=== PATIENT | female | born 1940 | race Caucasian/White ===

== ENCOUNTER 2016-12-22 16:49 | Inpatient (IN) | payer MEDICARE ==
[~2016-12-22] VITALS: Ht 157.5 cm; Wt 77.2 kg
[~2016-12-22 16:49] MED LIST: ASPI81TA11 PO; COUM2.5T11 PO; HYDR25TAB PO; LYRI75CA PO; MELO7.5T6 PO; METF850T PO; OMEP20CA3 PO; TYLE325T5 PO; ULTR50TA PO; VENL50TA2 PO; ZEST1TAB9 PO; alphagan OU; estrace cream; lumigan OU
[2016-12-22 19:30] VITALS: BP 135/92
[2016-12-22] MEDS ORDERED: ONDANSETRON 4MG/2ML VIAL (J2405) IV PRN (19:45)
[2016-12-22] MEDS ORDERED: METOPROLOL 5 MG/5 ML VIAL IV STA ×2 (20:12→20:54)
[2016-12-22] MEDS ORDERED: DEXTROSE 50% 50 ML SYRINGE IV PRN (20:15)
[2016-12-22] MEDS ORDERED: GLUCOSE 4 GM CHEW TABLET PO PRN (20:15)
[2016-12-22] MEDS ORDERED: GLUCAGON FOR INJ 1 MG VIAL (J1610) SC PRN (20:15)
[2016-12-22] MEDS: HumaLOG INSULIN (NovoLOG) PER UNIT SC SCH (20:30)
[2016-12-22] MEDS: ENOXAPARIN 80 MG/0.8 ML SYRINGE (J1650) SC SCH (21:00)
[2016-12-22] MEDS: OMEPRAZOLE 20 MG CAP PO SCH (21:00)
[2016-12-22] MEDS: ACETAMINOPHEN TAB 650MG DOSE (2X325MG) PO PRN (21:29)
[2016-12-22] MEDS ORDERED: VANCOMYCIN HCL 1,000 MG, VIAL MATE ADAPTER 1 EACH in D5W 250 ML IV ONE (22:00)
[2016-12-22] MEDS: NORCO, ANEXSIA 5/325MG TABLET (HYDROcodone/ACETAMINOPHEN) PO PRN (22:26)
--- NOTE | 2016-12-22 22:26 | HPE ---
DATE OF ADMISSION: 12/22/2016 PRIMARY CARE PROVIDER: Dr. Bennett. SHEET TAILER: Dr. Drake. CHIEF COMPLAINT: Chest pain, nausea, fever. HISTORY OF PRESENT ILLNESS: This is a 76-year-old female patient with underlying medical history of rheumatoid arthritis, type 2 diabetes, hypertension, initially presented to [facility], initially developed an episode of chest pain on this week with one episode of nausea and vomiting. Chest pain last 1-2 hours, subsequently resolved. Baseline ambulating with a cane. The patient presented to [facility] at [facility], had three sets of cardiac enzymes which were negative. While at [facility], the patient developed episode of fever of 101, and also developed atrial fibrillation with rapid ventricular response, given beta blockers. Has not been started on anticoagulation as per [facility] attending physician. Furthermore, the patient reported three episodes of diarrhea over the last 24 hours. Denies history of atrial fibrillation. Denies any palpitations, but does report generalized weakness. Furthermore, currently the patient denies any chest pain. No further episode of chest pain since . Denies any abdominal pain. Reported coughing. No shortness of breath. The patient is on methotrexate for rheumatoid arthritis. Subsequently arrangements were made for patient to be transferred from [facility] to [facility] for further diagnosis and workup for fever of unknown origin and further management of atrial fibrillation with rapid ventricular response. The patient currently denies any nausea or vomiting, but does feel very weak. Denies any abdominal pain. Denies any vision change. Reported palpitations. Reported cough nonproductive. Denies any urinary complaints, any bruising, redness, or any other source of infection at this time. No recent surgery reported. Denies any headache or neck stiffness. ALLERGIES: No known drug allergies. PAST MEDICAL HISTORY: 1. Rheumatoid arthritis. 2. Type 2 diabetes. 3. Hypertension. PAST SURGICAL HISTORY: 1. Cholecystectomy. 2. Hysterectomy. 3. Bilateral hand surgery. 4. Bilateral foot surgery. 5. Knee replacement surgery right side. SOCIAL HISTORY: The patient is retired, lives alone at home. Denies smoking. Drinks alcohol beverages like wine once a year. FAMILY HISTORY: Denies family history of cancer or coronary arterial disease or clotting disorder. REVIEW OF SYSTEMS: The patient reported episode of chest pain on . Reported nausea and vomiting and diarrhea as mentioned in the history of present illness (HPI). Other review of systems has been negative. HOME MEDICATIONS: - acetaminophen 650 mg by mouth every four hours as needed - hydrochlorothiazide 25 mg by mouth daily - lisinopril 40 mg by mouth daily - metformin 850 mg by mouth twice a day - omeprazole 20 mg by mouth twice a day - Lyrica 75 mg by mouth twice a day - tramadol 50 mg by mouth every 12 hours as needed and 100 mg by mouth every four hours as needed - venlafaxine 150 mg by mouth daily - Coumadin that was new for the patient, just started 5 mg by mouth daily - Alphagan eye drops twice a day PHYSICAL EXAMINATION: VITAL SIGNS: Temperature 100.5, initial heart rate 150s, currently 118 after Lopressor intravenous (IV) push 5 mg twice, respirations 20, blood pressure 136/92, pulse oximetry 94% on room air. GENERAL: Patient alert and oriented times three in no acute distress. HEENT: Normocephalic, atraumatic. PULMONARY: Bilaterally clear to auscultation. CARDIAC: Irregularly irregular, tachycardia. ABDOMEN: Soft, nontender. Normal bowel sounds. EXTREMITIES: No edema bilateral lower extremities. NEUROLOGIC: Able to move all four extremities. No focal deficits. Cranial nerves II through XII grossly intact. No nuchal rigidity. LABORATORY DATA: Still pending. Laboratory tests at [facility] show WBC 12.4, hemoglobin and hematocrit 13 over 38, platelets 179. Sodium 136, potassium 3.2, chloride 99, bicarbonate 24, BUN 17, creatinine 1, glucose 247, lactic acid negative. EKG shows atrial fibrillation with rapid ventricular rate. ASSESSMENT AND PLAN: This is a 76-year-old female patient with underlying medical history of rheumatoid arthritis, diabetes, cataract, hypertension, initially admitted to [facility] under observation for chest pain, developed atrial fibrillation with rapid ventricular response and also episode of fever of unknown origin. Subsequently, the patient was transferred to [facility] for further workup given the patient is immunocompromised on methotrexate. 1. Atrial fibrillation with rapid ventricular response. Lopressor IV 5 mg push twice and Lopressor 12.5 mg by mouth every six hours. Titrate as needed based on heart rate and blood pressures. Different anticoagulation has been discussed with the patient. The patient has been deciding on which anticoagulation she will prefer. Currently the patient will be on Lovenox subcutaneous every 12 hours until patient decides. Will give CT angiogram to rule out pulmonary embolism, given patient's tachycardia with mild tachypnea, and is at the baseline inflammatory stage due to rheumatoid arthritis. Followup cardiac enzymes, thyroid stimulating hormone (TSH), echocardiogram, telemetry monitoring. 2. Fever of unknown origin. Possible etiology includes infectious versus inflammatory due to rheumatoid arthritis. Followup erythrocyte sedimentation rate (ESR), C-reactive protein (CRP), blood cultures. Urinalysis (UA) has been negative. X-ray has been negative at [place]. Will give CT angiogram and CT of the abdomen. Sputum, gastrointestinal (GI) panel, respiratory panel. Empirically started on Zosyn and vancomycin, given patient is immunocompromised due to rheumatoid arthritis. Blood culture has been obtained. IV fluids for gentle hydration. 3. Hypokalemia, hypomagnesemia. Supplement as needed. Followup potassium and magnesium. 4. Hypertension. Given patient's atrial fibrillation with rapid ventricular response, holding angiotension-converting enzyme (BLANCA) inhibitors and hydrochlorothiazide. Patient on beta zoë. Titrate as needed. Restart blood pressure medication as needed. 5. Diabetes. Hold metformin given getting CT scans. Insulin as per protocol. Followup A1c. 6. History of glaucoma. Continue medication as ordered. 7. Rheumatoid arthritis. Given patient is febrile with unknown source of infection, holding oral medication for now. Will continue to follow. Followup ESR, CRP, followup cultures. 8. Deep venous thrombosis (DVT) prophylaxis. Patient on treatment dose Lovenox, given patient's new onset atrial fibrillation. Will consider the type of anticoagulation once the patient makes up her mind. DISPOSITION: Pending further workup, physical therapy.
[2016-12-22 22:39] LABS: INR 1.29
[2016-12-22 22:40] LABS: MEAN CORPUSCULAR HGB CONC 34.4 g/dl (32.0-36.5); MEAN CORPUSCULAR VOLUME 92.8 fl (80.0-96.0); PLATELET COUNT, AUTOMATED 220 k/mm3 (150-450); RED CELL DISTRIBUTION WIDTH 15.1 % (11.5-14.5); WHITE BLOOD COUNT 14.6 K/mm3 (4.0-10.0)
[2016-12-22] MEDS ORDERED: ASPI81TAEC PO (22:40)
[2016-12-22] MEDS ORDERED: OXYB5TA PO (22:40)
[2016-12-22] MEDS ORDERED: AMLO5TAB2 PO (22:40)
[2016-12-22] MEDS ORDERED: VENL37.598 PO (22:40)
[2016-12-22] MEDS ORDERED: BIMA01SOL OU (22:40)
[2016-12-22] MEDS ORDERED: GABA-279 PO (22:40)
[2016-12-22] MEDS ORDERED: GLIP-162 PO (22:40)
[2016-12-22] MEDS ORDERED: HYDR25TAB PO (22:40)
[2016-12-22] MEDS ORDERED: ESTR1CRE PV (22:40)
[2016-12-22] MEDS ORDERED: METF850T PO (22:40)
[2016-12-22] MEDS ORDERED: BRIM1OPD OU (22:40)
[2016-12-22] MEDS ORDERED: METH2.5TA PO (22:40)
[2016-12-22 22:44] LABS: ALBUMIN 2.9 GM/DL (3.2-5.2); ALBUMIN/GLOBULIN RATIO 0.67 (1.00-1.93); ALT/SGPT 50 U/L (12-78); ANION GAP 11 MEQ/L (8-16); AST/SGOT 51 U/L (15-37); BILIRUBIN,TOTAL 1.4 MG/DL (0.2-1.0); CALCIUM LEVEL 8.2 MG/DL (8.8-10.2); CARBON DIOXIDE LEVEL 27 MEQ/L (21-32); CHLORIDE LEVEL 97 MEQ/L (98-107); CREATININE FOR GFR 0.79 MG/DL (0.55-1.02); GLOMERULAR FILTRATION RATE > 60.0 (>39); GLUCOSE, FASTING 141 MG/DL (83-110); MAGNESIUM LEVEL 1.6 MG/DL (1.8-2.4); POTASSIUM SERUM 3.5 MEQ/L (3.5-5.1); SODIUM LEVEL 135 MEQ/L (136-145); T UPTAKE 38 % (30-39); TOTAL PROTEIN 7.2 GM/DL (6.4-8.2)
[2016-12-22] MEDS ORDERED: VITMTA PO (22:46)
[2016-12-22] MEDS ORDERED: FOLI1TAB2 PO (22:46)
[2016-12-22] MEDS ORDERED: ALBU17IN INH (22:46)
[2016-12-22 22:50] LABS: ALKALINE PHOSPHATASE 71 U/L (45-117); BLOOD UREA NITROGEN 14 MG/DL (7-18)
[2016-12-22] MEDS ORDERED: HUMI40KI SC (22:59)
[2016-12-22] MEDS ORDERED: VANCOMYCIN HCL 500 MG in D5W MINI-BAG PLUS 100 ML IV ONE (23:00)
--- NOTE | 2016-12-22 23:00 | PHACANCOPD ---
PHARMACY VANCOMYCIN DOSING Pt Demographics Demographics Patient Age:76 , Weight:85.300 , Gender: female Adjusted Body Weight Date: 12/22/16, Adjusted Body Weight: [64.2] Kg Events Past 24 Hours Events Past 24 Hours: NO: Dialysis, Diuretic Therapy, Change in CrCl, Fever, Elevation in WBC, Pending Diagnostics, Pending Procedures, Other Vancomycin Vancomycin Target Ranges: 15-20 mcg/ml Vancomycin Load Y/N: Yes Load Dose Date Time Vancomycin Load Dose: 1500MG Date: 12-22 Time: 2200 Vancomycin Dose Date: 12/22/16. Current Vancomycin Dose: [1000MG Q12H] Intermittent Dosing?: No Labs Labs Item Value Date Time White Blood Count 14.6 K/mm3 H 12/22/162153 Creatinine 0.79 MG/DL 12/22/162153 Vital Signs Label Value Date Time Patient Temperature 101.0 degrees F 12/22/162128 Micro Microbiology 12/22/16 Blood Culture, Received Pending Creatinine Clearance Date:12/22/16. Creatinine Clearance: [45]. Pending Labs Trough 12-23 @2100 Assessment and Plan Maintaining Current Dose?: Yes Reason for dose change: No Dose Change Pharmacist Note Pharmacist Note Date: 12/22/16. Pharmacist note:Dosed at 1000mg q12h with a trough ordered for 05 @2100. Will continue to monitor and make adjustments as needed. [facility] December 22, 2016 23:00
[2016-12-22] MEDS ORDERED: ISOVUE-370 76% 100ML VIAL (Q9967) As Ordered ONE (23:23)
[2016-12-23] VITALS (7 sets, daily range): BP systolic 106–140; BP diastolic 59–76
--- NOTE | 2016-12-23 | REPUSA ---
CT of the abdomen and pelvis with contrast Clinical statement: nausea, vomiting, diarrhea. Technique: Multiple axial CT images were obtained from the base of the lungs through the floor of the pelvis utilizing 5 mm axial slices after administration of nonionic intravenous contrast. Coronal an d sagittal reconstructions were also obtained. Comparison: None. Findings: Chest: The visualized lung bases demonstrate bilateral pleural effusions and lower lobe atelectasis. Abdomen: The spleen, pancreas, kidneys, and adrenal glands are unremarkable. There is diffuse low att enuation of the liver. The liver is enlarged, measuring 24.1 cm in diameter. The aorta is within norm al limits. There is no evidence of abdominal lymphadenopathy. There is a trace amount of abdominal as cites in the right upper quadrant. Pelvis: The bowel is unremarkable, with no obstructive or inflammatory changes. The urinary bladder i s within normal limits. The other pelvic structures appear grossly intact. There is no evidence of pe lvic lymphadenopathy. There is a moderate amount of pelvic ascites. Bones: There are no suspicious osseous abnormalities seen. Mild spondylosis of the spine is noted. Impression: 1. No obstructive or inflammatory bowel changes. 2. Small amount of abdominal ascites, predominately the right upper quadrant. Moderate amount of pelv ic ascites. 3. Bilateral pleural effusions and lower lobe atelectasis. 4. Hepatomegaly with diffuse fatty infiltration of the liver.
--- NOTE | 2016-12-23 | REPUSA ---
CT angiogram of the chest Clinical statement: Chest pain and shortness of breath. Technique: Multiple axial CT images were obtained from the thoracic inlet through the upper abdomen a fter a bolus administration of nonionic intravenous contrast. Coronal and sagittal reconstructions we re also obtained. Comparison: None. Findings: The pulmonary arteries are well-opacified with contrast, with no intraluminal filling defec ts to suggest embolism. The thoracic aorta is unremarkable. Thyroid gland is within normal limits. Th ere is no thoracic lymphadenopathy. There are moderate sized bilateral pleural effusions or lower lob e atelectasis. Scattered infiltrates are seen throughout the right lung and within the left lower lob e as well. Limited imaging of the upper abdomen is unremarkable. There are no suspicious osseous lesi ons. Impression: 1. No evidence of pulmonary embolism. 2. Moderate sized bilateral pleural effusions and lower lobe atelectasis. Scattered infiltrates thro ughout the right lung. Patchy infiltrates in the left lower lobe as well.
[2016-12-23] MEDS: KCL 20MEQ in NS 1000ML 1,000 ML IV SCH ×2 (00:15→08:51)
[2016-12-23] MEDS: PIPERACILLIN/TAZOBACTAM SOD 3.375 GM in D5W MINI-BAG PLUS 50 ML IV SCH ×3 (00:18→15:51)
[2016-12-23] MEDS: METOPROLOL TART 12.5 MG PER 1/2 TAB PO SCH ×3 (00:18→12:16)
[2016-12-23] MEDS: traMADol 50 MG TAB PO PRN (01:42)
[2016-12-23] MEDS: ACETAMINOPHEN TAB 650MG DOSE (2X325MG) PO PRN ×2 (01:47→18:57)
[2016-12-23 04:25] LABS: MEAN CORPUSCULAR HEMOGLOBIN 32.4 pg (27.0-33.0); MEAN CORPUSCULAR VOLUME 92.4 fl (80.0-96.0); WHITE BLOOD COUNT 12.5 K/mm3 (4.0-10.0)
[2016-12-23 04:32] LABS: INR 1.37
[2016-12-23 04:42] LABS: ALBUMIN 2.5 GM/DL (3.2-5.2); ALBUMIN/GLOBULIN RATIO 0.76 (1.00-1.93); ALKALINE PHOSPHATASE 62 U/L (45-117); ALT/SGPT 43 U/L (12-78); ANION GAP 8 MEQ/L (8-16); AST/SGOT 40 U/L (15-37); BILIRUBIN,TOTAL 1.2 MG/DL (0.2-1.0); BLOOD UREA NITROGEN 13 MG/DL (7-18); CALCIUM LEVEL 7.5 MG/DL (8.8-10.2); CARBON DIOXIDE LEVEL 26 MEQ/L (21-32); CHLORIDE LEVEL 100 MEQ/L (98-107); CREATININE FOR GFR 0.63 MG/DL (0.55-1.02); GLOMERULAR FILTRATION RATE > 60.0 (>39); GLUCOSE, FASTING 168 MG/DL (83-110); MAGNESIUM LEVEL 1.7 MG/DL (1.8-2.4); POTASSIUM SERUM 3.3 MEQ/L (3.5-5.1); SODIUM LEVEL 134 MEQ/L (136-145); TOTAL PROTEIN 5.8 GM/DL (6.4-8.2)
[2016-12-23] MEDS: HumaLOG INSULIN (NovoLOG) PER UNIT SC SCH ×4 (08:52→21:00)
[2016-12-23] MEDS: PREGABALIN 75 MG CAP(LYRICA) PO SCH ×2 (08:52→21:54)
[2016-12-23] MEDS: VENLAFAXINE **XR** 75MG CAPSULE PO SCH (08:52)
[2016-12-23] MEDS: ENOXAPARIN 80 MG/0.8 ML SYRINGE (J1650) SC SCH (08:52)
[2016-12-23] MEDS: OMEPRAZOLE 20 MG CAP PO SCH ×2 (08:52→21:53)
[2016-12-23] MEDS: BRIMONIDINE 0.1% OPHTH SOLN 5 ML OU SCH ×3 (08:53→21:53)
[2016-12-23] MEDS ORDERED: VANCOMYCIN HCL 1,000 MG, VIAL MATE ADAPTER 1 EACH in D5W 250 ML IV SCH (10:00)
[2016-12-23] MEDS: NORCO, ANEXSIA 5/325MG TABLET (HYDROcodone/ACETAMINOPHEN) PO PRN (11:00)
[2016-12-23] MEDS ORDERED: POTASSIUM CHLORIDE 10 MEQ SR TABLET PO ONE (12:30)
[2016-12-23] MEDS ORDERED: MAG SULF 1GM/100ML (MAG RUN) 1 GM in APPROPRIATE DILUENT 1 EA IV ONE (12:30)
[2016-12-23] MEDS ORDERED: ATENOLOL 25 MG TAB PO ONE (15:15)
--- NOTE | 2016-12-23 16:38 | ECGEPIP ---
Stationary ECG Study [facility] Test Date: 2016-12-22 Pat Name: MAEGAN FULLER Department: PCU Room: [place] [address] Gender: F [employer]: JEREMY : 1940 Requested By: KEELY MCGEE Order Number: [id number] Reading MD: Pavan Solis Measurements Intervals [place] Rate: 139 P: CA: 0 QRS: 23 QRSD: 97 T: 9 QT: 282 QTc: 430 Interpretive Statements ATRIAL FIBRILLATION WITH RAPID VENTRICULAR RESPONSE NONSPECIFIC T-WAVE ABNORMALITY ABNORMAL RHYTHM ECG LAST TRACING ON 09/28/2014 AT 12:27:42. ATRIAL FIBRILLATION SEEMS TO BE NEW Electronically Signed On 12-23-2016 16:37:43 EDT by Pavan Solis
[2016-12-23] MEDS ORDERED: METOPROLOL 5 MG/5 ML VIAL IV ONE (17:30)
[2016-12-23] MEDS ORDERED: IBUPROFEN 600 MG TAB PO PRN (21:00)
--- NOTE | 2016-12-23 21:52 | PHACANCOPD ---
PHARMACY VANCOMYCIN DOSING Pt Demographics Demographics Patient Age:76 , Weight:85.500 , Gender: female Adjusted Body Weight Date: 12/22/16, Adjusted Body Weight: [64.2] Kg Events Past 24 Hours Events Past 24 Hours: NO: Dialysis, Diuretic Therapy, Change in CrCl, Fever, Elevation in WBC, Pending Diagnostics, Pending Procedures, Other Vancomycin Vancomycin Target Ranges: 15-20 mcg/ml Vancomycin Load Y/N: Yes Load Dose Date Time Vancomycin Load Dose: 1500MG Date: 12-22 Time: 2200 Vancomycin Dose Date: 12/23/16. Current Vancomycin Dose: [1000MG Q8H] Intermittent Dosing?: No Labs Labs Item Value Date Time White Blood Count 12.5 K/mm3 H 12/23/162 Creatinine 0.63 MG/DL 12/23/16411 Vancomycin Level Trough 10.5 UG/ML 12/23/162055 Vital Signs Label Value Date Time Patient Temperature 102.6 degrees F 12/23/161912 Temperature Source Temporal 12/23/161912 Micro Microbiology 12/23/16 Blood Culture, Received Pending 12/23/16 Blood Culture, Received Pending 12/22/16 Blood Culture, Received Pending 12/22/16 Blood Culture, Received Pending Creatinine Clearance Date:12/22/16. Creatinine Clearance: [45]. Pending Labs Trough 05- @2100 Assessment and Plan Maintaining Current Dose?: No Reason for dose change: Trough too low Pharmacist Note Pharmacist Note Date: 12/22/16. Pharmacist note:Increased dose to 1000mg q8h with a trough ordered for 05- @2100. Will continue to monitor and make adjustments as needed. [facility] December 23, 2016 21:52
[2016-12-23] MEDS: APIXABAN 5 MG TAB (ELIQUIS) PO SCH (21:54)
[2016-12-23] MEDS: VANCOMYCIN HCL 1,000 MG, VIAL MATE ADAPTER 1 EACH in D5W 250 ML IV SCH (21:55)
--- NOTE | 2016-12-23 22:08 | IPN ---
DATE: 12/23/2016 SUBJECTIVE: Ms. Lima is a 76-year-old female who was seen and examined at the bedside. The patient denies chest pain, orthopnea or paroxysmal nocturnal dyspnea (PND). The patient also denies nausea or vomiting, diarrhea or constipation, palpitations, racing or skipping heart beat. However, the patient expressed that she feels tired. OBJECTIVE: VITAL SIGNS: Temperature 97.5, pulse 62, respiratory rate 18, blood pressure 116/65, pulse oximetry 95% on room air. Total intake from yesterday zero. Total output 200. GENERAL APPEARANCE: The patient was lying in bed in no acute distress. The patient was awake, alert, and oriented to time, place, and person. HEENT: Normocephalic, atraumatic. Pupils are equal and reactive to light. Oral mucosa is moist. NECK: Soft, supple. No lymphadenopathy, no thyromegaly. HEART: Irregularly irregular. PULMONARY: Clear breath sounds bilaterally. Good air movement. ABDOMEN: Soft, no tenderness to palpation. Positive bowel sounds in all quadrants. EXTREMITIES: No lower extremity edema. Plus two pulses in both lower extremities. LABORATORY DATA: White blood cells 12.5, red blood cells 3.79, hemoglobin 12.3, hematocrit 35, MCV 92.4, MCH 32.4, MCHC 35, RDW 15, platelet count 216. Sodium 134, potassium 3.3, chloride 100, carbon dioxide 26, anion gap 8, BUN 13, creatinine 0.63, glomerular filtration rate more than 60, fasting glucose 116. Calcium 7.5, magnesium 1.7, total bilirubin 1.2, AST 40, ALT 43, alkaline phosphatase 62. C-reactive protein 10.9. Total protein 5.8, albumin 2.5. ASSESSMENT AND PLAN: 1. Atrial fibrillation with rapid ventricular response. Unfortunately, the patient's heart rate is not controlled and the highest recorded is 140. The patient received intravenous (IV) Lopressor, as well as oral Lopressor; however, the patient continued to have uncontrolled rate. At this time, I have stopped Lopressor and started the patient on atenolol 25 mg daily. Also, the patient's CHADS2-VASC score calculated to be four. I spoke with the patient regarding anticoagulation, and patient agreed. I have started the patient on Eliquis 5 mg twice a day and I stopped the Lovenox. The patient's thyroid stimulating hormone (TSH) level is normal. Echocardiogram is ordered; however, result is pending at this time. The patient continues to have atrial fibrillation on telemetry. 2. Fever of unknown origin. Blood culture is still pending. Urinalysis (UA) did not show possibility of urinary tract infection (UTI); however, urine culture is pending. At this time, the patient is on vancomycin. At this point, we will continue patient on the current dosage of vancomycin and Zosyn, given the patient is immunocompromised due to rheumatoid arthritis. The patient is also on intravenous (IV) gentle fluid. However, I have stopped IV fluid as this patient is tolerating oral well. We will continue to monitor patient for any abnormal symptoms. 3. Hypokalemia. The patient received one dose of potassium 40 mEq. We will check the potassium again tomorrow. 4. Hypomagnesemia. The patient received one dose of one mag run, and we will check the magnesium level again tomorrow. 5. Hypertension. The patient is on beta zoë. At home the patient is on Norvasc; however, we held this medication at this time. The patient's blood pressure is stable at this time. 6. Diabetes. At this time, we will continue the patient on sliding scale. At home, the patient is on metformin. We are holding this medication. Also, the patient is on consistent carbohydrate. 7. History of glaucoma. The patient is on home medication. 8. Rheumatoid arthritis. The patient is febrile of unknown source. This is possible that it is secondary to infection due to rheumatoid arthritis causing immunodeficiency. The patient has elevated C-reactive protein; however, it has decreased compared to yesterday. She also has elevated erythrocyte sedimentation rate (ESR). However, at this time the patient is on vancomycin and Zosyn. 9. Deep venous thrombosis (DVT) prophylaxis. The patient was on Lovenox; however , I have stopped this medication since I have started the patient on Eliquis. My preceptor for this patient encounter was Dr. Ganesh Sood. The preceptor was physically present in the building during the encounter and was fully available as needed. All aspects of the patient interview, examination, medical decision making process, and medical care plan development were reviewed and approved by the preceptor. The preceptor is aware and concurs with the plan as stated in the body of this note and will attest to such by his/her co-signature. Attending Note: I have independently examined this patient and all aspects of the exam and treatment decisions have been discussed with the resident. A member of the hospitalist staff will continue to follow this patient through discharge. MIQUEL
[2016-12-24] VITALS (19 sets, daily range): BP systolic 104–134; BP diastolic 65–87
[2016-12-24] MEDS: PIPERACILLIN/TAZOBACTAM SOD 3.375 GM in D5W MINI-BAG PLUS 50 ML IV SCH ×3 (01:15→16:00)
[2016-12-24] MEDS: METOPROLOL 5 MG/5 ML VIAL IV PRN ×2 (01:18→06:57)
[2016-12-24 05:49] LABS: INR 1.25
[2016-12-24 05:54] LABS: MEAN CORPUSCULAR HEMOGLOBIN 31.7 pg (27.0-33.0); MEAN CORPUSCULAR HGB CONC 33.9 g/dl (32.0-36.5); MEAN CORPUSCULAR VOLUME 93.6 fl (80.0-96.0); WHITE BLOOD COUNT 7.3 K/mm3 (4.0-10.0)
[2016-12-24] MEDS: VANCOMYCIN HCL 1,000 MG, VIAL MATE ADAPTER 1 EACH in D5W 250 ML IV SCH ×3 (06:09→22:48)
[2016-12-24 06:14] LABS: ALBUMIN 2.7 GM/DL (3.2-5.2); ALBUMIN/GLOBULIN RATIO 0.64 (1.00-1.93); ALKALINE PHOSPHATASE 67 U/L (45-117); ALT/SGPT 52 U/L (12-78); ANION GAP 11 MEQ/L (8-16); AST/SGOT 56 U/L (15-37); BILIRUBIN,TOTAL 1.2 MG/DL (0.2-1.0); BLOOD UREA NITROGEN 12 MG/DL (7-18); CALCIUM LEVEL 8.4 MG/DL (8.8-10.2); CARBON DIOXIDE LEVEL 24 MEQ/L (21-32); CHLORIDE LEVEL 101 MEQ/L (98-107); CREATININE FOR GFR 0.63 MG/DL (0.55-1.02); GLOMERULAR FILTRATION RATE > 60.0 (>39); GLUCOSE, FASTING 115 MG/DL (83-110); MAGNESIUM LEVEL 1.6 MG/DL (1.8-2.4); SODIUM LEVEL 136 MEQ/L (136-145); TOTAL PROTEIN 6.9 GM/DL (6.4-8.2)
[2016-12-24] MEDS: PREGABALIN 75 MG CAP(LYRICA) PO SCH ×2 (06:35→20:57)
[2016-12-24] MEDS: VENLAFAXINE **XR** 75MG CAPSULE PO SCH (06:35)
[2016-12-24 06:57] LABS: ABG BASE EXCESS -2.7 (-2.0-2.0); ABG HCO3 19.1 MEQ/L (22.0-26.0); ABG PARTIAL PRESSURE CO2 25.7 mmHg (35.0-45.0); ABG STANDARD HCO3 22.2 MEQ/L (22.0-26.0); ABG TOTAL CO2 19.9 MEQ/L (23.0-31.0)
[2016-12-24] MEDS: HumaLOG INSULIN (NovoLOG) PER UNIT SC SCH ×4 (07:30→21:00)
[2016-12-24] MEDS ORDERED: FUROSEMIDE 40 MG/4 ML VIAL (J1940) IV ONE (08:00)
--- NOTE | 2016-12-24 08:02 | REP ---
Clinical: Chest pain. Comparison: 08/02/2015. Findings: Perihilar and subtle lower lobe opacities (right greater than left) suggest elements of atelectasis. Small layering effusions cannot be excluded. No pneumothorax. Mediastinum and cardiac silhouette are stable. Skeletal structures are intact. Impression: Subtle perihilar and lower lobe opacities (right greater than left) suggest scattered atelectasis. Cannot exclude small layering effusion. Signed by Gianni Islas MD 12/24/2016 07:54 A
[2016-12-24] MEDS: APIXABAN 5 MG TAB (ELIQUIS) PO SCH ×2 (08:41→20:57)
[2016-12-24] MEDS: BRIMONIDINE 0.1% OPHTH SOLN 5 ML OU SCH ×2 (08:42→22:48)
[2016-12-24] MEDS: OMEPRAZOLE 20 MG CAP PO SCH ×2 (08:42→20:57)
[2016-12-24] MEDS: ATENOLOL 25 MG TAB PO SCH (08:42)
--- NOTE | 2016-12-24 10:47 | IPN ---
DATE OF SERVICE: 12/24/2016 Ms. Lima is a pleasant 76-year-old female seen at bedside. She did have some slight chest discomfort through the night last night and has continued to have atrial fibrillation. Maximum temperature (Tmax) yesterday evening, as well, was 102.6. Blood cultures were drawn, as well as repeat chest x-ray. She denies any specific complaints this morning. OBJECTIVE: Temperature is 98.9, pulse 118 and irregular, respiratory rate is 20 nonlabored, blood pressure (BP) 120/80, SpO2 is 92% on room air. General: The patient appears to be in no acute distress. Is alert, pleasant. HEENT: Unremarkable. Lungs: Clear. Heart: Irregularly irregular. Abdomen: Soft. Extremities: No edema. No calf tenderness. LABORATORY DATA: White count is 7.3, hemoglobin 12.6, platelets 270,000. Sodium 136, potassium 4.0, chloride 101, bicarbonate 24, anion gap 11, BUN is 12, creatinine 0.63, glucose 115, magnesium 1.6 which will supplement, total bilirubin 1.2, AST is 56, ALT 52, alkaline phosphatase 67, troponin less than 0.02, BNP is 603. Her chest x-ray this morning does show some perihilar and lower lobe opacities, right greater than left. Some atelectasis. She also does appear to have some small layering effusion and appears to have some cephalization of the pulmonary vasculature. ASSESSMENT AND PLAN: 1. Atrial fibrillation with rapid ventricular response (RVR), difficult to control. She was given atenolol yesterday. She did receive a few doses of intravenous (IV) Lopressor and still continues to have elevated heart rate. TSH is unremarkable. However, she does appear to be in decompensated congestive heart failure. Will give her 40 of Lasix IV. Echocardiogram is pending at this time, and I have requested Dr. Solis to see the patient on consult. Her congestive heart failure, hypertension, age, diabetes, stroke (CHADS)-vascular disease, age, sex category (VASc) score is 4, and she has been started on Eliquis at this point. 2. Congestive heart failure, unknown ejection fraction. 2D echocardiogram is pending. Appreciate Dr. Solis's further input. 3. Fever of unknown origin. Urinalysis has been unremarkable. Blood cultures are pending. IV fluids have been discontinued as of yesterday. She continues on broad-spectrum antibiotics while we are awaiting further workup and culture results. 4. Hypokalemia, repleted. 5. Hypomagnesemia. Will replete today. 6. Hypertension. Continues on beta zoë, as well as Norvasc. Appreciate Dr. Solis's further input, whether or not to increase beta zoë versus adding on digoxin. Also, she did receive a one-time dose of Lasix. 7. Diabetes. Will continue fingersticks. Metformin is on hold. Consistent-carbohydrate diet and will cover with sliding scale insulin per [facility] protocol. 8. History of glaucoma, stable. 9. Rheumatoid arthritis. Again, she may have some immunosuppression. She does have an elevated temperature. Continue with Zosyn and vancomycin for the time being and await culture results. 10. Deep venous thrombosis (DVT) prophylaxis. Is on Eliquis.
[2016-12-24] MEDS: MAG SULF 1GM/100ML (MAG RUN) 1 GM in APPROPRIATE DILUENT 1 EA IV SCH ×2 (11:11→12:24)
--- NOTE | 2016-12-24 13:00 | ECHO ---
DATE OF SERVICE: 12/23/2016 REFERRING PROVIDER: Dr. Rico PATIENT LOCATION: Room 3221 REASON FOR ECHOCARDIOGRAM: Atrial fibrillation. 2D MEASUREMENTS: IVS: 1.3 cm LV: 3.7 cm LVPW: 1.4 cm LA: 4.7 cm Aorta: 3.1 cm IVC: 2.2 cm DOPPLER MEASUREMENTS: Mitral E: 1.8 Maximum tricuspid valve velocity: 3.0 m/s 2D COMMENTS: 1. Mildly increased left ventricular wall thickness with normal left ventricular size and a normal left ventricular systolic function. The estimated global left ventricular systolic ejection fraction is 60-65%. 2. Mildly enlarged left atrium. The right atrium also appeared to be mildly enlarged. Normal right ventricle. 3. The atrial septum appeared to be normal without evidence of defect or shunt. 4. Normal aortic root. 5. Trace to small pericardial effusion noted around the heart, no evidence of cardiac tamponade. A left pleural effusion also was noted. 6. Minimal calcified aortic valve with normal leaflet excursion. Mildly calcified mitral annulus with normal anterior mitral valve leaflet motion. Normal tricuspid valve and pulmonic valve. The proximal pulmonary artery branches also appear to be normal. 7. The inferior vena cava was mildly enlarged, central venous pressure is most likely elevated. DOPPLER: It detects mild pulmonic regurgitation and moderate tricuspid regurgitation. No significant mitral regurgitation detected. The calculated pulmonary artery systolic pressure varied between 40 to 50 mmHg. Assessment of the left ventricular diastolic function was limited in view of the underlying atrial fibrillation. IMPRESSION: 1. Normal global left ventricular systolic function with mild concentric left ventricular hypertrophy. 2. Aortic valve sclerosis without stenosis or aortic regurgitation. 3. Mildly dilated left atrium, no significant mitral regurgitation. The dilated left atrium is most likely related to underlying left ventricular diastolic dysfunction and the atrial fibrillation. 4. Moderate tricuspid regurgitation with moderate pulmonary hypertension and mildly enlarged right atrium. 5. Mild pulmonic regurgitation. 6. Trace to small pericardial effusion, no evidence of cardiac tamponade. 7. A left pleural effusion was noted. MTDD
--- NOTE | 2016-12-24 19:15 | ECGEPIP ---
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
[2016-12-24] MEDS ORDERED: FUROSEMIDE 20 MG/2 ML VIAL (J1940) IV ONE (20:30)
--- NOTE | 2016-12-24 21:43 | PHACANCOPD ---
PHARMACY VANCOMYCIN DOSING Pt Demographics Demographics Patient Age:76 , Weight:86.000 , Gender: female Adjusted Body Weight Date: 12/22/16, Adjusted Body Weight: [64.2] Kg Events Past 24 Hours Events Past 24 Hours: NO: Dialysis, Diuretic Therapy, Change in CrCl, Fever, Elevation in WBC, Pending Diagnostics, Pending Procedures, Other Vancomycin Vancomycin Target Ranges: 15-20 mcg/ml Vancomycin Load Y/N: Yes Load Dose Date Time Vancomycin Load Dose: 1500MG Date: 12-22 Time: 2200 Vancomycin Dose Date: 12/24/16. Current Vancomycin Dose: [1000MG Q8H] Intermittent Dosing?: No Labs Labs Item Value Date Time White Blood Count 7.3 K/mm3 12/24/16 0500 Creatinine 0.63 MG/DL 12/24/16 0500 Vancomycin Level Trough 19.1 UG/ML 12/24/162106 Vital Signs Label Value Date Time Patient Temperature 100.5 degrees F 12/24/162015 Temperature Source Temporal 12/24/162015 Micro Microbiology 12/23/16 Blood Culture - Preliminary, Resulted No growth after 24 hours . All specim... 12/23/16 Blood Culture - Preliminary, Resulted No growth after 24 hours . All specim... 12/22/16 Blood Culture - Preliminary, Resulted No growth after 24 hours . All specim... 12/22/16 Blood Culture - Preliminary, Resulted No growth after 24 hours . All specim... Creatinine Clearance Date:12/22/16. Creatinine Clearance: [45]. Assessment and Plan Maintaining Current Dose?: Yes Reason for dose change: No Dose Change Pharmacist Note Pharmacist Note Date: 12/22/16. Pharmacist note:Trough of 19.1 is within target range. Will continue current dosing. Will continue to monitor and make adjustments as needed. [facility] December 24, 2016 21:43
--- NOTE | 2016-12-24 22:38 | CR ---
DATE OF CONSULTATION: 12/24/2016 REFERRING PROVIDER: Dr. Ganesh Sood PRIMARY PROVIDER: Dr. Bennett REASON FOR CONSULTATION: Atrial fibrillation. HISTORY OF PRESENT ILLNESS: A 76-year-old woman who has hypertension and diabetes mellitus, as well as a long history of rheumatoid arthritis, has been stable but lately, she has been having increasing shortness of breath with activities, rarely with rest. She first went to [facility] in [place] and cardiac examinations were negative and while she was there, she developed a fever and she was in atrial fibrillation with rapid ventricular rate. She was transferred for further management and monitoring. Earlier today, her heart rate was going faster and cardiology consult was called. Mrs. Helena Bobosett this morning. She was supine in bed, She stated that she feels better after receiving the Lasix. She denies any chest pain. She has a cough, but denies any hemoptysis. There is no report of bleeding. There is no nausea, vomiting, diarrhea, melena or hematemesis. She has no focal manifestation. She has no dysuria, polyuria or hematuria. PAST MEDICAL HISTORY: As mentioned above. Positive for: 1. Hypertension. 2. Diabetes mellitus. 3. Rheumatoid arthritis. She denies any hyperlipidemia, obstructive coronary artery disease, myocardial infarction, congestive heart failure, cerebrovascular accident (CVA), cardiomyopathy, sudden cardiac . She denies kidney disease, thyroid disorders. She was told in the past that she had a heart murmur. PAST SURGICAL HISTORY: Positive for: 1. Cholecystectomy. 2. Hysterectomy. 3. Hand and foot surgery done bilaterally. 4. Right knee replacement. FAMILY HISTORY: Noncontributory. SOCIAL HISTORY: Patient lives alone at home and has been without aide. She denies any smoking or EtOH abuse. ALLERGIES: She has no known drug allergies. ADVANCE/ DIRECTIVES: Patient is a FULL CODE. PHYSICAL EXAMINATION: Patient is alert and oriented, in no acute distress at rest. Her vital signs this morning when I saw her revealed a blood pressure of 120/80 with a pulse that varied between 110-130, respirations 20 and her maximum temperature was 98.9 degrees Fahrenheit with an oxygen saturation of 92% on room air. Examination of the head, ears, eyes, nose and throat: Atraumatic. Neck is supple, with ascended jugular. The lungs sounds revealed minimal crackles at the bases. No wheezing. The heart examination revealed irregularly irregular heart sounds without gallops. The point of maximum impulse (PMI) is not displaced. There is no rub. There is a systolic murmur, grade 2/6, at the lower left sternal border without radiation. Abdomen is unremarkable. Extremities reveal trace bilateral ankle edema Neurologic examination grossly was negative for focal deficit. LABORATORIES: CBC done earlier today revealed a WBC 7.3, hemoglobin 12.6, hematocrit 37.1, platelets 270,000. On admission, the CBC revealed a WBC 14.6, hemoglobin 14.3, hematocrit 41.6, and platelets 220,000. BMP done today revealed a sodium 136, potassium 4.0, chloride 101, CO2 24, BUN 12, creatinine 0.6, GFR more than 60, fasting glucose 115, calcium 8.7. Magnesium 1.6. Liver enzymes done today reveal total bilirubin 1.2, AST 56, ALT 52, alkaline phosphatase 67, total protein 6.9, albumin 2.7. Brain natriuretic peptide (BNP) is 603. Serum troponin is less than 0.02 three times. Thyroid stimulating hormone (TSH) 0.98 with a Free T4 6.5 and a T4 17.0. T3 uptake 38. Lactic acid on admission was 1.9. Serum magnesium today is 1.6 and yesterday 1.7. PT today was 15.8 with an INR of 1.25. Serum vancomycin was 10.5. Electrocardiogram on admission, 12/22/2016, revealed atrial fibrillation with rapid ventricular rate of 139 beats per minute and nonspecific ST-T abnormalities. The atrial fibrillation was considered to be new when compared with prior tracing. Electrocardiogram done today, 12/24/2016, also revealed atrial fibrillation, but with a faster ventricular rate. Nonspecific ST abnormality also present. Otherwise, no remarkable changes when compared with the last tracing. CT angiogram of the chest done on 12/22/2016 was negative for pulmonary embolism , but revealed moderate-sized bilateral pleural effusion and lower lobe atelectasis and patchy infiltrates subsequently in the left lower lobe. CT of the abdomen and pelvis with IV contrast on 12/22/2016 revealed no ulcerative inflammatory bowel changes, but a small amount of abdominal ascites, mostly in the right upper quadrant, moderate amount of pelvic ascites, bilateral pleural effusion and lower lobe atelectasis, hepatomegaly with diffuse patchy infiltration of the liver. There are on obvious suspicious or osseus abnormalities. Mild spondylosis of the spine was noted. Chest x-ray on 12/24/2016 revealed mild cardiomegaly and there is blunting of the left costophrenic angle. There is also increased vascular markings consequently noted in the right lower lobe. IMPRESSION: 1. Atrial fibrillation, newly diagnosed in this 76-year-old woman with a history of hypertension, diabetes mellitus, rheumatoid arthritis and heart murmur. Patient presented with findings that may be related to features of postobstructive pneumonia, and she was started on IV antibiotics. It seems that there is a mild congestive heart failure, probably diastolic in nature, related to the underlying atrial fibrillation. She has received IV Lasix and she is feeling better. She had an echocardiogram done and it revealed a normal global left ventricular systolic function, therefore, I have added a small dose of calcium channel zoë and she will continue the beta zoë. She is on anticoagulation therapy with apixaban at 5 mg by mouth twice a day. I will continue to monitor along with you on telemetry. Her echocardiogram only revealed moderate tricuspid regurgitation. It also showed trace to small pericardial effusion. I will continue the Lasix at a small dose and will monitor her BUN and creatinine and serum potassium. 2. Hypertension. Seems to be under control with current medications. She will continue the same. 3. History of diabetes mellitus. This is being addressed. 4. Probably pneumonia. Also being addressed, on IV antibiotics. 5. Status post electrolyte abnormalities. Being corrected. It was a pleasure to participate in the care of Mrs. Helena Lima for her underlying cardiac condition. I will continue to monitor along with you while in the hospital and upon discharge as needed. She appears to be stable. MTDD
[2016-12-25] VITALS (10 sets, daily range): BP systolic 112–155; BP diastolic 56–80
[2016-12-25] MEDS: PIPERACILLIN/TAZOBACTAM SOD 3.375 GM in D5W MINI-BAG PLUS 50 ML IV SCH ×3 (00:10→16:45)
[2016-12-25] MEDS: METOPROLOL 5 MG/5 ML VIAL IV PRN (04:39)
[2016-12-25 05:21] LABS: MEAN CORPUSCULAR HEMOGLOBIN 32.1 pg (27.0-33.0); MEAN CORPUSCULAR HGB CONC 34.8 g/dl (32.0-36.5); MEAN CORPUSCULAR VOLUME 92.3 fl (80.0-96.0); RED CELL DISTRIBUTION WIDTH 14.7 % (11.5-14.5); WHITE BLOOD COUNT 8.9 K/mm3 (4.0-10.0)
[2016-12-25 05:25] LABS: INR 1.31
[2016-12-25 05:32] LABS: ALBUMIN 2.6 GM/DL (3.2-5.2); ALKALINE PHOSPHATASE 59 U/L (45-117); ALT/SGPT 53 U/L (12-78); ANION GAP 10 MEQ/L (8-16); AST/SGOT 49 U/L (15-37); BILIRUBIN,TOTAL 1.2 MG/DL (0.2-1.0); BLOOD UREA NITROGEN 11 MG/DL (7-18); CALCIUM LEVEL 7.7 MG/DL (8.8-10.2); CARBON DIOXIDE LEVEL 27 MEQ/L (21-32); CHLORIDE LEVEL 95 MEQ/L (98-107); CREATININE FOR GFR 0.74 MG/DL (0.55-1.02); GLOMERULAR FILTRATION RATE > 60.0 (>39); GLUCOSE, FASTING 149 MG/DL (83-110); MAGNESIUM LEVEL 1.5 MG/DL (1.8-2.4); POTASSIUM SERUM 3.2 MEQ/L (3.5-5.1); SODIUM LEVEL 132 MEQ/L (136-145); TOTAL PROTEIN 6.9 GM/DL (6.4-8.2)
[2016-12-25] MEDS: VANCOMYCIN HCL 1,000 MG, VIAL MATE ADAPTER 1 EACH in D5W 250 ML IV SCH ×3 (05:51→22:12)
[2016-12-25] MEDS: APIXABAN 5 MG TAB (ELIQUIS) PO SCH ×2 (08:28→22:13)
[2016-12-25] MEDS: VENLAFAXINE **XR** 75MG CAPSULE PO SCH (08:28)
[2016-12-25] MEDS: OMEPRAZOLE 20 MG CAP PO SCH ×2 (08:28→22:13)
[2016-12-25] MEDS: PREGABALIN 75 MG CAP(LYRICA) PO SCH ×2 (08:28→22:13)
[2016-12-25] MEDS: BRIMONIDINE 0.1% OPHTH SOLN 5 ML OU SCH ×2 (08:28→22:11)
[2016-12-25] MEDS: ATENOLOL 25 MG TAB PO SCH (08:29)
[2016-12-25] MEDS: HumaLOG INSULIN (NovoLOG) PER UNIT SC SCH ×4 (08:30→21:00)
[2016-12-25] MEDS: traMADol 50 MG TAB PO PRN (08:44)
[2016-12-25] MEDS ORDERED: MAG SULF 1GM/100ML (MAG RUN) 1 GM in APPROPRIATE DILUENT 1 EA IV ONE (10:30)
[2016-12-25] MEDS ORDERED: FUROSEMIDE 20 MG/2 ML VIAL (J1940) IV ONE (10:30)
--- NOTE | 2016-12-25 10:54 | IPN ---
DATE: 12/25/2016 Helena is seen on progressive care unit (PCU) while rounding for the hospitalist. She has atrial fibrillation with rapid ventricular response. Her echocardiogram returned showing dilated left atrium 47 mm, ejection fraction of 60 to 65%, moderate pulmonary hypertension, dilated right atrium noted. Heart rate is still elevated between 100 and 120 on average, per review of telemetry strip. She also has some wheezing today. PHYSICAL EXAMINATION: 185/75, pulse of 120, 97% oxygen saturation on 2 liters. GENERAL APPEARANCE: She is comfortable at rest. No jugular venous distention (JVD). LUNGS: Decreased breath sounds. Expiratory wheezes at the bases. HEART: Regular rate and rhythm. Rate of 120. 1/6 systolic ejection murmur. ABDOMEN Soft, nontender. No masses. EXTREMITIES: Trace peripheral edema. LABORATORIES: CBC unremarkable. Sodium 132, potassium 3.2, BUN 11, creatinine 0.7, magnesium 1.5. IMPRESSION: 1. Atrial fibrillation with rapid ventricular response. She is anticoagulated with Eliquis. Her rate is not under adequate control. We will increase the diltiazem dose. Continue atenolol. Cardiology is involved. 2. Diastolic congestive heart failure (CHF) with normal ejection fraction. We are ordering a dose of Lasix. 3. Hypokalemia/hypomagnesemia. Supplemental potassium and magnesium has been ordered. 4. Fevers. She is on vancomycin and Zosyn for presumed pulmonary infection. 5. Metformin is on hold during her acute cardiac condition. Fingersticks with coverage. Blood sugars have been averaging 150 to 200, which is adequate control.
[2016-12-25] MEDS: POTASSIUM CHLORIDE 10 MEQ SR TABLET PO SCH ×2 (10:55→22:13)
--- NOTE | 2016-12-25 12:59 | IPN ---
DATE: 12/25/2016 Mrs. Helena Lima was seen earlier this morning, she was in supine bed and she continues to complain of mild shortness of breath. She denies any chest pain or palpitations. She was seen yesterday because of newly diagnosed atrial fibrillation and congestive heart failure. She had an echocardiogram and it revealed a normal global left ventricular systolic function. She was on atenolol and I have added small dose of calcium channel zoë with Cardizem. She denies any chest pain and she had no orthopnea or PND. She has no focal manifestation. There is no report of bleeding. On physical examination, patient is alert and oriented, with mild shortness of breath at rest. Her last vital signs this morning revealed a blood pressure of 115/68 with a pulse that varies between 115-130 beats per minute, respiration 20 and her maximum temperature is 98.7 degrees Fahrenheit with oxygen saturation 97 % on 2 liters nasal cannula. Examination of the head: Atraumatic. Neck is supple, no jugular venous distention. The lungs revealed minimal crackles at the bases but no wheezing. Heart examination revealed irregularly irregular heart sounds without gallops. PMI is not displaced. There is no rub. Abdomen is unremarkable. Extremities revealed trace bilateral pedal edema. Neurology examination is negative for focal deficit. LABS: CBC done today revealed WBC of 8.9, hemoglobin 12.8, hematocrit 36.9 and platelets 292,000. BNP revealed a sodium of 132, potassium 3.2, chloride 95, CO2 27, BUN 11, creatinine 0.74, glomerular filtration rate more than 60, fasting glucose 149, calcium 7.5. Magnesium is 1.5. Liver enzymes reveal total bilirubin of 1.2, AST 49, ALT 52, alkaline phosphatase 59, total protein 6.9, albumin 2.6. PT is 16.4 with an INR of 1.31. Blood culture have been negative. Urine culture was not done. IMPRESSION: 1. Atrial fibrillation, newly diagnosed and particularly still not quite under control. Her Cardizem was increased today and I agree. She is on Eliquis for prevention of thromboembolic events. No bleeding has been reported. We will continue current meds and she will be monitored. 2. Congestive heart failure, diastolic in nature and to continue with diuretics. This will improve once her ventricular heart rate/atrial fibrillation is under better control. 3. Hypertension, under control. 4. History of diabetes mellitus and this is being addressed. 5. Electrolyte abnormalities with hypokalemia and hypomagnesemia, on supplement. 6. Fevers, probably pneumonia versus urinary tract infection (UTI) on IV antibiotics. 7. History of rheumatoid arthritis. It was a pleasure to participate in the care of Mrs. Helena Lima for her underlying cardiac condition. I will continue to monitor her along with you while in the hospital. At this present time, she appears to be stable. IRISHD
[2016-12-25] MEDS: ACYCLOVIR 5% OINT 15GM TOP SCH ×2 (16:00→22:11)
[2016-12-25] MEDS: NORCO, ANEXSIA 5/325MG TABLET (HYDROcodone/ACETAMINOPHEN) PO PRN (16:00)
[2016-12-25] MEDS ORDERED: SLF 3 ML SYR IV PRN (18:45)
[2016-12-25] MEDS: SLF 3 ML SYR IV SCH (22:12)
[2016-12-26] VITALS (7 sets, daily range): BP systolic 115–146; BP diastolic 52–68
[2016-12-26] MEDS: PIPERACILLIN/TAZOBACTAM SOD 3.375 GM in D5W MINI-BAG PLUS 50 ML IV SCH ×2 (00:30→08:56)
[2016-12-26 05:33] LABS: MEAN CORPUSCULAR HEMOGLOBIN 31.9 pg (27.0-33.0); MEAN CORPUSCULAR HGB CONC 34.1 g/dl (32.0-36.5); MEAN CORPUSCULAR VOLUME 93.6 fl (80.0-96.0); WHITE BLOOD COUNT 11.8 K/mm3 (4.0-10.0)
[2016-12-26 05:37] LABS: INR 1.63
[2016-12-26 05:52] LABS: ALBUMIN 2.5 GM/DL (3.2-5.2); ALBUMIN/GLOBULIN RATIO 0.6 (1.00-1.93); CREATININE FOR GFR 2.55 MG/DL (0.55-1.02); GLOMERULAR FILTRATION RATE 19.6 (>39); MAGNESIUM LEVEL 1.9 MG/DL (1.8-2.4); POTASSIUM SERUM 3.6 MEQ/L (3.5-5.1); TOTAL PROTEIN 6.7 GM/DL (6.4-8.2)
[2016-12-26] MEDS: SLF 3 ML SYR IV SCH ×3 (06:00→20:58)
[2016-12-26] MEDS: VANCOMYCIN HCL 1,000 MG, VIAL MATE ADAPTER 1 EACH in D5W 250 ML IV SCH (06:01)
--- NOTE | 2016-12-26 07:58 | IPN ---
DATE: 12/26/2016 When I walked into Mrs. Lima's room she was extremely short of breath. She tells me it is not much different from yesterday, but she complains that she has been coughing all night. Denies any chest discomfort. Denies sensation of palpitations. Vital signs reveal a blood pressure of 130/80. Heart rate has been in the 70s and 80s. She is afebrile. Saturation is 94% on room air. Her central venous pressure is high. JVP are visible at least 5 cm above the clavicles. Lungs reveal bilateral expiratory wheezing. Heart exam reveals somewhat muffled heart sounds, but irregularly irregular rhythm. I do not appreciate any gallop or rub. Abdomen is obese but soft, I do not appreciate any shifting dullness, or other evidence for ascites. There is mild peripheral edema. No skin lesions. Neurologically she appears intact. She has typical deformities of her fingers from rheumatoid arthritis. Laboratory morejon, hemoglobin 11.9, hematocrit 34, WBC count 11.8 and platelet count 259,000. Basic metabolic panel sodium 129, potassium 3.6, BUN 27, creatinine 2.55 which calculates for a GFR of 20 and glucose 160, bilirubin 1.9, AST 47, normal ALT and alkaline phosphatase, albumin is 2.5. Vancomycin trough last night was 19. Urine was 2+ positive for glucose. There was some blood. The cultures so far have been unrevealing. There are four blood cultures that are all negative. The respiratory panel for viruses was negative as well and sputum gram stain revealed moderate WBCs and a few positive cocci and rods. ASSESSMENT/PLAN: Mrs. Lima is a 76-year-old female. I am not convinced that we understand what is going on. It appears that she was doing well until approximately 6 days ago. She then developed nausea and vomiting and following day started having chest discomfort. She had negative cardiac enzymes, but then developed atrial fibrillation with rapid ventricular response and there was evidence for bilateral pleural effusions, ascites and elevated central venous pressure. Since she came here she has been anticoagulated with apixaban and underwent modest diuresis. It does not appear that her condition is any better, but now as a new complicating event she is anuric. She tells me that she has not urinated since yesterday morning. I asked the nurse to place a Betancourt catheter and I ordered bilateral renal ultrasound to rule out obstruction. I am also going to stop the vancomycin and apixaban. I think that the dosing with acute renal failure is certainly unpredictable. As far as the atrial fibrillation is concerned, she seems to be reasonably well rate-controlled and because of prominent expiratory wheezing, I am going to discontinue atenolol at least temporarily and leave her on Cardizem only. I do suspect that most likely she has some form of viral infection. That would explain the nausea, probably vomiting, possibly small pericardial effusion, which could be a sign of pericarditis secondarily triggering atrial fibrillation. The acute renal failure, even though we need to rule out obstruction, most likely is related to toxicity of vancomycin, but I would consider delayed toxicity of contrast as an incidental player as well. INDICATION MTDD
[2016-12-26] MEDS: HumaLOG INSULIN (NovoLOG) PER UNIT SC SCH ×4 (08:55→20:55)
[2016-12-26] MEDS: VENLAFAXINE **XR** 75MG CAPSULE PO SCH (08:56)
[2016-12-26] MEDS: PREGABALIN 75 MG CAP(LYRICA) PO SCH (08:56)
[2016-12-26] MEDS: POTASSIUM CHLORIDE 10 MEQ SR TABLET PO SCH (08:56)
[2016-12-26] MEDS: OMEPRAZOLE 20 MG CAP PO SCH ×2 (08:56→20:58)
[2016-12-26] MEDS: ACYCLOVIR 5% OINT 15GM TOP SCH ×3 (08:57→20:58)
[2016-12-26] MEDS: BRIMONIDINE 0.1% OPHTH SOLN 5 ML OU SCH ×2 (08:57→20:58)
[2016-12-26] MEDS: LEVALBUTEROL 1.25 MG/0.5 ML CONCENTRATE NEB INH SCH ×4 (15:06→19:57)
[2016-12-26] MEDS: PIPERACILLIN/TAZOBACTAM SOD 2.25 GM in D5W MINI-BAG PLUS 50 ML IV SCH (15:11)
[2016-12-26] MEDS: NORCO, ANEXSIA 5/325MG TABLET (HYDROcodone/ACETAMINOPHEN) PO PRN ×2 (15:12→22:24)
[2016-12-26] MEDS ORDERED: LEVALBUTEROL 1.25 MG/0.5 ML CONCENTRATE NEB NEB PRN (16:00)
--- NOTE | 2016-12-26 16:08 | REP ---
Renal ultrasound: The kidneys are normal size. Right kidney measures 12.7 x 5.8 x 4 per 1 cm. Left kidney measures 12.3 x 5.2 x 5.3 cm. Renal cortical echogenicity is normal bilaterally. There is no hydronephrosis on the right on the left. There are no renal calculi, masses or cysts on the right on the left. A left pleural effusion is noted as an incidental finding. Bladder ultrasound: The bladder is empty and cannot be assessed by ultrasound. Impression: Negative bilateral renal ultrasound. The bladder is empty and cannot be evaluated by ultrasound at this time. A left pleural effusion is identified during the examination. Signed by Warren Keenan MD 12/26/2016 03:59 P
[2016-12-26 17:22] LABS: ALBUMIN 2.7 GM/DL (3.2-5.2); CALCIUM LEVEL 8.1 MG/DL (8.8-10.2); CREATININE FOR GFR 3.29 MG/DL (0.55-1.02); GLOMERULAR FILTRATION RATE 14.6 (>39); MAGNESIUM LEVEL 1.8 MG/DL (1.8-2.4); PHOSPHORUS LEVEL 4.6 MG/DL (2.5-4.9); POTASSIUM SERUM 4.6 MEQ/L (3.5-5.1); URIC ACID 5.3 MG/DL (2.6-6.0)
[2016-12-26 17:38] LABS: VANCOMYCIN RANDOM 47.8 UG/ML
--- NOTE | 2016-12-26 17:52 | CR ---
DATE OF CONSULTATION: 12/26/2016 REQUESTING PHYSICIAN: Dr. Sandra Lopez CONSULTING PHYSICIAN: Dr. Noonan REASON FOR CONSULTATION: Management of acute oliguric renal failure. CHIEF COMPLAINT: Patient was admitted to [facility] on 12/22/2016 with nausea, fever, and chest pains. HISTORY OF PRESENT ILLNESS: Helena Lima is a 76-year-old female with past medical history of rheumatoid arthritis, diabetes mellitus, type 2, and hypertension who was transferred to [facility] from [facility] on 12/22/2016 with chest pains and fevers along with atrial fibrillation and rapid ventricular rate. Patient came with a normal renal function. Her creatinine on admission was 0.79. Patient's initial imaging include CT angiogram of the chest and CT scan of the abdomen and pelvis with intravenous (IV) contrast on the night of 12/22/2016. She was also diagnosed with congestive heart failure (CHF) along with diastolic dysfunction, and she was receiving IV diuretics, and she was on IV Zosyn and vancomycin for fevers and presumed lung infection; however, on the morning of 12/26/2016, patient suddenly became oliguric. She has only made around 50 mL of urine so far since overnight. Her creatinine has suddenly bumped up from 0.7 yesterday to 2.5 today morning. Patient is also in mild respiratory distress at this time. She is tachypneic. Nephrology service was called for further help in the management of this patient with acute kidney injury. PAST MEDICAL HISTORY: Patient has a past medical history of: 1. Hypertension. 2. Rheumatoid arthritis. 3. Diabetes mellitus, type 2. PAST SURGICAL HISTORY: 1. Status post cholecystectomy in the past. 2. Status post hysterectomy. 3. Status post bilateral hand surgery because of deformities secondary to Rheumatoid arthritis. 4. History of bilateral foot surgery. 5. History of knee replacement on the right knee. ALLERGIES: No known drug allergies. FAMILY HISTORY: No significant family history of end-stage renal disease requiring hemodialysis. SOCIAL HISTORY: Patient lives alone at home. There is no history of smoking, drug abuse, or alcohol abuse. REVIEW OF SYSTEMS: CONSTITUTIONAL: Patient reports feeling weak and tired at this time. EYES: She denies any blurry vision or double vision. ENT: She denies any dysphagia, odynophagia, or ear discharge. CARDIOVASCULAR: Patient reports atrial fibrillation, but she denies any chest pain at this time. RESPIRATORY: Patient reports shortness of breath at rest at this time, and she is tachypneic. GASTROINTESTINAL: Patient denies any nausea, vomiting, pain in abdomen, or constipation. GENITOURINARY: Patient denies any dysuria or hematuria. Patient just got catheterized at this time, and she has made around 50 mL of urine so far. Musculoskeletal She denies any muscle aches and pain. CENTRAL NERVOUS SYSTEM: Patient denies any strokes or seizures. PSYCHIATRIC: She denies any history of psychiatric disorder, but patient was on venlafaxine when she was admitted. HEMATOLOGICAL/ONCOLOGICAL: Patient denies any history of malignancy, easy bruising, or anemia. All other review of systems is negative. PHYSICAL EXAMINATION: GENERAL: Patient is awake, alert, oriented times three, lying in the bed in moderate respiratory distress. VITAL SIGNS: Temperature is 97.5 degrees Fahrenheit, blood pressure is 146/52, pulse is 78, respiratory rate of 19, saturating 96% on room air. Intake and output: Urine output was 1.6 liters yesterday, and her urine output so far today since overnight is 50 mL only. Weight in the bed scale is 85.6 kg. HEAD AND NECK: Extraocular muscles intact. Pupils equally round and reactive to light. Mucous membranes are moist. Neck is supple. There is mild elevated jugular venous distention (JVD). CARDIOVASCULAR: S1, S2, irregularly irregular heart rate. No murmur, rub, or gallop. RESPIRATORY: Decreased breath sounds. Positive crepitations in the lungs bilaterally and mild expiratory rhonchi bilaterally in the mid lung zones as well. ABDOMEN: Abdomen is soft. Positive bowel sounds. Nontender. No ascites. No organomegaly. GENITOURINARY: Patient has an indwelling Betancourt catheter. There is pale urine in the bag at this time, around 50-60 mL. EXTREMITIES: No clubbing or cyanosis. Pulses are 2+. CENTRAL NERVOUS SYSTEM: No focal neurological deficit. Power is 5/5 in all extremities. SKIN: No rashes or ulcers. LYMPH NODE: No significant cervical, axillary, or inguinal adenopathy. LABORATORY REVIEW: CBC showed a WBC 11.8, hemoglobin 11.9, platelets are 299. INR is 1.63. There is no latest urinalysis available. BMP done today morning showed sodium 129, potassium 3.6, chloride 93, bicarbonate 26, BUN 27, creatinine is 2.5, calcium is 8, magnesium 1.9, albumin 2.5. Vancomycin level done on 12/24/2016 was 19.1. Microbiology: Gastrointestinal (GI) panel is negative. Respiratory panel was negative on admission. Blood cultures are negative so far. Sputum Gram stain is pending. IMAGING: A renal ultrasound done today morning showed right kidney was 12.7 cm, left kidney was 12.3 cm. Renal cortical echogenicity was normal. There was no acute pathology. Bladder was empty. CURRENT INPATIENT MEDICATIONS: Patient's current inpatient medications include: - Zosyn. Dose has been changed to 2.25 gram IV every 8 hours. - Vancomycin has been stopped. - Tylenol as needed - Zovirax topical - Eliquis has been stopped. - atenolol has been stopped. - diltiazem 60 mg by mouth every 6 hours - insulin sliding scale - Xopenex nebulizations, every four hours - metoprolol 5 mg IV every 6 hours as needed tachycardia - omeprazole 20 mg by mouth twice a day - Zofran as needed - potassium chloride 40 mEq by mouth twice a day, which will be stopped now - Lyrica 75 mg by mouth twice a day - tramadol 50 mg every 6 hours as needed for moderate pain - Effexor 150 mg by mouth daily ASSESSMENT: A 76-year-old female with atrial fibrillation with rapid ventricular response, diastolic congestive heart failure, recent fevers. Nephrology service following the patient for management of acute oliguric renal failure. PLAN: 1. Acute oliguric renal failure. Etiology is unknown. Patient suddenly went into oliguric renal failure. Her renal function was normal yesterday. Patient got IV contrast on admission, dated 12/22/2016. She was also on diuretics. All the nephrotoxic medications have been held. There is no significant pathology seen on the ultrasound. Continue the Betancourt catheter at this time. I am going to check the vancomycin level as well to look for vancomycin toxicity. Antibiotic dosages have been decreased. Sometimes a combination of vancomycin and Zosyn also causes renal failure. I am going to repeat the set of labs again right now, because the previous labs were done early in the morning today. 2. Diastolic congestive heart failure. Patient clinically still looks like to be in heart failure and fluid overload. She is tachypneic. I am going to do a repeat chest x-ray and a repeat BMP to rule out fluid overload. I am not going to give the patient diuretic until the congestive heart failure is confirmed. The patient likely would not respond to diuretics in oliguric renal failure. 3. Hyponatremia. Looks like it might be hypervolemic hyponatremia. Sodium is 129. I am going to check the urine sodium and urine osmolality. No diuretic at this time because of acute renal failure. 4. Atrial fibrillation with rapid ventricular rate. Patient's heart rate is controlled at this time. Anticoagulation has been stopped by cardiology because of acute renal failure. Continue Cardizem and as-needed metoprolol as recommended by cardiology. 5. Fever of unknown origin. Presumed lung infection. Patient is on vancomycin and Zosyn. She is in renal failure. Vancomycin is on hold. Zosyn dose has been decreased as well. If renal function does not improve, she might have to be switched to non-penicillin, non-cephalosporin antibiotics because of the possibility of interstitial nephritis. 6. Hypertension. Patient's blood pressure is acceptable at this time. There is no need of escalation of antihypertensive regimen. Continue the Cardizem at this time, 60 mg every 6 hours, which is helping with blood pressure and atrial fibrillation as well. Thank for involving us in the care of this patient. We shall be happy to follow the patient along with you tomorrow morning. Plan of care was discussed with the hospitalist, Dr. Sandra Lopez. MIQUEL
--- NOTE | 2016-12-26 17:54 | REP ---
PORTABLE CHEST X-RAY: REASON: Dyspnea. COMPARISON: 12/24/2016 The technique utilized in obtaining the radiograph has magnified the cardiac silhouette and accentuated the interstitial markings. Once again, there is a diffuse increase in the interstitial markings throughout the lung abad which has increased with increased bibasilar opacities and cardiomegaly. IMPRESSION: CHF which appears to have increased from the prior exam although the examinations are portable examinations. Signed by Oc Jack DO 12/26/2016 06:04 P
[2016-12-26] MEDS ORDERED: FUROSEMIDE 40 MG/4 ML VIAL (J1940) IV ONE (18:00)
[2016-12-26] MEDS ORDERED: FUROSEMIDE 100 MG/10 ML VIAL (J1940) IV ONE (20:45)
--- NOTE | 2016-12-26 21:14 | IPNPDOC ---
Subjective Date Seen The patient was seen on 12/26/16. Subjective Chief Complaint/HPI The patient is a 76-year-old female admitted with a reason for visit of Afib Rvr. Events since last encounter patient continues to be SOB and coughing as soon as she lies down , minimal urine output since this am , complains of abdominal pain which the patient attributes to severe bouts of coughing. Objective Physical Examination General Exam: Positive: Alert, Cooperative, Mild Distress Eye Exam: Positive: PERRLA, Conjunctiva & lids normal, EOMI, Negative: Sclera icteric ENT Exam: Positive: Atraumatic, Mucous membr. moist/pink, Pharynx Normal Neck Exam: Positive: JVD Chest Exam: Positive: Rales, Rhonchi, Wheezing Heart Exam: Positive: Irregular Rhythm, Normal S1, Normal S2 Telemetry: Positive: Atrial fibrillation Abdomen Exam: Positive: Normal bowel sounds, Soft Extremity Exam: Positive: Edema Skin Exam: Positive: Nl turgor and temperature, Negative: Rash, Breakdown Assessment /Plan Problems (1) Acute renal failure Status: Acute Problem Text: patient anuric at this point possibly ATN due to combination of contrast nephropathy and antibiotics. Acute interstitial nephritis is also a differential patient fluid overloaded . If does not open up soon and creatinine continues to rise there is a high possibility that may need dialysis. consulted nephrology. all nephrotoxic medications have been stopped and dosages have been adjusted. (2) Acute diastolic congestive heart failure Status: Acute Problem Text: fluid overloaded at this point with acute anuric renal failure. If kidneys does not improve fluid may need to be mobilized by hemodialysis. will give a lasix challenge with 200 mg iv dose. (3) Pneumonia Status: Acute Problem Text: on initial presentation to [facility] on 12/21 she had nausea and vomiting followed by chest pain and diarrhea then she developed fever and cough with afib with rvr. possibility of aspiration pneumonia vs community acquired pneumonia. on day 5 of zosyn and vancomycin. . Vanco stopped today for MICHELLE. zosyn dose reduced. will stop tomorrow. (4) A-fib Status: Acute Response to Treatment: Stable Problem Text: rate controlled with diltiazem eliquis stopped due to MICHELLE. (5) Hypertension Status: Chronic (6) Diabetes Status: Chronic (7) Rheumatoid arthritis Status: Chronic Problem Text: on methotrexate at home. Plan/VTE VTE Prophylaxis Ordered?: Yes Plan/Urinary Catheter Urinary Catheter: Place Betancourt Reason for insertion/continuin: Critical Pt monitoring VS, I&O, [facility]H, [facility] Vital Signs/I&O Vital Signs Date Time Temp Pulse Resp B/P (MAP) Pulse Ox O2 Delivery O2 Flow Rate FiO2 12/26/16 19:59 98.2 81 20 137/57 (83) 93 Room Air 12/25/16 20:15 2.0 I&O- Last 24 Hours up to 6 AM 12/26/16 06:00 Intake Total 1470 ml Output Total 1450 ml Balance 20 ml Laboratory Data 24H LABS Laboratory Tests 2 12/25/16 21:17: Bedside Glucose (Misc Panel) 161H 12/26/16 05:22: Prothrombin Time 19.4H, Prothromb Time International Ratio 1.63, Anion Gap 10, Glomerular Filtration Rate 19.6L, Blood Urea Nitrogen 27#H, Creatinine 2.55#H, Sodium Level 129L, Potassium Level 3.6, Chloride Level 93L, Carbon Dioxide Level 26, Calcium Level 8.0L, Aspartate Amino Transf (AST/SGOT) 47H, Alanine Aminotransferase (ALT/SGPT) 51, Alkaline Phosphatase 66, Total Bilirubin 1.0, Total Protein 6.7, Albumin 2.5L, Magnesium Level 1.9, Albumin/Globulin Ratio 0.60L 12/26/16 12:37: Bedside Glucose (Misc Panel) 230H 12/26/16 16:50: Anion Gap 12, Glomerular Filtration Rate 14.6L, Blood Urea Nitrogen 35H, Creatinine 3.29H, Sodium Level 128L, Potassium Level 4.6#, Chloride Level 94L, Carbon Dioxide Level 22, Calcium Level 8.1L, Albumin 2.7L, Magnesium Level 1.8, Uric Acid 5.3, Lactic Acid Level 2.5*H, Phosphorus Level 4.6, Total Creatine Kinase 57, B-Type Natriuretic Peptide 583H, Random Vancomycin Level 47.8*H 12/26/16 17:56: Bedside Glucose (Misc Panel) 147H 12/26/16 18:03: Urine Appearance CLOUDYH, Urine Color YELLOW, Urine pH 5.0, Urine Specific [place] 1.009, Urine Protein 2+H, Urine Glucose (UA) 1+H, Urine Ketones NEGATIVE , Urine Urobilinogen 0.2, Urine Bilirubin NEGATIVE, Urine Leukocyte Esterase TRACEH, Urine Blood 2+H, Urine Nitrite NEGATIVE, Urine WBC (Auto) 4H, Urine RBC (Auto) 17H, Urine Hyaline Casts (Auto) 0, Urine Bacteria (Auto) 1+H, Urine Squamous Epithelial Cells 2, Urine Amorphous Sediment MODERATEH, Urine Sperm ( Auto) , Urine Random Creatinine 53.8, Urine Random Sodium 16 CBC/BMP Laboratory Tests 12/26/16 05:22 Red Blood Count 3.71 L, Mean Corpuscular Volume 93.6, Mean Corpuscular Hemoglobin 31.9, Mean Corpuscular Hemoglobin Concent 34.1, Red Cell Distribution Width 15.0 H, Calcium Level 8.0 L, Aspartate Amino Transf (AST/SGOT ) 47 H, Alanine Aminotransferase (ALT/SGPT) 51, Alkaline Phosphatase 66, Total Bilirubin 1.0, Total Protein 6.7, Albumin 2.5 L 12/26/16 16:50 Anion Gap 12, Uric Acid 5.3 Microbiology Microbiology 12/23/16 Blood Culture - Preliminary, Resulted No Growth after 48 hours. All Specime... 12/23/16 Blood Culture - Preliminary, Resulted No Growth after 48 hours. All Specime... 12/22/16 Blood Culture - Preliminary, Resulted No Growth after 72 hours. All specime... 12/22/16 Blood Culture - Preliminary, Resulted No Growth after 72 hours. All specime... 12/26/16 Gastrointestinal Tract Panel (PCR) - Final, Complete 12/25/16 Gram Stain - Final, Resulted 12/25/16 Sputum Culture, Resulted Pending 12/22/16 Respiratory Virus Panel (PCR) ([facility]) - Final, Complete LIONEL KING MD December 26, 2016 21:14
[2016-12-27] MEDS: LEVALBUTEROL 1.25 MG/0.5 ML CONCENTRATE NEB INH SCH ×7 (00:09→23:54)
[2016-12-27] MEDS: PIPERACILLIN/TAZOBACTAM SOD 2.25 GM in D5W MINI-BAG PLUS 50 ML IV SCH ×4 (00:14→23:34)
[2016-12-27 04:00] VITALS: BP 107/58
[2016-12-27 05:34] LABS: MEAN CORPUSCULAR HEMOGLOBIN 31.2 pg (27.0-33.0); MEAN CORPUSCULAR HGB CONC 33.3 g/dl (32.0-36.5); MEAN CORPUSCULAR VOLUME 93.8 fl (80.0-96.0); RED CELL DISTRIBUTION WIDTH 14.9 % (11.5-14.5); WHITE BLOOD COUNT 11.2 K/mm3 (4.0-10.0)
[2016-12-27 05:43] LABS: INR 1.27
[2016-12-27] MEDS: SLF 3 ML SYR IV SCH ×3 (05:47→22:00)
[2016-12-27 06:05] LABS: ALBUMIN 2.5 GM/DL (3.2-5.2); ALBUMIN/GLOBULIN RATIO 0.54 (1.00-1.93); BILIRUBIN,TOTAL 0.9 MG/DL (0.2-1.0); CALCIUM LEVEL 8.5 MG/DL (8.8-10.2); CREATININE FOR GFR 4.14 MG/DL (0.55-1.02); GLOMERULAR FILTRATION RATE 11.2 (>39); MAGNESIUM LEVEL 1.9 MG/DL (1.8-2.4); POTASSIUM SERUM 4.6 MEQ/L (3.5-5.1); TOTAL PROTEIN 7.1 GM/DL (6.4-8.2)
[2016-12-27] MEDS: ACYCLOVIR 5% OINT 15GM TOP SCH ×3 (07:51→22:00)
[2016-12-27] MEDS: BRIMONIDINE 0.1% OPHTH SOLN 5 ML OU SCH ×2 (07:51→22:00)
[2016-12-27] MEDS: HumaLOG INSULIN (NovoLOG) PER UNIT SC SCH ×4 (07:52→21:00)
[2016-12-27] MEDS: OMEPRAZOLE 20 MG CAP PO SCH ×2 (07:52→22:01)
[2016-12-27] MEDS: VENLAFAXINE **XR** 75MG CAPSULE PO SCH (07:52)
--- NOTE | 2016-12-27 08:10 | IPN ---
DATE OF SERVICE: 12/27/2016 Mrs. Lima did not have particularly good day yesterday. She remained oliguric and had no urine in her bladder after Betancourt catheter was put in. Subsequent renal ultrasound did not show any evidence for obstruction. She remained oliguric later in the day but eventually managed to put out about 175 mL in urine for the day; and then since midnight, she put out additional about 220 mL of urine; so even though she remains in oliguric range, urine output seems to be slightly improving. This morning, she tells me that she feels less short of breath than she did yesterday. Atrial fibrillation remains mostly controlled. Vital signs: Blood pressure 121/63, heart rate from 80s to low 100s. She is afebrile. Saturation is 91% on room air. Fluid balance yesterday was about 1500 mL positive, and weight is 87 kg. She is alert and oriented and appropriate. Her jugular venous pressure (JVP) does not appear elevated. Lungs still have expiratory wheezes but only faint. Air movement seems to be much better since yesterday. Heart examination reveals irregular rhythm. No gallop or rub. Abdomen: Soft, nontender. There is 1+ edema. Neurologically, she is intact. LABORATORY-TESFAYE: CBC: hemoglobin 12.1, hematocrit 36, platelet count 243,000, and WBC count 11.2. Basic metabolic panel: sodium 128, BUN 40, creatinine 4.1, for GFR only 11, and glucose 155. BNP was 583 which, in my opinion, is not particularly high in the setting of acute renal failure. ASSESSMENT AND PLAN: Mrs. Lima is a 76-year-old female who came with diastolic congestive heart failure, atrial fibrillation with rapid ventricular response (RVR). She developed acute oliguric renal failure. It is not completely clear what is the etiology. We ruled out obstruction. I do not believe it is very likely to administration of contrast, as this usually is instantaneous reaction. I suspect that the vancomycin is a dominant role. Unfortunately, she starts to have problems with volume overload; and if she does not start urinating more, it is possible that she may need transient dialysis. In my opinion, it is not something that has to be entertained immediately, as she is in no distress; but if the urine output is not improved by tomorrow, it certainly will be become an issue. As far as the atrial fibrillation is concerned, she is reasonably well-controlled on Cardizem. I stopped the apixaban yesterday because of her acute renal failure and will give her just deep venous thrombosis (DVT) prophylactic dose of Lovenox today. Depending on the renal function, will decide about choice of anticoagulation tomorrow.
[2016-12-27] MEDS: HEPARIN SOD (PORCINE) 5000 UNITS/ML VIAL SQ SCH ×2 (09:00→22:01)
--- NOTE | 2016-12-27 10:06 | IPNPDOC ---
Subjective Date Seen The patient was seen on 12/27/16. Subjective Chief Complaint/HPI The patient is a 76-year-old female admitted with a reason for visit of Afib Rvr. Events since last encounter remains oliguric, fluid overloaded and SOB , no response to high dose lasix. no chest pain or palpitation but does say that her breathing is slightly better this am. no fever or chills. Objective Physical Examination General Exam: Positive: Alert, Cooperative, Mild Distress Eye Exam: Positive: PERRLA, Conjunctiva & lids normal, EOMI, Negative: Sclera icteric ENT Exam: Positive: Atraumatic, Mucous membr. moist/pink, Pharynx Normal Neck Exam: Positive: JVD Chest Exam: Positive: Rales, Rhonchi, Wheezing Heart Exam: Positive: Irregular Rhythm, Normal S1, Normal S2 Telemetry: Positive: Atrial fibrillation Abdomen Exam: Positive: Normal bowel sounds, Soft Extremity Exam: Positive: Edema Skin Exam: Positive: Nl turgor and temperature, Negative: Rash, Breakdown Assessment /Plan Problems (1) Acute renal failure Status: Acute Problem Text: patient anuric at this point possibly ATN due to combination of contrast nephropathy and antibiotics. Acute interstitial nephritis is also a differential patient fluid overloaded . If does not open up soon and creatinine continues to rise there is a high possibility that may need dialysis. consulted nephrology. all nephrotoxic medications have been stopped and dosages have been adjusted. (2) Acute diastolic congestive heart failure Status: Acute Problem Text: fluid overloaded at this point with acute anuric renal failure. If kidneys does not improve fluid may need to be mobilized by hemodialysis. will give a lasix challenge with 200 mg iv dose. (3) Pneumonia Status: Acute Problem Text: on initial presentation to [facility] on 12/21 she had nausea and vomiting followed by chest pain and diarrhea then she developed fever and cough with afib with rvr. possibility of aspiration pneumonia vs community acquired pneumonia. on day 7 of zosyn . received 6 days of Vanco stopped today for MICHELLE. will stop today. (4) A-fib Status: Acute Response to Treatment: Stable Problem Text: rate controlled with diltiazem eliquis stopped due to MICHELLE. (5) Hypertension Status: Chronic (6) Diabetes Status: Chronic (7) Rheumatoid arthritis Status: Chronic Problem Text: on methotrexate at home. Plan/VTE VTE Prophylaxis Ordered?: Yes Plan/Urinary Catheter Urinary Catheter: Place Betancourt Reason for insertion/continuin: Critical Pt monitoring VS, [facility] Vital Signs/I&O Vital Signs Date Time Temp Pulse Resp B/P (MAP) Pulse Ox O2 Delivery O2 Flow Rate FiO2 12/27/16 08:00 Nasal Cannula 2.0 12/27/16 07:30 99.4 88 24 91 12/27/16 05:47 121/66 I&O- Last 24 Hours up to 6 AM 12/27/16 05:59 Intake Total 1700 ml Output Total 175 ml Balance 1525 ml Laboratory Data 24H LABS Laboratory Tests 2 12/26/16 12:37: Bedside Glucose (Misc Panel) 230H 12/26/16 16:50: Blood Urea Nitrogen 35H, Creatinine 3.29H, Sodium Level 128L, Potassium Level 4.6#, Chloride Level 94L, Carbon Dioxide Level 22, Anion Gap 12, Uric Acid 5.3, Glomerular Filtration Rate 14.6L, Lactic Acid Level 2.5*H, Calcium Level 8.1L, Phosphorus Level 4.6, Magnesium Level 1.8, Total Creatine Kinase 57, B-Type Natriuretic Peptide 583H, Albumin 2.7L, Random Vancomycin Level 47.8*H 12/26/16 17:56: Bedside Glucose (Misc Panel) 147H 12/26/16 18:03: Urine Appearance CLOUDYH, Urine Color YELLOW, Urine pH 5.0, Urine Specific [place] 1.009, Urine Protein 2+H, Urine Glucose (UA) 1+H, Urine Ketones NEGATIVE , Urine Urobilinogen 0.2, Urine Bilirubin NEGATIVE, Urine Leukocyte Esterase TRACEH, Urine Blood 2+H, Urine Nitrite NEGATIVE, Urine WBC (Auto) 4H, Urine RBC (Auto) 17H, Urine Hyaline Casts (Auto) 0, Urine Bacteria (Auto) 1+H, Urine Squamous Epithelial Cells 2, Urine Amorphous Sediment MODERATEH, Urine Sperm ( Auto) , Urine Random Creatinine 53.8, Urine Random Sodium 16 12/27/16 05:19: Prothrombin Time 16.0H, Prothromb Time International Ratio 1.27 12/27/16 05:20: Anion Gap 13, Glomerular Filtration Rate 11.2L, Blood Urea Nitrogen 40H, Creatinine 4.14H, Sodium Level 128L, Potassium Level 4.6, Chloride Level 93L, Carbon Dioxide Level 22, Calcium Level 8.5L, Aspartate Amino Transf (AST/SGOT) 43H, Alanine Aminotransferase (ALT/SGPT) 47, Alkaline Phosphatase 69, Total Bilirubin 0.9, Total Protein 7.1, Albumin 2.5L, Magnesium Level 1.9, Albumin/ Globulin Ratio 0.54L CBC/BMP Laboratory Tests 12/26/16 16:50 Anion Gap 12, Uric Acid 5.3 12/27/16 05:20 Red Blood Count 3.89 L, Mean Corpuscular Volume 93.8, Mean Corpuscular Hemoglobin 31.2, Mean Corpuscular Hemoglobin Concent 33.3, Red Cell Distribution Width 14.9 H, Calcium Level 8.5 L, Aspartate Amino Transf (AST/SGOT ) 43 H, Alanine Aminotransferase (ALT/SGPT) 47, Alkaline Phosphatase 69, Total Bilirubin 0.9, Total Protein 7.1, Albumin 2.5 L Microbiology Microbiology 12/23/16 Blood Culture - Preliminary, Resulted No Growth after 72 hours. All specime... 12/23/16 Blood Culture - Preliminary, Resulted No Growth after 72 hours. All specime... 12/22/16 Blood Culture - Preliminary, Resulted No Growth after 72 hours. All specime... 12/22/16 Blood Culture - Preliminary, Resulted No Growth after 72 hours. All specime... 12/26/16 Gastrointestinal Tract Panel (PCR) - Final, Complete 12/25/16 Gram Stain - Final, Complete 12/25/16 Sputum Culture - Final, Complete 12/22/16 Respiratory Virus Panel (PCR) ([facility]) - Final, Complete LIONEL KING MD December 27, 2016 10:06
[2016-12-27 11:29] LABS: CHOLESTEROL LEVEL 106 MG/DL (<200); TRIGLYCERIDES LEVEL 180 MG/DL (<150)
[2016-12-27] MEDS ORDERED: LIDOCAINE W/EPINEPHRINE 1% 20ML VIAL As Ordered ONE (11:34)
[2016-12-27] MEDS ORDERED: SODIUM BICARBONATE 4 % INJ 2.4MEQ 5 ML VIAL (THIS HAS A PRESERVATIVE) As Ordered ONE (11:34)
[2016-12-27] MEDS ORDERED: HEPARIN 1,000 UNITS/ML 10ML VIAL (FOR RADIOLOGY& DIALYSIS ONLY) As Ordered ONE (11:34)
[2016-12-27] MEDS ORDERED: HEPARIN 1,000 UNITS/ML 10ML VIAL (FOR RADIOLOGY& DIALYSIS ONLY) IV ONE (12:00)
[2016-12-27 12:13] LABS: HEPATITIS B SURFACE ANTIBODY NEGATIVE (POSITIVE)
--- NOTE | 2016-12-27 12:40 | IPN ---
DATE: 12/27/2016 SUBJECTIVE: The patient was seen and examined at the bedside today in the morning. Last 24 hours events were noted. The patient continues to be oliguric at this time and she is also short of breath. The patient was given a dose of diuretics yesterday. She has not responded well. She continues to be in fluid overload at this time. REVIEW OF SYSTEMS: The patient denies any fever, chills, rigors, headache, nausea, or vomiting. She denies any chest pain but she does report shortness of breath. She denies any pain abdomen, constipation, or diarrhea. The rest of review of systems is negative. OBJECTIVE: VITAL SIGNS: Temperature is 99.4 degrees Fahrenheit, blood pressure is 121/66, pulse is 88, respiratory rate of 24, saturating 91% on room air. INTAKE AND OUTPUT: Urine output recorded as 175 mL yesterday, 390 mL so far today since overnight. Weight on the bed scale is 87 kg. PHYSICAL EXAMINATION: GENERAL: The patient is awake, alert and oriented times three, sitting in the bed in moderate respiratory distress. HEAD AND NECK EXAMINATION: Extraocular muscles intact. Pupils are equally round and reactive to light. Mucous membranes are moist. Neck is supple. There is mildly elevated jugular venous distention (JVD). CARDIOVASCULAR: S1, S2, regular rate. No murmur, rub, or gallop. RESPIRATORY: Decreased breath sounds at the bases. Decreased resonance bilaterally at the bases. Positive crepitations with deep inspiration. ABDOMEN: Soft. Positive bowel sounds. Nontender. No ascites. No organomegaly. EXTREMITIES: No clubbing or cyanosis. The patient has trace edema of the bilateral lower extremities. CENTRAL NERVOUS SYSTEM: No focal neurological deficit. Power is 5/5 in all extremities. LABORATORY REVIEW: CBC showed a WBC of 11.2, hemoglobin 12.1, platelets are 243. INR is 1.27. BMP showed sodium 128, potassium 4.6, chloride 93, bicarbonate 22, BUN 40, creatinine is 4.1, GFR is 11.2 but it is rising because the patient is oliguric, calcium is 8.5, albumin is 2.5. Random vancomycin level was 47.8 yesterday. IMAGING STUDIES: A chest x-ray done yesterday showed CHF which was worse from the previous examination and there was cardiomegaly. CURRENT INPATIENT MEDICATIONS: The patient's medications include: Zosyn 2.25 gram IV every eight hours. She was given a dose of Lasix 200 mcg IV one dose yesterday. There is no other change in the medications today as compared with yesterday. ASSESSMENT: A 76-year-old female with atrial fibrillation with rapid ventricular response (RVR) recently on admission, diastolic congestive heart failure, having fever of unknown origin. She was on vancomycin and Zosyn. The patient is in oliguric renal failure at this time along with fluid overload. PLAN: 1. Acute oliguric renal failure. Unknown etiology. The patient suddenly went into renal failure. However, she has vancomycin toxicity as well at this time. She is in fluid overload. She did not respond to high dose of Lasix last night. Because of acute renal failure, fluid overload and vancomycin toxicity, I have decided to dialyze this patient. I have discussed this with the patient and she agrees to get a catheter and start hemodialysis. I believe that her renal function will hopefully improve over the next few weeks. After the catheter placement, the patient will be dialyzed for two hours today and if needed she will get another hemodialysis tomorrow. 2. Acute decompensated diastolic congestive heart failure. The patient is in renal failure. She is oliguric. She is not responding to diuretics. The patient will get ultrafiltration done with hemodialysis. 3. Hyponatremia. It is hypervolemic hyponatremia and it is expected to improve with hemodialysis and ultrafiltration. 4. Fever of unknown origin. The patient's vancomycin has been stopped because of toxicity. Her Zosyn dose was adjusted by me yesterday. Cultures are negative so far. 5. Atrial fibrillation. The patient's heart rate is well controlled at this time. Continue current dose of diltiazem 60 mg by mouth every six hours. The plan of care was discussed with the patient at the bedside. Urgent hemodialysis catheter placement was arranged. The patient will be dialyzed today in the afternoon.
[2016-12-27] MEDS: METOPROLOL 5 MG/5 ML VIAL IV PRN (15:41)
[2016-12-27 15:45] VITALS: BP 120/85
--- NOTE | 2016-12-27 16:59 | REPKIM ---
CLINICAL HISTORY: Renal failure, CHF and AF. The referring service has requested a tunneled dialysis catheter placement for hemodialysis. PROCEDURE PERFORMED: Right IJ Tunneled Hemodialysis Catheter Placement INTERVENTIONALIST: Kimberley Jimenez MD CONSENT: The risks, benefits and alternatives to the procedure were explained to the patient and informed written consent was obtained. MEDICATIONS: Local Lidocaine EBL: less than 10 mL DEVICE USED: 14.5-Bangladeshi 19-cm tip to cuff EvenMore Catheter Lot#[id number] FLUORO TIME: 0.3 minutes PROCEDURE/FINDINGS: The patient was brought to the interventional radiology suite where a timeout procedure was performed. The patient was placed in the supine position with head of bed elevated. The right neck and upper chest were prepped and draped in the usual sterile fashion. Real time ultrasound was used and permanent image stored. Using ultrasound guidance the internal jugular vein was punctured with a micropunture needle, after infiltration of the skin and deep tissues with local anesthetic. A 19-cm tip to cuff length, 14.5-Bangladeshi dual lumen EvenMore hemodialysis catheter was inserted. The catheter was placed through a subcutaneous tunnel requiring a second incision. The incision at the base of the neck was closed with 4-0 Vicryl suture and covered with steristrips. The catheter was secured at the skin exit site with 2-0 Prolene suture. The ports of the catheter were locked with heparin (1000 units/mL). A sterile dressing was then applied. Post procedure chest fluoroscopy showed the tip of the catheter at the SVC. The patient tolerated the procedure well with no immediate complications. This procedure was performed using ultrasound and fluoroscopy. Dr. Jimenez was present. IMPRESSION: 1. Ultrasound of the neck demonstrates patent right IJ vein and compressible. 2. Successful right IJ tunneled hemodialysis catheter placement as discussed above. There is free aspiration of blood from all ports of the catheter. The catheter is ready for immediate use. cc: MD Bhargavi Barnhart MD MTDD
[2016-12-27 19:16] VITALS: BP 128/64
[2016-12-27 20:24] LABS: ABG BASE EXCESS -2.4 (-2.0-2.0); ABG HCO3 19.7 MEQ/L (22.0-26.0); ABG PARTIAL PRESSURE O2 60.3 mmHg (75.0-100.0); ABG STANDARD HCO3 22.3 MEQ/L (22.0-26.0); ABG TOTAL CO2 20.6 MEQ/L (23.0-31.0); ABG pH (ARTERIAL) 7.482 UNITS (7.350-7.450)
--- NOTE | 2016-12-27 21:00 | REPUSA ---
CLINICAL HISTORY: Respiratory distress COMMENTS: Central venous line is noted in the right chest wall is in the SVC. Atelectatic band is noted in right midlung The cardiac silhouette is enlarged. There is evidence for pulmonary venous congestion compatible with mild CHF. Small bilateral effusions are suggested. There is no definite radiographic evidence for a lung mass or consolidation. Bony structures appear normal. IMPRESSION: 1. Enlarged cardiac silhouette. 2. Pulmonary venous congestion compatible with mild CHF. 3. Small bilateral effusions are suggested. Thank you for your kind referral of this patient.
--- NOTE | 2016-12-27 21:30 | REPUSA ---
CLINICAL HISTORY: Follow up. COMMENTS: Central venous line is noted in the right chest wall is in the SVC. Atelectatic band is noted in right midlung The cardiac silhouette is enlarged. There is evidence for pulmonary venous congestion compatible with mild CHF. Small bilateral effusions are suggested. There is no definite radiographic evidence for a lung mass or consolidation. Bony structures appear normal. IMPRESSION: 1. Enlarged cardiac silhouette. 2. Pulmonary venous congestion compatible with mild CHF. 3. Small bilateral effusions are suggested. 4. No significant change in comparison with earlier study the same date
[2016-12-27 23:28] VITALS: BP 117/71
[2016-12-28] MEDS: LEVALBUTEROL 1.25 MG/0.5 ML CONCENTRATE NEB INH SCH ×6 (03:41→23:58)
[2016-12-28 03:49] VITALS: BP 121/65
[2016-12-28] MEDS: SLF 3 ML SYR IV SCH ×3 (05:27→22:11)
[2016-12-28 06:12] LABS: MEAN CORPUSCULAR HEMOGLOBIN 32.2 pg (27.0-33.0); MEAN CORPUSCULAR HGB CONC 34.4 g/dl (32.0-36.5); MEAN CORPUSCULAR VOLUME 93.6 fl (80.0-96.0); RED CELL DISTRIBUTION WIDTH 14.4 % (11.5-14.5); WHITE BLOOD COUNT 9.1 K/mm3 (4.0-10.0)
[2016-12-28 06:19] LABS: ALBUMIN 2.4 GM/DL (3.2-5.2); ALBUMIN/GLOBULIN RATIO 0.52 (1.00-1.93); CALCIUM LEVEL 8.1 MG/DL (8.8-10.2); CREATININE FOR GFR 4.54 MG/DL (0.55-1.02); GLOMERULAR FILTRATION RATE 10.1 (>39); INR 1.3; MAGNESIUM LEVEL 1.8 MG/DL (1.8-2.4); POTASSIUM SERUM 4.1 MEQ/L (3.5-5.1)
[2016-12-28 07:30] VITALS: BP 127/68
--- NOTE | 2016-12-28 08:47 | IPN ---
DATE OF SERVICE: 12/28/2016 Mrs. Lima remains approximately the same. Yesterday, there was a dialysis catheter placed through the right subclavian vein, and she had dialysis session when approximately 1.5 liters of fluids were removed. Did not seem to make significant change in her condition. This morning, she still is short of breath , remains in atrial fibrillation with heart rate between 90 and 120. She has been maintaining her blood pressure. She complains about feeling exhausted. She also continues to have diarrhea, and she has some wheezing but believes that her shortness of breath is not too bad. Blood pressure 121/65, heart rate as above, saturation 96% on 4 liters of oxygen by nasal cannula. Last night, temperature was 99.1. Her jugular venous pressure (JVP) does not appear elevated to me. Lungs are fairly clear to auscultation in respects of crackles, but there are expiratory wheezes bilaterally. Heart examination: Somewhat muffled heart sounds overshadowed by loud respiratory sounds. Irregularly irregular. No murmurs are noted. Abdomen is soft without tenderness. There is trace peripheral edema. She did make approximately 900 mL of urine total yesterday, and she already put out about 325 mL this morning. Fluid balance was negative 1200. LABORATORY-TESFAYE: Hemoglobin 11.5, hematocrit 33, platelet count 276,000, WBC count 9.1. Basic metabolic panel: Sodium 129, potassium 4.1, BUN 35, creatinine 4.5, and glucose 146 ASSESSMENT AND PLAN: Mrs. Lima is somewhat complicated patient, a 76-year- old lady who presented to outside hospital with abdominal pain, nausea, vomiting, diarrhea, and later chest pain. She had fever and was started on antibiotics and transferred to our facility. Here, she rapidly developed renal failure, I suspect principally due to vancomycin. Also, she developed atrial fibrillation with rapid ventricular response (RVR). Echocardiogram revealed preserved left ventricular systolic function and no significant valvular disease and trace pericardial effusion. My plan is to in regards of atrial fibrillation, continue current rate control with Cardizem. She is already wheezing; and consequently, I am reluctant to use beta blockers. The rate control is a reasonably good. If needed, we can increase the dose further. We had a discussion with Dr. Lopez regarding anticoagulation. She initially was anticoagulated, but then I stopped the apixaban because she needed line placement. She is oozing blood a little around dialysis catheter, and she will receive an additional heparin during dialysis; and consequently, I think we can leave her at least one more day on subcutaneous heparin only. But within a day or two she probably needs to be fully anticoagulated in spite of its risks. I have a difficult time finding unifying diagnosis that would tie all her problems together, considering nausea, vomiting, diarrhea, and trace pericardial effusion. I suspect that she may have had a viral illness. We will continue supportive treatment. The case was discussed with Dr. Lopez. MIQUEL
[2016-12-28] MEDS: ACETAMINOPHEN TAB 650MG DOSE (2X325MG) PO PRN (09:11)
[2016-12-28] MEDS: OMEPRAZOLE 20 MG CAP PO SCH ×2 (09:13→22:09)
[2016-12-28] MEDS: HumaLOG INSULIN (NovoLOG) PER UNIT SC SCH ×4 (09:13→21:00)
[2016-12-28] MEDS: VENLAFAXINE **XR** 75MG CAPSULE PO SCH (09:13)
[2016-12-28] MEDS: HEPARIN SOD (PORCINE) 5000 UNITS/ML VIAL SQ SCH ×2 (09:14→22:09)
[2016-12-28] MEDS: ACYCLOVIR 5% OINT 15GM TOP SCH ×3 (09:15→22:10)
[2016-12-28] MEDS: BRIMONIDINE 0.1% OPHTH SOLN 5 ML OU SCH ×2 (09:15→22:10)
[2016-12-28 10:56] LABS: VANCOMYCIN RANDOM 46.3 UG/ML
--- NOTE | 2016-12-28 11:07 | IPNPDOC ---
Subjective Date Seen The patient was seen on 12/28/16. Subjective Chief Complaint/HPI The patient is a 76-year-old female admitted with a reason for visit of Afib Rvr. Events since last encounter patient has been very short of breath overnight requiring venti mask support, down down to nasal canula , remains very tachypnic, patient very tired this am. says feels worse than yesterday , no fever or chills, planned for HD again today. Objective Physical Examination General Exam: Positive: Cooperative, Moderate Distress, Other (somnolent) Eye Exam: Positive: PERRLA, Conjunctiva & lids normal, EOMI, Negative: Sclera icteric ENT Exam: Positive: Atraumatic, Mucous membr. moist/pink, Pharynx Normal Neck Exam: Positive: JVD Chest Exam: Positive: Rales, Rhonchi, Wheezing Heart Exam: Positive: Tachycardic, Irregular Rhythm, Normal S1, Normal S2 Telemetry: Positive: Atrial fibrillation Abdomen Exam: Positive: Normal bowel sounds, Soft Extremity Exam: Positive: Edema Skin Exam: Positive: Nl turgor and temperature, Negative: Rash, Breakdown Assessment /Plan Problems (1) Acute renal failure Status: Acute Problem Text: patient anuric at this point possibly ATN due to combination of contrast nephropathy and antibiotics. Acute interstitial nephritis is also a differential patient fluid overloaded . HD started on 12/27/16 all nephrotoxic medications have been stopped and dosages have been adjusted. (2) Acute diastolic congestive heart failure Status: Acute Problem Text: fluid overloaded at this point with acute anuric renal failure. ON HD from 12/27/16 (3) Pneumonia Status: Acute Problem Text: on initial presentation to [facility] on 12/21 she had nausea and vomiting followed by chest pain and diarrhea then she developed fever and cough with afib with rvr. possibility of aspiration pneumonia vs community acquired pneumonia. finished day 7 of zosyn . received 6 days of Vanco stopped today for MICHELLE. vanco random level remains elevated. (4) A-fib Status: Acute Response to Treatment: Worse Problem Text: rate controlled with diltiazem eliquis stopped due to MICHELLE. (5) Hypertension Status: Chronic (6) Diabetes Status: Chronic (7) Rheumatoid arthritis Status: Chronic Problem Text: on methotrexate at home. Plan/VTE VTE Prophylaxis Ordered?: Yes Plan/Urinary Catheter Urinary Catheter: Place Betancourt Reason for insertion/continuin: Critical Pt monitoring VS, I&O, 24H, Fishbone Vital Signs/I&O Vital Signs Date Time Temp Pulse Resp B/P (MAP) Pulse Ox O2 Delivery O2 Flow Rate FiO2 12/28/16 08:30 Nasal Cannula 4.0 12/28/16 07:30 98.7 104 28 127/68 (87) 98 12/27/16 23:28 35 I&O- Last 24 Hours up to 6 AM 12/28/16 05:59 Intake Total 1120 ml Output Total 2395 ml Balance -1275 ml Laboratory Data 24H LABS Laboratory Tests 2 12/27/16 10:44: Triglycerides Level 180H, LDL Cholesterol 52.0, Total Cholesterol 106, Non-HDL Cholesterol (LDL + VLDL) 88, Total HDL Cholesterol 18L, Cholesterol/HDL Ratio 5.888H, Hepatitis B Surface Antigen NEGATIVE, Hepatitis B Surface Antibody NEGATIVE, Hepatitis B Core IgM Antibody NEGATIVE, Hepatitis C Antibody Index < 0.0 12/27/16 13:48: Hepatitis B Core IgG Antibody Negative 12/27/16 17:30: Bedside Glucose (Misc Panel) 209H 12/27/16 20:17: Blood Gas Bicarbonate Standard 22.3, Arterial Blood pH 7.482H, Arterial Blood Partial Pressure CO2 27.0L, Arterial Blood Partial Pressure O2 60.3L, Arterial Blood Total CO2 20.6L, Arterial Blood HCO3 19.7L, Arterial Blood Base Excess - 2.4L, Arterial Blood Oxygen Saturation 92.4L 12/27/16 20:25: Bedside Glucose (Misc Panel) 160H 12/28/16 05:54: Prothrombin Time 16.3H, Prothromb Time International Ratio 1.30, Anion Gap 12, Glomerular Filtration Rate 10.1L, Blood Urea Nitrogen 35H, Creatinine 4.54H, Sodium Level 129L, Potassium Level 4.1, Chloride Level 95L, Carbon Dioxide Level 22, Calcium Level 8.1L, Aspartate Amino Transf (AST/SGOT) 34, Alanine Aminotransferase (ALT/SGPT) 37, Alkaline Phosphatase 69, Total Bilirubin 1.0, Total Protein 7.0, Albumin 2.4L, Magnesium Level 1.8, Albumin/Globulin Ratio 0.52L CBC/BMP Laboratory Tests 12/28/16 05:54 Red Blood Count 3.56 L, Mean Corpuscular Volume 93.6, Mean Corpuscular Hemoglobin 32.2, Mean Corpuscular Hemoglobin Concent 34.4, Red Cell Distribution Width 14.4, Calcium Level 8.1 L, Aspartate Amino Transf (AST/SGOT) 34, Alanine Aminotransferase (ALT/SGPT) 37, Alkaline Phosphatase 69, Total Bilirubin 1.0, Total Protein 7.0, Albumin 2.4 L Microbiology Microbiology 12/23/16 Blood Culture - Preliminary, Resulted No Growth after 72 hours. All specime... 12/23/16 Blood Culture - Preliminary, Resulted No Growth after 72 hours. All specime... 12/22/16 Blood Culture - Final, Complete NO GROWTH AFTER 5 DAYS 12/22/16 Blood Culture - Final, Complete NO GROWTH AFTER 5 DAYS 12/26/16 Gastrointestinal Tract Panel (PCR) - Final, Complete 12/25/16 Gram Stain - Final, Complete 12/25/16 Sputum Culture - Final, Complete 12/22/16 Respiratory Virus Panel (PCR) (LANDY) - Final, Complete LIONEL KING MD Dec 28, 2016 11:07
[2016-12-28 11:45] VITALS: BP 160/60
[2016-12-28] MEDS ORDERED: HEPARIN 1,000 UNITS/ML 10ML VIAL (FOR RADIOLOGY& DIALYSIS ONLY) IV ONE (11:45)
[2016-12-28 16:30] VITALS: BP 128/65
[2016-12-28 18:17] LABS: COMPLEMENT C4 43.2 MG/DL (10-40)
[2016-12-28 19:13] VITALS: BP 141/74
[2016-12-28 20:00] VITALS: PULSE 133
--- NOTE | 2016-12-28 20:15 | IPN ---
DATE: 12/28/2016 The patient was seen and examined at the bedside today morning. She was started on hemodialysis yesterday because of oliguric renal failure, vancomycin toxicity and fluid overload. The patient tolerated the hemodialysis procedure well. However, the patient continued to be short of breath overnight as well. I am happy that the patient started making urine yesterday. She is otherwise hemodialysis stable at this time. REVIEW OF SYSTEMS: The patient denies any fever, chills, rigors, headache, nausea, vomiting, chest pain. She does report shortness of breath. She denies any pain in abdomen or constipation. The patient has an indwelling Betancourt catheter at this time. The rest of review of systems is negative. OBJECTIVE: VITAL SIGNS: Temperature is 97.2 degrees Fahrenheit. Blood pressure is 160/60, pulse is 81, respiratory rate of 20 and saturating 96% on nasal cannula at 4 liters. Intake and output: Urine output recorded as 895 mL yesterday. Ultrafiltration with hemodialysis was 1.5 liter and the patient has made 415 mL of urine so far today since overnight. PHYSICAL EXAMINATION: GENERAL: The patient is awake, alert and oriented times three. Sitting in the bed in mild respiratory distress. HEAD/NECK: Extraocular muscles intact. Pupils equally round and reactive to light. Mucous membranes are moist. Neck is supple. There is no jugular venous distention (JVD). CARDIOVASCULAR: S1, S2, regular rate. No murmur, rub or gallop. RESPIRATORY: Decreased breath sounds at the bases and crepitations at the bases on deep inspiration. ABDOMEN: Soft. Positive bowel sounds. Nontender. No ascites. No organomegaly. GENITOURINARY: The patient has an indwelling Betancourt catheter and the urine in the bag is pale yellow. CENTRAL NERVOUS SYSTEM: No focal neurological deficit. Power is 5/5 in all extremities. PSYCHIATRIC: Normal mood and affect. LAB REVIEW: CBC showed a WBC of 9.1, hemoglobin 11.5, platelets are 276. A repeat urinalysis done today showed urine protein was 1+. Blood was 3+. Leukocyte esterase 1+, too numerous to count RBC. A BMP done today showed sodium 129, potassium 4.1, chloride 95, bicarbonate 22, BUN 35, creatinine is 4.5. It was 4.1 yesterday, so she still has rising creatinine in-between hemodialysis sessions. Calcium is 8.1. Albumin is 2.4. Repeat vancomycin level was 46.3 today. CURRENT INPATIENT MEDICATIONS: The patient's medication are all reviewed by me. Her Zosyn has been stopped. She continues on Cardizem. There is no other change in the medications today as compared with yesterday. ASSESSMENT: 76-year-old female with atrial fibrillation, diastolic congestive heart failure who was being treated for fever of unknown origin who went into acute renal failure. The patient has vancomycin toxicity as well. PLAN: 1. Acute renal failure. The patient was initially oliguric, however, she started making urine yesterday. The patient is nonoliguric at this time, which is a very good sign. The patient got dialyzed for first time on December 27, 2016. She will get another session of hemodialysis to help improve her fluid status, shortness of breath and vancomycin toxicity as well. I will dialyze the patient for three hours today. If vancomycin levels remain high, the patient will get another hemodialysis session tomorrow. The patient continues to have mild proteinuria and significant hematuria. I am going to test the patient for pulmonary renal syndrome as well. 2. Acute decompensated congestive heart failure. The patient was oliguric. She was dialyzed yesterday, however, she started making urine now. I will try to do an extra ultrafiltration around 2.5 liters as tolerated by her blood pressure today again. 3. Hyponatremia. It is hypervolemic, hypernatremia. Sodium level is expected to improve with further hemodialysis and ultrafiltration. 4. Fever or unknown origin. Antibiotics have been stopped at this time. I am going to do all the autoimmune workup for acute renal failure at this time. 5. Atrial fibrillation with rapid ventricular rate. Cardiology is on board. She continues to be on diltiazem. Heart rate is controlled at this time. 6. Anemia. Hemoglobin is 11.5. Acceptable at this time. No need of blood transfusion or Aranesp at this time.
--- NOTE | 2016-12-28 20:31 | ECGEPIP ---
Stationary ECG Study [facility] Test Date: 2016-12-27 Pat Name: MAEGAN FULLER Department: Room: [place] [address] Gender: F Field Contact Person: : [id number] Requested By: Librado Correa Order Number: [id number] Reading MD: Jose Manuel Peterson Measurements Intervals Soso Rate: 82 P: NH: 0 QRS: 24 QRSD: 100 T: 41 QT: 365 QTc: 427 Interpretive Statements ATRIAL FLUTTER/TACHYCARDIA NONSPECIFIC T-WAVE ABNORMALITY ABNORMAL RHYTHM ECG Electronically Signed On 12-28-2016 20:30:38 EDT by Jose Manuel Peterson
[2016-12-28] MEDS: NORCO, ANEXSIA 5/325MG TABLET (HYDROcodone/ACETAMINOPHEN) PO PRN (22:14)
[2016-12-29] VITALS (8 sets, daily range): BP systolic 120–156; BP diastolic 66–76; PULSE 92–114
[2016-12-29] MEDS: LEVALBUTEROL 1.25 MG/0.5 ML CONCENTRATE NEB INH SCH ×5 (03:46→23:55)
[2016-12-29] MEDS: SLF 3 ML SYR IV SCH ×3 (05:46→21:19)
[2016-12-29 06:01] LABS: INR 1.26; MEAN CORPUSCULAR HEMOGLOBIN 31.7 pg (27.0-33.0); MEAN CORPUSCULAR HGB CONC 33.8 g/dl (32.0-36.5); MEAN CORPUSCULAR VOLUME 93.6 fl (80.0-96.0); RED CELL DISTRIBUTION WIDTH 14.5 % (11.5-14.5); WHITE BLOOD COUNT 9.9 K/mm3 (4.0-10.0)
[2016-12-29 07:44] LABS: ALBUMIN 2.3 GM/DL (3.2-5.2); ALBUMIN/GLOBULIN RATIO 0.58 (1.00-1.93); BILIRUBIN,TOTAL 0.8 MG/DL (0.2-1.0); CALCIUM LEVEL 8.6 MG/DL (8.8-10.2); CREATININE FOR GFR 3.78 MG/DL (0.55-1.02); GLOMERULAR FILTRATION RATE 12.4 (>39); MAGNESIUM LEVEL 2.1 MG/DL (1.8-2.4); POTASSIUM SERUM 4.7 MEQ/L (3.5-5.1); TOTAL PROTEIN 6.3 GM/DL (6.4-8.2)
[2016-12-29] MEDS: HumaLOG INSULIN (NovoLOG) PER UNIT SC SCH ×4 (08:32→21:00)
[2016-12-29] MEDS: OMEPRAZOLE 20 MG CAP PO SCH ×2 (08:34→21:18)
[2016-12-29] MEDS: HEPARIN SOD (PORCINE) 5000 UNITS/ML VIAL SQ SCH (08:34)
[2016-12-29] MEDS: VENLAFAXINE **XR** 75MG CAPSULE PO SCH (08:34)
[2016-12-29] MEDS: BRIMONIDINE 0.1% OPHTH SOLN 5 ML OU SCH ×2 (08:34→21:19)
[2016-12-29] MEDS: ACYCLOVIR 5% OINT 15GM TOP SCH ×3 (08:35→21:00)
--- NOTE | 2016-12-29 08:39 | IPN ---
DATE: 12/29/2016 Mrs. Lima is feeling much better. She yesterday had another session of dialysis and another 2-1/2 liters were removed. She feels that her breathing has improved and she feels less tired. Denies any chest pain or sensation of palpitations. Vital Signs: Blood pressure 137/67. Heart rate is in 90s. She is afebrile. Her fluid balance yesterday was about 2 liters negative. Weight is documented 83.3 kg. She made about 715 mL of urine yesterday and she already made 200 today. Her jugular venous pulse (JVP) is not high. Lungs are relatively clear to auscultation. I no longer appreciate any wheezing and there is only minimal scattered crackle. Heart exam irregularly irregular rhythm. No gallop or rub. Abdomen is soft, nontender. No significant peripheral edema. Neurologically, she is intact. Laboratory-morejon, hemoglobin 12.1, hematocrit 35.8 and platelet count 256,000. Basic metabolic panel: Sodium 131, BUN 25, creatinine 3.8 and glucose 167. Normal liver function tests. Albumin is 2.3. ASSESSMENT/PLAN: Mrs. Lima is a 76-year-old female who presented with symptoms suggestive of probably viral illness that included nausea, vomiting, diarrhea, cough and probably pleuritic chest discomfort. Subsequently got complicated with atrial fibrillation with RVR and acute renal failure. Currently the atrial fibrillation is rate controlled with Cardizem. I am somewhat concerned that we have not been giving her full anticoagulation already for two days. After discussion with Dr. Lopez, we agreed that she will start her on IV heparin. That will provide the best control for removal of the dialysis catheter which is expected within a couple of days. After that is accomplished, depending on the renal function, we will most likely start her on Eliquis. As far as the heart failure is concerned, I think it was at least in part due to fluid retention due to renal failure. She is starting to make urine and I am hoping that within a couple or three days the renal function will return hopefully all the way back to normal. I am not going to administer any diuretics at this point as she was just dialyzed. I am becoming much more optimistic about her chances of full recovery.
[2016-12-29] MEDS ORDERED: HEPARIN SOD (PORCINE) 5000 UNITS/ML VIAL IV PRN (09:00)
[2016-12-29 09:15] LABS: VANCOMYCIN RANDOM 29.8 UG/ML
--- NOTE | 2016-12-29 10:51 | IPNPDOC ---
Subjective Date Seen The patient was seen on 12/29/16. Subjective Chief Complaint/HPI The patient is a 76-year-old female admitted with a reason for visit of Afib Rvr. Events since last encounter looking and feeling better this am , not requiring as oxygen supplementation , has started making urine , no fever or chills, breathing better. Objective Physical Examination General Exam: Positive: Cooperative, Moderate Distress, Other (somnolent) Eye Exam: Positive: PERRLA, Conjunctiva & lids normal, EOMI, Negative: Sclera icteric ENT Exam: Positive: Atraumatic, Mucous membr. moist/pink, Pharynx Normal Neck Exam: Positive: JVD Chest Exam: Positive: Rales, Rhonchi, Wheezing Heart Exam: Positive: Tachycardic, Irregular Rhythm, Normal S1, Normal S2 Telemetry: Positive: Atrial fibrillation Abdomen Exam: Positive: Normal bowel sounds, Soft Extremity Exam: Positive: Edema Skin Exam: Positive: Nl turgor and temperature, Negative: Rash, Breakdown Assessment /Plan Problems (1) Acute renal failure Status: Acute Problem Text: patient anuric at this point possibly ATN due to combination of contrast nephropathy and antibiotics. Acute interstitial nephritis is also a differential patient fluid overloaded . HD started on 12/27/16 all nephrotoxic medications have been stopped and dosages have been adjusted. (2) Acute diastolic congestive heart failure Status: Acute Problem Text: fluid overloaded at this point with acute anuric renal failure. ON HD from 12/27/16 (3) Pneumonia Status: Acute Problem Text: on initial presentation to [facility] on 12/21 she had nausea and vomiting on the night of 12/20 followed by chest pain shortness of breath on morning 12/21 which made her go to the hospital . in the hospital she had diarrhea then she developed fever, cough and afib with rvr. possibility of aspiration pneumonia vs community acquired pneumonia. finished day 7 of zosyn . received 6 days of Vanco stopped today for MICHELLE. vanco random level remains elevated. (4) A-fib Status: Acute Response to Treatment: Worse Problem Text: rate controlled with diltiazem eliquis stopped due to MICHELLE. will start patient on heparin infusion and change to oral anticoagulants after renal function improves. (5) Hypertension Status: Chronic (6) Diabetes Status: Chronic (7) Rheumatoid arthritis Status: Chronic Problem Text: on methotrexate at home. Plan/VTE VTE Prophylaxis Ordered?: Yes Plan/Urinary Catheter Urinary Catheter: Place Betancourt Reason for insertion/continuin: Critical Pt monitoring VS, I&O, 24H, Fishbone Vital Signs/I&O Vital Signs Date Time Temp Pulse Resp B/P (MAP) Pulse Ox O2 Delivery O2 Flow Rate FiO2 12/29/16 07:58 97.6 93 24 137/67 (90) 93 Room Air 12/29/16 03:57 4.0 12/27/16 23:28 35 I&O- Last 24 Hours up to 6 AM 12/29/16 06:00 Intake Total 1140 ml Output Total 3215 ml Balance -2075 ml Laboratory Data 24H LABS Laboratory Tests 2 12/28/16 11:33: Urine Appearance HAZY, Urine Color YELLOW, Urine pH 6.0, Urine Specific [place] 1.006, Urine Protein 1+H, Urine Glucose (UA) NEGATIVE, Urine Ketones NEGATIVE, Urine Urobilinogen 0.2, Urine Bilirubin NEGATIVE, Urine Leukocyte Esterase 1+H, Urine Blood 3+H, Urine Nitrite NEGATIVE, Urine WBC (Auto) 47H, Urine RBC (Auto) TNTCH, Urine Hyaline Casts (Auto) 0, Urine Bacteria (Auto) 1+H, Urine Squamous Epithelial Cells 0, Urine Amorphous Sediment SMALLH, Urine Sperm (Auto) , Urine Random Creatinine 29.6, Urine Random Total Protein 62.0H 12/28/16 11:41: Bedside Glucose (Misc Panel) 215H 12/28/16 17:02: Bedside Glucose (Misc Panel) 110 12/28/16 17:45: C-Reactive Protein, Quantitative 9.22H, Complement C3 164, Complement C4 43.2H 12/28/16 21:26: Bedside Glucose (Misc Panel) 169H 12/29/16 05:21: Prothrombin Time 15.9H, Prothromb Time International Ratio 1.26 12/29/16 06:57: Anion Gap 10, Glomerular Filtration Rate 12.4L, Blood Urea Nitrogen 25H, Creatinine 3.78H, Sodium Level 131L, Potassium Level 4.7, Chloride Level 95L, Carbon Dioxide Level 26, Calcium Level 8.6L, Aspartate Amino Transf (AST/SGOT) 33, Alanine Aminotransferase (ALT/SGPT) 29, Alkaline Phosphatase 71, Total Bilirubin 0.8, Total Protein 6.3L, Albumin 2.3L, Magnesium Level 2.1, Albumin/ Globulin Ratio 0.58L, Random Vancomycin Level 29.8 CBC/BMP Laboratory Tests 12/29/16 05:21 Red Blood Count 3.83 L, Mean Corpuscular Volume 93.6, Mean Corpuscular Hemoglobin 31.7, Mean Corpuscular Hemoglobin Concent 33.8, Red Cell Distribution Width 14.5 12/29/16 06:57 Calcium Level 8.6 L, Aspartate Amino Transf (AST/SGOT) 33, Alanine Aminotransferase (ALT/SGPT) 29, Alkaline Phosphatase 71, Total Bilirubin 0.8, Total Protein 6.3 L, Albumin 2.3 L Microbiology Microbiology 12/23/16 Blood Culture - Final, Complete NO GROWTH AFTER 5 DAYS 12/23/16 Blood Culture - Final, Complete NO GROWTH AFTER 5 DAYS 12/22/16 Blood Culture - Final, Complete NO GROWTH AFTER 5 DAYS 12/22/16 Blood Culture - Final, Complete NO GROWTH AFTER 5 DAYS 12/26/16 Gastrointestinal Tract Panel (PCR) - Final, Complete 12/25/16 Gram Stain - Final, Complete 12/25/16 Sputum Culture - Final, Complete 12/22/16 Respiratory Virus Panel (PCR) ([facility]) - Final, Complete LIONEL KING MD Dec 29, 2016 10:51
[2016-12-29] MEDS ORDERED: HEPARIN 1,000 UNITS/ML 10ML VIAL (FOR RADIOLOGY& DIALYSIS ONLY) IV ONE (13:30)
[2016-12-29] MEDS ORDERED: HEPARIN 1,000 UNITS/ML 10ML VIAL (FOR RADIOLOGY& DIALYSIS ONLY) XX ONE (13:30)
[2016-12-29] MEDS: HEPARIN DRIP 25,000 UNITS in APPROPRIATE DILUENT 1 EA IV SCH (16:36)
[2016-12-29] MEDS: traMADol 50 MG TAB PO PRN (16:43)
--- NOTE | 2016-12-29 18:00 | IPN ---
DATE: 12/29/2016 SUBJECTIVE: Patient was seen and examined at the bedside today morning. She reports that her shortness of breath is significantly better. She was dialyzed for the second time yesterday. She tolerated the hemodialysis procedure well. Patient is having a good urine output now. She made around 700 mL of urine yesterday, and she has made 500 mL of urine so far today since overnight; however, she still has a very high vancomycin level of 29.8. REVIEW OF SYSTEMS: Patient denies any fevers, chills, rigors, headache, nausea, vomiting, or chest pain. She reports mild shortness of breath. She denies any pain in abdomen, constipation or diarrhea. Rest of review of systems is negative. OBJECTIVE: Vital signs: Temperature is 97.6 degrees Fahrenheit, blood pressure is 137/67, pulse is 93, respiratory rate of 24, saturating 93% on room air. Intake and output: Ultrafiltration with hemodialysis was 2.5 liters yesterday, and her urine output was 715 mL yesterday. Patient has made 500 mL of urine so far today since overnight. Weight in the bed scale is 83.3 kg. PHYSICAL EXAMINATION: GENERAL: Patient is awake, alert, oriented times three, sitting in the bed with mild amount of wheezing. HEAD AND NECK: Extraocular muscles intact. Pupils equally round and reactive to light. Mucous membranes are moist. Neck is supple. There is no jugular venous distention (JVD). CARDIOVASCULAR: S1, S2, regular rate. No murmur, rub, or gallop. RESPIRATORY: Decreased breath sounds at the bases. Mild crepitations at the bases on deep inspiration. ABDOMEN: Abdomen is soft. Positive bowel sounds. Nontender. No ascites. No organomegaly. GENITOURINARY: Patient has an indwelling Betancourt catheter, and the urine in the bag is slightly blood tinged. CENTRAL NERVOUS SYSTEM: No focal neurological deficit. Power is 5/5 in all extremities. PSYCHIATRIC: Normal mood and affect. LABORATORY REVIEW: CBC showed a WBC 9.9, hemoglobin 12.1, platelets are 256. INR is 1.26. Urinalysis was done yesterday, which showed 1+ protein and about 3+ blood. BMP done today morning showed sodium 131, potassium 4.7, chloride 95, bicarbonate 26, BUN is 25, creatinine is 3.7, calcium 8.6. C-reactive protein was 9.2 yesterday. Albumin is 2.3. Vancomycin level today was 29.8. IMMUNOLOGY: Complement 3 is 164, which is normal. Complement 4 is 43.2, which is slightly higher than normal. Rest of the autoimmune serologies pending. CURRENT INPATIENT MEDICATIONS: Patient's medications were all reviewed by me. Her antibiotics are on hold at this time. Subcutaneous heparin has been stopped. There is no other change in the medications today as compared with yesterday. ASSESSMENT: A 76-year-old female with atrial fibrillation, diastolic congestive heart failure, who was being treated for fever of unknown origin. She rapidly went into acute renal failure, and patient has vancomycin toxicity as well. She has been started on hemodialysis. She has received two sessions of hemodialysis so far. PLAN: 1. Acute renal failure. Patient initially had oliguric renal failure; however, she is nonoliguric at this time. She continues to have vancomycin toxicity. She was dialyzed twice. I will dialyze the patient again today with F180 dialyzer for 3-1/2 hours to get more vancomycin out of her system to help improve her renal function. After today's dialysis, I will wait over the weekend and monitor patient's renal function without the dialysis. I am hopeful that patient's renal function will improve over the next few days or weeks. 2. Acute decompensated congestive heart failure. It was most likely secondary to volume overload secondary to oliguria. Her renal function is improving, and patient's shortness of breath is significantly better after [id number] sessions of hemodialysis and ultrafiltration. 3. Hyponatremia. It is hypervolemic hyponatremia. Sodium level is improving. Further ultrafiltration today will help improve sodium level as well. 4. Atrial fibrillation with rapid ventricular rate. Management is as per cardiology. Patient is currently on diltiazem. She is not receiving anticoagulation at this time. Primary team plans to start the patient on heparin drip. 5. Proteinuria and hematuria. It is most likely related to acute tubular injury or interstitial nephritis; however, I have sent all the autoimmune serologies to make sure patient does not have any pulmonary renal syndrome. Serology is pending so far. Only C3 and C4 are back, which are within the acceptable limits.
[2016-12-29] MEDS: NORCO, ANEXSIA 5/325MG TABLET (HYDROcodone/ACETAMINOPHEN) PO PRN (21:24)
[2016-12-30] VITALS (8 sets, daily range): BP systolic 126–146; BP diastolic 50–90; PULSE 112–133
[2016-12-30] MEDS: LEVALBUTEROL 1.25 MG/0.5 ML CONCENTRATE NEB INH SCH ×5 (05:14→20:04)
[2016-12-30] MEDS: SLF 3 ML SYR IV SCH ×3 (06:37→20:12)
[2016-12-30] MEDS: HumaLOG INSULIN (NovoLOG) PER UNIT SC SCH ×4 (07:30→20:20)
[2016-12-30 08:07] LABS: BASO # 0.1 K/mm3 (0.0-0.2); BASO % 0.8 % (0.0-1.0); EOS # 0.2 K/mm3 (0.0-0.50); EOS % 2.4 % (0.0-3.0); LARGE UNSTAINED CELL # 0.2 K/mm3 (0.0-0.4); LYMPH # 1.5 K/mm3 (1.5-4.5); LYMPH % 13.1 % (24.0-44.0); MEAN CORPUSCULAR HEMOGLOBIN 31.4 pg (27.0-33.0); MEAN CORPUSCULAR HGB CONC 33.9 g/dl (32.0-36.5); MEAN CORPUSCULAR VOLUME 92.5 fl (80.0-96.0); MONO # 0.6 K/mm3 (0.0-0.8); MONO % 6.5 % (0.0-5.0); NEUTROPHILS # 7.2 K/mm3 (1.8-7.7); NEUTROPHILS % 75.1 % (36.0-66.0); PLATELET COUNT, AUTOMATED 288 k/mm3 (150-450); RED CELL DISTRIBUTION WIDTH 14.2 % (11.5-14.5); WHITE BLOOD COUNT 9.6 K/mm3 (4.0-10.0)
[2016-12-30 08:57] LABS: CALCIUM LEVEL 7.5 MG/DL (8.8-10.2); CREATININE FOR GFR 3.09 MG/DL (0.55-1.02); GLOMERULAR FILTRATION RATE 15.7 (>39); POTASSIUM SERUM 3.8 MEQ/L (3.5-5.1)
[2016-12-30] MEDS: OMEPRAZOLE 20 MG CAP PO SCH ×2 (09:06→20:10)
[2016-12-30] MEDS: VENLAFAXINE **XR** 75MG CAPSULE PO SCH (09:06)
[2016-12-30] MEDS: BRIMONIDINE 0.1% OPHTH SOLN 5 ML OU SCH ×2 (09:07→20:11)
[2016-12-30] MEDS: ACYCLOVIR 5% OINT 15GM TOP SCH ×4 (09:07→20:11)
--- NOTE | 2016-12-30 10:22 | IPNPDOC ---
Subjective Date Seen The patient was seen on 12/30/16. Subjective Chief Complaint/HPI The patient is a 76-year-old female admitted with a reason for visit of Afib Rvr. Events since last encounter feeling better but very weak and tired. Not requiring any oxygen. Objective Physical Examination General Exam: Positive: Cooperative, Moderate Distress, Other (somnolent) Eye Exam: Positive: PERRLA, Conjunctiva & lids normal, EOMI, Negative: Sclera icteric ENT Exam: Positive: Atraumatic, Mucous membr. moist/pink, Pharynx Normal Neck Exam: Positive: JVD Chest Exam: Positive: Rales, Rhonchi, Wheezing Heart Exam: Positive: Tachycardic, Irregular Rhythm, Normal S1, Normal S2 Telemetry: Positive: Atrial fibrillation Abdomen Exam: Positive: Normal bowel sounds, Soft Extremity Exam: Negative: Clubbing, Cyanosis, Edema, Normal pulses, Tenderness , Swelling, Other Skin Exam: Positive: Nl turgor and temperature Assessment /Plan Problems (1) Acute renal failure Status: Acute Problem Text: patient making urine about 700 to 800 ml/ day . Had 3 sessions of HD till date. possibly ATN due to combination of contrast nephropathy and antibiotics. Acute interstitial nephritis is also a differential patient fluid overloaded . HD started on 12/27/16 all nephrotoxic medications have been stopped and dosages have been adjusted. (2) Acute diastolic congestive heart failure Status: Acute Problem Text: fluid status improving with HD. still needs more fluid off. HD from 12/27/16 (3) Pneumonia Status: Acute Problem Text: on initial presentation to [facility] on 12/21 she had nausea and vomiting on the night of 12/20 followed by chest pain shortness of breath on morning 12/21 which made her go to the hospital . in the hospital she had diarrhea then she developed fever, cough and afib with rvr. possibility of aspiration pneumonia vs community acquired pneumonia. finished day 7 of zosyn . received 6 days of Vanco stopped today for MICHELLE. vanco random level remains elevated. (4) A-fib Status: Acute Response to Treatment: Worse Problem Text: rate controlled with diltiazem eliquis stopped due to MICHELLE. started patient on heparin infusion and change to oral anticoagulants after renal function improves. (5) Hypertension Status: Chronic (6) Diabetes Status: Chronic (7) Rheumatoid arthritis Status: Chronic Problem Text: on methotrexate at home. Plan/VTE VTE Prophylaxis Ordered?: Yes Plan/Urinary Catheter Urinary Catheter: Place Betancourt Reason for insertion/continuin: Critical Pt monitoring VS, I&O, 24H, Fishbone Vital Signs/I&O Vital Signs Date Time Temp Pulse Resp B/P (MAP) Pulse Ox O2 Delivery O2 Flow Rate FiO2 12/30/16 08:00 12/30/16 06:54 3.0 12/27/16 23:28 35 I&O- Last 24 Hours up to 6 AM 12/30/16 06:00 Intake Total 2080 ml Output Total 2225 ml Balance -145 ml Laboratory Data 24H LABS Laboratory Tests 2 12/29/16 10:42: Activated Partial Thromboplast Time 33.7 12/29/16 11:40: Bedside Glucose (Misc Panel) 185H 12/29/16 15:24: Activated Partial Thromboplast Time 32.9 12/29/16 16:52: Bedside Glucose (Misc Panel) 109 12/29/16 22:22: Activated Partial Thromboplast Time 56.0H 12/30/16 03:09: Activated Partial Thromboplast Time 78.3H 12/30/16 07:41: White Blood Count 9.6, Red Blood Count 3.69L, Hemoglobin 11.6L, Hematocrit 34.1L , Mean Corpuscular Volume 92.5, Mean Corpuscular Hemoglobin 31.4, Mean Corpuscular Hemoglobin Concent 33.9, Red Cell Distribution Width 14.2, Platelet Count 288, Neutrophils (%) (Auto) 75.1H, Lymphocytes (%) (Auto) 13.1L, Monocytes (%) (Auto) 6.5H, Eosinophils (%) (Auto) 2.4, Basophils (%) (Auto) 0.8 , Neutrophils # (Auto) 7.2, Lymphocytes # (Auto) 1.5, Monocytes # (Auto) 0.6, Eosinophils # (Auto) 0.2, Basophils # (Auto) 0.1, Large Unclassified Cells % 2.0 , Large Unclassified Cells # 0.2, Anion Gap 9, Glomerular Filtration Rate 15.7L , Blood Urea Nitrogen 20H, Creatinine 3.09H, Sodium Level 130L, Potassium Level 3.8, Chloride Level 94L, Carbon Dioxide Level 27, Calcium Level 7.5L 12/30/16 08:59: Activated Partial Thromboplast Time 68.7H CBC/BMP Laboratory Tests 12/30/16 07:41 Red Blood Count 3.69 L, Mean Corpuscular Volume 92.5, Mean Corpuscular Hemoglobin 31.4, Mean Corpuscular Hemoglobin Concent 33.9, Red Cell Distribution Width 14.2, Neutrophils (%) (Auto) 75.1 H, Lymphocytes (%) (Auto) 13.1 L, Monocytes (%) (Auto) 6.5 H, Eosinophils (%) (Auto) 2.4, Basophils (%) ( Auto) 0.8, Neutrophils # (Auto) 7.2, Lymphocytes # (Auto) 1.5, Monocytes # (Auto ) 0.6, Eosinophils # (Auto) 0.2, Basophils # (Auto) 0.1, Calcium Level 7.5 L Microbiology Microbiology 12/23/16 Blood Culture - Final, Complete NO GROWTH AFTER 5 DAYS 12/23/16 Blood Culture - Final, Complete NO GROWTH AFTER 5 DAYS 12/22/16 Blood Culture - Final, Complete NO GROWTH AFTER 5 DAYS 12/22/16 Blood Culture - Final, Complete NO GROWTH AFTER 5 DAYS 12/26/16 Gastrointestinal Tract Panel (PCR) - Final, Complete 12/25/16 Gram Stain - Final, Complete 12/25/16 Sputum Culture - Final, Complete 12/22/16 Respiratory Virus Panel (PCR) ([facility]) - Final, Complete LIONEL KING MD Dec 30, 2016 10:22
--- NOTE | 2016-12-30 11:27 | IPN ---
DATE: 12/30/2016 Patient tells me that she is feeling reasonably well, probably not as well as yesterday, but denies significant dyspnea or chest pain. She tells me that she is feeling bored. Vital signs this morning reveal blood pressure 129/73. Heart rate has been mildly tachycardiac in 100-110s. Saturation 96% on 3 liters of oxygen by nasal cannula. Her fluid balance yesterday was approximately 300 mL negative. About 1.5 liters was removed by dialysis. Weight is documented 82.5 kg. She is alert and oriented and appropriate. Her jugular venous pulse (JVP) does not look elevated. Lungs are reasonably clear with only occasional scattered wheeze and crackle. Heart exam reveals irregular rhythm. No gallop or rub is noted. Abdomen is soft, nontender. There is minimal peripheral edema. Neurologically, she appears intact even though there is generalized weakness. Basic metabolic panel: Potassium 3.8, BUN 20, creatinine 3.1, GFR 15 and glucose 136. Hemoglobin 11.6, hematocrit 34, platelet count 288,000, WBC count 9.6. PTT is 68. ASSESSMENT AND PLAN: Mrs. Lima is a 76-year-old female who presented with probably viral illness that involved nausea, vomiting, diarrhea and cough. It was complicated by development of atrial fibrillation and acute renal failure. I suspect that the renal failure was principally due to vancomycin toxicity. She did unfortunately require placement of dialysis catheter and dialysis because she was volume overloaded and was essentially anuric. At this point, she has been anticoagulated with heparin to allow flexibility with dialysis and also availability to stopping the anticoagulation when the dialysis catheter will be removed. I do not think she needs dialysis today, but ultimately will be decided by Dr. Churchill. Once the dialysis catheter is removed, then hopefully we can start oral anticoagulation. Her heart rate is not perfectly well controlled. She is currently on Cardizem and has been receiving 60 mg every 6 hours. I am going to increase the dose slightly. As far as volume is concerned, she made about 700 mL of urine yesterday, but principally it is controlled by dialysis.
[2016-12-30] MEDS: HEPARIN DRIP 25,000 UNITS in APPROPRIATE DILUENT 1 EA IV SCH ×2 (12:55→23:16)
--- NOTE | 2016-12-30 19:49 | IPN ---
DATE: 11/29/2016 Mrs. Lima is seen this morning on her bedside. She is sitting in the chair at the time of my visit. She is receiving intravenous (IV) heparin drip due to atrial fibrillation. She is very weak and short of breath. She denies any vomiting; however, her appetite is poor. She reports that her brother is going to bring her favorite food from home today. PHYSICAL EXAMINATION: Temperature 98.5 degrees Fahrenheit, heart rate about 120 per minute, respiratory rate 20 per minute, blood pressure 136/77 mm of mercury, and oxygen saturation 96% on 3 liters oxygen. Head is atraumatic. Ears, nose, and throat are unremarkable. Pupils equal and reactive to light, and sclerae are anicteric. Neck is supple, and jugular venous distention (JVD) is only mildly elevated. Hemodialysis catheter is present in right internal jugular vein with a large clot at the exit site. Heart sounds are irregular and tachycardiac. Lungs with diminished breath sounds bilaterally. Scattered rhonchi are audible. Abdomen: Soft and bowel sounds are present. There is no palpable organomegaly. Extremities have no cyanosis or clubbing. Skin has no rash or ulcers. Neurologically she is awake, alert, and oriented times three. Today's labs show WBC count 9.6, hemoglobin 11.6, hematocrit 34.1, platelets 288. Sodium 130, potassium 3.8, BUN 20, and creatinine 3.09. Glucose 136 and calcium 7.5. PROBLEMS: 1. Acute renal failure. The patient has been dialysis dependent. She was dialyzed yesterday and seems to have reasonable urine output today. At this point, we will wait and monitor her for next 48 hours without dialysis. There is no emergent indication for dialysis today. 2. Hyponatremia is mild and stable. Hyponatremia related to acute renal failure and congestive heart failure. We will monitor her electrolytes on daily basis. There is no urgent intervention indicated. 3. Congestive heart failure. Her volume status is somewhat decompensated. She is in rapid atrial fibrillation, which is probably contributing to her decompensated volume status. She is being treated with metoprolol and diltiazem. She is also anticoagulated with intravenous (IV) heparin drip.
[2016-12-30] MEDS: NORCO, ANEXSIA 5/325MG TABLET (HYDROcodone/ACETAMINOPHEN) PO PRN (20:22)
[2016-12-31] VITALS: BP 109/67; PULSE 97
[2016-12-31] MEDS: LEVALBUTEROL 1.25 MG/0.5 ML CONCENTRATE NEB INH SCH ×7 (00:56→23:48)
[2016-12-31 04:00] VITALS: BP 149/90; PULSE 123
[2016-12-31] MEDS: SLF 3 ML SYR IV SCH ×3 (05:11→20:42)
[2016-12-31 06:03] LABS: BASO # 0.1 K/mm3 (0.0-0.2); BASO % 0.7 % (0.0-1.0); EOS # 0.3 K/mm3 (0.0-0.50); EOS % 2.8 % (0.0-3.0); LARGE UNSTAINED CELL # 0.2 K/mm3 (0.0-0.4); LARGE UNSTAINED CELL % 1.6 % (0.0-4.0); LYMPH # 1.4 K/mm3 (1.5-4.5); LYMPH % 10.8 % (24.0-44.0); MEAN CORPUSCULAR HEMOGLOBIN 32.1 pg (27.0-33.0); MEAN CORPUSCULAR VOLUME 91.9 fl (80.0-96.0); MONO # 0.5 K/mm3 (0.0-0.8); MONO % 4.8 % (0.0-5.0); NEUTROPHILS # 8.8 K/mm3 (1.8-7.7); NEUTROPHILS % 79.5 % (36.0-66.0); PLATELET COUNT, AUTOMATED 272 k/mm3 (150-450); RED CELL DISTRIBUTION WIDTH 14.1 % (11.5-14.5); WHITE BLOOD COUNT 11.1 K/mm3 (4.0-10.0)
[2016-12-31 06:19] LABS: CALCIUM LEVEL 8.1 MG/DL (8.8-10.2); CREATININE FOR GFR 4.22 MG/DL (0.55-1.02); POTASSIUM SERUM 3.9 MEQ/L (3.5-5.1)
[2016-12-31 08:00] VITALS: BP 127/73; PULSE 120
[2016-12-31] MEDS: OMEPRAZOLE 20 MG CAP PO SCH ×2 (08:41→20:36)
[2016-12-31] MEDS: VENLAFAXINE **XR** 75MG CAPSULE PO SCH (08:41)
[2016-12-31] MEDS: HEPARIN DRIP 25,000 UNITS in APPROPRIATE DILUENT 1 EA IV SCH (08:45)
[2016-12-31] MEDS: HumaLOG INSULIN (NovoLOG) PER UNIT SC SCH ×4 (08:56→20:41)
[2016-12-31] MEDS: BRIMONIDINE 0.1% OPHTH SOLN 5 ML OU SCH ×2 (10:44→20:37)
--- NOTE | 2016-12-31 11:22 | IPNPDOC ---
Subjective Date Seen The patient was seen on 12/31/16. Subjective Chief Complaint/HPI The patient is a 76-year-old female admitted with a reason for visit of Afib Rvr. Events since last encounter feels a little better , was able to eat quite a good breakfast, noted continuous oozing from the HD cath site, SOB unchanged again requiring oxygen , making urine about 800 ml/ day, remains tachycardic, Objective Physical Examination General Exam: Positive: Cooperative, Moderate Distress, Other (somnolent) Eye Exam: Positive: PERRLA, Conjunctiva & lids normal, EOMI, Negative: Sclera icteric ENT Exam: Positive: Atraumatic, Mucous membr. moist/pink, Pharynx Normal Neck Exam: Positive: JVD Chest Exam: Positive: Rales, Rhonchi, Wheezing, Diminished Heart Exam: Positive: Tachycardic, Irregular Rhythm, Normal S1, Normal S2 Telemetry: Positive: Atrial fibrillation Abdomen Exam: Positive: Normal bowel sounds, Soft Extremity Exam: Negative: Clubbing, Cyanosis, Edema, Normal pulses, Tenderness , Swelling, Other Skin Exam: Positive: Nl turgor and temperature Assessment /Plan Problems (1) Acute renal failure Status: Acute Problem Text: patient making urine about 700 to 800 ml/ day . Had 3 sessions of HD till date. possibly ATN due to combination of contrast nephropathy and antibiotics. Acute interstitial nephritis is also a differential patient fluid overloaded . HD started on 12/27/16 all nephrotoxic medications have been stopped and dosages have been adjusted. (2) Acute diastolic congestive heart failure Status: Acute Problem Text: fluid status improving with HD. still needs more fluid off. HD from 12/27/16 (3) Pneumonia Status: Acute Problem Text: on initial presentation to [facility] on 12/21 she had nausea and vomiting on the night of 12/20 followed by chest pain shortness of breath on morning 12/21 which made her go to the hospital . in the hospital she had diarrhea then she developed fever, cough and afib with rvr. possibility of aspiration pneumonia vs community acquired pneumonia. finished day 7 of zosyn . received 6 days of Vanco stopped today for MICHELLE. (4) A-fib Status: Acute Response to Treatment: Worse Problem Text: on diltiazem eliquis stopped due to MICHELLE. started patient on heparin infusion and change to oral anticoagulants after renal function improves. oozing from HD cath site will reduce dose of heparin , will maintian PTT at 75 (5) Hypertension Status: Chronic (6) Diabetes Status: Chronic (7) Rheumatoid arthritis Status: Chronic Problem Text: on methotrexate at home. Plan/VTE VTE Prophylaxis Ordered?: Yes Plan/Urinary Catheter Urinary Catheter: Place Betancourt Reason for insertion/continuin: Critical Pt monitoring VS, I&O, 24H, Fishbone Vital Signs/I&O Vital Signs Date Time Temp Pulse Resp B/P (MAP) Pulse Ox O2 Delivery O2 Flow Rate FiO2 12/31/16 08:00 97.8 112 22 127/73 (91) 94 Nasal Cannula 3.0 12/27/16 23:28 35 I&O- Last 24 Hours up to 6 AM 12/31/16 06:00 Intake Total 967 ml Output Total 1150 ml Balance -183 ml Laboratory Data 24H LABS Laboratory Tests 2 12/30/16 12:13: Bedside Glucose (Misc Panel) 130H 12/30/16 14:49: Activated Partial Thromboplast Time 87.5H 12/30/16 16:26: Bedside Glucose (Misc Panel) 150H 12/30/16 20:19: Bedside Glucose (Misc Panel) 225H 12/30/16 21:00: Activated Partial Thromboplast Time 61.5H 12/31/16 05:50: Activated Partial Thromboplast Time 91.5H, White Blood Count 11.1H, Red Blood Count 3.58L, Hemoglobin 11.5L, Hematocrit 32.9L, Mean Corpuscular Volume 91.9, Mean Corpuscular Hemoglobin 32.1, Mean Corpuscular Hemoglobin Concent 35.0, Red Cell Distribution Width 14.1, Platelet Count 272, Neutrophils (%) (Auto) 79.5H, Lymphocytes (%) (Auto) 10.8L, Monocytes (%) (Auto) 4.8, Eosinophils (%) (Auto) 2.8, Basophils (%) (Auto) 0.7, Neutrophils # (Auto) 8.8H, Lymphocytes # (Auto) 1.4L, Monocytes # (Auto) 0.5, Eosinophils # (Auto) 0.3, Basophils # (Auto) 0.1, Large Unclassified Cells % 1.6, Large Unclassified Cells # 0.2, Anion Gap 11, Glomerular Filtration Rate 11.0L, Blood Urea Nitrogen 31#H, Creatinine 4.22H, Sodium Level 128L, Potassium Level 3.9, Chloride Level 92L, Carbon Dioxide Level 25, Calcium Level 8.1L CBC/BMP Laboratory Tests 12/31/16 05:50 Red Blood Count 3.58 L, Mean Corpuscular Volume 91.9, Mean Corpuscular Hemoglobin 32.1, Mean Corpuscular Hemoglobin Concent 35.0, Red Cell Distribution Width 14.1, Neutrophils (%) (Auto) 79.5 H, Lymphocytes (%) (Auto) 10.8 L, Monocytes (%) (Auto) 4.8, Eosinophils (%) (Auto) 2.8, Basophils (%) ( Auto) 0.7, Neutrophils # (Auto) 8.8 H, Lymphocytes # (Auto) 1.4 L, Monocytes # ( Auto) 0.5, Eosinophils # (Auto) 0.3, Basophils # (Auto) 0.1, Calcium Level 8.1 L Microbiology Microbiology 12/23/16 Blood Culture - Final, Complete NO GROWTH AFTER 5 DAYS 12/23/16 Blood Culture - Final, Complete NO GROWTH AFTER 5 DAYS 12/22/16 Blood Culture - Final, Complete NO GROWTH AFTER 5 DAYS 12/22/16 Blood Culture - Final, Complete NO GROWTH AFTER 5 DAYS 12/30/16 Stool Occult Blood (LANDY) - Final, Complete 12/26/16 Gastrointestinal Tract Panel (PCR) - Final, Complete 12/25/16 Gram Stain - Final, Complete 12/25/16 Sputum Culture - Final, Complete 12/22/16 Respiratory Virus Panel (PCR) (LANDY) - Final, Complete LIONEL KING MD Dec 31, 2016 11:21
[2016-12-31 12:00] VITALS: BP 96/55; PULSE 114
[2016-12-31] MEDS ORDERED: POTASSIUM CHLORIDE 10 MEQ SR TABLET PO ONE (12:00)
[2016-12-31] MEDS ORDERED: FUROSEMIDE 100 MG/10 ML VIAL (J1940) IV ONE (12:00)
--- NOTE | 2016-12-31 13:09 | IPN ---
DATE: 12/31/2016 Mrs. Lima is feeling tired and little short of breath but overall about the same as yesterday. Vital signs: Blood pressure 127/73, heart rate is usually low 100s. She is afebrile, even though this morning she had maximum temperature (t-max) of 100.5. Saturation is 94% on 3 liters of oxygen via nasal cannula. Her fluid balance yesterday was positive about 400 mL. Weight is 84.5 kg, which is up since yesterday. She is alert and oriented and appropriate. Her jugular venous pressure is about 3 or 4 cm. Lungs reveal bilateral crackles, relatively fine. I do not appreciate any wheezing. Heart exam reveals irregular rhythm. No gallop. No obvious murmur or rub. Abdomen is soft, nontender. There is trace peripheral edema. Neurologically, she is intact. LABORATORY TESFAYE: Hemoglobin 11.5, hematocrit 32.9, platelet count 272,000. Basic metabolic panel : Potassium 3.9, BUN 31, creatinine 4.2 and GFR 11. ASSESSMENT AND PLAN Mrs. Lima is a 76-year-old lady who presented with probably viral illness as manifested by nausea, vomiting, diarrhea to be followed by chest pain and shortness of breath. She subsequently also developed atrial fibrillation with rapid ventricular response and was transferred to our facility. Unfortunately, her situation was further complicated by development of acute renal failure. I am not exactly certain about the mechanism even though it is probable that vancomycin and IV contrast played a role. She has been dialyzed now for several days and it was my hope that we will see improvement of her renal function, but unfortunately the creatinine is actually up since yesterday without dialysis and she made only about 800 mL of urine yesterday. Consequently, it is likely that she will need at least one more dialysis treatment, likely tomorrow. From cardiac perspective, she has been anticoagulated with heparin and her atrial fibrillation has been rate controlled with Cardizem 90 mg every 8 hours. The rate control is reasonable at this point. In the long run, I am hoping that we will transition her to oral medicines once dialysis catheter is removed and then we will decide about long-term management. Otherwise, the volume is now controlled using dialysis. I am still somewhat optimistic that she will be able to go home by the end of this week but it is certainly far from guaranteed. MTDD
[2016-12-31 16:00] VITALS: BP 107/65; PULSE 110
[2016-12-31 20:00] VITALS: BP 133/59; PULSE 103
--- NOTE | 2016-12-31 20:14 | IPN ---
DATE: 12/31/2016 Mrs. Lima is seen this morning on her bedside. She is feeling slightly better compared with yesterday. She still has atrial fibrillation and remains on IV heparin drip. She denies any nausea or vomiting; however, her appetite is still poor. She remains on oxygen due to shortness of breath. On physical examination, temperature 97.8 degrees Fahrenheit, heart rate 112 per minute and respiratory rate 22 per minute. Blood pressure 127/73 mmHg and oxygen saturation 94% on 3 liters oxygen. Head is atraumatic. Neck veins are at least 7-8 cm above sternal angle. Ears, nose and throat are unremarkable. Pupils equal and reactive to light and sclera is anicteric. Heart sounds are tachycardiac and irregular. Lungs with diminished breath sounds and bilateral rales. Abdomen soft, obese and nontender. Extremities without cyanosis or clubbing. Skin without any rash or ulcers. Neurologically, she is awake, alert and oriented times three. Today's laboratories show WBC count 11.1, hemoglobin 11.5 and hematocrit 32.9. Platelets 272. Sodium 128 and potassium 3.9. BUN 31 and creatinine 4.22. PROBLEMS: 1. Acute renal failure. The patient does not have any improvement in her kidney function. Her creatinine increased over 1.0 mg in last 24 hours, which reflects a GFR of less than 10 mL per minute. We will go ahead and schedule her for dialysis tomorrow tentatively. Her labs will be checked again tomorrow morning. 2. Hyponatremia. This is related to positive fluid balance and acute renal failure. We will give her one dose of Lasix 60 mg intravenously. 3. Rapid atrial fibrillation and congestive heart failure. The patient remains on IV heparin drip and Cardizem. For volume status, she will be given Lasix 60 mg intravenously. If she does not respond, then we will consider to remove fluid with next hemodialysis. 4. Anemia. Her anemia is only mild and stable. No intervention is indicated.
[2016-12-31] MEDS: NORCO, ANEXSIA 5/325MG TABLET (HYDROcodone/ACETAMINOPHEN) PO PRN (20:43)
[2017-01-01] VITALS (8 sets, daily range): BP systolic 111–145; BP diastolic 60–75; PULSE 82–94; O2SAT 99
[2017-01-01] MEDS: LEVALBUTEROL 1.25 MG/0.5 ML CONCENTRATE NEB INH SCH ×5 (03:46→20:14)
[2017-01-01] MEDS: SLF 3 ML SYR IV SCH ×3 (05:49→22:00)
[2017-01-01] MEDS: HumaLOG INSULIN (NovoLOG) PER UNIT SC SCH ×4 (08:23→20:36)
[2017-01-01] MEDS: OMEPRAZOLE 20 MG CAP PO SCH ×2 (08:24→20:37)
[2017-01-01] MEDS: VENLAFAXINE **XR** 75MG CAPSULE PO SCH (08:24)
[2017-01-01] MEDS: BRIMONIDINE 0.1% OPHTH SOLN 5 ML OU SCH ×2 (08:25→20:39)
[2017-01-01 10:41] LABS: BASO % 0.4 % (0.0-1.0); EOS # 0.3 K/mm3 (0.0-0.50); EOS % 2.5 % (0.0-3.0); LARGE UNSTAINED CELL # 0.2 K/mm3 (0.0-0.4); LARGE UNSTAINED CELL % 1.4 % (0.0-4.0); LYMPH # 1.1 K/mm3 (1.5-4.5); LYMPH % 9.6 % (24.0-44.0); MEAN CORPUSCULAR HEMOGLOBIN 31.6 pg (27.0-33.0); MEAN CORPUSCULAR VOLUME 92.9 fl (80.0-96.0); MONO # 0.6 K/mm3 (0.0-0.8); MONO % 5.1 % (0.0-5.0); NEUTROPHILS # 9.6 K/mm3 (1.8-7.7); NEUTROPHILS % 81.1 % (36.0-66.0); PLATELET COUNT, AUTOMATED 284 k/mm3 (150-450); RED CELL DISTRIBUTION WIDTH 13.8 % (11.5-14.5); WHITE BLOOD COUNT 11.8 K/mm3 (4.0-10.0)
[2017-01-01 10:43] LABS: CALCIUM LEVEL 8.3 MG/DL (8.8-10.2); CREATININE FOR GFR 5.25 MG/DL (0.55-1.02); GLOMERULAR FILTRATION RATE 8.5 (>39); POTASSIUM SERUM 3.9 MEQ/L (3.5-5.1)
[2017-01-01] MEDS ORDERED: HEPARIN 1,000 UNITS/ML 10ML VIAL (FOR RADIOLOGY& DIALYSIS ONLY) XX ONE (11:15)
--- NOTE | 2017-01-01 13:43 | IPN ---
DATE OF VISIT: 01/01/2017 Mrs. Lima is seen this morning on her bedside during hemodialysis. Her laboratories yesterday showed no significant improvement in kidney function, so a decision for dialysis was made. This morning, she did not have any chemistry drawn. We have drawn her laboratories at the start of dialysis. She is feeling better and reports improved dyspnea. She denies any vomiting or abdominal pain. There is no history of rectal bleeding or black-colored stools. She denies any fever or chills. On physical examination, temperature 97.8 degrees Fahrenheit, heart rate 106 per minute, and respiratory rate 18 per minute. Blood pressure 123/60 mmHg and oxygen saturation 96% on 2 liters oxygen. Intake and output records from yesterday showed total intake 1300 and output 1600 mL. Right-sided internal jugular vein hemodialysis catheter is in place without any active bleeding or signs of infection. Her neck is supple and without jugular venous distention (JVD) or thyroid enlargement. Head is atraumatic. Pupils equal and reactive to light and sclerae anicteric. Ears, nose, and throat are unremarkable. Heart sounds are irregular in rhythm and tachycardiac. Lungs with diminished breath sounds and bibasilar rales. Abdomen: Soft and nontender and without palpable organomegaly. Bowel sounds are normal. Extremities have no cyanosis or clubbing. Skin has no rash or ulcers. Neurologically, she is awake, alert, and oriented times three. Now her laboratories have returned from this morning, and WBC count is 18.8, hemoglobin 10.9, and hematocrit 32.0. Sodium 127 and potassium 3.9. BUN 42 and creatinine 5.25. Glucose 180 and calcium 8.3. PROBLEMS: 1. Acute renal failure. No significant improvement in kidney function. Her creatinine has increased more than 1 mg every day. She is currently being dialyzed for 3 hours, and we will recheck her chemistry tomorrow morning. 2. Hyponatremia. This is related to acute renal failure and congestive heart failure. The patient will be dialyzed today, and it is likely to correct her hyponatremia significantly. 3. Atrial fibrillation with rapid ventricular rate. Her ventricular rate is somewhat better controlled now with Cardizem. We will remove about 1.5 liters fluid today as tolerated. 4. Anemia. Her anemia has been stable and does not need any intervention at this point.
[2017-01-01] MEDS: HEPARIN DRIP 25,000 UNITS in APPROPRIATE DILUENT 1 EA IV SCH (14:06)
[2017-01-01] MEDS: NORCO, ANEXSIA 5/325MG TABLET (HYDROcodone/ACETAMINOPHEN) PO PRN ×2 (14:54→20:38)
--- NOTE | 2017-01-01 15:38 | IPNPDOC ---
Subjective Date Seen The patient was seen on 01/01/17. Subjective Chief Complaint/HPI The patient is a 76-year-old female admitted with a reason for visit of Afib Rvr. Objective Physical Examination General Exam: Positive: Cooperative, Moderate Distress, Other Eye Exam: Positive: PERRLA, Conjunctiva & lids normal, EOMI ENT Exam: Positive: Atraumatic, Mucous membr. moist/pink, Pharynx Normal Neck Exam: Positive: JVD Chest Exam: Positive: Rales, Rhonchi, Wheezing, Diminished Heart Exam: Positive: Tachycardic, Irregular Rhythm, Normal S1, Normal S2 Telemetry: Positive: Atrial fibrillation Abdomen Exam: Positive: Normal bowel sounds, Soft Extremity Exam: Negative: Clubbing, Cyanosis, Edema, Normal pulses, Tenderness , Swelling, Other Skin Exam: Positive: Nl turgor and temperature Assessment /Plan Problems (1) Acute renal failure Status: Acute Problem Text: patient making urine about 700 to 800 ml/ day . Had 3 sessions of HD till date. possibly ATN due to combination of contrast nephropathy and antibiotics. Acute interstitial nephritis is also a differential patient fluid overloaded . HD started on 12/27/16 all nephrotoxic medications have been stopped and dosages have been adjusted. (2) Acute diastolic congestive heart failure Status: Acute Problem Text: fluid status improving with HD. still needs more fluid off. HD from 12/27/16 (3) Pneumonia Status: Acute Problem Text: on initial presentation to [facility] on 12/21 she had nausea and vomiting on the night of 12/20 followed by chest pain shortness of breath on morning 12/21 which made her go to the hospital . in the hospital she had diarrhea then she developed fever, cough and afib with rvr. possibility of aspiration pneumonia vs community acquired pneumonia. finished day 7 of zosyn . received 6 days of Vanco stopped today for MICHELLE. (4) A-fib Status: Acute Response to Treatment: Worse Problem Text: on diltiazem eliquis stopped due to MICHELLE. started patient on heparin infusion and change to oral anticoagulants after renal function improves. oozing from HD cath site will reduce dose of heparin , will maintian PTT at 75 (5) Hypertension Status: Chronic (6) Diabetes Status: Chronic (7) Rheumatoid arthritis Status: Chronic Problem Text: on methotrexate at home. Plan/VTE VTE Prophylaxis Ordered?: Yes Plan/Urinary Catheter Urinary Catheter: Place Betancourt Reason for insertion/continuin: Critical Pt monitoring VS, I&O, 24H, Fishbone Vital Signs/I&O Vital Signs Date Time Temp Pulse Resp B/P (MAP) Pulse Ox O2 Delivery O2 Flow Rate FiO2 01/01/17 14:54 20 Nasal Cannula 2.0 01/01/17 14:20 106 123/60 01/01/17 08:00 97.8 96 12/27/16 23:28 35 I&O- Last 24 Hours up to 6 AM 01/01/17 06:00 Intake Total 1540 ml Output Total 2050 ml Balance -510 ml Laboratory Data 24H LABS Laboratory Tests 2 12/31/16 17:23: Bedside Glucose (Misc Panel) 141H 12/31/16 19:41: Activated Partial Thromboplast Time 51.6H 12/31/16 20:41: Bedside Glucose (Misc Panel) 162H 01/01/17 01:58: Activated Partial Thromboplast Time 65.9H 01/01/17 06:33: Bedside Glucose (Misc Panel) 139H 01/01/17 09:12: White Blood Count 11.8H, Red Blood Count 3.45L, Hemoglobin 10.9L, Hematocrit 32.0L, Mean Corpuscular Volume 92.9, Mean Corpuscular Hemoglobin 31.6, Mean Corpuscular Hemoglobin Concent 34.0, Red Cell Distribution Width 13.8, Platelet Count 284, Neutrophils (%) (Auto) 81.1H, Lymphocytes (%) (Auto) 9.6L, Monocytes (%) (Auto) 5.1H, Eosinophils (%) (Auto) 2.5, Basophils (%) (Auto) 0.4, Neutrophils # (Auto) 9.6H, Lymphocytes # (Auto) 1.1L, Monocytes # (Auto) 0.6, Eosinophils # (Auto) 0.3, Basophils # (Auto) 0.0, Large Unclassified Cells % 1.4 , Large Unclassified Cells # 0.2, Activated Partial Thromboplast Time 118.6H, Anion Gap 9, Glomerular Filtration Rate 8.5L, Blood Urea Nitrogen 42H, Creatinine 5.25H, Sodium Level 127L, Potassium Level 3.9, Chloride Level 91L, Carbon Dioxide Level 27, Calcium Level 8.3L CBC/BMP Laboratory Tests 01/01/17 09:12 Red Blood Count 3.45 L, Mean Corpuscular Volume 92.9, Mean Corpuscular Hemoglobin 31.6, Mean Corpuscular Hemoglobin Concent 34.0, Red Cell Distribution Width 13.8, Neutrophils (%) (Auto) 81.1 H, Lymphocytes (%) (Auto) 9.6 L, Monocytes (%) (Auto) 5.1 H, Eosinophils (%) (Auto) 2.5, Basophils (%) ( Auto) 0.4, Neutrophils # (Auto) 9.6 H, Lymphocytes # (Auto) 1.1 L, Monocytes # ( Auto) 0.6, Eosinophils # (Auto) 0.3, Basophils # (Auto) 0.0, Calcium Level 8.3 L Microbiology Microbiology 12/23/16 Blood Culture - Final, Complete NO GROWTH AFTER 5 DAYS 12/23/16 Blood Culture - Final, Complete NO GROWTH AFTER 5 DAYS 12/22/16 Blood Culture - Final, Complete NO GROWTH AFTER 5 DAYS 12/22/16 Blood Culture - Final, Complete NO GROWTH AFTER 5 DAYS 12/30/16 Stool Occult Blood (LANDY) - Final, Complete 12/26/16 Gastrointestinal Tract Panel (PCR) - Final, Complete 12/25/16 Gram Stain - Final, Complete 12/25/16 Sputum Culture - Final, Complete 12/22/16 Respiratory Virus Panel (PCR) (LANDY) - Final, Complete CARLOS ARIAS DO Jan 01, 2017 15:38
--- NOTE | 2017-01-01 20:31 | IPN ---
DATE: 01/01/2017 Mrs. Lima this morning told me that she feels relatively well. She does not feel that much shortness of breath. Denies any sensation of palpitations and overall feels that there has been improvement in her condition. Vital signs revealed blood pressure 123/60, heart rate in low 100s. Saturation is 96% on 2 liters of oxygen by nasal cannula. Yesterday, she made about 1600 mL of urine, which is encouraging. Jugular venous pulse is still a little elevated. Lungs still reveal good air movement. I do not appreciate any crackles or rhonchi. Heart exam has irregularly irregular rhythm without gallop. Abdomen is soft, nontender. There is no peripheral edema. Neurologically, she looked intact. LABORATORY Unfortunately, reveals ongoing problem with sodium 127, potassium 3.9, BUN 42, creatinine 5.2 and glucose 180. PTT has been in therapeutic range for the most part. Complete blood count (CBC) showed hemoglobin 10.9, hematocrit 32 and platelet count 284,000. ASSESSMENT AND PLAN: Mrs. Lima is a 76-year-old lady who presented with symptoms of nausea, vomiting, diarrhea to be followed by shortness of breath, cough and development of atrial fibrillation with RVR. There was evidence for pleural effusions and ascites on imaging. Unfortunately, she developed acute renal failure that markedly complicates management. Even though my original impression was that this will be a very brief and temporary event, she already has been dialyzed several days in a row and even though she starts making more urine, we do not see any improvement in her creatinine. I am afraid that the duration of dialysis will be longer than previously expected, but I am still hopeful that there will be recovery of renal function and she will not end up being dialysis dependent. From my perspective, she is reasonably well rate-controlled with current dose of Cardizem. I am not going to increase it further even though the rate control is not optimal. If this remains an issue, I will probably advance the dose a little more tomorrow. She has been anticoagulated with heparin. Expectation is that the dialysis catheter will be removed in near future. As it does not seem to be the case, I think we probably should start giving Mrs. Lima Coumadin tomorrow because that looks like it will likely be the medication that she will be transitioned to. I will follow the patient with you. IRISHD
[2017-01-02] VITALS (7 sets, daily range): BP systolic 126–143; BP diastolic 58–71
[2017-01-02] MEDS: LEVALBUTEROL 1.25 MG/0.5 ML CONCENTRATE NEB INH SCH ×6 (01:31→20:00)
[2017-01-02] MEDS: SLF 3 ML SYR IV SCH ×3 (06:00→21:00)
[2017-01-02] MEDS: HumaLOG INSULIN (NovoLOG) PER UNIT SC SCH ×4 (08:06→21:00)
[2017-01-02] MEDS: OMEPRAZOLE 20 MG CAP PO SCH ×2 (08:07→20:59)
[2017-01-02] MEDS: VENLAFAXINE **XR** 75MG CAPSULE PO SCH (08:07)
[2017-01-02] MEDS: BRIMONIDINE 0.1% OPHTH SOLN 5 ML OU SCH ×2 (08:07→21:00)
[2017-01-02 08:26] LABS: BASO # 0.1 K/mm3 (0.0-0.2); BASO % 0.6 % (0.0-1.0); EOS # 0.4 K/mm3 (0.0-0.50); EOS % 3.7 % (0.0-3.0); LARGE UNSTAINED CELL # 0.1 K/mm3 (0.0-0.4); LARGE UNSTAINED CELL % 1.2 % (0.0-4.0); LYMPH # 1.4 K/mm3 (1.5-4.5); MEAN CORPUSCULAR HEMOGLOBIN 31.7 pg (27.0-33.0); MEAN CORPUSCULAR HGB CONC 33.7 g/dl (32.0-36.5); MONO # 0.7 K/mm3 (0.0-0.8); MONO % 6.4 % (0.0-5.0); NEUTROPHILS # 7.8 K/mm3 (1.8-7.7); NEUTROPHILS % 76.1 % (36.0-66.0); PLATELET COUNT, AUTOMATED 261 k/mm3 (150-450); RED CELL DISTRIBUTION WIDTH 14.2 % (11.5-14.5); WHITE BLOOD COUNT 10.2 K/mm3 (4.0-10.0)
--- NOTE | 2017-01-02 08:53 | IPN ---
DATE: 01/02/2017 Mrs. Lima feels relatively well. She denies significant dyspnea or other problems. Unfortunately, she continues to not improve as far as the renal function is concerned. Blood pressure is 124/76. Heart rate is from 100-110s. She is afebrile. Saturation 94% on 3 liters of oxygen by nasal cannula. Fluid balance was about 1800 negative yesterday which was principally due to dialysis, but she did make about 2400 mL of urine. Her jugular venous pulse (JVP) is mildly elevated. She has bilateral end inspiratory crackles in both lung abad and also occasional wheezes. Heart exam irregular rhythm. No gallop is noted. Abdomen is soft, nontender. No peripheral edema. Laboratory-morejon, hemoglobin 10.3, hematocrit 13 and platelet count 261. Basic metabolic panel is pending. ASSESSMENT/PLAN: Mrs. Lima is a 76-year-old female who presented with initially symptoms of probable viral infection with diarrhea, nausea and vomiting and later some chest pain and atrial fibrillation. Unfortunately, her presentation was complicated by development of acute renal failure. At this point, we manage her supportively. The atrial fibrillation is still not perfectly well controlled and consequently I am going to increase the dose of Cardizem further. As far as anticoagulation is concerned, she is on heparin and I think that at this point we should probably start transition to Coumadin as I am not certain how long it is going to take before the dialysis can be stopped. She is not going to be candidate for one of the newer anticoagulation agents provided her kidney function does not recover. I spoke about this with the patient.
[2017-01-02 09:32] LABS: CALCIUM LEVEL 8.2 MG/DL (8.8-10.2); CREATININE FOR GFR 3.35 MG/DL (0.55-1.02); GLOMERULAR FILTRATION RATE 14.3 (>39); POTASSIUM SERUM 4.8 MEQ/L (3.5-5.1)
[2017-01-02] MEDS: HEPARIN DRIP 25,000 UNITS in APPROPRIATE DILUENT 1 EA IV SCH (11:03)
[2017-01-02] MEDS: NORCO, ANEXSIA 5/325MG TABLET (HYDROcodone/ACETAMINOPHEN) PO PRN ×2 (11:56→23:14)
[2017-01-02] MEDS: ACETAMINOPHEN TAB 650MG DOSE (2X325MG) PO PRN (16:50)
[2017-01-02] MEDS ORDERED: WARFARIN SOD 5 MG TAB PO ONE (17:00)
--- NOTE | 2017-01-02 20:41 | IPN ---
DATE: 01/02/2017 Mrs. Lima is seen this morning on her bedside. She is sitting in the chair visiting with her family. She states that she is quite concerned about her kidney situation. She remains weak and somewhat short of breath. She denies any nausea, vomiting, fever or chills. PHYSICAL EXAMINATION: Temperature 98.8 degrees Fahrenheit, heart rate 100 per minute and respiratory rate 18 per minute. Blood pressure 127/58 mmHg and oxygen saturation 95% of 2 liters oxygen. Head is atraumatic. Ears, nose and throat are unremarkable. Neck is supple and without any jugular venous distention (JVD). Dialysis catheter is intact in right internal jugular vein. Pupils are equal and reactive to light and sclera is anicteric. Heart sounds are irregular and tachycardiac. Lungs with diminished breath sounds at bases bilaterally. Abdomen is soft and nontender and without any palpable organomegaly. Bowel sounds are normal. Extremities have no cyanosis or clubbing. Skin has no rash or ulcers. Neurologically, she is awake, alert and oriented times three. Today's labs show WBC count 10.2, hemoglobin 10.3 and hematocrit 30.6. Platelets 261. Sodium 132 and potassium 4.8. BUN 21 and creatinine 3.35. Glucose 144 and calcium 8.2. PROBLEMS: 1. Acute renal failure. Kidney function has not improved any significantly since admission. She did have dialysis yesterday and we will plan to dialyze her again tomorrow unless her labs show any improvement in her kidney function. I have discussed with the patient and her visitor at length about her renal prognosis. I am optimistic that kidney function will improve over a period of time and she will not require long-term dialysis. 2. Hyponatremia. Her sodium level has also improved with dialysis. At this point, no intervention is indicated. Electrolytes will be checked again tomorrow morning. 3. Congestive heart failure. Her volume status seems to be reasonably well-compensated. Depending upon her volume status, we will make a decision about further fluid removal with the next hemodialysis tomorrow. 4. Atrial fibrillation with rapid ventricular rate. Her ventricular rate is much better controlled, and she remains on anticoagulation.
[2017-01-03 00:06] LABS: SJOGREN'S ANTI SS-A <0.2 AI (0.0-0.9)
[2017-01-03] MEDS: HEPARIN DRIP 25,000 UNITS in APPROPRIATE DILUENT 1 EA IV SCH ×2 (02:38→15:58)
[2017-01-03 03:17] LABS: BASO # 0.1 K/mm3 (0.0-0.2); BASO % 0.8 % (0.0-1.0); EOS # 0.5 K/mm3 (0.0-0.50); EOS % 4.9 % (0.0-3.0); LARGE UNSTAINED CELL # 0.2 K/mm3 (0.0-0.4); LARGE UNSTAINED CELL % 1.7 % (0.0-4.0); LYMPH # 1.5 K/mm3 (1.5-4.5); LYMPH % 11.5 % (24.0-44.0); MEAN CORPUSCULAR HEMOGLOBIN 31.3 pg (27.0-33.0); MEAN CORPUSCULAR HGB CONC 33.6 g/dl (32.0-36.5); MEAN CORPUSCULAR VOLUME 93.1 fl (80.0-96.0); MONO # 0.5 K/mm3 (0.0-0.8); MONO % 4.8 % (0.0-5.0); NEUTROPHILS # 8.4 K/mm3 (1.8-7.7); NEUTROPHILS % 76.3 % (36.0-66.0); PLATELET COUNT, AUTOMATED 303 k/mm3 (150-450)
[2017-01-03] MEDS: LEVALBUTEROL 1.25 MG/0.5 ML CONCENTRATE NEB INH SCH ×6 (03:23→20:00)
[2017-01-03 03:26] LABS: CALCIUM LEVEL 8.5 MG/DL (8.8-10.2); CREATININE FOR GFR 4.15 MG/DL (0.55-1.02); GLOMERULAR FILTRATION RATE 11.2 (>39); POTASSIUM SERUM 4.2 MEQ/L (3.5-5.1)
[2017-01-03 03:50] VITALS: BP 112/67
[2017-01-03] MEDS: SLF 3 ML SYR IV SCH ×3 (03:50→21:03)
[2017-01-03] MEDS: VENLAFAXINE **XR** 75MG CAPSULE PO SCH (06:03)
[2017-01-03] MEDS: OMEPRAZOLE 20 MG CAP PO SCH ×2 (06:04→21:01)
[2017-01-03] MEDS: BRIMONIDINE 0.1% OPHTH SOLN 5 ML OU SCH ×2 (06:05→21:02)
[2017-01-03] MEDS: HumaLOG INSULIN (NovoLOG) PER UNIT SC SCH ×4 (07:41→20:31)
[2017-01-03 08:00] VITALS: BP 124/74
--- NOTE | 2017-01-03 08:45 | IPN ---
DATE: 01/03/2017 Mrs. Lima unfortunately continues to demonstrate ongoing renal failure. From a cardiac perspective, she remains in atrial fibrillation. Her heart rate is still not perfectly well-controlled even though I increased the dose of Cardizem yesterday but she is relatively asymptomatic from that matter and I am not going to make further adjustments today. She has been on heparin but her PTT has been rather erratic. I started her on Coumadin yesterday and will continue anticoagulation for foreseeable future. As far as renal failure is concerned, it is managed by nephrology. Her vital signs this morning and ins and outs indicate ongoing renal failure. She made about a liter of urine yesterday, which is encouraging.
[2017-01-03] MEDS ORDERED: HEPARIN 1,000 UNITS/ML 10ML VIAL (FOR RADIOLOGY& DIALYSIS ONLY) XX ONE (10:00)
[2017-01-03 15:20] LABS: INR 1.08
--- NOTE | 2017-01-03 15:21 | IPNPDOC ---
Subjective Date Seen The patient was seen on 01/03/17. Subjective Chief Complaint/HPI The patient is a 76-year-old female admitted with a reason for visit of Afib Rvr. Events since last encounter pt seen and examined, she is on dialysis stable, but complaining of being cold. Objective Physical Examination General Exam: Positive: Cooperative, Moderate Distress, Other Eye Exam: Positive: PERRLA, Conjunctiva & lids normal, EOMI ENT Exam: Positive: Atraumatic, Mucous membr. moist/pink, Pharynx Normal Neck Exam: Positive: JVD Chest Exam: Positive: Rales, Rhonchi, Wheezing, Diminished Heart Exam: Positive: Tachycardic, Irregular Rhythm, Normal S1, Normal S2 Telemetry: Positive: Atrial fibrillation Abdomen Exam: Positive: Normal bowel sounds, Soft Extremity Exam: Negative: Clubbing, Cyanosis, Edema, Normal pulses, Tenderness , Swelling, Other Skin Exam: Positive: Nl turgor and temperature Assessment /Plan Problems (1) Acute renal failure Status: Acute Problem Text: * patient making urine about 700 to 800 ml/ day. * possibly ATN due to combination of contrast nephropathy and antibiotics. * Acute interstitial nephritis is also a differential * Patient fluid overloaded. HD started on 12/27/16 * all nephrotoxic medications have been stopped and dosages have been adjusted. (2) Acute diastolic congestive heart failure Status: Acute Problem Text: * fluid status improving with HD. * HD from 12/27/16 (3) Pneumonia Status: Acute Problem Text: * on initial presentation [facility] on 12/21 she had nausea and vomiting on the night of 12/20 followed by chest pain shortness of breath on morning 12/21 which made her go to the hospital . in the hospital she had diarrhea then she developed fever, cough and afib with rvr. * possibility of aspiration pneumonia vs community acquired pneumonia. * finished day 7 of zosyn . received 6 days of Vanco (4) A-fib Status: Acute Response to Treatment: Worse Problem Text: on diltiazem eliquis stopped due to MICHELLE. started patient on heparin infusion and change to oral anticoagulants after renal function improves. will continue heparin and start coumadin daily INR (5) Hypertension Status: Chronic (6) Diabetes Status: Chronic (7) Rheumatoid arthritis Status: Chronic Problem Text: on methotrexate at home. Plan/VTE VTE Prophylaxis Ordered?: Yes Plan/Urinary Catheter Urinary Catheter: Place Betancourt Reason for insertion/continuin: Critical Pt monitoring VS, [facility]O Vital Signs Date Time Temp Pulse Resp B/P (MAP) Pulse Ox O2 Delivery O2 Flow Rate FiO2 01/03/17 08:00 98.8 95 18 124/74 (91) 94 Room Air 01/02/17 12:39 2.0 I&O- Last 24 Hours up to 6 AM 01/03/17 05:59 Intake Total 1936 ml Output Total 1325 ml Balance 611 ml Laboratory Data 24H LABS Laboratory Tests 2 01/02/17 16:26: Bedside Glucose (Misc Panel) 157H 01/02/17 20:54: Bedside Glucose (Misc Panel) 129H 01/02/17 21:12: Activated Partial Thromboplast Time 104.2H 01/03/17 03:00: Activated Partial Thromboplast Time 116.8H, White Blood Count 11.0H, Red Blood Count 3.49L, Hemoglobin 10.9L, Hematocrit 32.5L, Mean Corpuscular Volume 93.1, Mean Corpuscular Hemoglobin 31.3, Mean Corpuscular Hemoglobin Concent 33.6, Red Cell Distribution Width 14.0, Platelet Count 303, Neutrophils (%) (Auto) 76.3H, Lymphocytes (%) (Auto) 11.5L, Monocytes (%) (Auto) 4.8, Eosinophils (%) (Auto) 4.9H, Basophils (%) (Auto) 0.8, Neutrophils # (Auto) 8.4H, Lymphocytes # (Auto) 1.5, Monocytes # (Auto) 0.5, Eosinophils # (Auto) 0.5, Basophils # (Auto) 0.1, Large Unclassified Cells % 1.7, Large Unclassified Cells # 0.2, Anion Gap 8, Glomerular Filtration Rate 11.2L, Blood Urea Nitrogen 29H, Creatinine 4.15H, Sodium Level 130L, Potassium Level 4.2, Chloride Level 94L, Carbon Dioxide Level 28, Calcium Level 8.5L 01/03/17 06:01: Bedside Glucose (Misc Panel) 128H 01/03/17 09:15: Activated Partial Thromboplast Time > 240.0*H 01/03/17 13:19: Bedside Glucose (Misc Panel) 97 CBC/BMP Laboratory Tests 01/03/17 03:00 Red Blood Count 3.49 L, Mean Corpuscular Volume 93.1, Mean Corpuscular Hemoglobin 31.3, Mean Corpuscular Hemoglobin Concent 33.6, Red Cell Distribution Width 14.0, Neutrophils (%) (Auto) 76.3 H, Lymphocytes (%) (Auto) 11.5 L, Monocytes (%) (Auto) 4.8, Eosinophils (%) (Auto) 4.9 H, Basophils (%) ( Auto) 0.8, Neutrophils # (Auto) 8.4 H, Lymphocytes # (Auto) 1.5, Monocytes # ( Auto) 0.5, Eosinophils # (Auto) 0.5, Basophils # (Auto) 0.1, Calcium Level 8.5 L Microbiology Microbiology 01/02/17 Stool Occult Blood (LANDY) - Final, Complete 01/01/17 Stool Occult Blood (LANDY) - Final, Complete 12/30/16 Stool Occult Blood (LANDY) - Final, Complete 12/26/16 Gastrointestinal Tract Panel (PCR) - Final, Complete 12/25/16 Gram Stain - Final, Complete 12/25/16 Sputum Culture - Final, Complete CARLOS ARIAS DO Jan 03, 2017 15:21
[2017-01-03 16:00] VITALS: BP 159/83
[2017-01-03] MEDS ORDERED: WARFARIN SOD 5 MG TAB PO ONE (17:00)
--- NOTE | 2017-01-03 18:30 | IPN ---
DATE: 01/03/2017 Mrs. Lima is seen this morning during hemodialysis on her bedside. She denies any dyspnea, chest pain, nausea or vomiting. She did not have any significant improvement in her kidney function despite good urine output. We have decided to perform dialysis again today. PHYSICAL EXAMINATION: Temperature 99.8 degrees Fahrenheit, heart rate 117 per minute and respiratory rate 20 per minute. Blood pressure 124/74 mmHg and oxygen saturation 94% on room air. Head is atraumatic. Ears, nose and throat are unremarkable. Neck is supple and without jugular venous distension (JVD) or thyroid enlargement. Right-sided internal jugular vein hemodialysis catheter is intact. Heart sounds are tachycardiac and irregular. Lungs clear to auscultation. Abdomen soft and nontender. Bowel sounds are normal and there is no palpable organomegaly. Extremities have no cyanosis or clubbing. Skin has no rash or ulcers. Neurologically she is without a focal deficit. Today's labs show WBC count 11.0, hemoglobin 10.9, hematocrit 32.8. Sodium 130 and potassium 4.2. BUN 29 and creatinine 4.15. PROBLEMS: 1. Acute renal failure. No improvement in kidney function so far. She is being dialyzed again today. We will monitor for next 48 hours without dialysis as her urine output is improving. 2. Hyponatremia. Sodium level slightly decreased since yesterday. It is likely to improve again further with hemodialysis today. Electrolytes will be monitored on a daily basis. 3. Anemia. Her anemia has been stable and no intervention is indicated. 4. Atrial fibrillation, ventricular rate is slightly high today. She remains on anticoagulation and calcium channel zoë.
[2017-01-03 19:57] VITALS: BP 127/60
[2017-01-03] MEDS: NORCO, ANEXSIA 5/325MG TABLET (HYDROcodone/ACETAMINOPHEN) PO PRN (21:03)
[2017-01-03 23:59] VITALS: BP 124/57
[2017-01-04] MEDS: LEVALBUTEROL 1.25 MG/0.5 ML CONCENTRATE NEB INH SCH ×7 (03:19→23:10)
[2017-01-04 03:53] VITALS: BP 138/77
[2017-01-04] MEDS: SLF 3 ML SYR IV SCH ×3 (05:32→20:56)
[2017-01-04 05:45] LABS: BASO # 0.1 K/mm3 (0.0-0.2); BASO % 0.8 % (0.0-1.0); EOS # 0.4 K/mm3 (0.0-0.50); EOS % 4.4 % (0.0-3.0); LARGE UNSTAINED CELL # 0.2 K/mm3 (0.0-0.4); LARGE UNSTAINED CELL % 1.7 % (0.0-4.0); LYMPH # 1.3 K/mm3 (1.5-4.5); LYMPH % 11.3 % (24.0-44.0); MEAN CORPUSCULAR HEMOGLOBIN 31.1 pg (27.0-33.0); MEAN CORPUSCULAR HGB CONC 33.8 g/dl (32.0-36.5); MEAN CORPUSCULAR VOLUME 92.1 fl (80.0-96.0); MONO # 0.6 K/mm3 (0.0-0.8); MONO % 6.5 % (0.0-5.0); NEUTROPHILS # 7.4 K/mm3 (1.8-7.7); NEUTROPHILS % 75.3 % (36.0-66.0); PLATELET COUNT, AUTOMATED 291 k/mm3 (150-450); RED CELL DISTRIBUTION WIDTH 14.1 % (11.5-14.5); WHITE BLOOD COUNT 9.9 K/mm3 (4.0-10.0)
[2017-01-04 05:49] LABS: INR 1.24
[2017-01-04 05:58] LABS: CALCIUM LEVEL 8.7 MG/DL (8.8-10.2); CREATININE FOR GFR 3.12 MG/DL (0.55-1.02); GLOMERULAR FILTRATION RATE 15.5 (>39); POTASSIUM SERUM 3.7 MEQ/L (3.5-5.1)
[2017-01-04] MEDS: HEPARIN DRIP 25,000 UNITS in APPROPRIATE DILUENT 1 EA IV SCH ×2 (06:19→11:15)
[2017-01-04 08:00] VITALS: BP 150/78
--- NOTE | 2017-01-04 08:28 | IPN ---
DATE: 01/04/2017 Mrs. Lima seems to be rather frustrated, she is a really unhappy about her fluid restrictions. She also expresses that she has been in the hospital too long, but other than that she feels relatively well. Denies significant dyspnea with her minimal activity. Denies any chest pain and has no sensation of palpitations. Vital signs: Blood pressure 130/77, heart rate unfortunately is still not well controlled, is actually deteriorating when her heart rate is typically in the 100-118 as rest and she gets as high as 170 with ambulation on room, blood pressure 138/77, oxygenation and been and low 90s on room air and she is afebrile. Her balance yesterday was documented about 1300 negative. She had dialysis and about a liter was removed and she also made about 1400 mL of urine. Weight is 80.4 kg. She is alert and oriented and appropriate. Lungs are clear to auscultation. I no longer appreciate formal crackles as there is still occasional wheeze. Heart: Exam irregular rate, irregular rhythm. No gallop, no murmur is appreciated. Abdomen is obese but soft. No peripheral edema. Neurologically she is intact. LABORATORY: CBC reveals normal WBC count, hemoglobin is 10.5, hematocrit 31 and platelet count 291,000. Basic metabolic panel potassium 3.7, BUN 16, creatinine 3.1 for a GFR of 15 and glucose 139. Her INR is 1.24. ASSESSMENT/PLAN: Mrs. Lima is a 76-year-old lady who comes to hospital with initial GI symptoms followed by chest pain and shortness of breath and she went into atrial fibrillation. The whole situation was markedly complicated by her developing acute renal failure. I suspect at least in part due to administered contrast and possibly also vancomycin toxicity. Somewhat surprisingly she still continues to require dialysis but I am still hoping that the situation will turn around. From my perspective the atrial fibrillation is still not well rate-controlled even on Cardizem 120 mg three times a day. I am going to add small dose of beta-zoë to accomplish better rate control. She is on IV heparin and was started on Coumadin, so far she got two 5 mg doses and the INR is only 1.2 so will give her 5 mg tonight again. As far as the fluid status is concerned, I explained to her why these fluid restrictions have been implemented. She is not receiving diuretics at the volume is principally controlled with dialysis. At this point, I am hoping that every day will start seeing recurrence easily improvement in her creatinine and she will come off dialysis soon. MIQUEL
[2017-01-04] MEDS: HumaLOG INSULIN (NovoLOG) PER UNIT SC SCH ×4 (08:30→20:00)
[2017-01-04] MEDS: OMEPRAZOLE 20 MG CAP PO SCH ×2 (08:31→20:55)
[2017-01-04] MEDS: VENLAFAXINE **XR** 75MG CAPSULE PO SCH (08:31)
[2017-01-04] MEDS: BRIMONIDINE 0.1% OPHTH SOLN 5 ML OU SCH ×2 (08:31→20:55)
[2017-01-04] MEDS: METOPROLOL TART 25 MG TABLET PO SCH ×2 (08:31→20:55)
[2017-01-04 12:00] VITALS: BP 133/70
--- NOTE | 2017-01-04 12:34 | IPN ---
DATE OF VISIT: 01/04/2017 Mrs. Lima is seen this morning on her bedside. She is somewhat discouraged due to no improvement in her kidney function. She did not eat much this morning. She denies any dyspnea or chest pain. She underwent hemodialysis yesterday, which she tolerated very well. On physical examination, temperature 97.6 degrees Fahrenheit, heart rate 126 per minute, and respiratory rate 18 per minute. Blood pressure 150/78 mmHg and oxygen saturation 95% on room air. Head: Is atraumatic. Ears, nose, and throat are unremarkable. Neck is supple and without jugular venous distention (JVD) or thyroid enlargement. Dialysis catheter in right internal jugular vein is intact. Heart sounds are tachycardiac and irregular. Lungs: Sound clear to auscultation. Abdomen: Soft and nontender and without palpable organomegaly. Bowel sounds are normal. Extremities have no cyanosis or clubbing. Hand deformity due to rheumatoid arthritis is unchanged. She has no cyanosis or clubbing. Neurologically, she is awake, alert and oriented times three. Today's laboratories show WBC count 9.9, hemoglobin 10.5, and hematocrit 31. Sodium 134 and potassium 3.7. BUN 16 and creatinine 3.12. PROBLEMS: 1. Acute renal failure. The patient is nonoliguric at present with good urine output. She underwent hemodialysis yesterday, and 1400 mL fluid was removed. In addition, she had 1000 mL urine output. At present, we are going to watch her for next 24-48 hours without dialysis. We anticipate improvement in her kidney function over next few days. 2. Anemia. Her anemia has been stable and does not need any intervention. 3. Hyponatremia. Sodium level improved with dialysis yesterday. Electrolytes will be checked again tomorrow morning. 4. Atrial fibrillation with rapid ventricular rate. The patient remains on calcium-channel zoë and intravenous (IV) heparin. Her international normalized ratio (INR) today is only 1.24.
--- NOTE | 2017-01-04 14:12 | IPNPDOC ---
Subjective Date Seen The patient was seen on 01/04/17. Subjective Chief Complaint/HPI The patient is a 76-year-old female admitted with a reason for visit of Afib Rvr. Events since last encounter pt seen and examined, doing well, but states she feels tired today, no overnight events, heart rate is controlled on current medication. still making urine Objective Physical Examination General Exam: Positive: Cooperative, Moderate Distress, Other Eye Exam: Positive: PERRLA, Conjunctiva & lids normal, EOMI ENT Exam: Positive: Atraumatic, Mucous membr. moist/pink, Pharynx Normal Neck Exam: Positive: JVD Chest Exam: Positive: Rales, Rhonchi, Wheezing, Diminished Heart Exam: Positive: Tachycardic, Irregular Rhythm, Normal S1, Normal S2 Telemetry: Positive: Atrial fibrillation Abdomen Exam: Positive: Normal bowel sounds, Soft Extremity Exam: Positive: Swelling, Negative: Clubbing, Cyanosis, Edema, Normal pulses, Tenderness, Other Skin Exam: Positive: Nl turgor and temperature Assessment /Plan Problems (1) Acute renal failure Status: Acute Problem Text: * patient making urine * possibly ATN due to combination of contrast nephropathy and antibiotics. * Acute interstitial nephritis is also a differential * HD started on 12/27/16 * all nephrotoxic medications have been stopped and dosages have been adjusted. * no plans for dialysis in am will continue to monitor labs (2) Acute diastolic congestive heart failure Status: Acute Problem Text: * fluid status improving with HD. * HD from 12/27/16 (3) Pneumonia Status: Acute Problem Text: * on initial presentation to [facility] on 12/21 she had nausea and vomiting on the night of 12/20 followed by chest pain shortness of breath on morning 12/21 which made her go to the hospital . in the hospital she had diarrhea then she developed fever, cough and afib with rvr. * possibility of aspiration pneumonia vs community acquired pneumonia. * finished day 7 of zosyn. received 6 days of Vanco (4) A-fib Status: Acute Response to Treatment: Worse Problem Text: * on diltiazem * eliquis stopped due to MICHELLE. started patient on heparin infusion and change to oral anticoagulants after renal function improves. * will continue heparin and coumadin which was started on 01/02 * daily INR (5) Hypertension Status: Chronic (6) Diabetes Status: Chronic (7) Rheumatoid arthritis Status: Chronic Problem Text: on methotrexate at home. Plan/VTE VTE Prophylaxis Ordered?: Yes Plan/Urinary Catheter Urinary Catheter: Place Betancourt Reason for insertion/continuin: Critical Pt monitoring VS, I&O, 24H, Fishbone Vital Signs/I&O Vital Signs Date Time Temp Pulse Resp B/P (MAP) Pulse Ox O2 Delivery O2 Flow Rate FiO2 01/04/17 12:00 97.9 102 18 133/70 (91) 95 Room Air 01/02/17 12:39 2.0 I&O- Last 24 Hours up to 6 AM 01/04/17 06:00 Intake Total 1110 ml Output Total 2700 ml Balance -1590 ml Laboratory Data 24H LABS Laboratory Tests 2 01/03/17 15:01: Prothrombin Time 14.1, Prothromb Time International Ratio 1.08, Activated Partial Thromboplast Time 22.3L 01/03/17 16:39: Bedside Glucose (Misc Panel) 167H 01/03/17 20:28: Bedside Glucose (Misc Panel) 133H 01/03/17 23:31: Activated Partial Thromboplast Time 67.0H 01/04/17 05:32: White Blood Count 9.9, Red Blood Count 3.36L, Hemoglobin 10.5L, Hematocrit 31.0L , Mean Corpuscular Volume 92.1, Mean Corpuscular Hemoglobin 31.1, Mean Corpuscular Hemoglobin Concent 33.8, Red Cell Distribution Width 14.1, Platelet Count 291, Neutrophils (%) (Auto) 75.3H, Lymphocytes (%) (Auto) 11.3L, Monocytes (%) (Auto) 6.5H, Eosinophils (%) (Auto) 4.4H, Basophils (%) (Auto) 0.8 , Neutrophils # (Auto) 7.4, Lymphocytes # (Auto) 1.3L, Monocytes # (Auto) 0.6, Eosinophils # (Auto) 0.4, Basophils # (Auto) 0.1, Large Unclassified Cells % 1.7 , Large Unclassified Cells # 0.2, Prothrombin Time 15.7H, Prothromb Time International Ratio 1.24, Activated Partial Thromboplast Time 63.3H, Anion Gap 9 , Glomerular Filtration Rate 15.5L, Blood Urea Nitrogen 16, Creatinine 3.12H, Sodium Level 134L, Potassium Level 3.7, Chloride Level 98, Carbon Dioxide Level 27, Calcium Level 8.7L 01/04/17 11:12: Activated Partial Thromboplast Time 70.6H 01/04/17 12:24: Bedside Glucose (Misc Panel) 147H CBC/BMP Laboratory Tests 01/04/17 05:32 Red Blood Count 3.36 L, Mean Corpuscular Volume 92.1, Mean Corpuscular Hemoglobin 31.1, Mean Corpuscular Hemoglobin Concent 33.8, Red Cell Distribution Width 14.1, Neutrophils (%) (Auto) 75.3 H, Lymphocytes (%) (Auto) 11.3 L, Monocytes (%) (Auto) 6.5 H, Eosinophils (%) (Auto) 4.4 H, Basophils (%) (Auto) 0.8, Neutrophils # (Auto) 7.4, Lymphocytes # (Auto) 1.3 L, Monocytes # ( Auto) 0.6, Eosinophils # (Auto) 0.4, Basophils # (Auto) 0.1, Calcium Level 8.7 L Microbiology Microbiology 01/04/17 Stool Occult Blood (LANDY) - Final, Complete 01/02/17 Stool Occult Blood (LANDY) - Final, Complete 01/01/17 Stool Occult Blood (LANDY) - Final, Complete 12/30/16 Stool Occult Blood (LANDY) - Final, Complete 12/26/16 Gastrointestinal Tract Panel (PCR) - Final, Complete 12/25/16 Gram Stain - Final, Complete 12/25/16 Sputum Culture - Final, Complete CARLOS ARIAS DO Jan 04, 2017 14:12
[2017-01-04 16:00] VITALS: BP 111/83
[2017-01-04] MEDS ORDERED: WARFARIN SOD 5 MG TAB PO ONE (17:00)
[2017-01-04 20:00] VITALS: BP 142/73
[2017-01-04] MEDS: NORCO, ANEXSIA 5/325MG TABLET (HYDROcodone/ACETAMINOPHEN) PO PRN (20:55)
[2017-01-04 23:59] VITALS: BP 119/58
[2017-01-05 04:00] VITALS: BP 148/88
[2017-01-05] MEDS: NORCO, ANEXSIA 5/325MG TABLET (HYDROcodone/ACETAMINOPHEN) PO PRN ×4 (04:24→20:54)
[2017-01-05] MEDS: SLF 3 ML SYR IV SCH ×2 (04:25→14:00)
[2017-01-05 05:39] LABS: BASO # 0.1 K/mm3 (0.0-0.2); BASO % 0.8 % (0.0-1.0); EOS # 0.7 K/mm3 (0.0-0.50); EOS % 5.5 % (0.0-3.0); LARGE UNSTAINED CELL # 0.2 K/mm3 (0.0-0.4); LARGE UNSTAINED CELL % 1.6 % (0.0-4.0); LYMPH # 1.8 K/mm3 (1.5-4.5); LYMPH % 13.4 % (24.0-44.0); MEAN CORPUSCULAR HEMOGLOBIN 31.1 pg (27.0-33.0); MEAN CORPUSCULAR VOLUME 91.7 fl (80.0-96.0); MONO # 0.7 K/mm3 (0.0-0.8); MONO % 5.6 % (0.0-5.0); NEUTROPHILS # 8.9 K/mm3 (1.8-7.7); PLATELET COUNT, AUTOMATED 309 k/mm3 (150-450); RED CELL DISTRIBUTION WIDTH 13.9 % (11.5-14.5); WHITE BLOOD COUNT 12.2 K/mm3 (4.0-10.0)
[2017-01-05 05:49] LABS: INR 1.66
[2017-01-05 05:52] LABS: CALCIUM LEVEL 8.6 MG/DL (8.8-10.2); CREATININE FOR GFR 4.04 MG/DL (0.55-1.02); GLOMERULAR FILTRATION RATE 11.5 (>39); POTASSIUM SERUM 3.4 MEQ/L (3.5-5.1)
[2017-01-05] MEDS: OMEPRAZOLE 20 MG CAP PO SCH ×2 (06:57→20:53)
[2017-01-05] MEDS: BRIMONIDINE 0.1% OPHTH SOLN 5 ML OU SCH ×2 (06:58→20:57)
[2017-01-05] MEDS: VENLAFAXINE **XR** 75MG CAPSULE PO SCH (06:58)
[2017-01-05] MEDS: METOPROLOL TART 25 MG TABLET PO SCH ×2 (06:58→20:53)
[2017-01-05 07:30] VITALS: BP 124/60
[2017-01-05] MEDS ORDERED: POTASSIUM CHLORIDE 10 MEQ SR TABLET PO ONE (08:00)
[2017-01-05] MEDS: HumaLOG INSULIN (NovoLOG) PER UNIT SC SCH ×3 (08:01→21:00)
--- NOTE | 2017-01-05 08:17 | IPN ---
DATE: 01/05/2017 Mrs. Lima feels about the same. She does not have any complaints as she at rest and she has not done much while in the hospital. As a positive development , she is now back in sinus rhythm. Unfortunately her renal function does not seem to be recovering. This morning, blood pressure 148/88, heart rate was documented at 106 but it was in 80s when I saw her. Her jugular venous pulse (JVP) is not up. Lungs are clear to auscultation with good air movement. I no longer appreciate any crackles or wheezing. Heart exam reveals regular rhythm without gallop or rub. Abdomen is soft, nontender. There is no peripheral edema. LABORATORY: INR is 1.7, CBC reveals hemoglobin 10.6, hematocrit 31 and platelet count 309. Basic metabolic panel: Potassium 3.4, BUN 24, creatinine 4, glomerular filtration rate 11. ASSESSMENT AND PLAN: Mrs. Lima is a 76-year-old lady who presented with probably vital illness starting with nausea, diarrhea, vomiting and to be followed by shortness of breath and chest pain. She ruled out for myocardial infarction but developed atrial fibrillation. Subsequently the situation got much more complicated by acute renal failure probably as a consequence of combined contrast nephropathy and vancomycin toxicity. It appears that the renal recovery takes much longer time than previously expected and so far, creatinine goes up each day when she is not dialyzed. The management of this issue remains with primary team and nephrology. From cardiac perspective, shinto of sinus mechanism is very encouraging. I will leave her medications unchanged. By tomorrow, I hope that she will be therapeutic on her INR. I still intend to see her in followup but I suspect that the atrial fibrillation was triggered by her acute illness and hopefully will not be an issue in the long run. Nevertheless, she should be anticoagulated for a minimum of 3 months and probably longer. MIQUEL
[2017-01-05] MEDS: LEVALBUTEROL 1.25 MG/0.5 ML CONCENTRATE NEB INH SCH ×5 (08:25→23:46)
[2017-01-05 12:00] VITALS: BP 137/67
--- NOTE | 2017-01-05 15:05 | IPNPDOC ---
Subjective Date Seen The patient was seen on 01/05/17. Subjective Chief Complaint/HPI The patient is a 76-year-old female admitted with a reason for visit of Afib Rvr. Events since last encounter pt seen and examined, doing well, pt converted to sinus rhythm this morning Constitutional: Denies: Chills, Fever, Night Sweats Pulmonary: Denies: Dyspnea, Cough Cardiovascular: Denies: Chest Pain, Palpitations, Orthopnea, Paroxysmal Noc. Dyspnea, Lt Headedness Objective Physical Examination General Exam: Positive: Cooperative, Moderate Distress, Other Eye Exam: Positive: PERRLA, Conjunctiva & lids normal, EOMI ENT Exam: Positive: Atraumatic, Mucous membr. moist/pink, Pharynx Normal Neck Exam: Positive: JVD Chest Exam: Positive: Rales, Rhonchi, Wheezing, Diminished Heart Exam: Positive: Tachycardic, Irregular Rhythm, Normal S1, Normal S2 Telemetry: Positive: Atrial fibrillation Abdomen Exam: Positive: Normal bowel sounds, Soft Extremity Exam: Positive: Swelling, Negative: Clubbing, Cyanosis, Edema, Normal pulses, Tenderness, Other Skin Exam: Positive: Nl turgor and temperature Assessment /Plan Problems (1) Acute renal failure Status: Acute Problem Text: * patient making urine * possibly ATN due to combination of contrast nephropathy and antibiotics. * Acute interstitial nephritis is also a differential * HD started on 12/27/16 * all nephrotoxic medications have been stopped and dosages have been adjusted. (2) Acute diastolic congestive heart failure Status: Acute Problem Text: * fluid status improving with HD. * HD from 12/27/16 (3) Pneumonia Status: Acute Problem Text: * on initial presentation to [facility] on 12/21 she had nausea and vomiting on the night of 12/20 followed by chest pain shortness of breath on morning 12/21 which made her go to the hospital . in the hospital she had diarrhea then she developed fever, cough and afib with rvr. * possibility of aspiration pneumonia vs community acquired pneumonia. * finished day 7 of zosyn. received 6 days of Vanco (4) A-fib Status: Resolved Response to Treatment: Worse Problem Text: * on diltiazem * was on eliquis stopped due to MICHELLE. started patient on heparin infusion and coumadin * will continue heparin and coumadin which was started on 01/02 * daily INR * dose decreased to 3mg today (5) Hypertension Status: Chronic (6) Diabetes Status: Chronic (7) Rheumatoid arthritis Status: Chronic Problem Text: on methotrexate at home. Plan/VTE VTE Prophylaxis Ordered?: Yes Plan/Urinary Catheter Urinary Catheter: Place Betancourt Reason for insertion/continuin: Critical Pt monitoring VS, I&O, 24H, Fishbone Vital Signs/I&O Vital Signs Date Time Temp Pulse Resp B/P (MAP) Pulse Ox O2 Delivery O2 Flow Rate FiO2 01/05/17 12:30 18 Room Air 01/05/17 12:00 97.4 67 137/67 (90) 92 01/02/17 12:39 2.0 I&O- Last 24 Hours up to 6 AM 01/05/17 05:59 Intake Total 320 ml Output Total 1300 ml Balance -980 ml Laboratory Data 24H LABS Laboratory Tests 2 01/04/17 16:44: Bedside Glucose (Misc Panel) 126H 01/04/17 17:45: Activated Partial Thromboplast Time 94.3H 01/04/17 19:58: Bedside Glucose (Misc Panel) 118H 01/05/17 05:24: Activated Partial Thromboplast Time 178.0*H, White Blood Count 12.2H, Red Blood Count 3.41L, Hemoglobin 10.6L, Hematocrit 31.2L, Mean Corpuscular Volume 91.7, Mean Corpuscular Hemoglobin 31.1, Mean Corpuscular Hemoglobin Concent 34.0, Red Cell Distribution Width 13.9, Platelet Count 309, Neutrophils (%) (Auto) 73.0H, Lymphocytes (%) (Auto) 13.4L, Monocytes (%) (Auto) 5.6H, Eosinophils (%) (Auto) 5.5H, Basophils (%) (Auto) 0.8, Neutrophils # (Auto) 8.9H, Lymphocytes # (Auto) 1.8, Monocytes # (Auto) 0.7, Eosinophils # (Auto) 0.7H, Basophils # (Auto) 0.1, Large Unclassified Cells % 1.6, Large Unclassified Cells # 0.2, Prothrombin Time 19.7H, Prothromb Time International Ratio 1.66, Anion Gap 12, Glomerular Filtration Rate 11.5L, Blood Urea Nitrogen 24H, Creatinine 4.04H, Sodium Level 131L, Potassium Level 3.4L, Chloride Level 95L, Carbon Dioxide Level 24, Calcium Level 8.6L 01/05/17 14:15: Activated Partial Thromboplast Time 86.7H CBC/BMP Laboratory Tests 01/05/17 05:24 Red Blood Count 3.41 L, Mean Corpuscular Volume 91.7, Mean Corpuscular Hemoglobin 31.1, Mean Corpuscular Hemoglobin Concent 34.0, Red Cell Distribution Width 13.9, Neutrophils (%) (Auto) 73.0 H, Lymphocytes (%) (Auto) 13.4 L, Monocytes (%) (Auto) 5.6 H, Eosinophils (%) (Auto) 5.5 H, Basophils (%) (Auto) 0.8, Neutrophils # (Auto) 8.9 H, Lymphocytes # (Auto) 1.8, Monocytes # ( Auto) 0.7, Eosinophils # (Auto) 0.7 H, Basophils # (Auto) 0.1, Calcium Level 8.6 L Microbiology Microbiology 01/05/17 Stool Occult Blood (LANDY) - Final, Complete 01/04/17 Stool Occult Blood (LANDY) - Final, Complete 01/02/17 Stool Occult Blood (LANDY) - Final, Complete 01/01/17 Stool Occult Blood (LANDY) - Final, Complete 12/30/16 Stool Occult Blood (LANDY) - Final, Complete 12/26/16 Gastrointestinal Tract Panel (PCR) - Final, Complete CARLOS ARIAS DO Jan 05, 2017 15:04
[2017-01-05 16:00] VITALS: BP 132/60
[2017-01-05] MEDS ORDERED: WARFARIN SOD 3 MG TAB PO ONE (17:00)
--- NOTE | 2017-01-05 18:32 | IPN ---
DATE: 01/05/2017 Ms. Lima is seen this morning on her bedside. She is lying in the bed without any distress. She reports that her appetite has improved, and she denies any nausea or vomiting. She has no dyspnea or chest pain. PHYSICAL EXAMINATION: Temperature 97.8 degrees Fahrenheit, heart rate 80 per minute and respiratory rate 20 per minute. Blood pressure 124/60 mmHg and oxygen saturation 94% on room air. Head is atraumatic. Ears, nose and throat are unremarkable. Neck is supple and without jugular venous distention (JVD) or thyroid enlargement. Dialysis catheter in right internal jugular vein is intact. Heart sounds are regular today and lung sounds are clear to auscultation. Abdomen is soft and nontender and bowel sounds are normal. There is no palpable organomegaly. Extremities have no cyanosis or clubbing. Hand deformity due to rheumatoid arthritis is unchanged. Skin has no rash or ulcers. Neurologically, she is awake, alert and oriented times three. Intake and output records from yesterday are probably incomplete as her intake was recorded only 240 mL, which is not correct. Her urine output recorded is 1350 mL. Today's labs show WBC count 12.2, hemoglobin 10.6 and hematocrit 31.2. Sodium 131 and potassium 3.4. BUN 24 and creatinine 4.04. PROBLEMS: 1. Acute renal failure. No significant improvement in kidney function. She does have improved urine output. I am going to monitor her without dialysis for the next 24 hours. Should her kidney function not improve by tomorrow, then dialysis will be considered. 2. Hyponatremia. Sodium level has worsened once again due to renal failure. Electrolytes will be checked tomorrow, and her sodium level is likely to improve with dialysis or with improvement in her kidney function. No intervention is indicated today. 3. Hypokalemia. This is related to poor oral intake and improving kidney function. The patient will be given potassium chloride 40 mEq one dose today and electrolytes will be checked tomorrow morning. 4. Atrial fibrillation. She has converted back to sinus rhythm. She remains on anticoagulation. 5. Anemia. Her anemia is stable at this point and does not need any intervention.
[2017-01-05] MEDS: HEPARIN DRIP 25,000 UNITS in APPROPRIATE DILUENT 1 EA IV SCH (19:39)
[2017-01-05 20:00] VITALS: BP 118/66
--- NOTE | 2017-01-05 22:10 | REPUSA ---
Clinical statement: Pain, right groin region. Findings: The region of the right groin wasimage with ultrasound. There is a 3.8 x 0.7 x 1.1 cm pro minent lymph nodes at the site. This appears grossly normal however. There is a questionable defect i n the abdominal wall measuring 0.6 x 0.6 cm, suspicious for a femoral hernia. However, no change at t his site is noted upon Valsalva maneuver. No herniating bowel is seen. There is no evidence of asci katie. Impression: 1. Questionable findings of a right femoral hernia. This was not well appreciated on the prior CT of 12/22/2016 however. Follow-up is recommended as clinically indicated. 2. Single prominent right inguinal lymph node.
[2017-01-05 23:59] VITALS: BP 127/62
[2017-01-06] MEDS: NORCO, ANEXSIA 5/325MG TABLET (HYDROcodone/ACETAMINOPHEN) PO PRN ×2 (00:39→05:43)
[2017-01-06] MEDS: SLF 3 ML SYR IV SCH ×4 (00:40→23:18)
[2017-01-06] MEDS: traMADol 50 MG TAB PO PRN ×2 (03:13→17:33)
[2017-01-06 03:41] LABS: BASO # 0.1 K/mm3 (0.0-0.2); BASO % 0.7 % (0.0-1.0); EOS # 0.4 K/mm3 (0.0-0.50); EOS % 3.7 % (0.0-3.0); LARGE UNSTAINED CELL # 0.2 K/mm3 (0.0-0.4); LARGE UNSTAINED CELL % 1.3 % (0.0-4.0); LYMPH # 1.8 K/mm3 (1.5-4.5); LYMPH % 13.6 % (24.0-44.0); MEAN CORPUSCULAR HEMOGLOBIN 31.1 pg (27.0-33.0); MEAN CORPUSCULAR HGB CONC 33.6 g/dl (32.0-36.5); MEAN CORPUSCULAR VOLUME 92.7 fl (80.0-96.0); MONO # 0.5 K/mm3 (0.0-0.8); MONO % 3.8 % (0.0-5.0); NEUTROPHILS # 9.1 K/mm3 (1.8-7.7); NEUTROPHILS % 76.9 % (36.0-66.0); PLATELET COUNT, AUTOMATED 335 k/mm3 (150-450); RED CELL DISTRIBUTION WIDTH 14.2 % (11.5-14.5); WHITE BLOOD COUNT 11.9 K/mm3 (4.0-10.0)
[2017-01-06 03:52] LABS: INR 1.77
[2017-01-06 04:13] LABS: CALCIUM LEVEL 8.4 MG/DL (8.8-10.2); CREATININE FOR GFR 4.82 MG/DL (0.55-1.02); GLOMERULAR FILTRATION RATE 9.4 (>39); POTASSIUM SERUM 3.7 MEQ/L (3.5-5.1)
[2017-01-06 04:45] VITALS: BP 151/66
[2017-01-06] MEDS: LEVALBUTEROL 1.25 MG/0.5 ML CONCENTRATE NEB INH SCH ×4 (07:12→20:37)
[2017-01-06 08:00] VITALS: BP 166/72
[2017-01-06] MEDS: HumaLOG INSULIN (NovoLOG) PER UNIT SC SCH ×5 (08:20→21:00)
[2017-01-06] MEDS ORDERED: MORPHINE 2 MG/ML 1ML SYRINGE IV STA (08:36)
[2017-01-06] MEDS: METOPROLOL TART 25 MG TABLET PO SCH ×2 (08:49→20:29)
[2017-01-06] MEDS: OMEPRAZOLE 20 MG CAP PO SCH ×2 (08:50→20:27)
[2017-01-06] MEDS: BRIMONIDINE 0.1% OPHTH SOLN 5 ML OU SCH ×2 (08:50→23:17)
[2017-01-06] MEDS: VENLAFAXINE **XR** 75MG CAPSULE PO SCH (08:50)
[2017-01-06] MEDS ORDERED: MORPHINE 2 MG/ML 1ML SYRINGE IV ONE (09:00)
--- NOTE | 2017-01-06 09:50 | REP ---
Right hip two views: Comparisons 11/24/2016. Mineralization and joint space are normal. There is no femoral head deformity. There are no calcifications or foreign bodies. No fracture or dislocation. There are surgical clips in the pelvis on the right. Impression: Negative plain film study of the right hip. Consider MRI for follow up. Signed by Warren Keenan MD 01/06/2017 09:42 A
[2017-01-06] MEDS ORDERED: HEPARIN 1,000 UNITS/ML 10ML VIAL (FOR RADIOLOGY& DIALYSIS ONLY) XX ONE (11:00)
[2017-01-06] MEDS ORDERED: DARBEPOETIN 100 MCG/0.5 ML *DIALYSIS* SYRINGE (J0882) IV SCH (12:30)
--- NOTE | 2017-01-06 13:00 | IPNPDOC ---
Subjective Date Seen The patient was seen on 01/06/17. Subjective Chief Complaint/HPI The patient is a 76-year-old female admitted with a reason for visit of Afib Rvr. Constitutional: Denies: Chills, Fever, Night Sweats Pulmonary: Denies: Dyspnea, Cough Cardiovascular: Denies: Chest Pain, Palpitations, Orthopnea, Paroxysmal Noc. Dyspnea, Lt Headedness Musculoskeletal: Reports: Joint Pain Objective Physical Examination General Exam: Positive: Cooperative, Moderate Distress, Other Eye Exam: Positive: PERRLA, Conjunctiva & lids normal, EOMI ENT Exam: Positive: Atraumatic, Mucous membr. moist/pink, Pharynx Normal Neck Exam: Positive: JVD Chest Exam: Positive: Rales, Rhonchi, Wheezing, Diminished Heart Exam: Positive: Tachycardic, Irregular Rhythm, Normal S1, Normal S2 Telemetry: Positive: Atrial fibrillation Abdomen Exam: Positive: Normal bowel sounds, Soft Extremity Exam: Positive: Tenderness (right hip joint), Swelling, Negative: Clubbing, Cyanosis, Edema, Normal pulses, Other Skin Exam: Positive: Nl turgor and temperature Assessment /Plan Problems (1) Right inguinal pain Status: Acute Problem Text: xray of hip was negative for any acute findings will consider MRI of hip if pain continues ultrasound of abd was done last night which showed possible femoral hernia, will f/u with CT of abd good lower extremity pulses on exam (2) Acute renal failure Status: Acute Problem Text: * patient making urine * possibly ATN due to combination of contrast nephropathy and antibiotics. * Acute interstitial nephritis is also a differential * HD started on 12/27/16 * all nephrotoxic medications have been stopped and dosages have been adjusted. (3) Acute diastolic congestive heart failure Status: Acute Problem Text: * fluid status improving with HD. * HD from 12/27/16 (4) Rheumatoid arthritis Status: Chronic Problem Text: on methotrexate at home. will resume at a lower dose, first dose today (5) Pneumonia Status: Acute Problem Text: * on initial presentation to [facility] on 12/21 she had nausea and vomiting on the night of 12/20 followed by chest pain shortness of breath on morning 12/21 which made her go to the hospital . in the hospital she had diarrhea then she developed fever, cough and afib with rvr. * possibility of aspiration pneumonia vs community acquired pneumonia. * finished day 7 of zosyn. received 6 days of Vanco (6) A-fib Status: Resolved Response to Treatment: Worse Problem Text: * on diltiazem * was on eliquis stopped due to MICHELLE. started patient on heparin infusion and coumadin * will continue heparin and coumadin which was started on 01/02 * daily INR * dose decreased to 3mg today (7) Hypertension Status: Chronic (8) Diabetes Status: Chronic (9) Right hip pain Plan/VTE VTE Prophylaxis Ordered?: Yes Plan/Urinary Catheter Urinary Catheter: Place Betancourt Reason for insertion/continuin: Critical Pt monitoring VS, I&O, 24H, Fishbone Vital Signs/I&O Vital Signs Date Time Temp Pulse Resp B/P (MAP) Pulse Ox O2 Delivery O2 Flow Rate FiO2 01/06/17 08:59 20 01/06/17 08:49 Room Air 01/06/17 08:49 80 166/72 01/06/17 08:00 97.7 96 01/02/17 12:39 2.0 I&O- Last 24 Hours up to 6 AM 01/06/17 06:00 Intake Total 1010 ml Output Total 1125 ml Balance -115 ml Laboratory Data 24H LABS Laboratory Tests 2 01/05/17 14:15: Activated Partial Thromboplast Time 86.7H 01/05/17 16:48: Bedside Glucose (Misc Panel) 115H 01/05/17 20:43: Activated Partial Thromboplast Time 80.4H 01/05/17 20:59: Bedside Glucose (Misc Panel) 195H 01/06/17 03:32: White Blood Count 11.9H, Red Blood Count 3.20L, Hemoglobin 9.9L, Hematocrit 29.7L, Mean Corpuscular Volume 92.7, Mean Corpuscular Hemoglobin 31.1, Mean Corpuscular Hemoglobin Concent 33.6, Red Cell Distribution Width 14.2, Platelet Count 335, Neutrophils (%) (Auto) 76.9H, Lymphocytes (%) (Auto) 13.6L, Monocytes (%) (Auto) 3.8, Eosinophils (%) (Auto) 3.7H, Basophils (%) (Auto) 0.7 , Neutrophils # (Auto) 9.1H, Lymphocytes # (Auto) 1.8, Monocytes # (Auto) 0.5, Eosinophils # (Auto) 0.4, Basophils # (Auto) 0.1, Large Unclassified Cells % 1.3 , Large Unclassified Cells # 0.2, Prothrombin Time 20.7H, Prothromb Time International Ratio 1.77, Activated Partial Thromboplast Time 89.0H, Anion Gap 13, Glomerular Filtration Rate 9.4L, Blood Urea Nitrogen 32H, Creatinine 4.82H, Sodium Level 130L, Potassium Level 3.7, Chloride Level 93L, Carbon Dioxide Level 24, Calcium Level 8.4L 01/06/17 08:27: Bedside Glucose (Misc Panel) 153H CBC/BMP Laboratory Tests 01/06/17 03:32 Red Blood Count 3.20 L, Mean Corpuscular Volume 92.7, Mean Corpuscular Hemoglobin 31.1, Mean Corpuscular Hemoglobin Concent 33.6, Red Cell Distribution Width 14.2, Neutrophils (%) (Auto) 76.9 H, Lymphocytes (%) (Auto) 13.6 L, Monocytes (%) (Auto) 3.8, Eosinophils (%) (Auto) 3.7 H, Basophils (%) ( Auto) 0.7, Neutrophils # (Auto) 9.1 H, Lymphocytes # (Auto) 1.8, Monocytes # ( Auto) 0.5, Eosinophils # (Auto) 0.4, Basophils # (Auto) 0.1, Calcium Level 8.4 L Microbiology Microbiology 01/05/17 Stool Occult Blood (LANDY) - Final, Complete 01/04/17 Stool Occult Blood (LANDY) - Final, Complete 01/02/17 Stool Occult Blood (LANDY) - Final, Complete 01/01/17 Stool Occult Blood (LANDY) - Final, Complete 12/30/16 Stool Occult Blood (LANDY) - Final, Complete CARLOS ARIAS DO Jan 06, 2017 13:00
--- NOTE | 2017-01-06 13:51 | ECGEPIP ---
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
[2017-01-06 14:45] VITALS: BP 134/69
--- NOTE | 2017-01-06 14:59 | IPN ---
DATE: 01/06/2017 SUBJECTIVE: The patient was seen and examined at the bedside today in the morning. The patient was complaining of severe pain in the right hip. She got the x-ray done. X-ray did not show any acute pathology, but she reports that she has not received Humira or methotrexate ever since she was admitted to the hospital. The patient's creatinine also continues to get worse. The patient was taken to dialysis center and she was seen and examined during hemodialysis. REVIEW OF SYSTEMS: The patient denies any fevers, chills, rigors, headache, nausea, vomiting, chest pain, shortness of breath, pain in abdomen, or constipation. She reports almost 8 out of 10 pain in the right hip with inability to ambulate. The rest of the review of systems is negative. OBJECTIVE: Vital Signs: Temperature is 97.7 degrees Fahrenheit. Blood pressure is 166/72. Pulse is 80. Respiratory rate of 22. Saturating 96% on room air. Intake and Output: Urine output recorded as 925 mL yesterday, 1100 mL so far today since overnight. Weight on the bed scale is 85.5 kg. PHYSICAL EXAMINATION: GENERAL: The patient is awake, alert and oriented times three laying in bed and getting hemodialysis in mild painful distress. HEAD AND NECK EXAM: Extraocular muscles intact. Pupils equally round and reactive to light. Mucous membranes are moist. Neck is supple. There is no jugular venous distention (JVD). CARDIOVASCULAR: S1, S2, regular rate. No murmur, rub or gallop. RESPIRATORY: Chest is clear to auscultation bilaterally. Bilateral equal air entry. No rales or rhonchi. ABDOMEN: Soft. Positive bowel sounds. Nontender. No ascites. No organomegaly. EXTREMITIES: No clubbing or cyanosis. The patient has decreased range of movement of the right hip and moderate pain on passive movements. Central Nervous System: No focal neurological deficit. Power is 5/5 in bilateral upper extremities. Psychiatric: Normal mood and affect, but she is in mild painful distress. LAB REVIEW: CBC showed a WBC of 11.9, hemoglobin 9.9, and platelets are 335. INR is 1.77. BMP showed sodium 130, potassium 3.7, chloride 93, bicarbonate 24, BUN 32, creatinine is 4.8. Calcium is 8.4. IMMUNOLOGY: TIFF screen is positive. Anti La IgG antibody positive. The rest of the autoimmune serology is negative. IMAGING: Hip x-ray of the right hip done today showed negative plain film study of the right hip. MRI was recommended. CURRENT INPATIENT MEDICATIONS: Patient's medications were all reviewed by me. There is no change in the medications today as compared with yesterday. ASSESSMENT: 76-year-old female with atrial fibrillation, history of diastolic congestive heart failure, with acute renal failure which has progressed to end stage renal disease requiring hemodialysis. PLAN: 1. Acute renal failure. Patient's creatinine continues to get worse in between hemodialysis sessions. The patient is being dialyzed again today. We shall try to do an ultrafiltration of about 1 liter as tolerated by her blood pressure. The patient does have a good urine output, but her renal function has not improved at this time. 2. Hyponatremia. It is secondary to renal failure and slight hypovolemia. Hemodialysis and ultra filtration of 1 liter will help improve hyponatremia as well. 3. Anemia in end stage renal disease. The patient's hemoglobin is 9.9 at this time. I am going to start the patient on Aranesp with hemodialysis. No need of blood transfusion at this time. 4. Atrial fibrillation. The patient's heart rate is currently well controlled. Continue current dose of diltiazem 120 mg by mouth three times a day and continue metoprolol IV as needed only. Warfarin dosing is as per primary team. 5. Severe pain in the right hip. The patient has history of rheumatoid arthritis. She was on Humira and methotrexate as outpatient that have been held since she was admitted. I think her rheumatoid arthritis is acting up. I will leave it up to the primary team to decide about prednisone versus cytotoxic therapy. If she ends up getting methotrexate, then she will need 50% of the dose because she is in renal failure at this time. The plan of care was discussed with the hospitalist, Dr. Johnathan Gant. MIQUEL
[2017-01-06] MEDS: METHOTREXATE 2.5 MG TAB (J8610) PO SCH (15:38)
[2017-01-06 16:00] VITALS: BP 131/62
[2017-01-06] MEDS ORDERED: WARFARIN SOD 4 MG TAB PO ONE (17:00)
[2017-01-06] MEDS: HEPARIN DRIP 25,000 UNITS in APPROPRIATE DILUENT 1 EA IV SCH (18:42)
[2017-01-06 19:48] VITALS: BP 129/68
[2017-01-06] MEDS: MORPHINE 2 MG/ML 1ML SYRINGE IV PRN (20:30)
[2017-01-06 23:59] VITALS: BP 125/59
[2017-01-07] MEDS: MORPHINE 2 MG/ML 1ML SYRINGE IV PRN ×3 (01:31→20:49)
[2017-01-07] MEDS: LEVALBUTEROL 1.25 MG/0.5 ML CONCENTRATE NEB INH SCH ×6 (04:04→22:14)
[2017-01-07 04:45] VITALS: BP 124/58
[2017-01-07 05:14] LABS: MEAN CORPUSCULAR HEMOGLOBIN 31.2 pg (27.0-33.0); MEAN CORPUSCULAR HGB CONC 34.2 g/dl (32.0-36.5); MEAN CORPUSCULAR VOLUME 91.3 fl (80.0-96.0); RED CELL DISTRIBUTION WIDTH 14.4 % (11.5-14.5); WHITE BLOOD COUNT 14.3 K/mm3 (4.0-10.0)
[2017-01-07 05:31] LABS: INR 1.87
[2017-01-07 05:33] LABS: ALBUMIN 2.4 GM/DL (3.2-5.2); ALBUMIN/GLOBULIN RATIO 0.47 (1.00-1.93); BILIRUBIN,TOTAL 0.6 MG/DL (0.2-1.0); CALCIUM LEVEL 8.6 MG/DL (8.8-10.2); CREATININE FOR GFR 2.86 MG/DL (0.55-1.02); GLOMERULAR FILTRATION RATE 17.2 (>39); POTASSIUM SERUM 3.5 MEQ/L (3.5-5.1); TOTAL PROTEIN 7.5 GM/DL (6.4-8.2)
[2017-01-07] MEDS: SLF 3 ML SYR IV SCH ×4 (06:12→22:00)
[2017-01-07 08:00] VITALS: BP 145/66
[2017-01-07] MEDS: HumaLOG INSULIN (NovoLOG) PER UNIT SC SCH ×4 (09:04→21:00)
[2017-01-07] MEDS: OMEPRAZOLE 20 MG CAP PO SCH ×2 (09:08→20:46)
[2017-01-07] MEDS: VENLAFAXINE **XR** 75MG CAPSULE PO SCH (09:08)
[2017-01-07] MEDS: BRIMONIDINE 0.1% OPHTH SOLN 5 ML OU SCH ×2 (09:10→21:04)
[2017-01-07] MEDS: METOPROLOL TART 25 MG TABLET PO SCH ×2 (09:10→20:48)
[2017-01-07] MEDS ORDERED: MORPHINE 2 MG/ML 1ML SYRINGE IV ONE (10:45)
[2017-01-07 12:00] VITALS: BP 117/61
--- NOTE | 2017-01-07 12:34 | REP ---
CT of the pelvis and thighs: There are multiple loculated fluid collections in the right adductor and quadriceps muscle bellies compatible with multiple hematomas, in this patient with right thigh swelling and on heparin therapy. The left thigh is unremarkable. No pelvic hematoma is identified. The bladder is unremarkable. There is a hysterectomy. Vaginal cuff and adnexa are unremarkable. Pelvic bowel loops are unremarkable. No pelvic fracture is identified. Impression: There are multiple loculated fluid collections in the right quadriceps and abductor muscle bellies. In this patient on heparin therapy this is compatible with multiple intramuscular hematomas. Signed by Warren Keenan MD 01/07/2017 12:26 P
--- NOTE | 2017-01-07 15:03 | IPN ---
DATE: 01/07/2017 SUBJECTIVE: Patient was seen and examined at the bedside today in the morning. She was actually sitting in the sofa. Patient was in a significant amount of pain. She was moaning. She complained of severe pain in the right thigh. Last 24 hour electronic medical records (EMRs) were noted. Patient got hemodialysis done yesterday. She tolerated the hemodialysis procedure well. She was also started on methotrexate one-half dose, because of history of rheumatoid arthritis and pain in the right hip. REVIEW OF SYSTEMS: Patient was unable to provide any reliable review of systems at this time because she was in severe pain and the only thing that she was concerned about at this time is severe pain in the right thigh. OBJECTIVE: VITAL SIGNS: Temperature 98 degrees Fahrenheit, blood pressure 117/61, pulse 102, respiratory rate 18, saturating 98% on room air. INTAKE AND OUTPUT: Urine output recorded is 1 liter yesterday, 1200 mL so far today. Patient got hemodialysis done yesterday and ultrafiltration with hemodialysis was also 1 liter. Weight in the bed scale is 80 kg today. PHYSICAL EXAMINATION: GENERAL: Patient is awake, alert, oriented times three, sitting in the sofa, moaning with pain, in severe pain, in full distress. HEAD and NECK EXAMINATION: Extraocular muscles intact. Pupils equally round and reactive to light. Mucous membranes are moist. Neck is supple. There is no jugular venous distention (JVD). CARDIOVASCULAR: S1, S2. Regular rate. No murmurs, rubs or gallops. RESPIRATORY: Clear to auscultation bilaterally. Bilateral equal air entry. No rales or rhonchi. ABDOMEN. Soft. Positive bowel sounds. Nontender. No ascites. No organomegaly. EXTREMITIES: No clubbing or cyanosis. Patient's right side inner thigh is severely tender, has erythema intense, and right extremity has decreased range of movement because of pain and tenderness. PSYCHIATRIC: Patient is agitated and in painful distress. CENTRAL NERVOUS SYSTEM: No focal neurological deficit at this time. Power is 5/5 in bilateral upper extremities. LABORATORY REVIEW: CBC showed WBC 14.3, hemoglobin 8.6, down from 9.9 yesterday, platelets are 334. INR 1.87. PTT 138. BMP done today showed sodium 132, potassium 3.5, chloride 97, bicarbonate 27, BUN 13, creatinine 2.8, calcium 8.6, albumin 2.4. CURRENT INPATIENT MEDICATIONS: Patient's medications were all reviewed by me. I have STOPPED the patient's: - heparin - Coumadin She CONTINUES to be on: - morphine 2 mg IV every 4 hours as needed for severe pain, and I gave the patient an extra dose of morphine 2 mg this morning. She has been STARTED on: - methotrexate 7.5 mg by mouth on Sunday. IMAGING: A stat CAT scan of the pelvis and thighs was done today morning, which showed multiple loculated fluid collection in the right quadriceps and abductor muscle bellies, which was compatible with multiple intramuscular hematomas. There are no pelvic hematoma identified. ASSESSMENT: A 76-year-old female with atrial fibrillation, history of diastolic congestive heart failure, this admission with acute renal failure, which has progressed to end-stage renal disease requiring hemodialysis, and now the hospital course is complicated by right thigh hematomas. PLAN: 1. Acute renal failure. Patient continues to require hemodialysis. She was dialyzed yesterday. Her creatinine is down to 2.8 now. I shall continue to monitor this patient for improvement of renal function. She has a good urine output of about 1 liter daily. 2. Sever pain secondary to right thigh hematomas. I have stopped patient's heparin and Coumadin. Continue the morphine as needed for pain. Please get vascular surgery on board for further input regarding the management of this patient. I would give this patient one unit of fresh frozen plasma as well. 3. Anemia in end-stage renal disease and recent blood loss. Patient's hemoglobin is 8.6 at this time. Continue to monitor the CBC for drop in hemoglobin because of development of hematomas in the thigh.. If patient's hemoglobin drops, she will be given packed red blood cells transfusion for hemoglobin below 8. 4. Atrial fibrillation. Patient's heart rate is controlled at this juan with diltiazem 120 mg three times a day. She was on IV heparin, which was being bridged to Coumadin; however, unfortunately, she has developed a hematoma of the thigh, so anticoagulation has been stopped. 5. History of rheumatoid arthritis. Patient was on methotrexate and Humira as outpatient. Patient was started on half the dose of methotrexate yesterday because of renal failure. Continue it for now. The plan of care was discussed with the hospitalist, Dr. Johnathan Gant and with patient's family members over the phone as well.
[2017-01-07 16:00] VITALS: BP 139/57
[2017-01-07] MEDS ORDERED: WARFARIN SOD 4 MG TAB PO SCH (17:00)
[2017-01-07 19:19] VITALS: BP 124/57
--- NOTE | 2017-01-07 20:14 | IPNPDOC ---
Subjective Date Seen The patient was seen on 01/07/17. Subjective Chief Complaint/HPI The patient is a 76-year-old female admitted with a reason for visit of Afib Rvr. Events since last encounter pt seen and examined, was still complaining of groin pain, no overnight events per nursing Objective Physical Examination General Exam: Positive: Cooperative, Moderate Distress, Other Eye Exam: Positive: PERRLA, Conjunctiva & lids normal, EOMI ENT Exam: Positive: Atraumatic, Mucous membr. moist/pink, Pharynx Normal Neck Exam: Positive: JVD Chest Exam: Positive: Rales, Rhonchi, Wheezing, Diminished Heart Exam: Positive: Tachycardic, Irregular Rhythm, Normal S1, Normal S2 Telemetry: Positive: Atrial fibrillation Abdomen Exam: Positive: Normal bowel sounds, Soft Extremity Exam: Positive: Tenderness (right hip joint), Swelling, Negative: Clubbing, Cyanosis, Edema, Normal pulses, Other Skin Exam: Positive: Nl turgor and temperature Assessment /Plan Problems (1) Right inguinal pain Status: Acute Problem Text: CT pelvis showed intramuscular hematomas will consult Dr Oconnell d/c coumadin and heparin FFP per nephro continue to monitor H&H (2) Acute renal failure Status: Acute Problem Text: * patient making urine * possibly ATN due to combination of contrast nephropathy and antibiotics. * Acute interstitial nephritis is also a differential * HD started on 12/27/16 * all nephrotoxic medications have been stopped and dosages have been adjusted. (3) Acute diastolic congestive heart failure Status: Acute Problem Text: * fluid status improving with HD. * HD from 12/27/16 (4) Rheumatoid arthritis Status: Chronic Problem Text: on methotrexate at home. will resume at a lower dose, (5) Pneumonia Status: Acute Problem Text: * on initial presentation to [facility] on 12/21 she had nausea and vomiting on the night of 12/20 followed by chest pain shortness of breath on morning 12/21 which made her go to the hospital . in the hospital she had diarrhea then she developed fever, cough and afib with rvr. * possibility of aspiration pneumonia vs community acquired pneumonia. * finished day 7 of zosyn. received 6 days of Vanco (6) A-fib Status: Resolved Response to Treatment: Worse Problem Text: * on diltiazem * was on eliquis stopped due to MICHELLE. started patient on heparin infusion and coumadin * will continue heparin and coumadin which was started on 01/02 * daily INR * dose decreased to 3mg today (7) Hypertension Status: Chronic (8) Diabetes Status: Chronic (9) Right hip pain Plan/VTE VTE Prophylaxis Ordered?: Yes Plan/Urinary Catheter Urinary Catheter: Place Betancourt Reason for insertion/continuin: Critical Pt monitoring VS, I&O, 24H, Fishbone Vital Signs/I&O Vital Signs Date Time Temp Pulse Resp B/P (MAP) Pulse Ox O2 Delivery O2 Flow Rate FiO2 01/07/17 19:19 98.7 78 18 124/57 (79) 93 Room Air 01/02/17 12:39 2.0 I&O- Last 24 Hours up to 6 AM 01/07/17 06:00 Intake Total 1292 ml Output Total 1400 ml Balance -108 ml Laboratory Data 24H LABS Laboratory Tests 2 01/06/17 20:22: Bedside Glucose (Misc Panel) 96 01/07/17 04:43: Prothrombin Time 21.6H, Prothromb Time International Ratio 1.87, Activated Partial Thromboplast Time 138.7*H, Anion Gap 10, Glomerular Filtration Rate 17.2L, Blood Urea Nitrogen 13#, Creatinine 2.86H, Sodium Level 132L, Potassium Level 3.5, Chloride Level 95L, Carbon Dioxide Level 27, Calcium Level 8.6L, Aspartate Amino Transf (AST/SGOT) 39H, Alanine Aminotransferase (ALT/SGPT) 23, Alkaline Phosphatase 75, Total Bilirubin 0.6, Total Protein 7.5, Albumin 2.4L, Albumin/Globulin Ratio 0.47L 01/07/17 10:59: Bedside Glucose (Misc Panel) 197H 01/07/17 14:52: Activated Partial Thromboplast Time 39.6H 01/07/17 17:09: Bedside Glucose (Misc Panel) 152H CBC/BMP Laboratory Tests 01/07/17 04:43 Red Blood Count 2.76 L, Mean Corpuscular Volume 91.3, Mean Corpuscular Hemoglobin 31.2, Mean Corpuscular Hemoglobin Concent 34.2, Red Cell Distribution Width 14.4, Calcium Level 8.6 L, Aspartate Amino Transf (AST/SGOT) 39 H, Alanine Aminotransferase (ALT/SGPT) 23, Alkaline Phosphatase 75, Total Bilirubin 0.6, Total Protein 7.5, Albumin 2.4 L 01/07/17 14:56 Microbiology Microbiology 01/05/17 Stool Occult Blood (LANDY) - Final, Complete 01/04/17 Stool Occult Blood (LANDY) - Final, Complete 01/02/17 Stool Occult Blood (LANDY) - Final, Complete 01/01/17 Stool Occult Blood (LANDY) - Final, Complete 12/30/16 Stool Occult Blood (LANDY) - Final, Complete CARLOS ARIAS DO Jan 07, 2017 20:14
[2017-01-07 23:31] VITALS: BP 106/53
[2017-01-08] MEDS: LEVALBUTEROL 1.25 MG/0.5 ML CONCENTRATE NEB INH SCH ×2 (03:29)
[2017-01-08 04:02] VITALS: BP 119/56
[2017-01-08] MEDS: MORPHINE 2 MG/ML 1ML SYRINGE IV PRN (04:05)
[2017-01-08 04:22] LABS: MEAN CORPUSCULAR HEMOGLOBIN 30.8 pg (27.0-33.0); MEAN CORPUSCULAR HGB CONC 33.8 g/dl (32.0-36.5); MEAN CORPUSCULAR VOLUME 91.1 fl (80.0-96.0); RED CELL DISTRIBUTION WIDTH 14.6 % (11.5-14.5)
[2017-01-08 04:35] LABS: ALBUMIN 2.3 GM/DL (3.2-5.2); ALBUMIN/GLOBULIN RATIO 0.48 (1.00-1.93); BILIRUBIN,TOTAL 0.7 MG/DL (0.2-1.0); CALCIUM LEVEL 8.5 MG/DL (8.8-10.2); CREATININE FOR GFR 3.35 MG/DL (0.55-1.02); GLOMERULAR FILTRATION RATE 14.3 (>39); POTASSIUM SERUM 3.4 MEQ/L (3.5-5.1); TOTAL PROTEIN 7.1 GM/DL (6.4-8.2)
[2017-01-08 04:36] LABS: INR 1.69
[2017-01-08] MEDS: SLF 3 ML SYR IV SCH ×3 (06:00→21:14)
[2017-01-08 07:30] VITALS: BP 106/54
[2017-01-08] MEDS: HumaLOG INSULIN (NovoLOG) PER UNIT SC SCH ×4 (08:54→21:00)
[2017-01-08] MEDS: VENLAFAXINE **XR** 75MG CAPSULE PO SCH (08:55)
[2017-01-08] MEDS: OMEPRAZOLE 20 MG CAP PO SCH ×2 (08:55→21:12)
[2017-01-08] MEDS: traMADol 50 MG TAB PO PRN ×2 (08:55→17:36)
[2017-01-08] MEDS: BRIMONIDINE 0.1% OPHTH SOLN 5 ML OU SCH ×2 (08:56→21:13)
[2017-01-08] MEDS: METOPROLOL TART 25 MG TABLET PO SCH ×2 (09:00→21:12)
--- NOTE | 2017-01-08 10:41 | IPNPDOC ---
Date Seen The patient was seen on 01/08/17. Progress Note SUBJECTIVE: Patient reports that she is feeling significantly better and that her pain is markedly improved OBJECTIVE PHYSICAL EXAMINATION: VITAL SIGNS: Please see below. GENERAL: Frail tired elderly female lying flat in bed she does not appear to be in any acute distress HEENT: Pupils are equally round reactive to light she has moist mucous membranes elevation in her central venous pressure appreciated at this time CARDIOVASCULAR: She hasn't HD cath inserted in her right thorax, S1-S2 regular. RESPIRATORY: Clear to auscultation diminished breath sounds at the bases poor respiratory effort. ABDOMINAL: Is on the present abdomen is soft and nontender at this time EXTREMITIES: She has chronic contractures and deformities of her bilateral hands. Her right lower extremity is Manny wrapped the dressing is clean dry and intact NEUROLOGICAL: Focal deficits does not cooperate with gait testing, she spontaneously moves all 4 extremities LABORATORY DATA: Hemoglobin and trending down, leukocytosis stable, hypokalemia 3.4 elevated AST Please see below. MICROBIOLOGY: Please see below. IMAGING: CT of the abdomen pelvis:There are multiple loculated fluid collections in the right quadriceps and abductor muscle bellies. In this patient on heparin therapy this is compatible with multiple intramuscular hematomas. Echocardiogram: 1. Normal global left ventricular systolic function with mild concentric left ventricular hypertrophy. 2. Aortic valve sclerosis without stenosis or aortic regurgitation. 3. Mildly dilated left atrium, no significant mitral regurgitation. The dilated left atrium is most likely related to underlying left ventricular diastolic dysfunction and the atrial fibrillation. 4. Moderate tricuspid regurgitation with moderate pulmonary hypertension and mildly enlarged right atrium. 5. Mild pulmonic regurgitation. 6. Trace to small pericardial effusion, no evidence of cardiac tamponade. 7. A left pleural effusion was noted.. DVT prophylaxis ordered?: Sequentials and teds no pharmacological agents secondary to acute blood loss anemia ASSESSMENT AND PLAN: This is a 76-year-old female with acute blood loss anemia secondary to intramuscular hematomas, acute renal failure diastolic congestive heart failure rheumatoid arthritis H fibrillation with rapid ventricular response. PROBLEMS: (1) acute blood loss anemia Status: Acute Problem Text: CT pelvis showed intramuscular hematomas. The patient is status post FFP all anticoagulation has been discontinued nephrology's help is appreciated. Dr. Oconnell of [facility] surgery suggested compression therapy and no surgical intervention. The patient does appear to be improving at this time her pain is much better controlled. The patient will continue to work with physical therapy. Her hemoglobin has dropped slightly I will transfuse her 2 units of PRBCs during hemodialysis this was discussed with nephrology we will continue to monitor H&H. The patient is started on Aranesp and folic acid. The patient is on all TRAM Amelia IV morphine as needed regarding her intramuscular hematoma pain. (2) Acute renal failure Status: Acute Problem Text: patient making urine the patient continues to make urine she is still dialysis dependent. It is currently believe this may be related to ATN versus contrast nephropathy antibiotics possibly even a combination of the above. Nephrology's help is greatly appreciated. The patient has been on hemodialysis since 2016 (3) Acute diastolic congestive heart failure Status: Acute Problem Text: Patient's volume status appears to be improved she is laying flat and comfortable not requiring oxygen. Her fluid status is optimized hemodialysis (4) Rheumatoid arthritis Status: Chronic the patient is continued on her home methotrexate but at a slightly lower dose methotrexate at home. (5) Pneumonia Status: Resolved Problem Text: Resolved patient completed 7 days of antibiotics she was treated with broad- spectrum for potential community acquired versus aspiration pneumonia (6) A-fib Status: Resolved Problem Text: The patient appears to be in a sinus rhythm at this time she is rate controlled with metoprolol and diltiazem. She did not tolerate anticoagulation as such I' ll regulation has been discontinued I did a lengthy discussion with her make her aware of her central risk for stroke should she go back into atrial fibrillation. Dr. Correa initially which are to be on anticoagulation for at least 6 months or possibly longer however she is unable to tolerate it at this time. She is status post FFP yesterday he has a subtherapeutic INR at this time (7) Mood Disorder continue with Effexor (8)Hypertension Continue with diltiazem and metoprolol (9) Diabetes continue with insulin sliding scale and hypoglycemic protocol (10) GERD continue with omeprazole (11) Glaucoma continue with Alphagan and timolol DISPOSITION: We'll continue to have the patient work with physical therapy and monitor her renal function. VS, I&O, 24H, Fishbone Vital Signs/I&O Vital Signs Date Time Temp Pulse Resp B/P (MAP) Pulse Ox O2 Delivery O2 Flow Rate FiO2 01/08/17 09:00 79 106/54 01/08/17 08:55 18 01/08/17 07:30 97.4 95 Room Air 01/02/17 12:39 2.0 I&O- Last 24 Hours up to 6 AM 01/08/17 06:00 Intake Total 2152 ml Output Total 2300 ml Balance -148 ml Laboratory Data 24H LABS Laboratory Tests 2 01/07/17 10:59: Bedside Glucose (Misc Panel) 197H 01/07/17 14:52: Activated Partial Thromboplast Time 39.6H 01/07/17 17:09: Bedside Glucose (Misc Panel) 152H 01/07/17 20:58: Bedside Glucose (Misc Panel) 207H 01/08/17 03:57: Prothrombin Time 20.0H, Prothromb Time International Ratio 1.69, Anion Gap 9, Glomerular Filtration Rate 14.3L, Blood Urea Nitrogen 24#H, Creatinine 3.35H, Sodium Level 132L, Potassium Level 3.4L, Chloride Level 95L, Carbon Dioxide Level 28, Calcium Level 8.5L, Aspartate Amino Transf (AST/SGOT) 66H, Alanine Aminotransferase (ALT/SGPT) 34, Alkaline Phosphatase 70, Total Bilirubin 0.7, Total Protein 7.1, Albumin 2.3L, Albumin/Globulin Ratio 0.48L CBC/BMP Laboratory Tests 01/07/17 14:56 01/07/17 20:44 01/08/17 03:57 Red Blood Count 2.47 L, Mean Corpuscular Volume 91.1, Mean Corpuscular Hemoglobin 30.8, Mean Corpuscular Hemoglobin Concent 33.8, Red Cell Distribution Width 14.6 H, Calcium Level 8.5 L, Aspartate Amino Transf (AST/SGOT ) 66 H, Alanine Aminotransferase (ALT/SGPT) 34, Alkaline Phosphatase 70, Total Bilirubin 0.7, Total Protein 7.1, Albumin 2.3 L 01/08/17 08:54 Microbiology Microbiology 01/05/17 Stool Occult Blood (LANDY) - Final, Complete 01/04/17 Stool Occult Blood (LANDY) - Final, Complete 01/02/17 Stool Occult Blood (LANDY) - Final, Complete 01/01/17 Stool Occult Blood (LANDY) - Final, Complete 12/30/16 Stool Occult Blood (LANDY) - Final, Complete ERICK ROSEN MD Jan 08, 2017 10:41
[2017-01-08] MEDS ORDERED: HEPARIN 1,000 UNITS/ML 10ML VIAL (FOR RADIOLOGY& DIALYSIS ONLY) XX ONE (11:30)
[2017-01-08 15:30] VITALS: BP 127/63
[2017-01-08] MEDS: FOLIC ACID 1 MG TAB PO SCH (15:42)
[2017-01-08 19:11] VITALS: BP 114/63
[2017-01-08 21:00] VITALS: BP 121/56
--- NOTE | 2017-01-08 21:56 | IPN ---
DATE: 01/08/2017 SUBJECTIVE: Patient was seen and examined at the bedside during hemodialysis procedure today. She was tolerating the hemodialysis procedure well. Last 24-hour events were noted. The patient was found to have multiple intramuscular hematomas in the right thigh. Heparin and Coumadin were stopped. She was given a dose of fresh frozen plasma (FFP). She was seen by vascular surgery. We appreciate their recommendations. She got the compression dressing done on the thigh. Patient reports that her pain in the thigh is significantly better today. REVIEW OF SYSTEMS: Patient denies any fevers, chills, rigors, headache, nausea, vomiting, chest pain, shortness of breath, pain in abdomen. She does report right thigh pain, but she reports it is significantly better as compared with yesterday. Rest of the review of systems is negative. OBJECTIVE: Vital signs: Temperature is 98 degrees Fahrenheit, blood pressure is 127/63, pulse is 90, respiratory rate of 18, saturating 97% on room air. Intake and output: Urine output recorded is 1.9 liters yesterday, 1150 mL so far today since overnight. Weight in the bed scale is 79.4 kg. PHYSICAL EXAMINATION: GENERAL: Patient is awake, alert, oriented times three, lying in bed getting hemodialysis done. No apparent distress at this time. HEAD AND NECK: Extraocular muscles intact. Pupils equally round and reactive to light. Mucous membranes are moist. Neck is supple. There is no jugular venous distention (JVD). CARDIOVASCULAR: S1, S2, regular rate. No murmur, rub, or gallop. RESPIRATORY: Chest is clear to auscultation bilaterally. Bilateral equal air entry. No rales or rhonchi. ABDOMEN: Abdomen is soft. Positive bowel sounds. Nontender. No ascites. No organomegaly. EXTREMITIES: No clubbing or cyanosis. Patient has a compression dressing on the right leg. Inner side of the right thigh is moderately tense and tender to deep palpation. CENTRAL NERVOUS SYSTEM: No focal neurological deficit. Power is 5/5 in bilateral upper extremities. LABORATORY REVIEW: CBC showed a WBC of 14, hemoglobin is 7.6, platelets 339. BMP showed sodium 132, potassium 3.4, chloride 95, bicarbonate 28, BUN 24, creatinine is 3.35. It was 2.8 yesterday. Calcium is 8.5, albumin is 2.3. CURRENT MEDICATIONS: The patient's medications were all reviewed by me. There is no change in the medications today as compared with yesterday. ASSESSMENT: A 76-year-old female with atrial fibrillation, history of diastolic congestive heart failure this admission with acute renal failure, which has progressed to end-stage renal disease, requiring hemodialysis. Hospital course is complicated by right thigh hematoma because of anticoagulation. PLAN: 1. Acute renal failure, which has progress to end-stage renal disease. Patient is being dialyzed again today, because her creatinine is trending up, and she needs blood transfusion, so we will need to do ultrafiltration with the blood transfusion as well. Next hemodialysis session will be on Sunday if the creatinine continues to trend up. 2. Right thigh hematoma. Pain is significantly better. Continue the pain medications at this time. Patient has a dressing on the right thigh. She was seen by vascular surgery. No surgical intervention was recommended. 3. Acute blood loss anemia. Hemoglobin is down to 7.6. Patient will be given 2 units of packed red blood cells (PRBC) transfusion due to hemodialysis. Continue to trend the complete blood count (CBC) at this time. 4. Atrial fibrillation. Heart rate is well controlled at this time. Continue current dose of metoprolol and diltiazem. Anticoagulation is on hold because of the hematomas in the thigh.
[2017-01-08 23:25] VITALS: BP 118/56
[2017-01-09 03:23] VITALS: BP 128/59
[2017-01-09 04:21] LABS: MEAN CORPUSCULAR HEMOGLOBIN 31.6 pg (27.0-33.0); MEAN CORPUSCULAR HGB CONC 35.3 g/dl (32.0-36.5); MEAN CORPUSCULAR VOLUME 89.7 fl (80.0-96.0); RED CELL DISTRIBUTION WIDTH 14.4 % (11.5-14.5); WHITE BLOOD COUNT 9.6 K/mm3 (4.0-10.0)
[2017-01-09 04:34] LABS: ALBUMIN 2.2 GM/DL (3.2-5.2); ALBUMIN/GLOBULIN RATIO 0.47 (1.00-1.93); BILIRUBIN,TOTAL 0.9 MG/DL (0.2-1.0); CALCIUM LEVEL 8.5 MG/DL (8.8-10.2); CREATININE FOR GFR 2.07 MG/DL (0.55-1.02); GLOMERULAR FILTRATION RATE 24.9 (>39); POTASSIUM SERUM 3.9 MEQ/L (3.5-5.1); TOTAL PROTEIN 6.9 GM/DL (6.4-8.2)
[2017-01-09 04:37] LABS: INR 1.51
[2017-01-09] MEDS: SLF 3 ML SYR IV SCH ×3 (06:00→21:51)
[2017-01-09] MEDS: traMADol 50 MG TAB PO PRN ×2 (06:23→21:52)
[2017-01-09 07:35] VITALS: BP 130/61
--- NOTE | 2017-01-09 08:21 | IPN ---
DATE: 01/09/2017 I have not seen the patient over the weekend and yesterday unfortunately her condition was further complicated by development of spontaneous hematoma into right thigh without any inflammation or obvious trauma. This was in setting of anticoagulation but is still very unusual. Initially she had a lot of pain but it has mostly subsided and is much better today. Fortunately, she has not had any atrial fibrillation. Unfortunately also though she continues to be dialysis dependent. Vital signs: This morning blood pressure 120/59, heart rate has been in 70s and 80s. She is afebrile. Saturation is 97% on room air. She yesterday had dialysis, but made 1150 mL of urine. Weight is documented 77.1 kg. She is alert and oriented and appropriate. Her JVP does not appear elevated. Lungs do reveal fine end inspiratory crackles. They are scattered throughout both lung abad. Heart exam reveals regular rhythm without gallop or rub or murmur. Abdomen is obese but soft. Good bowel sounds. There is a swelling to the right eye and there is an jasmin wrap from her right toes all the way to the level of mid thigh. Left leg has no significant edema. Neurologically she is alert and oriented and appropriate. LABORATORY: Hemoglobin 9.7, hematocrit 26, platelet count 247,000. Basic metabolic panel: Potassium 3.9, BUN 16, creatinine 2.0 for GFR 25, glucose is 158. ASSESSMENT/PLAN: Mrs. Lima is a 76-year-old female who initially presented with what I believe was most likely viral illness with nausea, vomiting, diarrhea that was followed by shortness of breath and chest discomfort. I suspect that there was a component of viral pericarditis. She eventually developed atrial fibrillation with RVR. Shortly after transfer to our facility, she developed acute renal failure. I suspect that the vancomycin and IV contrast likely were the culprits. To my surprise, she continues to be dialysis dependent since even though she still makes a fair amount of urine essentially on a daily basis. As a further complicating factor, she developed spontaneous right thigh hematoma while being anticoagulated with Coumadin and heparin with PTT being intermittently very high. At this point, she is off all the anticoagulants. She has been in sinus rhythm since Sunday, which remains approximately 4 days. At this point, I do not think she can be safely put back on anticoagulation for at least several days but then I would advocate restarting anticoagulation mostly because the risk of DVT, PE in this setting as well as the risk of stroke related to atrial fibrillation. I am going to sign off her service from cardiac perspective, she has been stable. I intend to see her in followup in about 3 weeks on outpatient basis. Please if there is any change in her clinical condition that requires my input, do not hesitate to call me back.
[2017-01-09] MEDS: HumaLOG INSULIN (NovoLOG) PER UNIT SC SCH ×4 (08:37→21:45)
[2017-01-09] MEDS: METOPROLOL TART 25 MG TABLET PO SCH ×2 (08:38→21:51)
[2017-01-09] MEDS: OMEPRAZOLE 20 MG CAP PO SCH ×2 (08:38→21:50)
[2017-01-09] MEDS: FOLIC ACID 1 MG TAB PO SCH (08:38)
[2017-01-09] MEDS: VENLAFAXINE **XR** 75MG CAPSULE PO SCH (08:41)
[2017-01-09] MEDS: BRIMONIDINE 0.1% OPHTH SOLN 5 ML OU SCH ×2 (09:05→21:51)
[2017-01-09 11:15] VITALS: BP 109/56
--- NOTE | 2017-01-09 12:33 | IPNPDOC ---
Date Seen The patient was seen on 01/09/17. Progress Note SUBJECTIVE: Patient reports that she continues to improve her pain is gradually decreasing she is able to get up and sit in the chair. She tells me her pain is knowing your what it was 2 days ago OBJECTIVE PHYSICAL EXAMINATION: VITAL SIGNS: Please see below. GENERAL: Frail tired elderly female sitting in a recliner she does not appear to be in any acute distress HEENT: Pupils are equally round reactive to light she has moist mucous membranes there is no elevation in her central venous pressure appreciated at this time CARDIOVASCULAR: She has a HD cath inserted in her right thorax, S1-S2 regular. RESPIRATORY: Clear to auscultation diminished breath sounds at the bases poor respiratory effort. ABDOMINAL: Bowel sounds present abdomen is soft and nontender at this time EXTREMITIES: She has chronic contractures and deformities of her bilateral hands. Her right lower extremity is Manny wrapped the dressing is clean dry and intact NEUROLOGICAL: Focal deficits does not cooperate with gait testing, she spontaneously moves all 4 extremities LABORATORY DATA: Please see below. MICROBIOLOGY: Please see below. IMAGING: CT of the abdomen pelvis:There are multiple loculated fluid collections in the right quadriceps and abductor muscle bellies. In this patient on heparin therapy this is compatible with multiple intramuscular hematomas. Echocardiogram: 1. Normal global left ventricular systolic function with mild concentric left ventricular hypertrophy. 2. Aortic valve sclerosis without stenosis or aortic regurgitation. 3. Mildly dilated left atrium, no significant mitral regurgitation. The dilated left atrium is most likely related to underlying left ventricular diastolic dysfunction and the atrial fibrillation. 4. Moderate tricuspid regurgitation with moderate pulmonary hypertension and mildly enlarged right atrium. 5. Mild pulmonic regurgitation. 6. Trace to small pericardial effusion, no evidence of cardiac tamponade. 7. A left pleural effusion was noted.. DVT prophylaxis ordered?: Sequentials and teds no pharmacological agents secondary to acute blood loss anemia ASSESSMENT AND PLAN: This is a 76-year-old female with acute blood loss anemia secondary to intramuscular hematomas, acute renal failure, decompensated diastolic congestive heart failure rheumatoid arthritis and A fibrillation with rapid ventricular response. PROBLEMS: (1) acute blood loss anemia Status: Acute Problem Text: appears to be stabilizing given the patient's pain is slowly but gradually resolving and she had a positive response to blood transfusion. CT of the abdomen and pelvis showed intramuscular hematomas. The patient is status post FFP all anticoagulation has been discontinued nephrology's help is appreciated. Dr. Oconnell of vascular surgery suggested compression therapy and no surgical intervention which will continue with at this time. The patient will continue to work with physical therapy. The patient is started on Aranesp and folic acid. The patient is on Ultram, [place] and IV morphine as needed regarding her intramuscular hematoma pain. (2) Acute renal failure Status: Acute Problem Text: the patient continues to make urine however she is still dialysis dependent. It is currently believed this may be related to ATN versus contrast nephropathy, antibiotics possibly even a combination of the above. Nephrology's help is greatly appreciated. The patient has been on hemodialysis since 12/27/2016 I will ask PFS to help us arrange an outpatient hemanalysis he doesn't appears as though she will require this for some time (3) Acute diastolic congestive heart failure Status: Acute Problem Text: Patient's volume status appears to be improved she is laying flat and comfortable not requiring oxygen. Her fluid status is optimized hemodialysis (4) Rheumatoid arthritis Status: Chronic the patient is continued on her home methotrexate but at a slightly lower dose (5) Pneumonia Status: Resolved Problem Text: Resolved patient completed 7 days of antibiotics she was treated with broad- spectrum for potential community acquired versus aspiration pneumonia (6) A-fib Status: Resolved Problem Text: The patient appears to be in a sinus rhythm at this time she is rate controlled with metoprolol and diltiazem. Dr. Correa did express concern that her initial presentation may been related to viral pericarditis. She did not tolerate anticoagulation and asked such I'll has been discontinued. Dr. Correa is recommended to possibly revisit this in the coming days given she is at high risk for DVT PE or even CVA related to A. fib. The patient has remained in normal sinus rhythm for several days at this point. (7) Mood Disorder continue with Effexor (8)Hypertension Continue with diltiazem and metoprolol (9) Diabetes continue with insulin sliding scale and hypoglycemic protocol (10) GERD continue with omeprazole (11) Glaucoma continue with Alphagan and timolol DISPOSITION: We'll continue to have the patient work with physical therapy and monitor her renal function she is medically stable for medical surgical floor. VS, I&O, 24H, Fishbone Vital Signs/I&O Vital Signs Date Time Temp Pulse Resp B/P (MAP) Pulse Ox O2 Delivery O2 Flow Rate FiO2 6/13/17 11:15 97.4 64 19 109/56 (73) 99 Room Air I&O- Last 24 Hours up to 6 AM 01/09/17 06:00 Intake Total 1070 ml Output Total 3100 ml Balance -2030 ml Laboratory Data 24H LABS Laboratory Tests 2 01/08/17 17:29: Bedside Glucose (Misc Panel) 142H 01/08/17 21:09: Bedside Glucose (Misc Panel) 242H 01/09/17 04:03: Prothrombin Time 18.3H, Prothromb Time International Ratio 1.51, Anion Gap 8, Glomerular Filtration Rate 24.9L, Blood Urea Nitrogen 16, Creatinine 2.07H, Sodium Level 130L, Potassium Level 3.9, Chloride Level 96L, Carbon Dioxide Level 26, Calcium Level 8.5L, Aspartate Amino Transf (AST/SGOT) 66H, Alanine Aminotransferase (ALT/SGPT) 46, Alkaline Phosphatase 70, Total Bilirubin 0.9, Total Protein 6.9, Albumin 2.2L, Albumin/Globulin Ratio 0.47L 01/09/17 11:32: Bedside Glucose (Misc Panel) 160H CBC/BMP Laboratory Tests 01/09/17 04:03 Red Blood Count 2.97 L, Mean Corpuscular Volume 89.7, Mean Corpuscular Hemoglobin 31.6, Mean Corpuscular Hemoglobin Concent 35.3, Red Cell Distribution Width 14.4, Calcium Level 8.5 L, Aspartate Amino Transf (AST/SGOT) 66 H, Alanine Aminotransferase (ALT/SGPT) 46, Alkaline Phosphatase 70, Total Bilirubin 0.9, Total Protein 6.9, Albumin 2.2 L Microbiology Microbiology 01/05/17 Stool Occult Blood (LANDY) - Final, Complete 01/04/17 Stool Occult Blood (LANDY) - Final, Complete 01/02/17 Stool Occult Blood (LANDY) - Final, Complete 01/01/17 Stool Occult Blood (LANDY) - Final, Complete 12/30/16 Stool Occult Blood (LANDY) - Final, Complete ERICK ROSEN MD Jan 09, 2017 12:33
[2017-01-09] MEDS: MORPHINE 2 MG/ML 1ML SYRINGE IV PRN ×2 (13:30→22:48)
[2017-01-09 14:00] VITALS: BP 134/62
--- NOTE | 2017-01-09 21:12 | IPN ---
DATE: 01/09/2017 SUBJECTIVE: The patient was seen and examined at the bedside today in the morning. She was sitting on the sofa. She reports that she feels much better today. Pain in the thigh is significantly getting better. The patient was dialyzed yesterday. She tolerated the hemodialysis procedure well. She was also given two units of packed red blood cells transfusion with hemodialysis. REVIEW OF SYSTEMS: The patient denies any fever, chills, rigors, headache, nausea, vomiting, chest pain, shortness of breath, pain in abdomen, constipation or diarrhea. She reports right thigh pain, which is significantly better than yesterday. The rest of the review of systems is negative. OBJECTIVE: VITAL SIGNS: Temperature is 97.9 degrees Fahrenheit, blood pressure is 134/62, pulse is 77, respiratory rate of 18, saturating 97% on room air. INTAKE/OUTPUT: Urine output recorded as 1.1 liters yesterday, 950 mL so far today since overnight. Ultrafiltration with hemodialysis was 2 liters yesterday. Weight on the bed scale is 77.1 kg. PHYSICAL EXAMINATION: GENERAL: The patient is awake, alert, oriented times three, sitting on the sofa in no apparent distress. HEAD AND NECK EXAM: Extraocular muscles intact. Pupils equally round and reactive to light. Mucous membranes are moist. Neck is supple. There is no jugular venous distention (JVD). CARDIOVASCULAR: S1, S2, regular rate. No murmur, rub or gallop. RESPIRATORY: Chest is clear to auscultation bilaterally. Bilateral equal air entry. No rales or rhonchi. ABDOMEN: Abdomen is soft. Positive bowel sounds, nontender. No ascites. No organomegaly. EXTREMITIES: No clubbing or cyanosis. The patient has tender hematomas in the right thigh, and she has compression dressings on the right leg as well. CENTRAL NERVOUS SYSTEM: No focal neurological deficit. Power is 5/5 in bilateral upper extremities. LAB REVIEW: CBC showed a WBC of 9.6, hemoglobin 9.4, platelets are 247. INR is 1.51. BMP showed sodium 130, potassium 3.9, chloride 96, bicarbonate 26, BUN 16, creatinine is 2.07. GFR is 24.9. Calcium is 8.5. Albumin 2.2. CURRENT INPATIENT MEDICATIONS: The patient's medications were all reviewed by me. There is no change in the medications today as compared with yesterday. ASSESSMENT: A 76-year-old female with atrial fibrillation, history of diastolic congestive heart failure. She rapidly developed acute renal failure during this admission. She is currently hemodialysis dependent. Hospital course was complicated with right thigh hematoma because of anticoagulation. PLAN: 1. Acute renal failure. The patient is still requiring hemodialysis. She still has about 1 liter of urine output in 24 hours. However, her creatinine still bumps in between hemodialysis sessions. Her last dialysis was yesterday. I would followup her renal function daily and do dialysis accordingly. 2. Right thigh hematoma. Pain is significantly better. The patient was given two more units of packed red blood cell transfusion yesterday. Hemoglobin is stable at this time. The rest of the management is as per vascular surgery. 3. Acute blood loss anemia. Hemoglobin improved to 9.4 from 7.6 yesterday. Continue current dose of Aranesp 200 mcg IV with hemodialysis. 4. Atrial fibrillation. Heart rate is controlled with metoprolol and diltiazem. Anticoagulation is on hold. The rest of the management is as per cardiology service. 5. Discharge planning: The patient can be discharged from a nephrology standpoint. She can be placed for outpatient hemodialysis after acute renal failure. We can continue to monitor her renal function, and if needed if her renal function improves, we can stop her hemodialysis. Plan of care was discussed with the hospitalist team, Dr. Julianna Alvarez.
[2017-01-09 22:00] VITALS: BP 128/67
[2017-01-10 06:00] VITALS: BP 125/60
[2017-01-10] MEDS: FOLIC ACID 1 MG TAB PO SCH (06:17)
[2017-01-10] MEDS: VENLAFAXINE **XR** 75MG CAPSULE PO SCH (06:18)
[2017-01-10] MEDS: METOPROLOL TART 25 MG TABLET PO SCH ×2 (06:18→21:05)
[2017-01-10] MEDS: OMEPRAZOLE 20 MG CAP PO SCH ×2 (06:19→21:05)
[2017-01-10] MEDS: BRIMONIDINE 0.1% OPHTH SOLN 5 ML OU SCH ×2 (06:19→21:06)
[2017-01-10] MEDS: NYSTATIN 100,000 UNITS/GM TOPICAL PWD 15 GM TOP SCH ×2 (06:19→21:06)
[2017-01-10] MEDS: SLF 3 ML SYR IV SCH ×3 (06:20→21:06)
[2017-01-10] MEDS: MORPHINE 2 MG/ML 1ML SYRINGE IV PRN ×2 (06:59→12:49)
[2017-01-10] MEDS: HumaLOG INSULIN (NovoLOG) PER UNIT SC SCH ×4 (07:07→20:37)
[2017-01-10 08:21] LABS: MEAN CORPUSCULAR HEMOGLOBIN 31.3 pg (27.0-33.0); MEAN CORPUSCULAR HGB CONC 34.3 g/dl (32.0-36.5); MEAN CORPUSCULAR VOLUME 91.2 fl (80.0-96.0); RED CELL DISTRIBUTION WIDTH 14.4 % (11.5-14.5); WHITE BLOOD COUNT 8.4 K/mm3 (4.0-10.0)
[2017-01-10 08:30] LABS: INR 1.27
[2017-01-10 08:52] LABS: ALBUMIN 2.3 GM/DL (3.2-5.2); ALBUMIN/GLOBULIN RATIO 0.59 (1.00-1.93); CALCIUM LEVEL 7.9 MG/DL (8.8-10.2); CREATININE FOR GFR 2.17 MG/DL (0.55-1.02); GLOMERULAR FILTRATION RATE 23.6 (>39); POTASSIUM SERUM 3.5 MEQ/L (3.5-5.1); TOTAL PROTEIN 6.2 GM/DL (6.4-8.2)
[2017-01-10] MEDS ORDERED: HEPARIN 1,000 UNITS/ML 10ML VIAL (FOR RADIOLOGY& DIALYSIS ONLY) XX ONE (11:45)
[2017-01-10 14:00] VITALS: BP 146/68
--- NOTE | 2017-01-10 14:32 | IPNPDOC ---
Date Seen The patient was seen on 01/10/17. Progress Note SUBJECTIVE: Patient reports that she is feeling much better and the pain is gradually going away. OBJECTIVE PHYSICAL EXAMINATION: VITAL SIGNS: Please see below. GENERAL: Frail tired elderly sleeping peacefully she is examined during hemodialysis she does not appear to be in any acute distress HEENT: Pupils are equally round reactive to light she has moist mucous membranes there is no elevation in her central venous pressure CARDIOVASCULAR: She has a HD cath inserted in her right thorax, S1-S2 regular. RESPIRATORY: Clear to auscultation diminished breath sounds at the bases ABDOMINAL: Bowel sounds present abdomen is soft and nontender at this time EXTREMITIES: She has chronic contractures and deformities of her bilateral hands. Her right lower extremity is Manny wrapped the dressing is clean dry and intact NEUROLOGICAL: no focal deficits LABORATORY DATA: Please see below. MICROBIOLOGY: Please see below. IMAGING: CT of the abdomen pelvis:There are multiple loculated fluid collections in the right quadriceps and abductor muscle bellies. In this patient on heparin therapy this is compatible with multiple intramuscular hematomas. Echocardiogram: 1. Normal global left ventricular systolic function with mild concentric left ventricular hypertrophy. 2. Aortic valve sclerosis without stenosis or aortic regurgitation. 3. Mildly dilated left atrium, no significant mitral regurgitation. The dilated left atrium is most likely related to underlying left ventricular diastolic dysfunction and the atrial fibrillation. 4. Moderate tricuspid regurgitation with moderate pulmonary hypertension and mildly enlarged right atrium. 5. Mild pulmonic regurgitation. 6. Trace to small pericardial effusion, no evidence of cardiac tamponade. 7. A left pleural effusion was noted.. DVT prophylaxis ordered?: Sequentials and teds ASSESSMENT AND PLAN: This is a 76-year-old female with acute blood loss anemia secondary to intramuscular hematomas, acute renal failure, decompensated diastolic congestive heart failure rheumatoid arthritis and A fibrillation with rapid ventricular response. PROBLEMS: (1) acute blood loss anemia Status: Acute Problem Text: appears to be stabilized given the patient's pain is improving and Hgb stable. CT of the abdomen and pelvis showed intramuscular hematomas. The patient is status post FFP all anticoagulation has been discontinued nephrology's help is appreciated. Dr. Oconnell of vascular surgery suggested compression therapy and no surgical intervention which will continue with at this time. The patient will continue to work with physical therapy she is progressing. The patient is started on Aranesp and folic acid. The patient is on Ultram, [place] and IV morphine as needed regarding her intramuscular hematoma pain. (2) Acute renal failure Status: Acute Problem Text: the patient continues to make urine however she is still dialysis dependent. It is currently believed this may be related to ATN versus contrast nephropathy, antibiotics possibly even a combination of the above. Nephrology's help is greatly appreciated. The patient has been on hemodialysis since 12/27/2016 I have asked PFS to help us arrange an outpatient hemanalysis spot she appears as though she will require this for some time. (3) Acute diastolic congestive heart failure Status: Acute Problem Text: Patient's volume status appears to be improved she is laying flat and comfortable not requiring oxygen. Her fluid status is optimized via hemodialysis (4) Rheumatoid arthritis Status: Chronic the patient is continued on her home methotrexate but at a slightly lower dose (5) Pneumonia Status: Resolved Problem Text: Resolved patient completed 7 days of antibiotics she was treated with broad- spectrum for potential community acquired versus aspiration pneumonia (6) A-fib Status: Resolved Problem Text: The patient appears to be in a sinus rhythm at this time she is rate controlled with metoprolol and diltiazem. Dr. Correa did express concern that her initial presentation may be related to viral pericarditis. She did not tolerate anticoagulation and as such has been discontinued. Dr. Correa is recommended to possibly revisit this in the coming days given she is at high risk for DVT PE or even CVA related to A. fib. The patient has remained in normal sinus rhythm for several days at this point. (7) Mood Disorder continue with Effexor (8)Hypertension Continue with diltiazem and metoprolol (9) Diabetes continue with insulin sliding scale and hypoglycemic protocol (10) GERD continue with omeprazole (11) Glaucoma continue with Alphagan and timolol DISPOSITION: We'll continue to have the patient work with physical therapy and monitor her renal function we are working towards rehab placement VS, I&O, 24H, Fishbone Vital Signs/I&O Vital Signs Date Time Temp Pulse Resp B/P (MAP) Pulse Ox O2 Delivery O2 Flow Rate FiO2 01/10/17 12:59 20 01/10/17 07:45 Room Air 01/10/17 06:17 78 125/60 01/10/17 06:00 96.6 99 I&O- Last 24 Hours up to 6 AM 01/10/17 06:00 Intake Total 1410 ml Output Total 650 ml Balance 760 ml Laboratory Data 24H LABS Laboratory Tests 2 01/09/17 16:57: Bedside Glucose (Misc Panel) 112H 01/10/17 08:14: Prothrombin Time 16.0H, Prothromb Time International Ratio 1.27, Anion Gap 10, Glomerular Filtration Rate 23.6L, Blood Urea Nitrogen 31#H, Creatinine 2.17H, Sodium Level 131L, Potassium Level 3.5, Chloride Level 97L, Carbon Dioxide Level 24, Calcium Level 7.9L, Aspartate Amino Transf (AST/SGOT) 46H, Alanine Aminotransferase (ALT/SGPT) 44, Alkaline Phosphatase 70, Total Bilirubin 1.0, Total Protein 6.2L, Albumin 2.3L, Albumin/Globulin Ratio 0.59L CBC/BMP Laboratory Tests 01/10/17 08:14 Red Blood Count 2.94 L, Mean Corpuscular Volume 91.2, Mean Corpuscular Hemoglobin 31.3, Mean Corpuscular Hemoglobin Concent 34.3, Red Cell Distribution Width 14.4, Calcium Level 7.9 L, Aspartate Amino Transf (AST/SGOT) 46 H, Alanine Aminotransferase (ALT/SGPT) 44, Alkaline Phosphatase 70, Total Bilirubin 1.0, Total Protein 6.2 L, Albumin 2.3 L Microbiology Microbiology 01/05/17 Stool Occult Blood ([facility]) - Final, Complete 01/04/17 Stool Occult Blood ([facility]) - Final, Complete 01/02/17 Stool Occult Blood ([facility]) - Final, Complete 01/01/17 Stool Occult Blood ([facility]) - Final, Complete ERICK ROSEN MD Jan 10, 2017 14:32
[2017-01-10 22:00] VITALS: BP 135/63
[2017-01-11] MEDS: SLF 3 ML SYR IV SCH ×3 (05:32→20:39)
[2017-01-11 06:00] VITALS: BP 117/64
[2017-01-11 06:51] LABS: MEAN CORPUSCULAR HEMOGLOBIN 30.7 pg (27.0-33.0); MEAN CORPUSCULAR VOLUME 90.3 fl (80.0-96.0); RED CELL DISTRIBUTION WIDTH 13.6 % (11.5-14.5); WHITE BLOOD COUNT 6.2 K/mm3 (4.0-10.0)
[2017-01-11 06:59] LABS: INR 1.2
[2017-01-11 07:11] LABS: ALBUMIN 2.2 GM/DL (3.2-5.2); ALBUMIN/GLOBULIN RATIO 0.45 (1.00-1.93); BILIRUBIN,TOTAL 1.2 MG/DL (0.2-1.0); CALCIUM LEVEL 8.4 MG/DL (8.8-10.2); CREATININE FOR GFR 1.66 MG/DL (0.55-1.02); GLOMERULAR FILTRATION RATE 32.1 (>39); POTASSIUM SERUM 3.6 MEQ/L (3.5-5.1); TOTAL PROTEIN 7.1 GM/DL (6.4-8.2)
[2017-01-11 09:00] VITALS: BP 127/63
[2017-01-11] MEDS: FOLIC ACID 1 MG TAB PO SCH (09:11)
[2017-01-11] MEDS: OMEPRAZOLE 20 MG CAP PO SCH ×2 (09:11→20:39)
[2017-01-11] MEDS: METOPROLOL TART 25 MG TABLET PO SCH ×2 (09:11→20:39)
[2017-01-11] MEDS: VENLAFAXINE **XR** 75MG CAPSULE PO SCH (09:12)
[2017-01-11] MEDS: BRIMONIDINE 0.1% OPHTH SOLN 5 ML OU SCH ×2 (09:13→20:39)
[2017-01-11] MEDS: NYSTATIN 100,000 UNITS/GM TOPICAL PWD 15 GM TOP SCH ×2 (09:13→20:39)
[2017-01-11] MEDS: HumaLOG INSULIN (NovoLOG) PER UNIT SC SCH ×4 (09:14→20:22)
--- NOTE | 2017-01-11 12:03 | IPNPDOC ---
Date Seen The patient was seen on 01/11/17. Progress Note SUBJECTIVE: Patient reports that she is feeling well today OBJECTIVE PHYSICAL EXAMINATION: VITAL SIGNS: Please see below. GENERAL: Frail elderly sitting in a recliner showing me exercises she has been doing to strengthen her Rt leg. she does not appear to be in any acute distress HEENT: Pupils are equally round reactive to light she has moist mucous membranes there is no elevation in her central venous pressure CARDIOVASCULAR: She has a HD cath inserted in her right thorax, S1-S2 regular. RESPIRATORY: Clear to auscultation diminished breath sounds at the bases ABDOMINAL: Bowel sounds present abdomen is soft and nontender at this time EXTREMITIES: She has chronic contractures and deformities of her bilateral hands. Her right lower extremity is Manny wrapped the dressing is clean dry and intact NEUROLOGICAL: no focal deficits LABORATORY DATA: Please see below. MICROBIOLOGY: Please see below. IMAGING: CT of the abdomen pelvis:There are multiple loculated fluid collections in the right quadriceps and abductor muscle bellies. In this patient on heparin therapy this is compatible with multiple intramuscular hematomas. Echocardiogram: 1. Normal global left ventricular systolic function with mild concentric left ventricular hypertrophy. 2. Aortic valve sclerosis without stenosis or aortic regurgitation. 3. Mildly dilated left atrium, no significant mitral regurgitation. The dilated left atrium is most likely related to underlying left ventricular diastolic dysfunction and the atrial fibrillation. 4. Moderate tricuspid regurgitation with moderate pulmonary hypertension and mildly enlarged right atrium. 5. Mild pulmonic regurgitation. 6. Trace to small pericardial effusion, no evidence of cardiac tamponade. 7. A left pleural effusion was noted.. DVT prophylaxis ordered?: Sequentials and teds ASSESSMENT AND PLAN: This is a 76-year-old female with acute blood loss anemia secondary to intramuscular hematomas, acute renal failure, decompensated diastolic congestive heart failure rheumatoid arthritis and A fibrillation with rapid ventricular response. PROBLEMS: (1) acute blood loss anemia Status: Acute Problem Text: appears to be stabilized given the patient's pain is improving and Hgb stable. CT of the abdomen and pelvis showed intramuscular hematomas. all anticoagulation has been discontinued nephrology's help is appreciated. Dr. Oconnell of vascular surgery suggested compression therapy and no surgical intervention which will continue with at this time. The patient will continue to work with physical therapy she is progressing but currently recommended for subacute rehabilitation versus home if she can have a ramp installed. The patient is started on Aranesp and folic acid. The patient is on Ultram, [place] and IV morphine as needed regarding her intramuscular hematoma pain. (2) Acute renal failure Status: Acute Problem Text: the patient continues to make urine however she is still dialysis dependent. It is currently believed this may be related to ATN versus contrast nephropathy, antibiotics or possibly even a combination of the above. Nephrology's help is greatly appreciated. The patient has been on hemodialysis since 12/27/2016 I have asked PFS to help us arrange an outpatient hemanalysis spot she appears as though she will require this for some time. It is a promising sign that her creatinine is the lowest today that has been since starting dialysis. (3) Acute diastolic congestive heart failure Status: Acute Problem Text: Patient's volume status appears to be improved she is laying flat and comfortable not requiring oxygen. Her fluid status is optimized via hemodialysis (4) Rheumatoid arthritis Status: Chronic the patient is continued on her home methotrexate but at a slightly lower dose (5) Pneumonia Status: Resolved Problem Text: Resolved patient completed 7 days of antibiotics she was treated with broad- spectrum for potential community acquired versus aspiration pneumonia (6) A-fib Status: Resolved Problem Text: The patient appears to be in a sinus rhythm at this time she is rate controlled with metoprolol and diltiazem. Dr. Correa did express concern that her initial presentation may be related to viral pericarditis. She did not tolerate anticoagulation and as such has been discontinued. Dr. Correa is recommended to possibly revisit this in the coming days given she is at high risk for DVT PE or even CVA related to A. fib. The patient has remained in normal sinus rhythm for several days at this point. (7) Mood Disorder continue with Effexor (8)Hypertension Continue with diltiazem and metoprolol (9) Diabetes continue with insulin sliding scale and hypoglycemic protocol (10) GERD continue with omeprazole (11) Glaucoma continue with Alphagan and timolol DISPOSITION: We'll continue to work with physical therapy subacute rehabilitation versus home with a ramp installed VS, I&O, 24H, Fishbone Vital Signs/I&O Vital Signs Date Time Temp Pulse Resp B/P (MAP) Pulse Ox O2 Delivery O2 Flow Rate FiO2 01/11/17 09:12 76 127/63 01/11/17 06:00 98.2 18 96 Room Air I&O- Last 24 Hours up to 6 AM 6/15/17 06:00 Intake Total 2160 ml Output Total 1450 ml Balance 710 ml Laboratory Data 24H LABS Laboratory Tests 2 01/10/17 12:42: Bedside Glucose (Misc Panel) 92 01/10/17 16:33: Bedside Glucose (Misc Panel) 139H 01/10/17 20:28: Bedside Glucose (Misc Panel) 157H 01/11/17 06:37: Prothrombin Time 15.3H, Prothromb Time International Ratio 1.20, Anion Gap 8, Glomerular Filtration Rate 32.1L, Blood Urea Nitrogen 24H, Creatinine 1.66H, Sodium Level 134L, Potassium Level 3.6, Chloride Level 98, Carbon Dioxide Level 28, Calcium Level 8.4L, Phosphorus Level 3.0, Aspartate Amino Transf (AST/SGOT) 35, Alanine Aminotransferase (ALT/SGPT) 36, Alkaline Phosphatase 73, Total Bilirubin 1.2H, Total Protein 7.1, Albumin 2.2L, Albumin/Globulin Ratio 0.45L CBC/BMP Laboratory Tests 01/11/17 06:37 Red Blood Count 3.02 L, Mean Corpuscular Volume 90.3, Mean Corpuscular Hemoglobin 30.7, Mean Corpuscular Hemoglobin Concent 34.0, Red Cell Distribution Width 13.6, Calcium Level 8.4 L, Phosphorus Level 3.0, Aspartate Amino Transf (AST/SGOT) 35, Alanine Aminotransferase (ALT/SGPT) 36, Alkaline Phosphatase 73, Total Bilirubin 1.2 H, Total Protein 7.1, Albumin 2.2 L Microbiology Microbiology 01/05/17 Stool Occult Blood ([facility]) - Final, Complete 01/04/17 Stool Occult Blood ([facility]) - Final, Complete 01/02/17 Stool Occult Blood ([facility]) - Final, Complete 01/01/17 Stool Occult Blood ([facility]) - Final, Complete ERICK ROSEN MD Jan 11, 2017 12:03
--- NOTE | 2017-01-11 12:07 | IPN ---
DATE: 01/10/2017 SUBJECTIVE: The patient was seen and examined at the bedside today in the morning during hemodialysis. She was tolerating the hemodialysis procedure well. The patient's renal function is also improving. She has a good urine output. It looks like her creatinine is stabilizing in between hemodialysis sessions now. REVIEW OF SYSTEMS: The patient denies any fevers, chills, rigors, headache, nausea, vomiting, chest pain, shortness of breath, pain in abdomen, constipation or diarrhea. She reports right thigh pain and swelling is getting better. The rest of the review of systems is negative. OBJECTIVE: VITAL SIGNS: Temperature is 96.6 degrees Fahrenheit, blood pressure is 125/60, pulse is 78, respiratory rate of 18, saturating 99% on room air. INTAKE/OUTPUT: Urine output recorded as 950 mL yesterday. The urine output is not recorded overnight, but she had one void so far. Weight on the bed scale is 77.6 kg. PHYSICAL EXAMINATION: GENERAL: The patient is awake, alert, oriented times three, laying in bed, getting hemodialysis, in no apparent distress at this time. HEAD AND NECK EXAM: Extraocular muscles intact. Pupils equally round and reactive to light. Mucous membranes are moist. Neck is supple. She has a tunneled right IJ hemodialysis catheter. CARDIOVASCULAR: S1, S2, regular rate. No murmur, rub or gallop. RESPIRATORY: Chest is clear to auscultation bilaterally. Bilateral equal air entry. No rales or rhonchi. ABDOMEN: Abdomen is soft. Positive bowel sounds, nontender. No ascites. No organomegaly. EXTREMITIES: No clubbing or cyanosis. The patient has tender hematomas in the right thigh. CENTRAL NERVOUS SYSTEM: No focal neurological deficit. Power is 5/5 in bilateral upper extremities. LAB REVIEW: CBC showed a WBC of 8.4, hemoglobin 9.2, platelets are 211. INR is 1.27. BMP showed sodium 131, potassium 3.5, chloride 97, bicarbonate 24, BUN 31, creatinine is 2.1, it was 2.0 yesterday. Calcium is 7.9. Albumin 2.3. CURRENT INPATIENT MEDICATIONS: The patient's medications were all reviewed by me. There is no change in the medications today as compared with yesterday. ASSESSMENT: 76-year-old female with atrial fibrillation, history of diastolic congestive heart failure. She rapidly developed acute renal failure during this admission. She is currently hemodialysis dependent. Hospital course was complicated with right thigh hematoma secondary to heparin anticoagulation. PLAN: 1. Acute renal failure. Patient has a good urine output, almost 1 liter every 24 hours. I see for the first time since yesterday her creatinine has been stabilizing. Patient is being dialyzed today, however, after today I am going to hold her dialysis and see the intradialytic rise in the creatinine. I am hopeful that her renal function is going to improve within the next few days. 2. Right thigh hematoma. Pain is optimized at this time. Hemoglobin is stable. Continue to hold anticoagulation. 3. Acute blood loss anemia. Hemoglobin is 9.2, continue Aranesp 200 mcg IV with hemodialysis. No need of further transfusion at this time. 4. Atrial fibrillation. Heart rate is controlled with metoprolol and diltiazem. No anticoagulation because of right thigh hematomas. 5. Discharge planning. Workup is being done to have the patient placed for outpatient hemodialysis, but I am very optimistic that the patient's renal function is going to improve over the next few days.
[2017-01-11 14:00] VITALS: BP 98/56
[2017-01-11] MEDS: NORCO, ANEXSIA 5/325MG TABLET (HYDROcodone/ACETAMINOPHEN) PO PRN (20:40)
[2017-01-11 22:00] VITALS: BP 112/55
--- NOTE | 2017-01-12 03:24 | IPN ---
DATE OF SERVICE: 01/11/2017 SUBJECTIVE: Patient was seen and examined at the bedside today in the morning. She is hemodynamically stable. Her renal function is also improving clinically. Patient was dialyzed yesterday. She tolerated the hemodialysis procedure well. REVIEW OF SYSTEMS: Patient denies any fevers, chills, rigors, headache, nausea, vomiting, chest pain, shortness of breath, pain abdomen, constipation or diarrhea. Patient reports that her right thigh pain and swelling is slowly getting better. Rest of review of systems is negative. OBJECTIVE: VITAL SIGNS: Temperature is 97.3 degrees Fahrenheit, blood pressure is 98/56, pulse is 87, respiratory rate of 18, saturating 98% on room air. INTAKE/OUTPUT: Urine output recorded as 150 mL overnight, patient had two voids as well. Hemodialysis was done yesterday. Ultrafiltration with hemodialysis was 1 liter. Weight on the bed scale is 76.9 kg. PHYSICAL EXAMINATION: GENERAL: Patient is awake, alert, oriented times three, sitting on sofa, no apparent distress. HEAD AND NECK EXAM: Extraocular muscles intact. Pupils equally round and reactive to light. Mucous membranes are moist. Neck is supple. There is no jugular venous distention (JVD). Patient has a tunneled right IJ hemodialysis catheter. CARDIOVASCULAR: S1, S2, regular rate. No murmur, rub or gallop. RESPIRATORY: Chest is clear to auscultation bilaterally. Bilateral equal air entry. No rales or rhonchi. ABDOMEN: Soft. Positive bowel sounds, nontender. No ascites. No organomegaly. EXTREMITIES: No clubbing or cyanosis. Pulses are 2+. Patient has mildly tender hematomas in the right thigh. CENTRAL NERVOUS SYSTEM: No focal neurological deficit. Power is 5/5 in bilateral upper extremities. LABORATORY REVIEW: CBC showed a WBC of 6.2, hemoglobin 9.3, platelets are 171. INR is 1.2 today. BMP showed sodium 134, potassium 3.6, chloride 98, bicarbonate 28, BUN 24, creatinine is 1.6, it was 2.1 yesterday. Calcium 8.4, phosphorus is 3. Albumin is 2.2. CURRENT INPATIENT MEDICATIONS: Patient's medications were all reviewed by me. There is no change in the medications except that her intravenous (IV) morphine has been stopped. ASSESSMENT: 76-year-old female with atrial fibrillation, history of diastolic congestive heart failure. She developed acute renal failure during this admission, currently hemodialysis dependent. Hospital course was also complicated with right thigh hematoma. PLAN: 1. Acute renal failure. Patient is having a good urine output. She was dialyzed yesterday. I would continue to hold the dialysis at this time. She is supposed to get her regular scheduled dialysis tomorrow; however, I would avoid the dialysis for the next 2-3 days and watch for intradialytic rise in the creatinine level. I am hopeful that patient can be taken off of dialysis within the next few days. Continue to monitor daily intake/output and daily weight as well. 2. Right thigh hematoma. Hematoma is improving. Pain is optimized. Hemoglobin is stable. 3. Acute blood loss anemia. Hemoglobin is 9.3 at this time, which is stable. Patient is also on Aranesp 200 mcg with hemodialysis. Continue to monitor for now. 4. Atrial fibrillation. Heart rate is controlled at this time with metoprolol and diltiazem. No anticoagulation because of the thigh hematoma.
[2017-01-12 06:05] LABS: MEAN CORPUSCULAR HGB CONC 34.7 g/dl (32.0-36.5); MEAN CORPUSCULAR VOLUME 89.5 fl (80.0-96.0); RED CELL DISTRIBUTION WIDTH 13.7 % (11.5-14.5); WHITE BLOOD COUNT 4.9 K/mm3 (4.0-10.0)
[2017-01-12 06:14] LABS: INR 1.15
[2017-01-12 06:23] LABS: ALBUMIN 2.4 GM/DL (3.2-5.2); ALBUMIN/GLOBULIN RATIO 0.51 (1.00-1.93); BILIRUBIN,TOTAL 1.1 MG/DL (0.2-1.0); CALCIUM LEVEL 8.4 MG/DL (8.8-10.2); CREATININE FOR GFR 1.67 MG/DL (0.55-1.02); GLOMERULAR FILTRATION RATE 31.9 (>39); PHOSPHORUS LEVEL 2.8 MG/DL (2.5-4.9); POTASSIUM SERUM 3.8 MEQ/L (3.5-5.1); TOTAL PROTEIN 7.1 GM/DL (6.4-8.2)
[2017-01-12] MEDS: FOLIC ACID 1 MG TAB PO SCH (06:42)
[2017-01-12] MEDS: SLF 3 ML SYR IV SCH ×3 (06:42→21:09)
[2017-01-12] MEDS: VENLAFAXINE **XR** 75MG CAPSULE PO SCH (06:43)
[2017-01-12] MEDS: OMEPRAZOLE 20 MG CAP PO SCH ×2 (06:43→21:07)
[2017-01-12] MEDS: METOPROLOL TART 25 MG TABLET PO SCH ×2 (06:44→21:07)
[2017-01-12] MEDS: BRIMONIDINE 0.1% OPHTH SOLN 5 ML OU SCH ×2 (06:45→21:08)
[2017-01-12] MEDS: HumaLOG INSULIN (NovoLOG) PER UNIT SC SCH ×4 (07:30→21:08)
[2017-01-12 09:00] VITALS: BP 128/76
--- NOTE | 2017-01-12 12:12 | IPNPDOC ---
Date Seen The patient was seen on 01/12/17. Progress Note SUBJECTIVE: Patient reports that she gets tired with walking but she has been climbing stairs and doing well. OBJECTIVE PHYSICAL EXAMINATION: VITAL SIGNS: Please see below. GENERAL: Frail elderly sitting on the edge of her bed she does not appear to be in any acute distress HEENT: Pupils are equally round reactive to light she has moist mucous membranes there is no elevation in her central venous pressure CARDIOVASCULAR: She has a HD cath inserted in her right thorax, S1-S2 regular. RESPIRATORY: Clear to auscultation diminished breath sounds at the bases ABDOMINAL: Bowel sounds present abdomen is soft and nontender at this time EXTREMITIES: She has chronic contractures and deformities of her bilateral hands. Her right lower extremity is Manny wrapped the dressing is clean dry and intact, decreased swelling NEUROLOGICAL: no focal deficits LABORATORY DATA: Please see below. MICROBIOLOGY: Please see below. IMAGING: CT of the abdomen pelvis:There are multiple loculated fluid collections in the right quadriceps and abductor muscle bellies. In this patient on heparin therapy this is compatible with multiple intramuscular hematomas. Echocardiogram: 1. Normal global left ventricular systolic function with mild concentric left ventricular hypertrophy. 2. Aortic valve sclerosis without stenosis or aortic regurgitation. 3. Mildly dilated left atrium, no significant mitral regurgitation. The dilated left atrium is most likely related to underlying left ventricular diastolic dysfunction and the atrial fibrillation. 4. Moderate tricuspid regurgitation with moderate pulmonary hypertension and mildly enlarged right atrium. 5. Mild pulmonic regurgitation. 6. Trace to small pericardial effusion, no evidence of cardiac tamponade. 7. A left pleural effusion was noted.. DVT prophylaxis ordered?: Sequentials and teds ASSESSMENT AND PLAN: This is a 76-year-old female with acute blood loss anemia secondary to intramuscular hematomas, acute renal failure, decompensated diastolic congestive heart failure rheumatoid arthritis and A fibrillation with rapid ventricular response. PROBLEMS: (1) acute blood loss anemia Status: Acute Problem Text: appears to be stabilized given the patient's pain is improving and Hgb stable. CT of the abdomen and pelvis showed intramuscular hematomas. all anticoagulation has been discontinued nephrology's help is appreciated. Dr. Oconnell of vascular surgery suggested compression therapy and no surgical intervention which will continue with at this time. The patient is started on Aranesp and folic acid. The patient is on Ultram, [place] as needed regarding her intramuscular hematoma pain. (2) Acute renal failure Status: Acute Problem Text: this may be related to ATN versus contrast nephropathy, antibiotics or possibly even a combination of the above. Nephrology's help is greatly appreciated. the patient continues to make urine Cr stable, her function may be returning, will monitor and see if she can be dispositioned in coming days without need for HD outpt. (3) Acute diastolic congestive heart failure Status: Acute Problem Text: Her fluid status is optimized via hemodialysis (4) Rheumatoid arthritis Status: Chronic the patient is continued on her home methotrexate but at a slightly lower dose (5) Pneumonia Status: Resolved Problem Text: Resolved patient completed 7 days of antibiotics she was treated with broad- spectrum for potential community acquired versus aspiration pneumonia (6) A-fib Status: Resolved Problem Text: The patient appears to be in a sinus rhythm at this time she is rate controlled with metoprolol and diltiazem. Dr. Correa did express concern that her initial presentation may be related to viral pericarditis. She did not tolerate anticoagulation and as such has been discontinued. Dr. Correa is recommended to possibly revisit this in the coming days given she is at high risk for DVT PE or even CVA related to A. fib. The patient has remained in normal sinus rhythm for several days at this point. (7) Mood Disorder continue with Effexor (8)Hypertension Continue with diltiazem and metoprolol (9) Diabetes continue with insulin sliding scale and hypoglycemic protocol (10) GERD continue with omeprazole (11) Glaucoma continue with Alphagan and timolol DISPOSITION: possibly home with or without HD remains to be seen. VS[facility] Vital Signs/I&O Vital Signs Date Time Temp Pulse Resp B/P (MAP) Pulse Ox O2 Delivery O2 Flow Rate FiO2 01/12/17 09:00 66 128/76 (93) 01/11/17 22:00 97.8 16 99 Room Air I&O- Last 24 Hours up to 6 AM 01/12/17 06:00 Intake Total 2690 ml Output Total 1400 ml Balance 1290 ml Laboratory Data 24H LABS Laboratory Tests 2 01/11/17 16:36: Bedside Glucose (Misc Panel) 137H 01/11/17 20:19: Bedside Glucose (Misc Panel) 109 01/12/17 05:51: Prothrombin Time 14.8H, Prothromb Time International Ratio 1.15, Anion Gap 8, Glomerular Filtration Rate 31.9L, Blood Urea Nitrogen 29H, Creatinine 1.67H, Sodium Level 133L, Potassium Level 3.8, Chloride Level 98, Carbon Dioxide Level 27, Calcium Level 8.4L, Phosphorus Level 2.8, Aspartate Amino Transf (AST/SGOT) 38H, Alanine Aminotransferase (ALT/SGPT) 33, Alkaline Phosphatase 78, Total Bilirubin 1.1H, Total Protein 7.1, Albumin 2.4L, Albumin/Globulin Ratio 0.51L CBC/BMP Laboratory Tests 01/12/17 05:51 Red Blood Count 2.88 L, Mean Corpuscular Volume 89.5, Mean Corpuscular Hemoglobin 31.0, Mean Corpuscular Hemoglobin Concent 34.7, Red Cell Distribution Width 13.7, Calcium Level 8.4 L, Phosphorus Level 2.8, Aspartate Amino Transf (AST/SGOT) 38 H, Alanine Aminotransferase (ALT/SGPT) 33, Alkaline Phosphatase 78, Total Bilirubin 1.1 H, Total Protein 7.1, Albumin 2.4 L Microbiology Microbiology 01/05/17 Stool Occult Blood (LANDY) - Final, Complete 01/04/17 Stool Occult Blood (LANDY) - Final, Complete 01/02/17 Stool Occult Blood (LANDY) - Final, Complete ERICK ROSEN MD Jan 12, 2017 12:12
[2017-01-12] MEDS: NYSTATIN 100,000 UNITS/GM TOPICAL PWD 15 GM TOP SCH ×2 (12:28→21:08)
[2017-01-12 14:00] VITALS: BP 138/64
[2017-01-12 22:00] VITALS: BP 137/62
--- NOTE | 2017-01-12 23:30 | IPN ---
DATE: 01/12/2017 SUBJECTIVE: The patient was seen and examined at the bedside today in the morning. She was actually sitting on the sofa today. The patient is clinically getting better. She has a good urine output today. Her creatinine is stable today as compared with yesterday, which is a very good sign. The patient's last hemodialysis session was on 01/10/2017. REVIEW OF SYSTEMS: The patient denies any fevers, chills, rigors, headaches, nausea, vomiting, chest pain, shortness of breath, pain abdomen, constipation, or diarrhea. She reports right thigh pain and swelling is improving. OBJECTIVE: VITAL SIGNS: Temperature is 97.8 degrees Fahrenheit, blood pressure is 128/76, pulse is 73, respiratory rate of 16, saturating 99% on room air. INTAKE AND OUTPUT: Urine output recorded as 1.4 liters so far today since overnight. Weight in the bed scale is 77.5 kg. PHYSICAL EXAMINATION: GENERAL: The patient is awake, alert, and oriented times three, sitting on the sofa, in no apparent distress. HEAD/NECK: Extraocular muscles intact. Pupils equal, round, and reactive to light. Mucous membranes are moist. Neck is supple. There is no jugular venous distention (JVD). She has a right internal jugular (IJ) tunneled hemodialysis catheter. CARDIOVASCULAR: S1, S2 regular rate. No murmur, rub, or gallop. RESPIRATORY: Chest is clear to auscultation bilaterally. Bilateral equal air entry. No rales or rhonchi. ABDOMEN: Soft. Positive bowel sounds. Nontender. No ascites. No organomegaly. EXTREMITIES: No clubbing or cyanosis. Pulses are 2+. The patient has right thigh hematomas which are improving now. CENTRAL NERVOUS SYSTEM (LINING STAMPER): No focal neurological deficits. Power is 5/5 in all extremities. LABORATORY DATA: CBC showed a WBC of 4.9, hemoglobin 8.9, platelets of 122. INR is 1.15. BMP shows sodium 133, potassium 3.8, chloride 98, bicarbonate 27, BUN 29, creatinine is 1.67. It was 1.66 yesterday. Calcium is 8.4. Albumin is 2.4. CURRENT INPATIENT MEDICATIONS: The patient's inpatient medications are reviewed by me. There is no change in the medications today as compared with yesterday. ASSESSMENT: A 76-year-old female with past medical history of atrial fibrillation, history of diastolic congestive heart failure. The patient developed acute renal failure during this admission. She was hemodialysis dependent. Last dialysis was on 01/10/2017. Renal function is clinically improving. PLAN: 1. Acute renal failure: Patient has a good urine output. Her creatinine is stable at 1.6 from yesterday, which is a very good sign. I am going to hold off on dialysis at this time. If patient's creatinine remains stable by tomorrow as well, then right IJ tunneled catheter can be removed. 2. Right thigh hematoma: Hematoma is improving. Hemoglobin is stable. Pain is optimized at this time. 3. Acute blood loss anemia: Hemoglobin is 8.9 at this time, which is acceptable. Continue Aranesp 200 mcg intravenous (IV) with hemodialysis. The patient can get blood transfusion as needed for hemoglobin drop below eight. 4. Diastolic congestive heart failure: Fluid status is optimized. Patient has good urine output. No need of diuretics at this time. 5. Discharge planning: I anticipate that this patient should be able to go home without outpatient hemodialysis.
[2017-01-13] MEDS: SLF 3 ML SYR IV SCH ×3 (05:24→21:15)
[2017-01-13 05:52] LABS: INR 1.13
[2017-01-13 06:00] VITALS: BP 125/70
[2017-01-13 06:04] LABS: ALBUMIN 2.4 GM/DL (3.2-5.2); ALBUMIN/GLOBULIN RATIO 0.51 (1.00-1.93); CALCIUM LEVEL 8.3 MG/DL (8.8-10.2); CREATININE FOR GFR 1.33 MG/DL (0.55-1.02); GLOMERULAR FILTRATION RATE 41.5 (>39); PHOSPHORUS LEVEL 2.4 MG/DL (2.5-4.9); POTASSIUM SERUM 3.1 MEQ/L (3.5-5.1); TOTAL PROTEIN 7.1 GM/DL (6.4-8.2)
[2017-01-13 06:26] LABS: MEAN CORPUSCULAR HEMOGLOBIN 30.9 pg (27.0-33.0); MEAN CORPUSCULAR HGB CONC 35.3 g/dl (32.0-36.5); MEAN CORPUSCULAR VOLUME 87.6 fl (80.0-96.0); RED CELL DISTRIBUTION WIDTH 13.7 % (11.5-14.5); WHITE BLOOD COUNT 3.4 K/mm3 (4.0-10.0)
[2017-01-13 08:01] LABS: MAGNESIUM LEVEL 1.3 MG/DL (1.8-2.4)
[2017-01-13] MEDS ORDERED: POTASSIUM CHLORIDE 10 MEQ SR TABLET PO ONE (08:30)
[2017-01-13] MEDS: BRIMONIDINE 0.1% OPHTH SOLN 5 ML OU SCH ×2 (09:47→21:15)
[2017-01-13] MEDS: METHOTREXATE 2.5 MG TAB (J8610) PO SCH (09:47)
[2017-01-13] MEDS: VENLAFAXINE **XR** 75MG CAPSULE PO SCH (09:50)
[2017-01-13] MEDS: FOLIC ACID 1 MG TAB PO SCH (09:50)
[2017-01-13] MEDS: METOPROLOL TART 25 MG TABLET PO SCH ×2 (09:50→21:15)
[2017-01-13] MEDS: OMEPRAZOLE 20 MG CAP PO SCH ×2 (09:50→21:14)
[2017-01-13] MEDS: HumaLOG INSULIN (NovoLOG) PER UNIT SC SCH ×4 (09:51→21:15)
[2017-01-13] MEDS: NYSTATIN 100,000 UNITS/GM TOPICAL PWD 15 GM TOP SCH ×2 (09:52→21:15)
--- NOTE | 2017-01-13 13:15 | IPNPDOC ---
Date Seen The patient was seen on 01/13/17. Progress Note SUBJECTIVE: Patient reports that she gets but feels better each and every day OBJECTIVE PHYSICAL EXAMINATION: VITAL SIGNS: Please see below. GENERAL: Frail elderly sitting on the edge of her bed she does not appear to be in any acute distress HEENT: Pupils are equally round reactive to light she has moist mucous membranes there is no elevation in her central venous pressure CARDIOVASCULAR: She has a HD cath inserted in her right thorax, S1-S2 regular. RESPIRATORY: Clear to auscultation ABDOMINAL: Bowel sounds present abdomen is soft and nontender at this time EXTREMITIES: She has chronic contractures and deformities of her bilateral hands. Her right lower extremity is Manny wrapped the dressing is clean dry and intact NEUROLOGICAL: no focal deficits LABORATORY DATA: Please see below. MICROBIOLOGY: Please see below. IMAGING: CT of the abdomen pelvis:There are multiple loculated fluid collections in the right quadriceps and abductor muscle bellies. In this patient on heparin therapy this is compatible with multiple intramuscular hematomas. Echocardiogram: 1. Normal global left ventricular systolic function with mild concentric left ventricular hypertrophy. 2. Aortic valve sclerosis without stenosis or aortic regurgitation. 3. Mildly dilated left atrium, no significant mitral regurgitation. The dilated left atrium is most likely related to underlying left ventricular diastolic dysfunction and the atrial fibrillation. 4. Moderate tricuspid regurgitation with moderate pulmonary hypertension and mildly enlarged right atrium. 5. Mild pulmonic regurgitation. 6. Trace to small pericardial effusion, no evidence of cardiac tamponade. 7. A left pleural effusion was noted.. DVT prophylaxis ordered?: Sequentials and teds ASSESSMENT AND PLAN: This is a 76-year-old female with acute blood loss anemia secondary to intramuscular hematomas, acute renal failure, decompensated diastolic congestive heart failure rheumatoid arthritis and A fibrillation with rapid ventricular response. PROBLEMS: (1) acute blood loss anemia Status: Resolving Problem Text: stabilizedthe patient's pain is improving and Hgb stable. Dr. Oconnell of vascular surgery suggested compression therapy and no surgical intervention she will follow-up outpatient with him. The patient is started on Aranesp and folic acid. The patient is on Ultram, [place] as needed regarding her intramuscular hematoma pain. (2) Acute renal failure Status: Acute Problem Text: this may be related to ATN versus contrast nephropathy, antibiotics or possibly even a combination of the above. Nephrology's help is greatly appreciated. the patient continues to make urine Cr is improved today without hemodialysis I suspect by Sunday would be will be able to remove her hemodialysis catheter discharge her home. (3) Acute diastolic congestive heart failure Status: Acute Problem Text: Her fluid status is optimized via hemodialysis for now (4) Rheumatoid arthritis Status: Chronic the patient is continued on her home methotrexate but at a slightly lower dose (5) Pneumonia Status: Resolved Problem Text: Resolved patient completed 7 days of antibiotics she was treated with broad- spectrum for potential community acquired versus aspiration pneumonia (6) A-fib Status: Resolved Problem Text: The patient appears to be in a sinus rhythm at this time she is rate controlled with metoprolol and diltiazem. Dr. Correa did express concern that her initial presentation may be related to viral pericarditis. She did not tolerate anticoagulation and as such has been discontinued. Dr. Correa is recommended to possibly revisit this in the coming days given she is at high risk for DVT PE or even CVA related to A. fib. The patient has remained in normal sinus rhythm for several days at this point. (7) Mood Disorder continue with Effexor (8)Hypertension Continue with diltiazem and metoprolol (9) Diabetes continue with insulin sliding scale and hypoglycemic protocol (10) GERD continue with omeprazole (11) Glaucoma continue with Alphagan and timolol DISPOSITION: possibly home likely without hemodialysis. VS, I&O, 24H, Dg Vital Signs/I&O Vital Signs Date Time Temp Pulse Resp B/P (MAP) Pulse Ox O2 Delivery O2 Flow Rate FiO2 01/13/17 09:50 82 145/62 01/13/17 09:00 Room Air 01/13/17 06:00 97.5 18 93 I&O- Last 24 Hours up to 6 AM 01/13/17 05:59 Intake Total 2260 ml Output Total 2300 ml Balance -40 ml Laboratory Data 24H LABS Laboratory Tests 2 01/12/17 16:42: Bedside Glucose (Misc Panel) 195H 01/12/17 20:01: Bedside Glucose (Misc Panel) 119H 01/13/17 05:19: Prothrombin Time 14.6H, Prothromb Time International Ratio 1.13, Anion Gap 9, Glomerular Filtration Rate 41.5, Blood Urea Nitrogen 26H, Creatinine 1.33H, Sodium Level 131L, Potassium Level 3.1L, Chloride Level 98, Carbon Dioxide Level 24, Calcium Level 8.3L, Phosphorus Level 2.4L, Aspartate Amino Transf (AST /SGOT) 44H, Alanine Aminotransferase (ALT/SGPT) 41, Alkaline Phosphatase 82, Total Bilirubin 1.0, Total Protein 7.1, Albumin 2.4L, Magnesium Level 1.3L, Albumin/Globulin Ratio 0.51L 01/13/17 11:44: Bedside Glucose (Misc Panel) 143H CBC/BMP Laboratory Tests 01/13/17 05:19 Red Blood Count 2.62 L, Mean Corpuscular Volume 87.6, Mean Corpuscular Hemoglobin 30.9, Mean Corpuscular Hemoglobin Concent 35.3, Red Cell Distribution Width 13.7, Calcium Level 8.3 L, Phosphorus Level 2.4 L, Aspartate Amino Transf (AST/SGOT) 44 H, Alanine Aminotransferase (ALT/SGPT) 41, Alkaline Phosphatase 82, Total Bilirubin 1.0, Total Protein 7.1, Albumin 2.4 L Microbiology Microbiology 01/05/17 Stool Occult Blood (LANDY) - Final, Complete 01/04/17 Stool Occult Blood (LANDY) - Final, Complete ERICK ROSEN MD Jan 13, 2017 13:15
[2017-01-13 14:00] VITALS: BP 125/60
--- NOTE | 2017-01-13 17:45 | IPN ---
DATE: 01/13/2017 Mrs. Lima is seen this morning on her bedside. She is sitting in the chair at the time of my visit. She denies any dyspnea, chest pain, nausea, or vomiting. She had right thigh hematoma, and her right leg is wrapped in Manny bandage. PHYSICAL EXAMINATION: Temperature 97.5 degrees Fahrenheit, heart rate 80 per minute, respiratory rate 18 per minute, blood pressure 145/62 mm of mercury, and oxygen saturation 93% on room air. Intake and output records from yesterday showed total intake 2020 and output 2500 mL. Head is atraumatic. Ears, nose, and throat are unremarkable. Neck is supple and without jugular venous distention (JVD) or thyroid enlargement. Hemodialysis catheter is present on right upper chest without any bleeding or signs of infection. Heart sounds are regular and lungs with few basilar crepitations. Abdomen soft and nontender and bowel sounds are normal. Extremities have no cyanosis or clubbing. Her right leg is wrapped in Manny bandage. Today's labs show WBC count 3.4, hemoglobin 8.1, and hematocrit 22.9. Platelets 92,000. Sodium 131, potassium 3.1, BUN 26, and creatinine 1.33. PROBLEMS 1. Acute renal failure. Kidney function has improved significantly. The patient was last dialyzed on Sunday. At present her kidney function has improved, and there is no need for further hemodialysis. We will get her dialysis catheter removed on Sunday. 2. Hypokalemia. This is related to improving kidney function and urine output. The patient has already been given some potassium supplement. I gave her one more dose of potassium chloride 40 mEq. She is currently not on any diuretic. Will recheck her electrolytes tomorrow morning. 3. Anemia with acute blood loss. The patient developed hematoma on right thigh and has drop in her hemoglobin and hematocrit. At this point, we will watch without transfusion. Complete blood count (CBC) will be checked again tomorrow morning. 4. Thrombocytopenia. This is related to acute blood loss and hematoma. At this point, no intervention is indicated. 5. Hyponatremia. This is chronic and stable. Will recheck her electrolytes tomorrow and switch her diet to regular diet.
[2017-01-13] MEDS: NORCO, ANEXSIA 5/325MG TABLET (HYDROcodone/ACETAMINOPHEN) PO PRN (21:13)
[2017-01-13 22:00] VITALS: BP 124/60
[2017-01-14] MEDS: SLF 3 ML SYR IV SCH ×3 (05:10→22:00)
[2017-01-14 06:00] VITALS: BP 123/58
[2017-01-14 06:24] LABS: INR 1.09
[2017-01-14 06:39] LABS: ALBUMIN 2.3 GM/DL (3.2-5.2); CALCIUM LEVEL 8.3 MG/DL (8.8-10.2); CREATININE FOR GFR 1.18 MG/DL (0.55-1.02); GLOMERULAR FILTRATION RATE 47.7 (>39); PHOSPHORUS LEVEL 2.7 MG/DL (2.5-4.9); POTASSIUM SERUM 3.3 MEQ/L (3.5-5.1)
[2017-01-14 06:58] LABS: MAGNESIUM LEVEL 1.3 MG/DL (1.8-2.4)
[2017-01-14 07:40] LABS: MEAN CORPUSCULAR HEMOGLOBIN 30.2 pg (27.0-33.0); MEAN CORPUSCULAR HGB CONC 34.5 g/dl (32.0-36.5); MEAN CORPUSCULAR VOLUME 87.6 fl (80.0-96.0); WHITE BLOOD COUNT 4.7 K/mm3 (4.0-10.0)
[2017-01-14] MEDS ORDERED: POTASSIUM CHLORIDE 10 MEQ SR TABLET PO ONE (08:00)
[2017-01-14] MEDS: OMEPRAZOLE 20 MG CAP PO SCH (08:29)
[2017-01-14] MEDS: METOPROLOL TART 25 MG TABLET PO SCH ×2 (08:29→22:10)
[2017-01-14] MEDS: VENLAFAXINE **XR** 75MG CAPSULE PO SCH (08:29)
[2017-01-14] MEDS: FOLIC ACID 1 MG TAB PO SCH (08:30)
[2017-01-14] MEDS: HumaLOG INSULIN (NovoLOG) PER UNIT SC SCH ×5 (08:31→21:00)
[2017-01-14] MEDS: BRIMONIDINE 0.1% OPHTH SOLN 5 ML OU SCH ×2 (08:31→22:12)
[2017-01-14] MEDS: NYSTATIN 100,000 UNITS/GM TOPICAL PWD 15 GM TOP SCH ×2 (08:31→22:11)
[2017-01-14] MEDS: NORCO, ANEXSIA 5/325MG TABLET (HYDROcodone/ACETAMINOPHEN) PO PRN (08:40)
[2017-01-14] MEDS: MAG SULF 1GM/100ML (MAG RUN) 1 GM in APPROPRIATE DILUENT 1 EA IV SCH ×3 (08:41→11:04)
[2017-01-14 14:00] VITALS: BP 120/60
--- NOTE | 2017-01-14 14:22 | IPNPDOC ---
Date Seen The patient was seen on 01/14/17. Progress Note SUBJECTIVE: Patient reports that she feels better each and every day OBJECTIVE PHYSICAL EXAMINATION: VITAL SIGNS: Please see below. GENERAL: Frail elderly sitting on the edge of her bed she does not appear to be in any acute distress HEENT: Pupils are equally round reactive to light she has moist mucous membranes CARDIOVASCULAR: She has a HD cath inserted in her right thorax, S1-S2 regular. RESPIRATORY: Clear to auscultation ABDOMINAL: Bowel sounds present abdomen is soft EXTREMITIES: She has chronic contractures and deformities of her bilateral hands. Her right lower extremity is Manny wrapped the dressing is clean dry and intact NEUROLOGICAL: no focal deficits LABORATORY DATA: Please see below. MICROBIOLOGY: Please see below. IMAGING: CT of the abdomen pelvis:There are multiple loculated fluid collections in the right quadriceps and abductor muscle bellies. In this patient on heparin therapy this is compatible with multiple intramuscular hematomas. Echocardiogram: 1. Normal global left ventricular systolic function with mild concentric left ventricular hypertrophy. 2. Aortic valve sclerosis without stenosis or aortic regurgitation. 3. Mildly dilated left atrium, no significant mitral regurgitation. The dilated left atrium is most likely related to underlying left ventricular diastolic dysfunction and the atrial fibrillation. 4. Moderate tricuspid regurgitation with moderate pulmonary hypertension and mildly enlarged right atrium. 5. Mild pulmonic regurgitation. 6. Trace to small pericardial effusion, no evidence of cardiac tamponade. 7. A left pleural effusion was noted.. DVT prophylaxis ordered?: Sequentials and teds ASSESSMENT AND PLAN: This is a 76-year-old female with acute blood loss anemia secondary to intramuscular hematomas, acute renal failure, decompensated diastolic congestive heart failure rheumatoid arthritis and A fibrillation with rapid ventricular response. PROBLEMS: (1) acute blood loss anemia Status: Resolving Problem Text: stabilized, the patient's pain is improving and Hgb stable. Dr. Oconnell of vascular surgery suggested compression therapy and no surgical intervention she will follow-up outpatient with him. The patient is started on Aranesp and folic acid. The patient is on Ultram, [place] as needed regarding her intramuscular hematoma pain. (2) Acute renal failure Status: Acute Problem Text: this may be related to ATN versus contrast nephropathy, antibiotics or possibly even a combination of the above. Nephrology's help is greatly appreciated. the patient continues to make urine Cr is improved today without hemodialysis I suspect by Sunday would be will be able to remove her hemodialysis catheter discharge her home. (3) Acute diastolic congestive heart failure Status: Acute Problem Text: Her fluid status is optimized via hemodialysis for now (4) Rheumatoid arthritis Status: Chronic the patient is continued on her home methotrexate but at a slightly lower dose (5) Pneumonia Status: Resolved Problem Text: Resolved patient completed 7 days of antibiotics she was treated with broad- spectrum for potential community acquired versus aspiration pneumonia (6) A-fib Status: Resolved Problem Text: The patient appears to be in a sinus rhythm at this time she is rate controlled with metoprolol and diltiazem. Dr. Correa did express concern that her initial presentation may be related to viral pericarditis. She did not tolerate anticoagulation and as such has been discontinued. Dr. Correa is recommended to possibly revisit this in the coming days given she is at high risk for DVT PE or even CVA related to A. fib. The patient has remained in normal sinus rhythm for several days at this point. (7) Mood Disorder continue with Effexor (8)Hypertension Continue with diltiazem and metoprolol (9) Diabetes continue with insulin sliding scale and hypoglycemic protocol (10) GERD continue with omeprazole (11) Glaucoma continue with Alphagan and timolol (12)thrombocytopenia likely related to acute blood loss and hematoma I will check an EDTA free platelet count check a peripheral smear and also abdominal ultrasound to evaluate for any splenomegaly no evidence of active bleeding DISPOSITION: home without hemodialysis. [facility] Vital Signs/I&O Vital Signs Date Time Temp Pulse Resp B/P (MAP) Pulse Ox O2 Delivery O2 Flow Rate FiO2 01/14/17 09:10 18 01/14/17 06:00 98.3 68 123/58 (79) 95 01/13/17 21:15 Room Air I&O- Last 24 Hours up to 6 AM 01/14/17 06:00 Intake Total 2600 ml Output Total 1250 ml Balance 1350 ml Laboratory Data 24H LABS Laboratory Tests 2 01/13/17 16:31: Bedside Glucose (Misc Panel) 126H 01/13/17 20:28: Bedside Glucose (Misc Panel) 143H 01/14/17 05:47: Prothrombin Time 14.2, Prothromb Time International Ratio 1.09, Blood Urea Nitrogen 25H, Creatinine 1.18H, Sodium Level 135L, Potassium Level 3.3L, Chloride Level 104, Carbon Dioxide Level 21, Anion Gap 10, Glomerular Filtration Rate 47.7, Calcium Level 8.3L, Phosphorus Level 2.7, Magnesium Level 1.3L, Albumin 2.3L 01/14/17 11:52: Bedside Glucose (Misc Panel) 183H CBC/BMP Laboratory Tests 01/14/17 05:47 Anion Gap 10 01/14/17 07:22 Red Blood Count 2.81 L, Mean Corpuscular Volume 87.6, Mean Corpuscular Hemoglobin 30.2, Mean Corpuscular Hemoglobin Concent 34.5, Red Cell Distribution Width 14.0 Microbiology Microbiology 01/05/17 Stool Occult Blood ([facility]Y) - Final, Complete 01/04/17 Stool Occult Blood ([facility]Y) - Final, Complete ERICK ROSEN MD Jan 14, 2017 14:22
[2017-01-14 14:46] LABS: REASON FOR REVIEW PLATELET MORPHOLOGY
[2017-01-14 15:27] LABS: PLTBLUE- EDTA FREE CALC 70 K/mm3 (172-450); PLTBLUE- EDTA FREE MACHINE 64 K/mm3 (172-450)
--- NOTE | 2017-01-14 18:59 | IPN ---
DATE: 01/14/2017 Ms. Lima is seen this morning on her bedside. She is sitting in the chair. She is feeling much better and is looking forward to going home. She denies any nausea or vomiting and appetite has improved. She has no dyspnea, chest pain, fever or chills. PHYSICAL EXAMINATION: Temperature 98.3 degrees Fahrenheit, heart rate 68 per minute and respiratory rate 18 per minute. Blood pressure 123/58 mmHg and oxygen saturation 95% on room air. Intake and output records from yesterday showed total intake 2780 and output 1000 mL. Her weight is up by about 1 kg to 76.9 kg today. Her head is atraumatic. Ears, nose and throat are unremarkable. Oral mucosa is moist and healthy. Neck supple and without jugular venous distention (JVD) or thyroid enlargement. Heart sounds regular and lungs clear to auscultation. Abdomen soft and nontender and extremities without any cyanosis or clubbing. Today's labs showed hemoglobin 8.5 and hematocrit 24.6. Platelets 71,000. Sodium 135, potassium 3.3. BUN 25 and creatinine 1.18. Calcium 8.3, phosphorus 2.7 and magnesium 1.3. PROBLEMS: 1. Acute renal failure. Kidney function is improving nicely and we will continue to monitor without any intervention. 2. Hypokalemia. Her potassium level is slightly low, though improved since yesterday. She did receive potassium supplement and has been on regular diet. She is currently not on any diuretic. Potassium level is likely to improve over next couple of days. 3. Hyponatremia. Sodium level has corrected. It is almost normal now and does not need any intervention. 4. Hypomagnesemia. Magnesium level remains low and she is already receiving magnesium sulfate 1 gram intravenously today. 5. Hemodialysis catheter. The patient does not need dialysis anymore as kidney function has improved significantly. Interventional radiology will be consulted for removal of her dialysis catheter tomorrow. DISPOSITION: From a renal standpoint, the patient can be discharged to home when physically cleared by physical therapy. She will followup with Dr. Noonan in his office in the next couple of weeks.
[2017-01-14 22:00] VITALS: BP 152/67
[2017-01-14] MEDS: ACETAMINOPHEN TAB 650MG DOSE (2X325MG) PO PRN (22:09)
[2017-01-15 06:00] VITALS: BP 142/66
[2017-01-15] MEDS: SLF 3 ML SYR IV SCH ×2 (06:00→14:00)
[2017-01-15 07:06] LABS: MEAN CORPUSCULAR HEMOGLOBIN 30.5 pg (27.0-33.0); MEAN CORPUSCULAR HGB CONC 34.4 g/dl (32.0-36.5); MEAN CORPUSCULAR VOLUME 88.8 fl (80.0-96.0); RED CELL DISTRIBUTION WIDTH 14.3 % (11.5-14.5)
[2017-01-15 07:07] LABS: INR 1.06
[2017-01-15 07:13] LABS: ALBUMIN 2.6 GM/DL (3.2-5.2); CALCIUM LEVEL 8.2 MG/DL (8.8-10.2); CREATININE FOR GFR 1.03 MG/DL (0.55-1.02); GLOMERULAR FILTRATION RATE 55.8 (>39); PHOSPHORUS LEVEL 2.6 MG/DL (2.5-4.9); POTASSIUM SERUM 3.7 MEQ/L (3.5-5.1)
--- NOTE | 2017-01-15 07:13 | REP ---
LEFT UPPER QUADRANT SONOGRAPHY: HISTORY: Evaluate for splenomegaly. FINDINGS: Scanning through the left upper quadrant of the abdomen demonstrates a homogeneous spleen measuring 12.5 x 11.3 x 4.0 cm. This is at the upper range of normal in size. There is no evidence of ascites or left renal abnormality. The left kidney measures 11.8 x 4.7 x 5.2 cm. No other abnormality. IMPRESSION: Spleen at the upper range of normal in size measuring 12.5 cm in greatest diameter. No focal lesion. Signed by Roldan Romero MD 01/15/2017 08:22 A
[2017-01-15 07:57] LABS: MAGNESIUM LEVEL 1.9 MG/DL (1.8-2.4)
[2017-01-15] MEDS: BRIMONIDINE 0.1% OPHTH SOLN 5 ML OU SCH (09:31)
[2017-01-15] MEDS: HumaLOG INSULIN (NovoLOG) PER UNIT SC SCH ×3 (09:31→17:30)
[2017-01-15] MEDS: VENLAFAXINE **XR** 75MG CAPSULE PO SCH (09:32)
[2017-01-15] MEDS: FOLIC ACID 1 MG TAB PO SCH (09:32)
[2017-01-15 09:35] VITALS: BP 133/62
[2017-01-15] MEDS: METOPROLOL TART 25 MG TABLET PO SCH (09:35)
[2017-01-15] MEDS: NYSTATIN 100,000 UNITS/GM TOPICAL PWD 15 GM TOP SCH (09:36)
--- NOTE | 2017-01-15 10:27 | IPN ---
DATE: 01/15/2017 Mrs. Lima is seen this morning on her bedside. She is sitting in the chair as usual. She denies any nausea, vomiting, dyspnea or chest pain. There is no fever or chills. On physical examination, temperature 97.9 degrees Fahrenheit, heart rate 60 per minute and respiratory rate 20 per minute. Blood pressure 142/66 mmHg and oxygen saturation 98% on room air. Her head is atraumatic. Lungs have basilar rales bilaterally. Heart sounds are irregular. Abdomen soft and nontender. Extremities without cyanosis or clubbing. Bilateral hand deformity related to rheumatoid arthritis is present. Today's labs show WBC count 5.0, hemoglobin 8.5 and hematocrit 24.8. Sodium 132 and potassium 3.7. BUN 23 and creatinine 1.03. PROBLEMS: 1. Acute renal failure. Kidney function continues to improve. She has been off dialysis since last week. At this point, she is doing well and we will remove her dialysis catheter today. 2. Hypokalemia. Potassium level has improved. She is currently not on any diuretic. She is eating well and her electrolytes are likely to improve further. 3. Hyponatremia. Sodium level has been slightly low, but without any significant change. I would suggest not to give her any diuretic for now. This is likely to improve by itself over the next few days. 4. Anemia. Her anemia is stable and we will continue to monitor. As her kidney function has improved, we anticipate that her anemia will improve over next few weeks. She will continue with iron supplement. She will be followed up as an outpatient for it. 5. Disposition. From a renal standpoint, the patient can be discharged to home and she will follow up in the office with Dr. Noonan in 2 weeks.
[2017-01-15] MEDS ORDERED: LIDOCAINE 2% MDV 20 ML VIAL As Ordered ONE (13:05)
[2017-01-15 14:00] VITALS: BP 148/67
[2017-01-15] MEDS ORDERED: METO25TAB PO (14:47)
[2017-01-15] MEDS ORDERED: VENL75CA PO (14:47)
[2017-01-15] MEDS ORDERED: METH2.5TA PO (14:47)
[2017-01-15] MEDS ORDERED: TRAM50TA2 PO (14:47)
[2017-01-15] MEDS ORDERED: DILT60TA PO (14:47)
--- NOTE | 2017-01-15 17:17 | REPKIM ---
CLINICAL HISTORY: Patient has a right IJ TDC for ongoing dialysis. The referring nephrology service has requested to remove the existing TDC because it is no longer needed. PROCEDURE PERFORMED: Tunneled Dialysis Catheter Removal INTERVENTIONALIST: Dr. Kimberley Jimenez CONSENT: The risks, benefits and alternatives to the procedure were explained to the patient and informed written consent was obtained. MEDICATION: Local Lidocaine 2% EBL: 1 mL PROCEDURE/FINDINGS: The patient was brought to the interventional radiology suite and placed in the supine position with head of bed elevated. Time out procedure was performed. The area was prepped and draped in a usual sterile fashion. Local anesthesia was administered subcutaneously to the catheter exit site using 2% Lidocaine. The catheter cuff was bluntly dissected free from the surrounding soft tissues. The catheter was removed, inspected and confirmed to be removed in its entirety. Hemostasis was achieved by manual compression. A sterile dressing was applied. The patient tolerated the procedure well with no immediate complications. No imaging was used. Dr. Jimenez was present. IMPRESSION: Tunneled dialysis catheter removal as discussed above. cc: MD MIQUEL Schaefer
--- NOTE | 2017-01-16 09:08 | DSES ---
DATE OF ADMISSION: 12/22/2016 DATE OF DISCHARGE: 01/15/2017 DISCHARGE DIAGNOSIS: Atrial fibrillation with rapid ventricular response. SECONDARY DIAGNOSES: Acute blood loss anemia. Acute renal failure. Acute diastolic congestive heart failure. Rheumatoid arthritis. Pneumonia. Depression. Hypertension. Diabetes. Gastroesophageal reflux disease. Glaucoma. Thrombocytopenia. HOSPITAL COURSE: The patient is a 76-year-old female who had a long and complicated hospital course which included consultations from Dr. Solis and Dr. Correa of cardiology, Dr. Noonan and Dr. Churchill from nephrology. PROCEDURE: The patient had hemodialysis catheter placed and removed. IMAGING: She had an echocardiogram that revealed normal global LV systolic function, mild concentric left ventricular hypertrophy, mildly dilated left atrium, moderate tricuspid regurgitation. She had a CT of the pelvis which revealed multiple lobulated fluid collections in the right quadriceps and abductor muscle bellies compatible with intramuscular hematomas on 01/07/2017. Patient was admitted with possible pneumonia. She was treated with IV antibiotics. She did have a CT angiogram of her chest. She had new onset atrial fibrillation. Dr. Correa felt that this new onset atrial fibrillation may have been that she did not actually have pneumonia but rather viral pericarditis. She was rate controlled with metoprolol and diltiazem. She was actually started on anticoagulation during her hospital course with heparin drip. Her hospital course was further complicated as the patient developed intramuscular hematomas. She was seen by Dr. Oconnell of vascular surgery who recommended compression therapy. No surgical intervention and gradually she improved. The patient did go into acute renal failure felt to be multifactorial in nature possibly related to antibiotics with vancomycin, contrast induced nephropathy, possible ATN or allergic interstitial nephritis. The patient was on hemodialysis for several weeks. At this time, she is making urine on her own. Her renal function is improved without any further hemodialysis and her hemodialysis catheter has been removed. Patient did have decompensated diastolic congestive heart failure and dialysis was used to remove fluid and optimize her volume status, euvolemic at this time. SUBJECTIVE: The patient reports that she feels significantly better. She is excited about going home. She is happy to have been cleared by physical therapy. She denies any complaints. OBJECTIVE: Vital signs: Temperature 97.9, pulse 61, respiratory rate 20, blood pressure 142/66, oxygen saturation 98% on room air. General: She is an elderly female sitting in a recliner. She does not appear to be in any acute distress. HEENT: Cranial nerves II through XII are grossly intact. She has moist mucous membranes. No elevation of CVP. Cardiovascular exam: S1, S2. Respiratory exam: Clear. Abdominal exam: Benign. Extremities: No clubbing, cyanosis or edema. Right lower extremity is jasmin wrapped. The bandage is clean, dry and intact. LABORATORY STUDIES: WBC 5.0, hemoglobin 8.5, hematocrit 24.8, platelet count 75 up from 71. Chemistry panel: Sodium 132, potassium 3.7, chloride 101, bicarbonate 24, BUN 23, creatinine 1.0, magnesium 1.9. ASSESSMENT AND PLAN: This is a 76-year-old female with acute blood loss anemia secondary to intramuscular hematoma associated with anticoagulation with new onset atrial fibrillation with rapid ventricular response in the setting of acute renal failure, decompensated diastolic congestive heart failure. PROBLEMS: 1. Acute blood loss anemia, stabilized with compressive therapy and initiation of anticoagulation. She received by mouth in the hospital. She is to followup with Dr. Oconnell. She was started on Aranesp while in the hospital and also folic acid. Her pain is resolving. She is resuming her chronic home pain meds upon discharge. 2. Acute renal failure felt to be multifactorial in nature as outlined above. Nephrology's help is appreciated. She will followup with nephrology. Her hemodialysis catheter has been removed prior to discharge. She has been cleared by physical therapy. 3. Acute diastolic congestive heart failure. She does have evidence of diastolic heart failure on her echocardiogram. This is compatible with renal disease. She was fluid overloaded. Hemodialysis was used to optimize her status. She is euvolemic at this time. 4. Rheumatoid arthritis. The patient was continued on methotrexate but we have lowered her dose at the time of discharge. 5. Hypertension. Patient's medication regimen has been altered in favor of more rate controlling agents with diltiazem and metoprolol should she have spontaneous return to atrial fibrillation, her blood pressure is controlled at this time. 6. Pneumonia. The patient completed a 7 day course of antibiotics while in the hospital for community acquired pneumonia versus aspiration pneumonia. There is also the possibility that this may have not been pneumonia as cultures all remain negative and may have been a viral pericarditis. as a result. 7. Atrial fibrillation. Patient appears to have been in sinus rhythm for several days now. Patient is to followup with Dr. Correa. He did recommend restarting anticoagulation potentially in the near future, however. Given her intra-abdominal hematomas, we have held off on restarting any anticoagulation at this time. Can revisit the issue with Dr. Correa in the outpatient setting. 8. Mood disorder. The patient is continued on Effexor. Her dose is titrated up during this stay. 9. Diabetes. She will resume her oral antihyperglycemics upon discharge. 10. Gastroesophageal reflux disease. Patient is continued on her intermittent omeprazole dosing at home. 11. Glaucoma. The patient was continued on Alphagan and timolol. 12. Thrombocytopenia felt to be related to blood loss anemia. Her platelets have remained stable for the last 24 hours and she appears to be doing significantly better. DISPOSITION: The patient is being discharged home. She has been cleared by physical therapy. She is at her functional baseline. She should followup with her primary care physician in 7 days, cardiology in 2 weeks, vascular surgery in 2 weeks, nephrology in 2 weeks. Activity as tolerated. Diet is 2 gram sodium, consistent carbohydrate. She is to return to the ER if her symptoms worsen. MEDICATIONS AT THE TIME OF DISCHARGE: - diltiazem 120 mg three times a day - methotrexate 7.5 mg every Sunday - metoprolol 25 mg twice a day - tramadol 50 mg every 6 hours as needed for pain - venlafaxine 75 mg daily - Ventolin HFA two puffs every 4 hours as needed for shortness of breath - aspirin 81 mg daily - Lumigan one drop each eye at bedtime - Alphagan P one drop twice a day - estradiol cream topically monthly as needed for irritation - folic acid 1 mg daily - glipizide XL 5 mg daily - Humira subcutaneously every 2 weeks - metformin 850 mg twice a day - multivitamin one tablet daily - omeprazole 20 mg every third day Greater than 45 minutes spent organizing safe disposition.
== END 2017-01-15 18:25 | disposition home health service (06) | DRG 308 ==
LOC: M PCU 20:11 → M MSPAV 01-09 11:09
PROVIDERS: ADMIT Hospitalist; ATTEND Internal Medicine
PROC: 02HV33Z Insertion of Infusion Device into Superior Vena Cava, Percutaneous Approach (ICD-10-PCS; principal; 2016-12-27)
PROC: 5A1D60Z (ICD-10-PCS; 2016-12-27)
PROC: 30253K1 (ICD-10-PCS; 2017-01-07)
PROC: 30253N1 (ICD-10-PCS; 2017-01-08)
PROC: 05PY33Z Removal of Infusion Device from Upper Vein, Percutaneous Approach (ICD-10-PCS; 2017-01-15)
DX: I48.91 Unspecified atrial fibrillation (principal); I50.33 Acute on chronic diastolic (congestive) heart failure; N17.0 Acute kidney failure with tubular necrosis; I31.3 Pericardial effusion (noninflammatory); E87.1 Hypo-osmolality and hyponatremia; D62 Acute posthemorrhagic anemia; D68.32 Hemorrhagic disorder due to extrinsic circulating anticoagulants; I30.1 Infective pericarditis; M79.81 Nontraumatic hematoma of soft tissue; M06.9 Rheumatoid arthritis, unspecified; I11.0 Hypertensive heart disease with heart failure; T45.515A Adverse effect of anticoagulants, initial encounter; I27.2 Other secondary pulmonary hypertension; T36.8X5A Adverse effect of other systemic antibiotics, initial encounter; I36.1 Nonrheumatic tricuspid (valve) insufficiency; R11.2 Nausea with vomiting, unspecified; R19.7 Diarrhea, unspecified; F32.9 Major depressive disorder, single episode, unspecified; K21.9 Gastro-esophageal reflux disease without esophagitis; H40.9 Unspecified glaucoma; D69.6 Thrombocytopenia, unspecified; Z79.84 Long term (current) use of oral hypoglycemic drugs; Z79.899 Other long term (current) drug therapy; Z79.891 Long term (current) use of opiate analgesic; Z96.651 Presence of right artificial knee joint

== ENCOUNTER → 2017-01-26 | Outpatient (REF) | payer MEDICARE ==
[~2017-01-26] MED LIST changes: +ALBU17IN INH; +AMLO5TAB2 PO; +ASPI-101 PO; -ASPI81TA11 PO; +ASPI81TAEC PO; +BIMA01SOL OU; +BRIM1OPD OU; -COUM2.5T11 PO; +COUM2.5T17 PO; +DILT60TA PO; +ESTR1CRE PV; +FOLI1TAB4 PO; +GABA-279 PO; +GLIP-162 PO; +HUMI40KI SC; -MELO7.5T6 PO; +MELO7.5T7 PO; -METF850T PO; +METF850T4 PO; +METH2.5TA PO; +METO25TA4 PO; +OXYB5TAB10 PO; +TRAM50TA2 PO; -ULTR50TA PO; +ULTR50TA8 PO; +VENL37.598 PO; +VENL75CA2 PO; +VITMTA PO
[2017-01-26 15:33] LABS: PHOSPHORUS LEVEL 3.5 MG/DL (2.5-4.9); URIC ACID 5.3 MG/DL (2.6-6.0)
== END ==
LOC: M LAB REF 13:12
PROVIDERS: ATTEND Nurse Practitioner Family
DX: N17.9 Acute kidney failure, unspecified (principal); E87.1 Hypo-osmolality and hyponatremia; D64.9 Anemia, unspecified

== ENCOUNTER → 2017-08-29 | Outpatient (CLI) | payer MEDICARE | LOC: M WHC 10:17 | DX: Z12.31 Encounter for screening mammogram for malignant neoplasm of breast (principal); M05.79 Rheumatoid arthritis with rheumatoid factor of multiple sites without organ or systems involvement; M81.0 Age-related osteoporosis without current pathological fracture | CPT/HCPCS: 77067 ==

== ENCOUNTER → 2017-08-29 | Outpatient (CLI) | payer MEDICARE | LOC: M WHC 10:26 | DX: Z12.31 Encounter for screening mammogram for malignant neoplasm of breast (principal); Z78.0 Asymptomatic menopausal state; Z92.0 Personal history of contraception; Z92.23 Personal history of estrogen therapy ==

== ENCOUNTER → 2017-09-04 | Outpatient (REF) | payer MEDICARE ==
[2017-09-04 18:12] LABS: APPEARANCE, URINE CLEAR (CLEAR); BACTERIA, URINE AUTO 1+ (NEGATIVE); BILIRUBIN, URINE AUTO NEGATIVE (NEGATIVE); BLOOD, URINE BLOOD 1+ (NEGATIVE); COLOR, URINE YELLOW (YELLOW); GLUCOSE, URINE (UA) AUTO NEGATIVE (NEGATIVE); KETONE, URINE AUTO NEGATIVE (NEGATIVE); LEUKOCYTE ESTERASE, URINE AUTO NEGATIVE (NEGATIVE); MUCUS, URINE SMALL (NEGATIVE); NITRITE, URINE AUTO NEGATIVE (NEGATIVE); PROTEIN, URINE AUTO NEGATIVE (NEGATIVE); RBC, URINE AUTO 10 /HPF (0-3); SPECIFIC GRAVITY URINE AUTO 1.014 (1.002-1.035); SQUAMOUS EPITHELIAL CELL UR AU 1 /HPF (0-6); UROBILINOGEN, URINE AUTO 0.2 mg/dL (0.0-2.0); WBC, URINE AUTO 1 /HPF (0-3)
== END ==
LOC: M LAB REF 17:35
DX: R31.9 Hematuria, unspecified (principal)
CPT/HCPCS: 81001

== ENCOUNTER → 2017-12-18 | Outpatient (CLI) | payer MEDICARE ==
[2017-12-18 12:02] LABS: HEMATOCRIT 43.4 % (36.0-47.0); HEMOGLOBIN 15.2 g/dl (12.0-15.5); MEAN CORPUSCULAR HEMOGLOBIN 32.2 pg (27.0-33.0); MEAN CORPUSCULAR VOLUME 91.9 fl (80.0-96.0); PLATELET COUNT, AUTOMATED 243 10^3/uL (150-450); RED BLOOD COUNT 4.72 10^6/uL (4.00-5.40); RED CELL DISTRIBUTION WIDTH 13.6 % (11.5-14.5); WHITE BLOOD COUNT 7.2 10^3/uL (4.0-10.0)
[2017-12-18 12:05] LABS: APPEARANCE, URINE HAZY (CLEAR); BACTERIA, URINE AUTO NEGATIVE (NEGATIVE); BILIRUBIN, URINE AUTO NEGATIVE (NEGATIVE); BLOOD, URINE BLOOD NEGATIVE (NEGATIVE); COLOR, URINE YELLOW (YELLOW); GLUCOSE, URINE (UA) AUTO NEGATIVE (NEGATIVE); KETONE, URINE AUTO NEGATIVE (NEGATIVE); LEUKOCYTE ESTERASE, URINE AUTO 1+ (NEGATIVE); NITRITE, URINE AUTO NEGATIVE (NEGATIVE); PROTEIN, URINE AUTO NEGATIVE (NEGATIVE); RBC, URINE AUTO 5 /HPF (0-3); SPECIFIC GRAVITY URINE AUTO 1.016 (1.002-1.035); SQUAMOUS EPITHELIAL CELL UR AU 0 /HPF (0-6); WBC, URINE AUTO 60 /HPF (0-3)
[2017-12-18 12:12] LABS: INR 0.98; PROTHROMBIN TIME 13.1 SECONDS (12.4-14.5)
[2017-12-18 12:31] LABS: ERYTHROCYTE SEDIMENTATION RATE 32 mm/hr (0-30)
[2017-12-18 12:40] LABS: ALBUMIN 3.5 GM/DL (3.2-5.2); ALBUMIN/GLOBULIN RATIO 0.88 (1.00-1.93); ALKALINE PHOSPHATASE 91 U/L (45-117); ALT/SGPT 24 U/L (12-78); ANION GAP 6 MEQ/L (8-16); AST/SGOT 21 U/L (7-37); BILIRUBIN,TOTAL 0.5 MG/DL (0.2-1.0); BLOOD UREA NITROGEN 16 MG/DL (7-18); CALCIUM LEVEL 8.9 MG/DL (8.8-10.2); CARBON DIOXIDE LEVEL 30 MEQ/L (21-32); CHLORIDE LEVEL 104 MEQ/L (98-107); CREATININE FOR GFR 0.79 MG/DL (0.55-1.30); GLOMERULAR FILTRATION RATE > 60.0 (>39); GLUCOSE, FASTING 142 MG/DL (70-100); POTASSIUM SERUM 4.7 MEQ/L (3.5-5.1); SODIUM LEVEL 140 MEQ/L (136-145); TOTAL PROTEIN 7.5 GM/DL (6.4-8.2)
== END ==
LOC: M ADMPAT 09:57
DX: Z01.818 Encounter for other preprocedural examination (principal); M17.12 Unilateral primary osteoarthritis, left knee; I48.91 Unspecified atrial fibrillation; I25.10 Atherosclerotic heart disease of native coronary artery without angina pectoris; I10 Essential (primary) hypertension; K21.9 Gastro-esophageal reflux disease without esophagitis; E11.9 Type 2 diabetes mellitus without complications; F32.9 Major depressive disorder, single episode, unspecified; Z87.891 Personal history of nicotine dependence; Z79.899 Other long term (current) drug therapy
CPT/HCPCS: 71046

== ENCOUNTER 2018-01-01 10:15 | Inpatient (IN) | payer MEDICARE ==
[2018-01-01] MEDS ORDERED: LIDOCAINE 1% MDV 20ML VIAL SQ (10:30)
[2018-01-01] MEDS: ACETAMINOPHEN 500 MG TAB PO (10:30)
[2018-01-01 10:59] LABS: GLUCOSE, FASTING 202 MG/DL (70-100)
[2018-01-01] MEDS ORDERED: PROPOFOL 500 MG/50 ML VIAL As Ordered (11:02)
[2018-01-01] MEDS ORDERED: LIDOCAINE 2% INJ 100 MG/5 ML SDV (FOR ANES.) As Ordered (11:06)
[2018-01-01] MEDS: LR 1,000 ML IV ×3 (11:15→15:15)
[2018-01-01] MEDS ORDERED: MIDAZOLAM INJ 2 MG/2 ML VIAL (J2250) As Ordered (11:18)
[2018-01-01] MEDS ORDERED: fentaNYL 100 MCG/2 ML INJECTION (J3010) As Ordered (11:18)
[2018-01-01] MEDS: fentaNYL 100 MCG/2 ML INJECTION (J3010) IV (12:14)
[2018-01-01] MEDS: MIDAZOLAM INJ 2 MG/2 ML VIAL (J2250) IV ×2 (12:14→12:16)
[2018-01-01] MEDS: ceFAZolin 1GM INJ (J0690 PER 500MG) As Ordered (13:01)
[2018-01-01] MEDS: EPINEPHrine INJ 1 MG/ML 1ML AMP As Ordered (13:15)
[2018-01-01] MEDS: TRANEXAMIC ACID 100 MG/ML 10ML VIAL As Ordered (13:15)
[2018-01-01] MEDS: BUPIVACAINE HCL 0.25% 10 ML VIAL As Ordered (13:15)
[2018-01-01] MEDS: BUPIVACAINE LIPOSOME/PF 1.3% 20 ML VIAL (13.3MG/ML)(EXPAREL) As Ordered (13:15)
[2018-01-01] MEDS ORDERED: PHENYLEPHRINE INJ 10MG/ML VIAL (J2370) As Ordered (13:47)
[2018-01-01] MEDS ORDERED: ROPIvacaine 0.5% 30 ML INJECTION (J2795 PER 1MG) (13:58)
[2018-01-01] MEDS ORDERED: MORPHINE 1MG/ML IN 0.9% NACL 100ML IV BAG As Ordered (14:29)
[2018-01-01] MEDS ORDERED: ePHEDrine SULFATE 25 MG/5 ML(5MG/ML) SYRINGE As Ordered (14:54)
[2018-01-01] MEDS ORDERED: METOCLOPRAMIDE INJ 10MG/2ML VIAL (J2765) IV (15:15)
[2018-01-01] MEDS ORDERED: fentaNYL 100 MCG/2 ML INJECTION (J3010) IV (15:15)
[2018-01-01] MEDS ORDERED: PERCOCET 5MG/325MG TAB PO (15:15)
[2018-01-01] MEDS ORDERED: MEPERIDINE INJ 25 MG/ML VIAL (J2175) IV (15:15)
[2018-01-01] MEDS: ONDANSETRON 4MG/2ML VIAL (J2405) IV (15:30)
[2018-01-01] MEDS ORDERED: MORPHINE 1MG/ML IN 0.9% NACL 100ML IV BAG IV (15:30)
[2018-01-01] MEDS ORDERED: NALBUPHINE HCL 10 MG/ML AMP (J2300) IV (15:30)
[2018-01-01] MEDS ORDERED: EPIDURAL/PCA KEYS XX (15:30)
[2018-01-01] MEDS ORDERED: NALOXONE INJ 0.4 MG/1 ML VIAL (J2310) IV (15:30)
[2018-01-01] MEDS ORDERED: ACETAMINOPHEN TAB 650MG DOSE (2X325MG) PO (15:30)
[2018-01-01] MEDS ORDERED: FLEET ENEMA PR (15:30)
[2018-01-01] MEDS ORDERED: diphenhydrAMINE INJ 50MG/ML VIAL (J1200) IV (15:30)
[2018-01-01] MEDS ORDERED: ONDANSETRON 4MG/2ML VIAL (J2405) IV (15:30)
[2018-01-02] MEDS: LR 1,000 ML IV (03:45)
[2018-01-02] MEDS ORDERED: PERCOCET 5MG/325MG TAB PO (06:30)
[2018-01-02] MEDS ORDERED: ONDANSETRON 4 MG TAB (S0181) PO (06:30)
[2018-01-02 06:50] LABS: HEMOGLOBIN 14.7 g/dl (12.0-15.5); MEAN CORPUSCULAR HEMOGLOBIN 31.3 pg (27.0-33.0); MEAN CORPUSCULAR HGB CONC 34.2 g/dl (32.0-36.5); MEAN CORPUSCULAR VOLUME 91.5 fl (80.0-96.0); PLATELET COUNT, AUTOMATED 196 10^3/uL (150-450); RED CELL DISTRIBUTION WIDTH 13.1 % (11.5-14.5); WHITE BLOOD COUNT 10.2 10^3/uL (4.0-10.0)
[2018-01-02 07:12] LABS: ANION GAP 7 MEQ/L (8-16); BLOOD UREA NITROGEN 7 MG/DL (7-18); CALCIUM LEVEL 8.4 MG/DL (8.8-10.2); CARBON DIOXIDE LEVEL 28 MEQ/L (21-32); CHLORIDE LEVEL 99 MEQ/L (98-107); CREATININE FOR GFR 0.73 MG/DL (0.55-1.30); GLOMERULAR FILTRATION RATE > 60.0 (>39); GLUCOSE, FASTING 247 MG/DL (70-100); POTASSIUM SERUM 3.6 MEQ/L (3.5-5.1); SODIUM LEVEL 134 MEQ/L (136-145)
[2018-01-02] MEDS: PERCOCET 5MG/325MG TAB PO (10:22)
[2018-01-02] MEDS: MOM 30ML SUSPENSION UDC PO (10:22)
[2018-01-02] MEDS: MIRALAX *UNIT DOSE* 17GM PACKET PO (10:22)
[2018-01-02] MEDS: APIXABAN 5 MG TAB (ELIQUIS) PO (10:22)
[2018-01-02] MEDS: SENOKOT S TAB PO (10:22)
[2018-01-02] MEDS ORDERED: GLUCOSE 4 GM CHEW TABLET PO (12:45)
[2018-01-02] MEDS ORDERED: DEXTROSE 50% 50 ML SYRINGE IV (12:45)
[2018-01-02] MEDS ORDERED: GLUCAGON FOR INJ 1 MG VIAL (J1610) SC (12:45)
[2018-01-02] MEDS: METOPROLOL TARTRATE 100 MG TAB PO (13:39)
[2018-01-02] MEDS: GABAPENTIN 100 MG CAP PO (13:40)
[2018-01-02] MEDS: OMEPRAZOLE 20 MG CAP PO (13:40)
[2018-01-02 13:51] LABS: BEDSIDE GLUCOSE 312 MG/DL (83-110)
[2018-01-02] MEDS: HumaLOG INSULIN (NovoLOG) PER UNIT SC (13:55)
[2018-01-02] MEDS ORDERED: glipiZIDE (GLUCOTROL) 5 MG TAB PO (17:30)
[2018-01-02] MEDS ORDERED: HumaLOG INSULIN (NovoLOG) PER UNIT SC (21:00)
[2018-01-02] MEDS ORDERED: VENLAFAXINE **XR** 37.5 MG CAPSULE PO (21:00)
== END 2018-01-02 15:58 | DRG 470 ==
LOC: M OR 10:15 → M MS5PR 16:52
PROVIDERS: Orthopaedic Surgery
PROC: 0SRD0J9 Replacement of Left Knee Joint with Synthetic Substitute, Cemented, Open Approach (ICD-10-PCS; principal; 2018-01-01 12:31)
DX: M17.12 Unilateral primary osteoarthritis, left knee (principal); E11.9 Type 2 diabetes mellitus without complications; K21.9 Gastro-esophageal reflux disease without esophagitis; F32.9 Major depressive disorder, single episode, unspecified; M06.9 Rheumatoid arthritis, unspecified; I10 Essential (primary) hypertension; I48.0 Paroxysmal atrial fibrillation; J47.9 Bronchiectasis, uncomplicated; Z79.01 Long term (current) use of anticoagulants; Z79.84 Long term (current) use of oral hypoglycemic drugs; Z79.899 Other long term (current) drug therapy; Z87.891 Personal history of nicotine dependence; Z96.651 Presence of right artificial knee joint; Z79.82 Long term (current) use of aspirin

== ENCOUNTER → 2018-07-15 | Outpatient (REF) | payer MEDICARE ==
[2018-07-15 16:54] LABS: C REACTIVE PROTEIN QUANTITATIV < 0.30 MG/DL (0.00-0.30)
== END ==
LOC: M LAB REF 16:08
DX: M05.79 Rheumatoid arthritis with rheumatoid factor of multiple sites without organ or systems involvement (principal)
CPT/HCPCS: 86140

== ENCOUNTER → 2018-07-15 | Outpatient (REF) | payer MEDICARE | LOC: M SFHCPLAZ 12:38 | DX: M05.79 Rheumatoid arthritis with rheumatoid factor of multiple sites without organ or systems involvement (principal); Z53.8 Procedure and treatment not carried out for other reasons ==

== ENCOUNTER → 2018-09-09 | Outpatient (CLI) | payer MEDICARE ==
[~2018-09-09] MED LIST changes: +ACET30TAB PO; -AMLO5TAB2 PO; +AMLO5TAB6 PO; -ASPI-101 PO; +ASPI-225 PO; +Acetaminophen Tab PO; +BISAC5TA PO; +EFFE37.5 PO; +ELIQ5TAB PO; +FOLI1TAB11 PO; -FOLI1TAB4 PO; +GABA-1171 PO; -GABA-279 PO; +GLIP10TA6 PO; +INSUHUMDS SC; +METH2.5T48 PO; -METH2.5TA PO; +METO100T5 PO; +MILK120011 PO; +MIRA3350 PO; +MYRB25TA PO; +OXYC1TAB23 PO; +PERC5TAB12 PO; +PERCOCET PO; +SENO8.6T10 PO; +TYLE325C PO
--- NOTE | 2018-09-09 10:48 | REPMRS ---
Patient History The patient states she has not had a clinical breast exam in over a year. No known family history of cancer. Reductions of both breasts. Took hormonal contraceptives for 10 years. Took unspecified hormones for 2 years. 3D TOMOSYNTHESIS WAS PERFORMED. Digital Mammo Screening Bilat: September 09, 2018 - Exam #: [id number] Bilateral CC and MLO view(s) were taken. Technologist: Jamia Macdonald, Technologist Prior study comparison: August 29, 2017, digital woman screen mammo, performed at [facility]. June 16, 2016, bilateral digital mammo screening bilat performed at [facility]. FINDINGS: There are scattered fibroglandular densities. There has been no change in the appearance of the mammogram from the prior studies. There is a mild amount of residual fibroglandular tissue which is fairly symmetric. There is no interval development of dominant mass, architectural distortion, or clustered microcalcification suggestive of malignancy. Assessment: BI-RADS/ACR category 1 mammogram. Negative Mammogram. Recommendation Routine screening mammogram in 1 year (for women over age 40). This mammogram was interpreted with the aid of an FDA-approved computer-aided dectection system. Electronically Signed By: Warren Bobby MD 09/09/18 [id number]
== END ==
LOC: M RAD 09:57
PROVIDERS: ATTEND Internal Medicine
DX: Z12.31 Encounter for screening mammogram for malignant neoplasm of breast (principal); Z92.0 Personal history of contraception; Z92.29 Personal history of other drug therapy; Z98.890 Other specified postprocedural states

== ENCOUNTER → 2018-09-09 | Outpatient (REF) | payer MEDICARE ==
[2018-09-09 19:59] LABS: BASO # 0.1 10^3/uL (0.0-0.2); BASO % 1.1 % (0.0-1.0); EOS # 0.2 10^3/uL (0.0-0.50); HEMATOCRIT 45.4 % (36.0-47.0); HEMOGLOBIN 15.4 g/dl (12.0-15.5); LYMPH # 2.1 10^3/uL (1.5-4.5); LYMPH % 26.2 % (24.0-44.0); MEAN CORPUSCULAR HEMOGLOBIN 31.8 pg (27.0-33.0); MEAN CORPUSCULAR HGB CONC 33.9 g/dl (32.0-36.5); MEAN CORPUSCULAR VOLUME 93.6 fl (80.0-96.0); MONO # 0.3 10^3/uL (0.0-0.8); MONO % 4.1 % (0.0-5.0); NEUTROPHILS # 5.1 10^3/uL (1.8-7.7); NEUTROPHILS % 65.3 % (36.0-66.0); PLATELET COUNT, AUTOMATED 269 10^3/uL (150-450); RED BLOOD COUNT 4.85 10^6/uL (4.00-5.40); WHITE BLOOD COUNT 7.9 10^3/uL (4.0-10.0)
[2018-09-09 20:08] LABS: ALBUMIN 3.4 GM/DL (3.2-5.2); ALT/SGPT 31 U/L (12-78); BILIRUBIN,TOTAL 0.7 MG/DL (0.2-1.0); BLOOD UREA NITROGEN 16 MG/DL (7-18); C REACTIVE PROTEIN QUANTITATIV 0.63 MG/DL (0.00-0.30); CALCIUM LEVEL 8.5 MG/DL (8.8-10.2); CARBON DIOXIDE LEVEL 26 MEQ/L (21-32); CHLORIDE LEVEL 102 MEQ/L (98-107); CREATININE FOR GFR 0.81 MG/DL (0.55-1.30); GLOMERULAR FILTRATION RATE > 60.0 (>39); GLUCOSE, FASTING 183 MG/DL (70-100); NT-PRO BNP 394 PG/ML (<450); POTASSIUM SERUM 4.3 MEQ/L (3.5-5.1); SODIUM LEVEL 135 MEQ/L (136-145); TOTAL PROTEIN 7.4 GM/DL (6.4-8.2)
[2018-09-09 20:29] LABS: ERYTHROCYTE SEDIMENTATION RATE 24 mm/hr (0-30)
== END ==
LOC: M SFHCPLAZ 15:23
PROVIDERS: ATTEND Internal Medicine Rheumatology
DX: M05.79 Rheumatoid arthritis with rheumatoid factor of multiple sites without organ or systems involvement (principal)
CPT/HCPCS: 36415; 80053; 83880; 85025; 85652; 86140; G0463

== ENCOUNTER 2018-09-18 09:41 | Outpatient (CLI) | payer MEDICARE ==
[~2018-09-18] VITALS: Ht 160 cm; Wt 86.6 kg
[2018-09-18 09:50] VITALS: BP 171/74
[2018-09-18] MEDS ORDERED: NS 1,000 ML IV SCH (10:00)
[2018-09-18] MEDS ORDERED: methylPREDNISolone INJ 125 MG/2 ML VIAL (J2930) IV ONE (10:00)
[2018-09-18] MEDS ORDERED: ACETAMINOPHEN 650MG ER TAB (TYLENOL ARTHRITIS) PO ONE (10:00)
[2018-09-18] MEDS ORDERED: ALBUTEROL SULFATE 2.5 MG/0.5 ML INH NEB SOLN INH PRN (10:00)
[2018-09-18] MEDS ORDERED: EPINEPHrine INJ 1 MG/ML 1ML AMP IM PRN (10:00)
[2018-09-18] MEDS ORDERED: diphenhydrAMINE INJ 50MG/ML VIAL (J1200) IV PRN (10:00)
[2018-09-18] MEDS ORDERED: diphenhydrAMINE 25 MG CAP PO ONE (10:00)
[2018-09-18] MEDS ORDERED: methylPREDNISolone INJ 125 MG/2 ML VIAL (J2930) IV PRN (10:00)
[2018-09-18] MEDS ORDERED: ABATACEPT 750 MG OVER 30 MINUTES IV ONE ×2 (11:00)
[2018-09-18] MEDS ORDERED: FILTER 1.2 MICRON (ADULT TPN/MANNITOL/REMICADE) XX ONE (11:00)
[2018-09-18 11:25] VITALS: BP 178/84
[2018-09-18 11:45] VITALS: BP 162/76
== END 2018-09-18 11:45 | disposition home or self-care (01) ==
LOC: M INFU 09:41
PROVIDERS: ATTEND Internal Medicine Rheumatology
DX: M06.9 Rheumatoid arthritis, unspecified (principal)
CPT/HCPCS: 96365; J0129; J2930

== ENCOUNTER → 2018-12-05 | Outpatient (REF) | payer MEDICARE ==
[~2018-12-05] MED LIST changes: +ACET-716 PO; -ACET30TAB PO; +HYDR-2541 PO
== END ==
LOC: M LAB REF 17:13
PROVIDERS: ATTEND Internal Medicine
DX: M05.79 Rheumatoid arthritis with rheumatoid factor of multiple sites without organ or systems involvement (principal)

== ENCOUNTER → 2019-04-28 | Outpatient (REF) | payer MEDICARE, MEDICAID ==
[~2019-04-28] MED LIST changes: -OMEP20CA3 PO; +OMEP20CA4 PO
== END ==
LOC: M LAB REF 16:41
PROVIDERS: ATTEND Internal Medicine
DX: M05.79 Rheumatoid arthritis with rheumatoid factor of multiple sites without organ or systems involvement (principal)
CPT/HCPCS: 86140; G0463

== ENCOUNTER 2019-09-18 09:17 | Day surgery (SDC) | payer MEDICARE, MEDICAID ==
[~2019-09-18] VITALS: Ht 160 cm; Wt 80.7 kg
[~2019-09-18 09:17] MED LIST changes: +ALL10TAB29 PO; -ASPI-225 PO; +ASPI81TA78 PO; +BIOT1CAP2 PO; +BSS IRR 500ML/OMIDRIA 4ML IRR BAG (OR ONLY) (J1097 PER ML) As Ordered ONE; +CEFUROXIME 1MG/0.1ML INTRACAMERAL INJ As Ordered ONE; +DULO1CAP6 PO; +DUOVISC (0.50ML VISCOAT/0.55ML PROVISC) OPHTH KIT As Ordered ONE; +FOLI400T PO; +GABA-843 PO; +LOSA25TA14 PO; +METF-839 PO; +METH25TA3 PO; +MIDAZOLAM INJ 2 MG/2 ML VIAL (J2250) As Ordered ONE; +OFLOXACIN 0.3 % (OCUFLOX) OPTH SOL 5ML OD ONE; +OMEP1CAP73 PO; -OMEP20CA4 PO; +OREN125I2 INJ; +PHENYLEPHRINE 2.5% OPHTH SOL 2ML OD ONE; +POVIDONE-IODINE 5% OPHTH PREP SOL 30ML As Ordered ONE; +PROPARACAINE 0.5% OPHTH SOL 15ML OD ONE; +RA M500C PO; +TROPICAMIDE 1% OPHTH SOLN 2ML OD ONE; +fentaNYL 100 MCG/2 ML INJECTION (J3010) As Ordered ONE
[2019-09-18 12:46] VITALS: BP 166/76
--- NOTE | 2019-09-19 22:17 | RO ---
DATE OF PROCEDURE: 09/18/2019 PREOPERATIVE DIAGNOSES: 1. Visually significant nuclear sclerotic cataract, right eye. 2. Primary open angle glaucoma, moderate stage, right eye. POSTOPERATIVE DIAGNOSES: 1. Visually significant nuclear sclerotic cataract right eye. 2. Primary open angle glaucoma, moderate stage, right eye PROCEDURE: 1. Cataract extraction with use of phacoemulsification and placement of intraocular lens, AU00T0, 22.0 D, right eye. 2. Use of endoscopic cyclophotocoagulation right eye (270 degrees, 12 spots, 0.25 milliwats, continuous mode). 3. Placement of Glaukos iStent. SURGEON: Tin Hansen DO ACOUSTIC WARFARE ANALYST: None. ANESTHESIA: Local with monitored anesthesia care (MAC). COMPLICATIONS: None. POSTOPERATIVE CONDITION: Stable. INDICATIONS FOR SURGERY: 1. Blurred vision affecting patients activities of daily living. DESCRIPTION OF PROCEDURE: The patient was seen in the preoperative area and properly identified. The correct operative eye was identified and marked. The patient received topical anesthetic, antibiotics, and topical dilating drops. The patient was then transferred to the operating room. The correct side was re-identified, and a time-out was performed. The eye was prepped and draped in a sterile fashion. The eyelids were isolated with Tegaderm tape, and the lids were held open with an adjustable speculum. A 1.0 mm paracentesis incision was made. Intraocular preservative-free Shugarcaine was then injected into the anterior chamber. Viscoelastic was then injected into the anterior chamber through the paracentesis. Using a 2.4 mm sharp-tipped keratome, the anterior chamber was entered via a temporal clear cornea incision. A continuous curvilinear capsulorrhexis was created with Utrata forceps. Hydrodissection was performed with balanced salt solution (BSS) on a blunt cannula until the nucleus was able to rotate freely. The crystalline lens was phacoemulsified and aspirated. Irrigation/aspiration was used to remove the cortical material. Cohesive viscoelastic was placed into the capsular bag to deepen it. The implant was placed into the capsular bag and allowed to unfold. Placement was confirmed by visualizing the anterior capsulorrhexis. Additional viscoelastic was placed in the anterior chamber and ciliary sulcus. The endoscopic cyclophotocoagulation (ECP) probe was placed in the eye, and the ciliary processes were visualized. The laser was applied without difficulty, and the probe was withdrawn. The head was untaped, the microscope was rotated to 45 degrees and the head rotated away. Viscoelastic was placed inside the anterior chamber and on top of the cornea. The angle was visualized. The iStent inject devices were placed within the pigmented trabecular meshwork approximately 2 clock hours apart. There was no bleeding after the device was placed. The head was rotated back face up and the microscope to 0 degrees. Irrigation/aspiration was used to remove the viscoelastic. The clear corneal incision was hydrated with BSS on a blunt cannula. The lens was well positioned. The incisions were then tested for leaks and found to be negative. The eye was then palpated for appropriate pressure and adjusted accordingly with BSS. The eyelid speculum was then carefully removed. A shield was placed over the eye. The patient tolerated the procedure well and was discharged to the recovery unit in a stable condition. MIQUEL
== END 2019-09-18 12:49 | disposition home or self-care (01) ==
LOC: M SDC 09:17
PROVIDERS: ATTEND Ophthalmology
DX: H25.11 Age-related nuclear cataract, right eye (principal); H40.1112 Primary open-angle glaucoma, right eye, moderate stage; I10 Essential (primary) hypertension; I48.91 Unspecified atrial fibrillation; I25.10 Atherosclerotic heart disease of native coronary artery without angina pectoris; E11.9 Type 2 diabetes mellitus without complications; Z87.891 Personal history of nicotine dependence; Z79.84 Long term (current) use of oral hypoglycemic drugs; Z92.21 Personal history of antineoplastic chemotherapy; Z79.899 Other long term (current) drug therapy; Z79.01 Long term (current) use of anticoagulants
CPT/HCPCS: 66183; 66711; 66984; C1783; J1097; J2250; J3010; V2632

== ENCOUNTER → 2020-01-05 | Outpatient (CLI) | payer OTHER, MEDICARE ==
[~2020-01-05] MED LIST changes: -BSS IRR 500ML/OMIDRIA 4ML IRR BAG (OR ONLY) (J1097 PER ML) As Ordered ONE; -CEFUROXIME 1MG/0.1ML INTRACAMERAL INJ As Ordered ONE; -DUOVISC (0.50ML VISCOAT/0.55ML PROVISC) OPHTH KIT As Ordered ONE; -MIDAZOLAM INJ 2 MG/2 ML VIAL (J2250) As Ordered ONE; -OFLOXACIN 0.3 % (OCUFLOX) OPTH SOL 5ML OD ONE; -PHENYLEPHRINE 2.5% OPHTH SOL 2ML OD ONE; -POVIDONE-IODINE 5% OPHTH PREP SOL 30ML As Ordered ONE; -PROPARACAINE 0.5% OPHTH SOL 15ML OD ONE; -TROPICAMIDE 1% OPHTH SOLN 2ML OD ONE; -fentaNYL 100 MCG/2 ML INJECTION (J3010) As Ordered ONE
== END ==
LOC: M LABSMTC 11:48
PROVIDERS: ATTEND Anesthesiology
DX: Z03.818 Encounter for observation for suspected exposure to other biological agents ruled out (principal); Z11.59 Encounter for screening for other viral diseases
CPT/HCPCS: C9803; U0003

== ENCOUNTER 2020-01-08 08:09 | Day surgery (SDC) | payer OTHER ==
[~2020-01-08] VITALS: Ht 160 cm; Wt 79.8 kg
[~2020-01-08 08:09] MED LIST changes: +CEFUROXIME 1MG/0.1ML INTRACAMERAL INJ As Ordered ONE; +DUOVISC (0.50ML VISCOAT/0.55ML PROVISC) OPHTH KIT As Ordered ONE; +MIDAZOLAM INJ 2MG/2ML VIAL (J2250 PER 1MG) As Ordered ONE; +OFLOXACIN 0.3 % (OCUFLOX) OPTH SOL 5ML OS ONE; +PHENYLEPHRINE 2.5% OPHTH SOL 2ML OS ONE; +POVIDONE-IODINE 5% OPHTH PREP SOL 30ML As Ordered ONE; +PROPARACAINE 0.5% OPHTH SOL 15ML OS ONE; +TROPICAMIDE 1% OPHTH SOLN 2ML OS ONE; +fentaNYL 100 MCG/2 ML INJECTION (J3010) As Ordered ONE
[2020-01-08] MEDS ORDERED: BSS IRR 500ML/OMIDRIA 4ML IRR BAG (OR ONLY) (J1097 PER ML) As Ordered ONE (09:12)
[2020-01-08] MEDS ORDERED: HumaLOG INSULIN (NovoLOG) PER UNIT SC ONE (09:30)
[2020-01-08] MEDS ORDERED: ACETYLCHOLINE OPHTH SOLN 1% 2ML (MIOCHOL-E) As Ordered ONE (10:21)
[2020-01-08 11:08] VITALS: BP 132/63
--- NOTE | 2020-01-14 08:41 | RO ---
DATE OF PROCEDURE: 01/08/2020 PREOPERATIVE DIAGNOSES: 1. Visually significant age related nuclear sclerotic cataract left eye. 2. Primary open-angle glaucoma, moderate stage left eye. POSTOPERATIVE DIAGNOSES: 1. Visually significant age related nuclear sclerotic cataract left eye. 2. Primary open-angle glaucoma, moderate stage left eye. PROCEDURE PERFORMED: 1. Extracapsular cataract removal insertion of intraocular lens implant of the left eye AU00T0, 21.5 D. 2. Endoscopic cyclophotocoagulation 270 degrees, 0.25mW, continuous mode, left eye 3. Placement of Glaukos iStent inject, left eye SURGEON: Tin Hansen DO EXTRUSION DIE REPAIRER: None. ANESTHESIA: Local with monitored anesthesia care (MAC). COMPLICATIONS: None. POSTOPERATIVE CONDITION: Stable. INDICATIONS FOR SURGERY: 1. Blurred vision affecting patients activities of daily living. DESCRIPTION OF PROCEDURE: The patient was seen in the preoperative area and properly identified. The correct operative eye was identified and marked. The patient received topical anesthetic, antibiotics, and topical dilating drops. The patient was then transferred to the operating room. The correct side was re-identified, and a time-out was performed. The eye was prepped and draped in a sterile fashion. The eyelids were isolated with Tegaderm tape, and the lids were held open with an adjustable speculum. A 1.0 mm paracentesis incision was made. Intraocular preservative-free Shugarcaine was then injected into the anterior chamber. Viscoelastic was then injected into the anterior chamber through the paracentesis. Using a 2.4 mm sharp-tipped keratome, the anterior chamber was entered via a temporal clear cornea incision. A continuous curvilinear capsulorrhexis was created with Utrata forceps. Hydrodissection was performed with balanced salt solution (BSS) on a blunt cannula until the nucleus was able to rotate freely. The crystalline lens was phacoemulsified and aspirated. Irrigation/aspiration was used to remove the cortical material. Cohesive viscoelastic was placed into the capsular bag to deepen it. The implant was placed into the capsular bag and allowed to unfold. Placement was confirmed by visualizing the anterior capsulorrhexis. Additional viscoelastic was placed in the anterior chamber and ciliary sulcus. The endoscopic cyclophotocoagulation (ECP) probe was placed in the eye, and the ciliary processes were visualized. The laser was applied without difficulty, and the probe was withdrawn. Additional viscoelastic was placed in the anterior chamber and on top of the cornea. The head was untaped and rotated away. The microscope was rotated to 45 degrees. A gonioprism was placed on the cornea, and the angle was visualized. An iStent was placed into the trabecular meshwork without difficulty. A small gush of heme was noted at the iStent snorkel tip, indicating appropriate placement. A gentle tapping motion was used to seat the stent into position. The head was placed face up and the microscope to 0 degrees. Irrigation/aspiration was used to remove the viscoelastic. The clear corneal incision was hydrated with BSS on a blunt cannula. The lens was well positioned. The incisions were then tested for leaks and found to be negative. The eye was then palpated for appropriate pressure and adjusted accordingly with BSS. There was no hyphema present. The eyelid speculum was then carefully removed. A shield was placed over the eye. The patient tolerated the procedure well and was discharged to the recovery unit in a stable condition. MIQUEL
== END 2020-01-08 11:20 | disposition home or self-care (01) ==
LOC: M SDC 08:09
PROVIDERS: ATTEND Ophthalmology
DX: H25.12 Age-related nuclear cataract, left eye (principal); H40.1122 Primary open-angle glaucoma, left eye, moderate stage; I10 Essential (primary) hypertension; I48.91 Unspecified atrial fibrillation; K21.9 Gastro-esophageal reflux disease without esophagitis; F32.9 Major depressive disorder, single episode, unspecified; Z79.01 Long term (current) use of anticoagulants; Z79.899 Other long term (current) drug therapy
CPT/HCPCS: 66183; 66711; 66984; C1783; J1097; J2250; J3010; V2632

== ENCOUNTER → 2020-03-02 | Outpatient (REF) | payer OTHER ==
[~2020-03-02] MED LIST changes: -ALL10TAB29 PO; +AMLO1TAB24 PO; -AMLO5TAB6 PO; -CEFUROXIME 1MG/0.1ML INTRACAMERAL INJ As Ordered ONE; +CETI-24 PO; -DUOVISC (0.50ML VISCOAT/0.55ML PROVISC) OPHTH KIT As Ordered ONE; -MIDAZOLAM INJ 2MG/2ML VIAL (J2250 PER 1MG) As Ordered ONE; -OFLOXACIN 0.3 % (OCUFLOX) OPTH SOL 5ML OS ONE; -PHENYLEPHRINE 2.5% OPHTH SOL 2ML OS ONE; -POVIDONE-IODINE 5% OPHTH PREP SOL 30ML As Ordered ONE; -PROPARACAINE 0.5% OPHTH SOL 15ML OS ONE; -TROPICAMIDE 1% OPHTH SOLN 2ML OS ONE; -fentaNYL 100 MCG/2 ML INJECTION (J3010) As Ordered ONE
== END ==
LOC: M SFHCLUC 07:15
PROVIDERS: ATTEND Physician Assistant
DX: R30.0 Dysuria (principal)

== ENCOUNTER → 2020-03-25 | Outpatient (CLI) | payer OTHER, MEDICAID ==
--- NOTE | 2020-03-25 16:37 | REPMRS ---
Patient History The patient states she had a clinical breast exam in 2019. No known family history of cancer. Reductions of both breasts. Took hormonal contraceptives for 10 years. Took unspecified hormones for 2 years. Digital Woman Screen Mammo: March 25, 2020 - Exam #: [id number] Bilateral CC and MLO view(s) were taken. Technologist: Jamia Macdonald, Technologist Prior study comparison: September 09, 2018, bilateral digital mammo screening bilat, performed at [facility]. August 29, 2017, digital woman screen mammo performed at [facility]. June 16, 2016, bilateral digital mammo screening bilat, performed at [facility]. FINDINGS: There are scattered fibroglandular densities. The Volpara volumetric breast density category is:B. There has been no change in the appearance of the mammogram from the prior studies. There is a mild amount of scattered fibroglandular density which is fairly symmetric. There is no interval development of dominant mass, architectural distortion, or grouped microcalcification suggestive of malignancy. 3-D tomosynthesis shows no additional findings. Assessment: BI-RADS/ACR category 1 mammogram. Negative Mammogram. Recommendation Routine screening mammogram of both breasts in 1 year (for women over age 40). This patient's Lifetime Breast Cancer Risk is estimated at 1.7 %. This mammogram was interpreted with the aid of an FDA-approved computer-aided dectection system. Electronically Signed By: Aftab Romero MD 03/25/20 2032
== END ==
LOC: M WHC 13:04
PROVIDERS: ATTEND Internal Medicine
DX: Z12.31 Encounter for screening mammogram for malignant neoplasm of breast (principal)

== ENCOUNTER → 2020-04-26 | Outpatient (REF) | payer OTHER, MEDICAID | LOC: M LAB REF 16:25 | PROVIDERS: ATTEND Internal Medicine | DX: M05.79 Rheumatoid arthritis with rheumatoid factor of multiple sites without organ or systems involvement (principal) ==

== ENCOUNTER → 2020-08-17 | Outpatient (REF) | payer OTHER, MEDICAID ==
[~2020-08-17] MED LIST changes: +GABA-282 PO; -GABA-843 PO; +HYDR-3490 PO; -HYDR25TAB PO
== END ==
LOC: M LAB REF 17:08
PROVIDERS: ATTEND Internal Medicine
DX: M05.79 Rheumatoid arthritis with rheumatoid factor of multiple sites without organ or systems involvement (principal)

== ENCOUNTER → 2020-12-24 | Outpatient (REF) | payer OTHER, MEDICAID ==
[~2020-12-24] MED LIST changes: +ASPI-569 PO; -ASPI81TAEC PO; -FOLI400T PO; +FOLI400T13 PO
[2020-12-24 16:44] LABS: BASO # 0.1 10^3/uL (0.0-0.2); BASO % 0.7 % (0.0-1.0); EOS # 0.2 10^3/uL (0.0-0.5); EOS % 1.9 % (0.0-3.0); HEMATOCRIT 50.6 % (36.0-47.0); HEMOGLOBIN 16.4 g/dl (12.0-15.5); LYMPH # 3.4 10^3/uL (1.5-5.0); MEAN CORPUSCULAR HEMOGLOBIN 30.1 pg (27.0-33.0); MEAN CORPUSCULAR HGB CONC 32.4 g/dl (32.0-36.5); MEAN CORPUSCULAR VOLUME 92.8 fl (80.0-96.0); MONO # 0.7 10^3/uL (0.0-0.8); MONO % 7.3 % (2.0-8.0); NEUTROPHILS # 5.2 10^3/uL (1.5-8.5); NEUTROPHILS % 54.8 % (36.0-66.0); PLATELET COUNT, AUTOMATED 246 10^3/uL (150-450); RED BLOOD COUNT 5.45 10^6/uL (4.00-5.40); WHITE BLOOD COUNT 9.6 10^3/uL (4.0-10.0)
[2020-12-24 17:34] LABS: ERYTHROCYTE SEDIMENTATION RATE 18 mm/hr (0-30)
[2020-12-24 18:05] LABS: ALBUMIN 3.3 GM/DL (3.2-5.2); ALT/SGPT 25 U/L (12-78); BILIRUBIN,TOTAL 0.8 MG/DL (0.2-1.0); BLOOD UREA NITROGEN 20 MG/DL (7-18); CALCIUM LEVEL 9.4 MG/DL (8.8-10.2); CARBON DIOXIDE LEVEL 29 MEQ/L (21-32); CHLORIDE LEVEL 102 MEQ/L (98-107); CREATININE FOR GFR 0.91 MG/DL (0.55-1.30); GLOMERULAR FILTRATION RATE > 60.0 (>39); GLUCOSE, FASTING 131 MG/DL (70-100); POTASSIUM SERUM 4.9 MEQ/L (3.5-5.1); SODIUM LEVEL 138 MEQ/L (136-145); TOTAL PROTEIN 7.8 GM/DL (6.4-8.2)
== END ==
LOC: M SFHCRHEU 12:03
PROVIDERS: ATTEND Internal Medicine Rheumatology
DX: M05.79 Rheumatoid arthritis with rheumatoid factor of multiple sites without organ or systems involvement (principal)
CPT/HCPCS: 80053; 85025; 85652; 86140; 86480; G0463

== ENCOUNTER 2021-01-27 13:21 | Emergency (ER) | payer OTHER, MEDICAID ==
[~2021-01-27] VITALS: Ht 160 cm; Wt 79.5 kg
[2021-01-27 13:21] VITALS: BP 180/90
[2021-01-27] MEDS ORDERED: ISOVUE-370 76% 100ML VIAL As Ordered ONE (15:48)
--- NOTE | 2021-01-27 16:22 | REP ---
INDICATION: right sided abd pain. COMPARISON: Comparison CT study December 23, 2016.. TECHNIQUE: Helical scanning was acquired and 4 mm axial images are re-formatted. Coronal and sagittal MPR images were generated and reviewed. The contrast enhancement dose is 100 mL of intravenous Isovue 370. FINDINGS: Preliminary digital vise hand radiograph shows an unremarkable bowel gas pattern. There are surgical clips in right upper quadrant. On lung window settings, there is bilateral interstitial pulmonary fibrosis in the lung bases. The prior study showed evidence of bilateral pleural effusions. No pleural effusion is visible today. Cardiomegaly is again observed. There is contrast opacified blood refluxing into the intrahepatic segment of the IVC as well as the hepatic veins. This is consistent with some degree of right heart failure. The liver is borderline in size with a midclavicular vertical span of 16.7 cm. No focal hepatic or splenic lesion is observed. There are clips in the gallbladder fossa. No cyst or mass is seen in the pancreas. Kidneys enhance symmetrically. No retroperitoneal mass or adenopathy is observed. There is a minimal amount of ascites in the perihepatic region and in the pelvic reflections. This is improved from the 2017 study. Patient appears to be status post right hemicolectomy. Uterus is also surgically absent. No gastrointestinal obstructive lesion is seen. There is no evidence of free intraperitoneal air or abscess. no pelvic mass or adenopathy is seen. No abdominal wall defect is observed. Bone window settings show degenerative spondylosis changes in the lumbar spine. No bony destructive lesion. IMPRESSION: Cardiac enlargement with evidence of some degree of right heart failure. Borderline liver size. There is minimal ascites, improved from the 2017 study. The uterus, gallbladder and right colon are surgically absent. There is evidence of COPD in the lung bases with a interstitial fibrosis. No acute abdominal or pelvic abnormality seen. <Electronically signed by Aftab Romero > 01/27/21 [id number]
[2021-01-27 16:44] LABS: BASO # 0.1 10^3/uL (0.0-0.2); BASO % 0.7 % (0.0-1.0); EOS # 0.1 10^3/uL (0.0-0.5); EOS % 1.2 % (0.0-3.0); HEMATOCRIT 46.6 % (36.0-47.0); LYMPH # 2.2 10^3/uL (1.5-5.0); LYMPH % 28.5 % (24.0-44.0); MEAN CORPUSCULAR HEMOGLOBIN 29.9 pg (27.0-33.0); MEAN CORPUSCULAR HGB CONC 32.2 g/dl (32.0-36.5); MEAN CORPUSCULAR VOLUME 92.8 fl (80.0-96.0); MONO # 0.7 10^3/uL (0.0-0.8); MONO % 9.7 % (2.0-8.0); NEUTROPHILS # 4.5 10^3/uL (1.5-8.5); NEUTROPHILS % 59.6 % (36.0-66.0); PLATELET COUNT, AUTOMATED 188 10^3/uL (150-450); RED BLOOD COUNT 5.02 10^6/uL (4.00-5.40); WHITE BLOOD COUNT 7.6 10^3/uL (4.0-10.0)
[2021-01-27 17:01] LABS: ALBUMIN 2.9 GM/DL (3.2-5.2); BILIRUBIN,DIRECT 0.6 MG/DL (0.0-0.2); BILIRUBIN,TOTAL 1.1 MG/DL (0.2-1.0); TOTAL PROTEIN 7.2 GM/DL (6.4-8.2)
--- NOTE | 2021-01-28 07:15 | ED PDOC ---
Post-Departure Follow-Up ct abd/p faxed to dr armstrong for fu David Slater MD Jan 28, 2021 07:15
== END 2021-01-27 17:34 | disposition home or self-care (01) ==
LOC: M ED 13:21
DX: S39.011A Strain of muscle, fascia and tendon of abdomen, initial encounter (principal); X50.0XXA Overexertion from strenuous movement or load, initial encounter; Y92.89 Other specified places as the place of occurrence of the external cause; Y93.89 Activity, other specified; Y99.8 Other external cause status; I11.9 Hypertensive heart disease without heart failure; I48.91 Unspecified atrial fibrillation; Z79.899 Other long term (current) drug therapy; Z87.440 Personal history of urinary (tract) infections; Z98.890 Other specified postprocedural states; Z87.891 Personal history of nicotine dependence; Z90.49 Acquired absence of other specified parts of digestive tract
CPT/HCPCS: 36415; 74177; 80047; 80076; 81001; 83690; 85025; 99283; Q9967

== ENCOUNTER 2021-03-10 14:56 | Emergency (ER) | payer OTHER, MEDICAID ==
[~2021-03-10] VITALS: Ht 160 cm; Wt 80.5 kg
[2021-03-10] MEDS ORDERED: VITA250T4 PO (15:22)
[2021-03-10] MEDS ORDERED: OREN1INJ SC (15:22)
[2021-03-10] MEDS ORDERED: METF-838 (15:22)
[2021-03-10] MEDS ORDERED: Vitamin D3 (15:22)
[2021-03-10] MEDS ORDERED: LOSA50TA5 (15:22)
[2021-03-10] MEDS ORDERED: BUPR100T3 (15:22)
[2021-03-10] MEDS ORDERED: METH25TA3 (15:22)
[2021-03-10] MEDS ORDERED: VITA400C67 PO (15:22)
[2021-03-10 16:10] LABS: BASO # 0.1 10^3/uL (0.0-0.2); BASO % 0.7 % (0.0-1.0); EOS % 0.4 % (0.0-3.0); HEMATOCRIT 43.4 % (36.0-47.0); HEMOGLOBIN 14.1 g/dl (12.0-15.5); LYMPH # 1.3 10^3/uL (1.5-5.0); LYMPH % 18.5 % (24.0-44.0); MEAN CORPUSCULAR HEMOGLOBIN 29.1 pg (27.0-33.0); MEAN CORPUSCULAR HGB CONC 32.5 g/dl (32.0-36.5); MEAN CORPUSCULAR VOLUME 89.5 fl (80.0-96.0); MONO # 0.5 10^3/uL (0.0-0.8); MONO % 6.5 % (2.0-8.0); NEUTROPHILS # 5.1 10^3/uL (1.5-8.5); NEUTROPHILS % 73.6 % (36.0-66.0); PLATELET COUNT, AUTOMATED 274 10^3/uL (150-450); RED BLOOD COUNT 4.85 10^6/uL (4.00-5.40); WHITE BLOOD COUNT 6.9 10^3/uL (4.0-10.0)
[2021-03-10 16:31] LABS: CK-MB VALUE MASS < 1.0 NG/ML (<3.6); CPK CREATINE PHOSPHOKINASE 22 U/L (26-192); MB/CK RELATIVE INDEX 4.55 (< OR =4); TROPONIN I < 0.02 NG/ML (< 0.10)
[2021-03-10] MEDS ORDERED: METOPROLOL TART 50 MG TAB PO ONE ×2 (17:05→20:30)
[2021-03-10 17:40] LABS: FREE THYROXINE INDEX 4.5 % (1.3-4.8); T UPTAKE 35 % (30-39); THYROXINE (T4) 12.8 UG/DL (4.5-12.0)
--- NOTE | 2021-03-10 17:54 | REP ---
INDICATION: afib. COMPARISON: PA and lateral chest dated 01/06/2018. TECHNIQUE: AP portable chest with the patient sitting. FINDINGS: There is mild diffuse interstitial coarsening as an interval change. There is mild cardiomegaly as an interval change. There are no focal infiltrates. There are no pleural effusions. IMPRESSION: Mild diffuse interstitial coarsening accompanied by mild cardiomegaly as interval changes. <Electronically signed by Warren Keenan > 03/10/21 [id number]
[2021-03-10] MEDS: METOPROLOL 5 MG/5 ML VIAL IV SCH ×9 (19:03→21:27)
--- NOTE | 2021-03-10 21:06 | ECGEPIP ---
[facility] - ED Test Date: 2021-03-10 Pat Name: MAEGAN FULLER Department: Room: - Gender: Female Ripsaw Operator: KACIE : 1940 Requested By: Fatimah Zaman Order Number: [id number] Reading MD: Jose Manuel Snyder Measurements Intervals [place] Rate: 128 P: [place]: QRS: 8 QRSD: 78 T: 152 QT: 320 QTc: 467 Interpretive Statements atrial fibrillation with rvr ST & T wave abnormality, consider lateral ischemia Similar to tracing done 12-24-16 Electronically Signed on 03-10-2021 21:06:25 EDT by Jose Manuel Snyder
[2021-03-10 22:05] VITALS: BP 127/89
[2021-03-10 23:00] VITALS: BP 115/73
[2021-03-10] MEDS ORDERED: METO100T5 PO (23:13)
--- NOTE | 2021-03-11 07:55 | ECGEPIP ---
[facility] - ED Test Date: 2021-03-10 Pat Name: MAEGAN FULLER Department: Room: - Gender: Female Operations Coordinator: : 1940 Requested By: PHYLLIS Davalos Order Number: [id number] Reading MD: Lawrence Weaver Measurements Intervals [place] Rate: 74 P: [place]: QRS: 9 QRSD: 82 T: 80 QT: 400 QTc: 444 Interpretive Statements Atrial fibrillation NSTTW ABNORMALITY(S) RATE CHANGE COMPARED TO PRIOR ON SAME DATE Electronically Signed on 03-11-2021 7:55:14 EDT by Lawrence Weaver
== END 2021-03-10 23:30 | disposition home or self-care (01) ==
LOC: M ED 14:56
DX: I48.91 Unspecified atrial fibrillation (principal); E11.9 Type 2 diabetes mellitus without complications; I10 Essential (primary) hypertension; M06.9 Rheumatoid arthritis, unspecified; Z87.891 Personal history of nicotine dependence; Z79.899 Other long term (current) drug therapy; Z79.01 Long term (current) use of anticoagulants; Z79.84 Long term (current) use of oral hypoglycemic drugs

== ENCOUNTER → 2021-04-27 | Outpatient (REF) | payer OTHER, MEDICAID ==
[~2021-04-27] MED LIST changes: +BUPR100T3; +LOSA50TA5; +METF-838; +METH25TA3; +OREN1INJ SC; +VITA250T4 PO; +VITA400C67 PO; +Vitamin D3
== END ==
LOC: M LAB REF 16:27
PROVIDERS: ATTEND Internal Medicine
DX: I48.0 Paroxysmal atrial fibrillation (principal)

== ENCOUNTER → 2021-08-30 | Outpatient (REF) | payer OTHER, MEDICAID ==
[~2021-08-30] MED LIST changes: +LOSA25TA13 PO; -LOSA25TA14 PO; +METH25TA10; +METH25TA10 PO; -METH25TA3; -METH25TA3 PO
== END ==
LOC: M LAB REF 16:31
PROVIDERS: ATTEND Internal Medicine
DX: M05.79 Rheumatoid arthritis with rheumatoid factor of multiple sites without organ or systems involvement (principal); R41.3 Other amnesia

== ENCOUNTER → 2022-02-24 | Outpatient (REF) | payer OTHER, MEDICAID ==
[~2022-02-24] MED LIST changes: +BUPR-70; -BUPR100T3
[2022-02-24 17:12] LABS: ALBUMIN 3.3 GM/DL (3.2-5.2); BILIRUBIN,TOTAL 1.2 MG/DL (0.2-1.0); C REACTIVE PROTEIN QUANTITATIV 0.3 MG/DL (0.00-0.30); CALCIUM LEVEL 9.8 MG/DL (8.8-10.2); CREATININE FOR GFR 0.96 MG/DL (0.55-1.30); GLOMERULAR FILTRATION RATE 59.7 (>39); POTASSIUM SERUM 5.1 MEQ/L (3.5-5.1); TOTAL PROTEIN 8.5 GM/DL (6.4-8.2)
[2022-02-24 17:24] LABS: BASO # 0.1 10^3/uL (0.0-0.2); BASO % 0.7 % (0.0-1.0); EOS # 0.2 10^3/uL (0.0-0.5); EOS % 2.5 % (0.0-3.0); HEMATOCRIT 44.9 % (36.0-47.0); HEMOGLOBIN 14.7 g/dl (12.0-15.5); LYMPH # 1.7 10^3/uL (1.5-5.0); LYMPH % 24.4 % (24.0-44.0); MEAN CORPUSCULAR HEMOGLOBIN 31.6 pg (27.0-33.0); MEAN CORPUSCULAR HGB CONC 32.7 g/dl (32.0-36.5); MEAN CORPUSCULAR VOLUME 96.6 fl (80.0-96.0); MONO # 0.7 10^3/uL (0.0-0.8); MONO % 10.5 % (2.0-8.0); NEUTROPHILS # 4.4 10^3/uL (1.5-8.5); NEUTROPHILS % 61.5 % (36.0-66.0); PLATELET COUNT, AUTOMATED 201 10^3/uL (150-450); RED BLOOD COUNT 4.65 10^6/uL (4.00-5.40); WHITE BLOOD COUNT 7.1 10^3/uL (4.0-10.0)
[2022-02-24 18:29] LABS: ERYTHROCYTE SEDIMENTATION RATE 60 mm/hr (0-30)
== END ==
LOC: M SFHCRHEU 14:57
PROVIDERS: ATTEND Internal Medicine Rheumatology
DX: M05.79 Rheumatoid arthritis with rheumatoid factor of multiple sites without organ or systems involvement (principal); J84.9 Interstitial pulmonary disease, unspecified; Z79.899 Other long term (current) drug therapy

== ENCOUNTER → 2022-05-15 | Outpatient (REF) | payer OTHER, MEDICAID | LOC: M LAB REF 16:40 | PROVIDERS: ATTEND Internal Medicine | DX: I48.21 Permanent atrial fibrillation (principal) ==

== ENCOUNTER → 2022-06-07 | Outpatient (REF) | payer OTHER, MEDICAID ==
[2022-06-07 18:14] LABS: BASO # 0.1 10^3/uL (0.0-0.2); BASO % 0.8 % (0.0-1.0); EOS # 0.3 10^3/uL (0.0-0.5); EOS % 5.3 % (0.0-3.0); HEMATOCRIT 44.2 % (36.0-47.0); LYMPH # 1.5 10^3/uL (1.5-5.0); MEAN CORPUSCULAR HEMOGLOBIN 33.9 pg (27.0-33.0); MEAN CORPUSCULAR HGB CONC 33.9 g/dl (32.0-36.5); MEAN CORPUSCULAR VOLUME 99.8 fl (80.0-96.0); MONO # 0.7 10^3/uL (0.0-0.8); MONO % 10.2 % (2.0-8.0); NEUTROPHILS # 3.9 10^3/uL (1.5-8.5); NEUTROPHILS % 60.5 % (36.0-66.0); PLATELET COUNT, AUTOMATED 187 10^3/uL (150-450); RED BLOOD COUNT 4.43 10^6/uL (4.00-5.40); WHITE BLOOD COUNT 6.4 10^3/uL (4.0-10.0)
[2022-06-07 18:41] LABS: ERYTHROCYTE SEDIMENTATION RATE 36 mm/hr (0-30)
[2022-06-07 18:54] LABS: ALBUMIN 3.5 GM/DL (3.2-5.2); ALT/SGPT 25 U/L (12-78); BILIRUBIN,TOTAL 0.9 MG/DL (0.2-1.0); BLOOD UREA NITROGEN 20 MG/DL (7-18); CALCIUM LEVEL 9.3 MG/DL (8.8-10.2); CARBON DIOXIDE LEVEL 31 MEQ/L (21-32); CHLORIDE LEVEL 96 MEQ/L (98-107); CREATININE FOR GFR 0.76 MG/DL (0.55-1.30); GLOMERULAR FILTRATION RATE > 60.0 (>32); GLUCOSE, FASTING 153 MG/DL (70-100); POTASSIUM SERUM 4.7 MEQ/L (3.5-5.1); SODIUM LEVEL 136 MEQ/L (136-145); TOTAL PROTEIN 8.4 GM/DL (6.4-8.2)
== END ==
LOC: M SFHCRHEU 15:05
PROVIDERS: ATTEND Internal Medicine Rheumatology
DX: M05.79 Rheumatoid arthritis with rheumatoid factor of multiple sites without organ or systems involvement (principal); J84.9 Interstitial pulmonary disease, unspecified; Z79.899 Other long term (current) drug therapy

== ENCOUNTER → 2022-08-15 | Outpatient (REF) | payer OTHER, MEDICAID | LOC: M LAB REF 16:34 | PROVIDERS: ATTEND Internal Medicine | DX: I48.21 Permanent atrial fibrillation (principal) ==

== ENCOUNTER → 2023-01-01 | Outpatient (REF) | payer OTHER, MEDICAID | LOC: M LAB REF 16:57 | PROVIDERS: ATTEND Physician Assistant Medical | DX: I48.0 Paroxysmal atrial fibrillation (principal) ==

== ENCOUNTER 2023-11-14 11:38 | Inpatient (IN) | payer OTHER, MEDICAID ==
[~2023-11-14] VITALS: Ht 160 cm; Wt 75.0 kg
[~2023-11-14 11:38] MED LIST changes: -EFFE37.5 PO; +EFFE37.52 PO; -METF-838; +METF-838 PO; -OXYB5TAB10 PO; +OXYB5TAB14 PO
[2023-11-14 12:30] LABS: BASO # 0.1 10^3/uL (0.0-0.2); BASO % 0.6 % (0.0-1.0); EOS % 0.3 % (0.0-3.0); HEMATOCRIT 42.9 % (36.0-47.0); HEMOGLOBIN 14.6 g/dl (12.0-15.5); LYMPH # 0.8 10^3/uL (1.5-5.0); LYMPH % 8.4 % (24.0-44.0); MEAN CORPUSCULAR HEMOGLOBIN 33.3 pg (27.0-33.0); MEAN CORPUSCULAR VOLUME 97.7 fl (80.0-96.0); MONO # 0.5 10^3/uL (0.0-0.8); MONO % 5.7 % (2.0-8.0); NEUTROPHILS # 7.7 10^3/uL (1.5-8.5); NEUTROPHILS % 84.6 % (36.0-66.0); PLATELET COUNT, AUTOMATED 131 10^3/uL (150-450); RED BLOOD COUNT 4.39 10^6/uL (4.00-5.40); WHITE BLOOD COUNT 9.1 10^3/uL (4.0-10.0)
[2023-11-14 12:53] LABS: ALBUMIN 3.1 G/DL (3.2-5.2); ALKALINE PHOSPHATASE 64 U/L (46-116); ALT/SGPT 19 U/L (7.0-40); AST/SGOT 18 U/L (<34); BILIRUBIN,TOTAL 2.1 MG/DL (0.3-1.2); BLOOD UREA NITROGEN 17 MG/DL (9-23); CALCIUM LEVEL 8.9 MG/DL (8.3-10.6); CARBON DIOXIDE LEVEL 29 MMOL/L (20-31); CHLORIDE LEVEL 98 MMOL/L (98-107); CK-MB VALUE MASS < 1.0 NG/ML (<3.6); CPK CREATINE PHOSPHOKINASE 17 U/L (34-145); GLOMERULAR FILTRATION RATE > 60.0 (>32); GLUCOSE, FASTING 162 MG/DL (74-106); MB/CK RELATIVE INDEX 5.88 (< OR =4); POTASSIUM SERUM 4.1 MMOL/L (3.5-5.1); SODIUM LEVEL 132 MMOL/L (136-145); TOTAL PROTEIN 6.7 G/DL (5.7-8.2)
[2023-11-14 12:54] LABS: THYROID STIMULATING HORMONE 0.884 uIU/ML (0.55-4.78)
[2023-11-14] MEDS: ACETAMINOPHEN 500 MG TAB PO ONE (13:14)
[2023-11-14] MEDS: cefTRIAXone SOD 1 GM in D5W MINI-BAG PLUS 50 ML IV ONE (15:33)
[2023-11-14] MEDS ORDERED: GLUCAGON INJ 1MG VIAL SC PRN (16:35)
[2023-11-14] MEDS ORDERED: DEXTROSE 50% 50ML SYRINGE IV PRN (16:35)
[2023-11-14] MEDS ORDERED: MAALOX 30 ML SUSP *UDC PO PRN (16:35)
[2023-11-14] MEDS ORDERED: MOM 30ML SUSPENSION UDC PO PRN (16:35)
[2023-11-14] MEDS ORDERED: GLUCOSE 4 GM CHEW PO PRN (16:35)
[2023-11-14] MEDS: INSULIN LISPRO (NovoLOG) PER UNIT SC SCH ×2 (17:30→21:09)
[2023-11-14] MEDS ORDERED: D 101000 PO (17:33)
[2023-11-14] MEDS ORDERED: TORS10TA3 PO (17:33)
[2023-11-14] MEDS ORDERED: GLIP10TA18 PO (17:33)
[2023-11-14] MEDS ORDERED: OMEP-173 PO (17:33)
[2023-11-14] MEDS ORDERED: MAGN400T2 PO (17:33)
[2023-11-14] MEDS ORDERED: DIGO0.123 PO (17:34)
[2023-11-14] MEDS ORDERED: HOME MED LIST COMPLETE! XX SCH (17:40)
[2023-11-14] MEDS: NS 1,000 ML IV SCH (18:03)
[2023-11-14 18:24] LABS: THYROID STIMULATING HORMONE 1.041 uIU/ML (0.55-4.78)
[2023-11-14 18:25] LABS: FREE T4 1.53 NG/DL (0.89-1.76)
[2023-11-14 18:27] LABS: CHOLESTEROL RISK RATIO 4.26 (<5); HDL CHOLESTEROL 23.7 MG/DL (>40); LDL CHOLESTEROL 57.5 MG/DL (<100); NON-HDL-C 77.3 MG/DL
[2023-11-14 18:30] LABS: FOLATE 16.34 NG/ML (>5.4)
[2023-11-14 18:32] LABS: PROCALCITONIN 0.21 ng/ml
[2023-11-14 18:38] LABS: HEMOGLOBIN A1c 6.4 % (4.0-6.0)
[2023-11-14 20:05] LABS: DIGOXIN LEVEL 0.5 NG/ML (0.8-2.0)
[2023-11-14] MEDS: APIXABAN 5 MG TAB (ELIQUIS) PO SCH (21:08)
[2023-11-14] MEDS: MAGNESIUM OXIDE 400MG TAB (MAG-OX) PO SCH (21:08)
[2023-11-14] MEDS: ATORVASTATIN 20 MG TAB PO SCH (21:08)
[2023-11-14] MEDS: DULoxetine 30MG CAPSULE (CYMBALTA) PO SCH (21:08)
[2023-11-14] MEDS: DOCUSATE SODIUM 100MG CAPSULE PO SCH (21:10)
[2023-11-14] MEDS: DIGOXIN 0.125 MG TAB PO SCH (21:11)
[2023-11-14 21:45] VITALS: BP 140/64; TEMP 98.1; O2SAT 99
[2023-11-14] MEDS: ACETAMINOPHEN TAB 650MG DOSE (2X325MG) PO PRN (22:22)
[2023-11-14 23:29] VITALS: BP 128/61; TEMP 98.3; O2SAT 99
[2023-11-15 03:38] VITALS: BP 104/56; TEMP 97.5; O2SAT 98
[2023-11-15 06:09] LABS: BASO % 0.3 % (0.0-1.0); EOS # 0.1 10^3/uL (0.0-0.5); EOS % 0.6 % (0.0-3.0); HEMATOCRIT 39.4 % (36.0-47.0); HEMOGLOBIN 13.3 g/dl (12.0-15.5); LYMPH # 0.6 10^3/uL (1.5-5.0); LYMPH % 7.3 % (24.0-44.0); MEAN CORPUSCULAR HEMOGLOBIN 33.2 pg (27.0-33.0); MEAN CORPUSCULAR HGB CONC 33.8 g/dl (32.0-36.5); MEAN CORPUSCULAR VOLUME 98.3 fl (80.0-96.0); MONO # 0.5 10^3/uL (0.0-0.8); MONO % 5.3 % (2.0-8.0); NEUTROPHILS # 7.4 10^3/uL (1.5-8.5); NEUTROPHILS % 85.5 % (36.0-66.0); PLATELET COUNT, AUTOMATED 134 10^3/uL (150-450); RED BLOOD COUNT 4.01 10^6/uL (4.00-5.40); WHITE BLOOD COUNT 8.7 10^3/uL (4.0-10.0)
[2023-11-15 06:38] LABS: BLOOD UREA NITROGEN 13 MG/DL (9-23); CARBON DIOXIDE LEVEL 26 MMOL/L (20-31); CHLORIDE LEVEL 102 MMOL/L (98-107); CREATININE FOR GFR 0.51 MG/DL (0.55-1.30); GLOMERULAR FILTRATION RATE > 60.0 (>32); GLUCOSE, FASTING 169 MG/DL (74-106); MAGNESIUM LEVEL 1.7 MG/DL (1.8-2.4); POTASSIUM SERUM 4.5 MMOL/L (3.5-5.1); SODIUM LEVEL 135 MMOL/L (136-145)
[2023-11-15 07:40] VITALS: BP 121/58; TEMP 98.9; O2SAT 97
[2023-11-15] MEDS: MAG SULF 1GM/100ML (MAG RUN) 1 GM in IV 1 EA IV SCH (09:01)
[2023-11-15] MEDS: VITAMIN D 1,000 INTERNATIONAL UNITS TABLET PO SCH (09:02)
[2023-11-15] MEDS: ASCORBIC ACID 250 MG TAB PO SCH (09:02)
[2023-11-15] MEDS: OMEPRAZOLE 20MG CAP PO SCH (09:02)
[2023-11-15] MEDS: FOLIC ACID 1MG TAB PO SCH (09:03)
[2023-11-15] MEDS: METOPROLOL TARTRATE 100MG TAB PO SCH (09:03)
[2023-11-15 11:53] VITALS: BP 110/50; TEMP 98.1; O2SAT 92
[2023-11-15] MEDS: cefTRIAXone SOD 1 GM in D5W MINI-BAG PLUS 50 ML IV SCH (16:07)
[2023-11-15 17:01] VITALS: BP 110/62; TEMP 99.3; O2SAT 93
[2023-11-15 19:40] VITALS: BP 116/60; TEMP 98.2; O2SAT 95
[2023-11-16] VITALS (13 sets, daily range): BP systolic 72–124; BP diastolic 48–58; TEMP 98.3–102.2; O2SAT 91–97
[2023-11-16 07:13] LABS: HEMATOCRIT 37.1 % (36.0-47.0); HEMOGLOBIN 12.6 g/dl (12.0-15.5); MEAN CORPUSCULAR HEMOGLOBIN 33.3 pg (27.0-33.0); MEAN CORPUSCULAR VOLUME 98.1 fl (80.0-96.0); PLATELET COUNT, AUTOMATED 142 10^3/uL (150-450); RED BLOOD COUNT 3.78 10^6/uL (4.00-5.40); WHITE BLOOD COUNT 5.9 10^3/uL (4.0-10.0)
[2023-11-16 07:37] LABS: BLOOD UREA NITROGEN 19 MG/DL (9-23); CALCIUM LEVEL 8.3 MG/DL (8.3-10.6); CARBON DIOXIDE LEVEL 24 MMOL/L (20-31); CHLORIDE LEVEL 98 MMOL/L (98-107); CREATININE FOR GFR 0.72 MG/DL (0.55-1.30); GLOMERULAR FILTRATION RATE > 60.0 (>32); GLUCOSE, FASTING 180 MG/DL (74-106); MAGNESIUM LEVEL 2.1 MG/DL (1.8-2.4); POTASSIUM SERUM 3.8 MMOL/L (3.5-5.1); SODIUM LEVEL 128 MMOL/L (136-145)
[2023-11-16] MEDS: NS 1,000 ML IV ONE ×3 (08:36→10:10)
[2023-11-16 08:53] LABS: ATYPICAL LYMPH 4 % (0-5); LYMPHOCYTES 4 % (16-44); METAMYELOCYTES 1 % (0-0); MONOCYTES 6 % (0-5); NEUTROPHILS 68 % (28-66)
[2023-11-16 08:54] LABS: PLATELET ESTIMATE NORMAL (NORMAL)
[2023-11-16] MEDS ORDERED: VANCOMYCIN HCL 1,000 MG, VIAL MATE ADAPTER 1 EACH in D5W 250 ML IV SCH (09:40)
[2023-11-16] MEDS ORDERED: PIPERACILLIN/TAZOBACTAM SOD 3.375 GM in D5W MINI-BAG PLUS 50 ML IV SCH (09:40)
[2023-11-16 09:41] LABS: C REACTIVE PROTEIN QUANTITATIV 16.6 MG/DL (<1.0)
[2023-11-16 09:42] LABS: BLOOD UREA NITROGEN 19 MG/DL (9-23); CARBON DIOXIDE LEVEL 25 MMOL/L (20-31); CHLORIDE LEVEL 101 MMOL/L (98-107); CREATININE FOR GFR 0.73 MG/DL (0.55-1.30); GLOMERULAR FILTRATION RATE > 60.0 (>32); GLUCOSE, FASTING 168 MG/DL (74-106); POTASSIUM SERUM 4.3 MMOL/L (3.5-5.1); SODIUM LEVEL 127 MMOL/L (136-145)
[2023-11-16] MEDS ORDERED: ISOVUE-370 76% 100ML VIAL As Ordered ONE (09:52)
[2023-11-16 10:34] LABS: PROCALCITONIN 0.98 ng/ml
[2023-11-16 10:45] LABS: VENOUS BASE EXCESS -6.8 (-2.0-2.0); VENOUS HCO3 20.5 MMOL/L (23.0-27.0); VENOUS O2 SATURATION 80.5 % (60.0-80.0); VENOUS PARTIAL PRESSURE CO2 47.9 mmHg (38.0-50.0); VENOUS PARTIAL PRESSURE O2 46.2 mmHg (30.0-50.0); VENOUS PH 7.249 UNITS (7.330-7.430); VENOUS STANDARD HCO3 18.6 MMOL/L
[2023-11-16] MEDS: PIPERACILLIN/TAZOBACTAM SOD 4.5 GM in D5W MINI-BAG PLUS 50 ML IV SCH (10:47)
[2023-11-16 11:33] LABS: DIGOXIN LEVEL 0.9 NG/ML (0.8-2.0)
[2023-11-16 11:40] LABS: BILIRUBIN,DIRECT 1.4 MG/DL (<0.4); TOTAL PROTEIN 5.3 G/DL (5.7-8.2)
[2023-11-16] MEDS: NS 1,000 ML IV SCH (11:57)
[2023-11-16] MEDS: VANCOMYCIN HCL 750 MG, VIAL MATE ADAPTER 1 EACH in D5W 250 ML IV ONE (14:09)
[2023-11-16] MEDS: BISACODYL 10MG SUPP PR ONE (14:09)
[2023-11-16 15:04] LABS: HEPATITIS B CORE ANTIBODY IGM NEGATIVE (NEGATIVE); HEPATITIS C VIRUS ABY INDEX 0.22 INDEX (<0.8)
[2023-11-16] MEDS: VANCOMYCIN HCL 500 MG in D5W MINI-BAG PLUS 100 ML IV ONE (15:18)
[2023-11-16 17:49] LABS: BLOOD UREA NITROGEN 17 MG/DL (9-23); CALCIUM LEVEL 7.7 MG/DL (8.3-10.6); CARBON DIOXIDE LEVEL 22 MMOL/L (20-31); CHLORIDE LEVEL 99 MMOL/L (98-107); CREATININE FOR GFR 0.66 MG/DL (0.55-1.30); GLOMERULAR FILTRATION RATE > 60.0 (>32); GLUCOSE, FASTING 232 MG/DL (74-106); POTASSIUM SERUM 4.4 MMOL/L (3.5-5.1); SODIUM LEVEL 127 MMOL/L (136-145)
[2023-11-16] MEDS: ACETAMINOPHEN *IV* 500 MG in IV 1 EA IV ONE (19:13)
[2023-11-16] MEDS: IBUPROFEN 800 MG TAB PO ONE (19:13)
[2023-11-16] MEDS: VANCOMYCIN HCL 750 MG, VIAL MATE ADAPTER 1 EACH in D5W 250 ML IV SCH (23:55)
[2023-11-17] VITALS (43 sets, daily range): BP systolic 58–159; BP diastolic 40–72; TEMP 97.2–98.5; O2SAT 92–99
[2023-11-17] MEDS: NS 500 ML IV ONE (03:25)
[2023-11-17] MEDS: NS 1,000 ML IV ONE (03:59)
[2023-11-17] MEDS: HYDROCORTISONE 100MG/2ML VIAL IV ONE (03:59)
[2023-11-17] MEDS: NOREPINEPHRINE 4MG IN D5 250ML 4 MG in IV 1 EA IV SCH (05:06)
[2023-11-17 05:59] LABS: HEMATOCRIT 42.6 % (36.0-47.0); HEMOGLOBIN 14.2 g/dl (12.0-15.5); MEAN CORPUSCULAR HEMOGLOBIN 33.3 pg (27.0-33.0); MEAN CORPUSCULAR HGB CONC 33.3 g/dl (32.0-36.5); MEAN CORPUSCULAR VOLUME 99.8 fl (80.0-96.0); PLATELET COUNT, AUTOMATED 126 10^3/uL (150-450); RED BLOOD COUNT 4.27 10^6/uL (4.00-5.40)
[2023-11-17 06:24] LABS: ALBUMIN 1.8 G/DL (3.2-5.2); ALKALINE PHOSPHATASE 79 U/L (46-116); ALT/SGPT 48 U/L (7.0-40); AST/SGOT 39 U/L (<34); BILIRUBIN,DIRECT 1.2 MG/DL (<0.4); BILIRUBIN,TOTAL 1.6 MG/DL (0.3-1.2); BLOOD UREA NITROGEN 20 MG/DL (9-23); CALCIUM LEVEL 7.4 MG/DL (8.3-10.6); CARBON DIOXIDE LEVEL 17 MMOL/L (20-31); CHLORIDE LEVEL 100 MMOL/L (98-107); CREATININE FOR GFR 0.88 MG/DL (0.55-1.30); GLOMERULAR FILTRATION RATE > 60.0 (>32); GLUCOSE, FASTING 101 MG/DL (74-106); MAGNESIUM LEVEL 1.7 MG/DL (1.8-2.4); POTASSIUM SERUM 3.4 MMOL/L (3.5-5.1); SODIUM LEVEL 129 MMOL/L (136-145)
[2023-11-17 06:50] LABS: ATYPICAL LYMPH 2 % (0-5); EOSINOPHILS 4 % (0-3); LYMPHOCYTES 24 % (16-44); METAMYELOCYTES 1 % (0-0); MONOCYTES 6 % (0-5); NEUTROPHILS 43 % (28-66); PLASMA CELL 2 % (0-0)
[2023-11-17 06:51] LABS: PLATELET CLUMPS SMALL AMT; PLATELET ESTIMATE DECREASED (NORMAL)
[2023-11-17 06:52] LABS: POLYCHROMASIA 1+
[2023-11-17 06:55] LABS: TOXIC VACUOLATION 1+
[2023-11-17] MEDS: MAG SULF 1GM/100ML (MAG RUN) 1 GM in IV 1 EA IV ONE (07:39)
[2023-11-17] MEDS ORDERED: METHOTREXATE 2.5MG TAB PO SCH (09:00)
[2023-11-17] MEDS: KCL 10MEQ/100ML SWI (KRUN) 10 MEQ in IV 1 EA IV ONE (09:17)
[2023-11-17] MEDS: MIDODRINE 5 MG TAB PO SCH (12:14)
[2023-11-18] VITALS (8 sets, daily range): BP systolic 106–144; BP diastolic 51–79; TEMP 97–98.5; O2SAT 95–99
[2023-11-18 04:34] LABS: HEMATOCRIT 35.4 % (36.0-47.0); HEMOGLOBIN 11.9 g/dl (12.0-15.5); MEAN CORPUSCULAR HEMOGLOBIN 32.2 pg (27.0-33.0); MEAN CORPUSCULAR HGB CONC 33.6 g/dl (32.0-36.5); MEAN CORPUSCULAR VOLUME 95.7 fl (80.0-96.0); PLATELET COUNT, AUTOMATED 149 10^3/uL (150-450); WHITE BLOOD COUNT 3.3 10^3/uL (4.0-10.0)
[2023-11-18 04:57] LABS: C REACTIVE PROTEIN QUANTITATIV 20.3 MG/DL (<1.0)
[2023-11-18 04:58] LABS: ALBUMIN 1.5 G/DL (3.2-5.2); BILIRUBIN,DIRECT 0.6 MG/DL (<0.4); BILIRUBIN,TOTAL 0.9 MG/DL (0.3-1.2); CREATININE FOR GFR 1.04 MG/DL (0.55-1.30); GLOMERULAR FILTRATION RATE 54.1 (>32); MAGNESIUM LEVEL 2.1 MG/DL (1.8-2.4); TOTAL PROTEIN 4.8 G/DL (5.7-8.2)
[2023-11-18 05:11] LABS: ATYPICAL LYMPH 4 % (0-5); BASOPHILS 1 % (0-1); EOSINOPHILS 6 % (0-3); LYMPHOCYTES 25 % (16-44); MONOCYTES 7 % (0-5); NEUTROPHILS 56 % (28-66); PLATELET ESTIMATE NORMAL (NORMAL)
[2023-11-18] MEDS: METOPROLOL TART 12.5 MG PER 1/2 TAB PO SCH (08:39)
[2023-11-18] MEDS: NS 1,000 ML IV SCH (08:41)
[2023-11-18] MEDS: PIPERACILLIN/TAZOBACTAM SOD 3.375 GM in D5W MINI-BAG PLUS 50 ML IV SCH (16:50)
[2023-11-18 19:08] LABS: VITAMIN B1 LEVEL WHOLE BLOOD 133.4 nmol/L (66.5-200.0)
[2023-11-18] MEDS: METOPROLOL TART 25 MG TABLET PO SCH (22:02)
[2023-11-19] VITALS (7 sets, daily range): BP systolic 122–144; BP diastolic 58–92; TEMP 96.5–98.4; O2SAT 94–100
[2023-11-19] MEDS: COLCHICINE 0.6 MG TABLET PO ONE ×2 (01:20→04:27)
[2023-11-19] MEDS: KETOROLAC 30 MG/ML 1ML VIAL IV ONE (04:29)
[2023-11-19 05:58] LABS: BASO % 0.5 % (0.0-1.0); EOS # 0.2 10^3/uL (0.0-0.5); EOS % 2.4 % (0.0-3.0); HEMATOCRIT 35.4 % (36.0-47.0); HEMOGLOBIN 12.1 g/dl (12.0-15.5); LYMPH % 15.9 % (24.0-44.0); MEAN CORPUSCULAR HEMOGLOBIN 33.2 pg (27.0-33.0); MEAN CORPUSCULAR HGB CONC 34.2 g/dl (32.0-36.5); MONO # 0.4 10^3/uL (0.0-0.8); MONO % 6.9 % (2.0-8.0); NEUTROPHILS # 3.9 10^3/uL (1.5-8.5); NEUTROPHILS % 61.1 % (36.0-66.0); PLATELET COUNT, AUTOMATED 179 10^3/uL (150-450); RED BLOOD COUNT 3.65 10^6/uL (4.00-5.40); WHITE BLOOD COUNT 6.3 10^3/uL (4.0-10.0)
[2023-11-19 06:25] LABS: ALBUMIN 1.7 G/DL (3.2-5.2); ALKALINE PHOSPHATASE 75 U/L (46-116); ALT/SGPT 28 U/L (7.0-40); AST/SGOT 23 U/L (<34); BILIRUBIN,DIRECT 0.5 MG/DL (<0.4); BILIRUBIN,TOTAL 0.7 MG/DL (0.3-1.2); BLOOD UREA NITROGEN 20 MG/DL (9-23); CALCIUM LEVEL 7.8 MG/DL (8.3-10.6); CARBON DIOXIDE LEVEL 22 MMOL/L (20-31); CHLORIDE LEVEL 102 MMOL/L (98-107); CREATININE FOR GFR 0.75 MG/DL (0.55-1.30); GLOMERULAR FILTRATION RATE > 60.0 (>32); GLUCOSE, FASTING 138 MG/DL (74-106); MAGNESIUM LEVEL 1.9 MG/DL (1.8-2.4); POTASSIUM SERUM 4.1 MMOL/L (3.5-5.1); SODIUM LEVEL 132 MMOL/L (136-145); TOTAL PROTEIN 5.2 G/DL (5.7-8.2)
[2023-11-19] MEDS ORDERED: MIDODRINE 5 MG TAB PO SCH (08:00)
[2023-11-19 08:53] LABS: DIGOXIN LEVEL 0.8 NG/ML (0.8-2.0)
[2023-11-19] MEDS: COLCHICINE 0.6 MG TABLET PO SCH (11:39)
[2023-11-19] MEDS: OLANZapine INTRAMUSCULAR 10MG VIAL IM PRN (15:26)
[2023-11-20 03:43] VITALS: BP 184/91; TEMP 96.9; O2SAT 96
[2023-11-20] MEDS: hydrALAZINE 20MG/ML 1ML VIAL IV ONE ×2 (04:38→12:52)
[2023-11-20 06:12] VITALS: BP 168/76
[2023-11-20 07:30] VITALS: BP 164/76; TEMP 96.3; O2SAT 97
[2023-11-20 08:29] LABS: HEMATOCRIT 37.9 % (36.0-47.0); HEMOGLOBIN 12.5 g/dl (12.0-15.5); MEAN CORPUSCULAR HEMOGLOBIN 32.1 pg (27.0-33.0); MEAN CORPUSCULAR VOLUME 97.2 fl (80.0-96.0); PLATELET COUNT, AUTOMATED 151 10^3/uL (150-450); WHITE BLOOD COUNT 5.9 10^3/uL (4.0-10.0)
[2023-11-20 09:00] LABS: ALBUMIN 1.7 G/DL (3.2-5.2); ALKALINE PHOSPHATASE 73 U/L (46-116); ALT/SGPT 25 U/L (7.0-40); AST/SGOT 20 U/L (<34); BILIRUBIN,DIRECT 0.4 MG/DL (<0.4); BILIRUBIN,TOTAL 0.6 MG/DL (0.3-1.2); BLOOD UREA NITROGEN 16 MG/DL (9-23); CALCIUM LEVEL 8.1 MG/DL (8.3-10.6); CARBON DIOXIDE LEVEL 21 MMOL/L (20-31); CHLORIDE LEVEL 109 MMOL/L (98-107); CREATININE FOR GFR 0.58 MG/DL (0.55-1.30); GLOMERULAR FILTRATION RATE > 60.0 (>32); GLUCOSE, FASTING 140 MG/DL (74-106); MAGNESIUM LEVEL 1.9 MG/DL (1.8-2.4); POTASSIUM SERUM 3.9 MMOL/L (3.5-5.1); SODIUM LEVEL 139 MMOL/L (136-145); TOTAL PROTEIN 5.1 G/DL (5.7-8.2)
[2023-11-20] MEDS ORDERED: METOPROLOL TARTRATE 100MG TAB PO SCH ×2 (09:00)
[2023-11-20 09:14] LABS: ATYPICAL LYMPH 5 % (0-5); BASOPHILS 1 % (0-1); EOSINOPHILS 5 % (0-3); LYMPHOCYTES 9 % (16-44); MONOCYTES 12 % (0-5); NEUTROPHILS 66 % (28-66)
[2023-11-20 09:15] LABS: ANISOCYTOSIS 1+; PLATELET ESTIMATE NORMAL (NORMAL); POLYCHROMASIA 1+
[2023-11-20] MEDS: CEFDINIR 300 MG CAP (OMNICEF) PO SCH (09:48)
[2023-11-20] MEDS: METOPROLOL TART 25 MG TABLET PO SCH (09:51)
[2023-11-20 11:45] VITALS: BP 146/84; TEMP 97.4; O2SAT 99
[2023-11-20 16:00] VITALS: BP 164/88; TEMP 98.4; O2SAT 97
[2023-11-20] MEDS: TORSEMIDE 10 MG TABLET PO ONE (18:13)
[2023-11-20 19:00] VITALS: BP 154/74; TEMP 97.5; O2SAT 98
[2023-11-21] VITALS: BP 194/98; TEMP 97.4; O2SAT 99
[2023-11-21] MEDS: hydrALAZINE 20MG/ML 1ML VIAL IV ONE (01:39)
[2023-11-21 04:00] VITALS: BP 138/83; TEMP 97.4; O2SAT 99
[2023-11-21 06:08] LABS: BASO # 0.1 10^3/uL (0.0-0.2); BASO % 1.6 % (0.0-1.0); EOS # 0.2 10^3/uL (0.0-0.5); EOS % 2.6 % (0.0-3.0); HEMATOCRIT 37.5 % (36.0-47.0); HEMOGLOBIN 12.7 g/dl (12.0-15.5); LYMPH % 14.8 % (24.0-44.0); MEAN CORPUSCULAR HEMOGLOBIN 32.7 pg (27.0-33.0); MEAN CORPUSCULAR HGB CONC 33.9 g/dl (32.0-36.5); MEAN CORPUSCULAR VOLUME 96.6 fl (80.0-96.0); MONO # 0.6 10^3/uL (0.0-0.8); MONO % 9.2 % (2.0-8.0); NEUTROPHILS # 3.7 10^3/uL (1.5-8.5); NEUTROPHILS % 56.9 % (36.0-66.0); PLATELET COUNT, AUTOMATED 149 10^3/uL (150-450); RED BLOOD COUNT 3.88 10^6/uL (4.00-5.40); WHITE BLOOD COUNT 6.4 10^3/uL (4.0-10.0)
[2023-11-21 06:32] LABS: C REACTIVE PROTEIN QUANTITATIV 3.1 MG/DL (<1.0)
[2023-11-21 06:33] LABS: ALBUMIN 1.8 G/DL (3.2-5.2); BILIRUBIN,DIRECT 0.3 MG/DL (<0.4); BILIRUBIN,TOTAL 0.5 MG/DL (0.3-1.2); MAGNESIUM LEVEL 1.6 MG/DL (1.8-2.4); TOTAL PROTEIN 5.3 G/DL (5.7-8.2)
[2023-11-21] MEDS: MAG SULF 1GM/100ML (MAG RUN) 1 GM in IV 1 EA IV SCH (07:33)
[2023-11-21 07:56] LABS: BLOOD UREA NITROGEN 14 MG/DL (9-23); CALCIUM LEVEL 8.2 MG/DL (8.3-10.6); CARBON DIOXIDE LEVEL 24 MMOL/L (20-31); CHLORIDE LEVEL 106 MMOL/L (98-107); GLOMERULAR FILTRATION RATE > 60.0 (>32); GLUCOSE, FASTING 134 MG/DL (74-106); POTASSIUM SERUM 3.9 MMOL/L (3.5-5.1); SODIUM LEVEL 138 MMOL/L (136-145)
[2023-11-21 08:00] VITALS: BP 148/77; TEMP 98.6; O2SAT 98
[2023-11-21] MEDS: TORSEMIDE 10 MG TABLET PO SCH (09:53)
[2023-11-21] MEDS: METOPROLOL TART 12.5 MG PER 1/2 TAB PO SCH (09:56)
[2023-11-21 12:00] VITALS: BP 168/80; TEMP 96.7; O2SAT 98
[2023-11-21 20:25] VITALS: TEMP 97.9; O2SAT 96
[2023-11-21 20:29] VITALS: BP 130/60
[2023-11-21] MEDS: SODIUM CHLORIDE 0.9% NASAL GEL 15GM (AYR) SCH (21:12)
[2023-11-22 05:00] VITALS: BP 152/76; TEMP 97.9; O2SAT 97
[2023-11-22 05:49] LABS: BASO # 0.1 10^3/uL (0.0-0.2); EOS # 0.2 10^3/uL (0.0-0.5); EOS % 2.4 % (0.0-3.0); HEMATOCRIT 37.7 % (36.0-47.0); HEMOGLOBIN 12.9 g/dl (12.0-15.5); LYMPH # 1.3 10^3/uL (1.5-5.0); LYMPH % 18.4 % (24.0-44.0); MEAN CORPUSCULAR HEMOGLOBIN 33.1 pg (27.0-33.0); MEAN CORPUSCULAR HGB CONC 34.2 g/dl (32.0-36.5); MEAN CORPUSCULAR VOLUME 96.7 fl (80.0-96.0); MONO # 0.7 10^3/uL (0.0-0.8); NEUTROPHILS # 3.8 10^3/uL (1.5-8.5); NEUTROPHILS % 55.5 % (36.0-66.0); PLATELET COUNT, AUTOMATED 146 10^3/uL (150-450); WHITE BLOOD COUNT 6.8 10^3/uL (4.0-10.0)
[2023-11-22 06:20] LABS: BLOOD UREA NITROGEN 13 MG/DL (9-23); CALCIUM LEVEL 8.3 MG/DL (8.3-10.6); CARBON DIOXIDE LEVEL 26 MMOL/L (20-31); CHLORIDE LEVEL 103 MMOL/L (98-107); CREATININE FOR GFR 0.54 MG/DL (0.55-1.30); GLOMERULAR FILTRATION RATE > 60.0 (>32); GLUCOSE, FASTING 139 MG/DL (74-106); MAGNESIUM LEVEL 1.5 MG/DL (1.8-2.4); POTASSIUM SERUM 3.8 MMOL/L (3.5-5.1); SODIUM LEVEL 138 MMOL/L (136-145)
[2023-11-22 08:07] VITALS: BP 142/84
[2023-11-22] MEDS ORDERED: CEFD300CAP PO (08:37)
[2023-11-22] MEDS ORDERED: METO1TAB87 PO (08:37)
== END 2023-11-22 10:47 | DRG 555 ==
LOC: M ED 11:38 → EDBD 11:38 → M ED INP 17:07 → M PCU 21:37 → M MSPAV 11-15 16:44 → M PCU 11-16 11:26 → M ICU 11-17 05:00 → M PCU 11-18 16:33 → M MSPAV 11-21 15:54
PROVIDERS: ADMIT Internal Medicine; ATTEND Internal Medicine
PROC: B246ZZZ Ultrasonography of Right and Left Heart (ICD-10-PCS; principal; 2023-11-15)
DX: M62.81 Muscle weakness (generalized) (principal); A41.9 Sepsis, unspecified organism; R65.21 Severe sepsis with septic shock; E87.1 Hypo-osmolality and hyponatremia; I50.32 Chronic diastolic (congestive) heart failure; N39.0 Urinary tract infection, site not specified; E87.20 Acidosis, unspecified; F05 Delirium due to known physiological condition; I48.91 Unspecified atrial fibrillation; E11.9 Type 2 diabetes mellitus without complications; R32 Unspecified urinary incontinence; E55.9 Vitamin D deficiency, unspecified; K21.9 Gastro-esophageal reflux disease without esophagitis; Z66 Do not resuscitate; F32.A Depression, unspecified; F03.90 Unspecified dementia, unspecified severity, without behavioral disturbance, psychotic disturbance, mood disturbance, and anxiety; M06.9 Rheumatoid arthritis, unspecified; I11.0 Hypertensive heart disease with heart failure; B96.20 Unspecified Escherichia coli [E. coli] as the cause of diseases classified elsewhere; R13.10 Dysphagia, unspecified; M10.9 Gout, unspecified; R54 Age-related physical debility; Z96.653 Presence of artificial knee joint, bilateral; Z79.01 Long term (current) use of anticoagulants; Z79.84 Long term (current) use of oral hypoglycemic drugs; Z79.899 Other long term (current) drug therapy

== ENCOUNTER 2024-03-03 15:13 | Inpatient (IN) | payer MEDICAID, MEDICARE, OTHER ==
[~2024-03-03] VITALS: Ht 157.5 cm; Wt 64.2 kg
[~2024-03-03 15:13] MED LIST changes: +CEFD300CAP PO; +D 101000 PO; +DIGO0.123 PO; +GLIP10TA18 PO; +MAGN400T2 PO; +METO1TAB87 PO; +OMEP-173 PO; +TORS10TA3 PO; +VITA250T27 PO; -VITA250T4 PO
[2024-03-03] MEDS: LIDOCAINE 2% 5ML JELLY UROJET TOP ONE (16:15)
[2024-03-03] MEDS: NS 500 ML IV ONE ×2 (17:04→18:02)
[2024-03-03 17:07] LABS: VENOUS BASE EXCESS 2.1 (-2.0-2.0); VENOUS HCO3 28.2 MMOL/L (23.0-27.0); VENOUS O2 SATURATION 66.4 % (60.0-80.0); VENOUS PARTIAL PRESSURE CO2 50.2 mmHg (38.0-50.0); VENOUS PARTIAL PRESSURE O2 35.6 mmHg (30.0-50.0); VENOUS PH 7.368 UNITS (7.330-7.430); VENOUS STANDARD HCO3 25.6 MMOL/L; VENOUS TOTAL CO2 29.8 MMOL/L (24.0-28.0)
[2024-03-03 17:09] LABS: BASO % 0.7 % (0.0-1.0); EOS # 0.2 10^3/uL (0.0-0.5); EOS % 2.8 % (0.0-3.0); HEMATOCRIT 38.1 % (36.0-47.0); HEMOGLOBIN 12.6 g/dl (12.0-15.5); LYMPH # 0.9 10^3/uL (1.5-5.0); LYMPH % 15.8 % (24.0-44.0); MEAN CORPUSCULAR HEMOGLOBIN 33.1 pg (27.0-33.0); MEAN CORPUSCULAR HGB CONC 33.1 g/dl (32.0-36.5); MONO # 0.4 10^3/uL (0.0-0.8); MONO % 7.5 % (2.0-8.0); NEUTROPHILS # 4.1 10^3/uL (1.5-8.5); NEUTROPHILS % 72.8 % (36.0-66.0); PLATELET COUNT, AUTOMATED 173 10^3/uL (150-450); RED BLOOD COUNT 3.81 10^6/uL (4.00-5.40); WHITE BLOOD COUNT 5.6 10^3/uL (4.0-10.0)
[2024-03-03 17:32] LABS: AMPHETAMINES LEVEL URINE NEGATIVE (NEGATIVE); BARBITURATES URINE NEGATIVE (NEGATIVE); BENZODIAZEPINES URINE NEGATIVE (NEGATIVE); COCAINE METABOLITE URINE NEGATIVE (NEGATIVE); METHADONE URINE NEGATIVE (NEGATIVE); OPIATES URINE NEGATIVE (NEGATIVE)
[2024-03-03 17:33] LABS: CANNABINOIDS URINE NEGATIVE (NEGATIVE); PHENCYCLIDINE URINE NEGATIVE (NEGATIVE)
[2024-03-03 17:38] LABS: ETHYL ALCOHOL (ETHANOL) 0.004 % (0.000-0.010)
[2024-03-03 17:39] LABS: CPK CREATINE PHOSPHOKINASE < 15 U/L (34-145)
[2024-03-03 17:40] LABS: ALBUMIN 2.9 G/DL (3.2-5.2); ALKALINE PHOSPHATASE 75 U/L (46-116); ALT/SGPT 13 U/L (7.0-40); AST/SGOT 14 U/L (<34); BILIRUBIN,DIRECT 0.2 MG/DL (<0.4); BILIRUBIN,TOTAL 0.6 MG/DL (0.3-1.2); BLOOD UREA NITROGEN 20 MG/DL (9-23); CALCIUM LEVEL 9.3 MG/DL (8.3-10.6); CARBON DIOXIDE LEVEL 30 MMOL/L (20-31); CHLORIDE LEVEL 103 MMOL/L (98-107); CK-MB VALUE MASS < 1.0 NG/ML (<3.6); CREATININE FOR GFR 0.73 MG/DL (0.55-1.30); GLOMERULAR FILTRATION RATE > 60.0 (>32); GLUCOSE, FASTING 169 MG/DL (74-106); POTASSIUM SERUM 4.3 MMOL/L (3.5-5.1); SALICYLATE LEVEL < 3.0 MG/DL (<30); SODIUM LEVEL 135 MMOL/L (136-145); TOTAL PROTEIN 7.2 G/DL (5.7-8.2)
[2024-03-03 17:42] LABS: THYROID STIMULATING HORMONE 0.543 uIU/ML (0.55-4.78)
[2024-03-03] MEDS: MEROPENEM INJ 1 GM in IV 1 EA IV ONE (18:05)
[2024-03-03 18:39] LABS: CK-MB VALUE MASS < 1.0 NG/ML (<3.6)
[2024-03-03 18:48] LABS: CPK CREATINE PHOSPHOKINASE 20 U/L (34-145)
[2024-03-03] MEDS ORDERED: MOM 30ML SUSPENSION UDC PO PRN (20:30)
[2024-03-03] MEDS ORDERED: GLUCOSE 4 GM CHEW PO PRN (20:30)
[2024-03-03] MEDS ORDERED: MAALOX 30 ML SUSP *UDC PO PRN (20:30)
[2024-03-03] MEDS ORDERED: DEXTROSE 50% 50ML SYRINGE IV PRN (20:30)
[2024-03-03] MEDS ORDERED: GLUCAGON INJ 1MG VIAL SC PRN (20:30)
[2024-03-03] MEDS: INSULIN LISPRO (NovoLOG) PER UNIT SC SCH (20:51)
[2024-03-03] MEDS ORDERED: DORZ2SOL5 OD (20:53)
[2024-03-03] MEDS: DOXYCYCLINE HYCLATE 100MG TABLET PO SCH (20:58)
[2024-03-03] MEDS: DOCUSATE SODIUM 100MG CAPSULE PO SCH (20:58)
[2024-03-03] MEDS: ACETAMINOPHEN TAB 650MG DOSE (2X325MG) PO PRN (20:59)
[2024-03-03] MEDS ORDERED: BIMA01SOL OU (21:00)
[2024-03-03] MEDS ORDERED: TORS5TAB2 PO (21:00)
[2024-03-03] MEDS ORDERED: ELIQ2.5T PO (21:00)
[2024-03-03] MEDS ORDERED: METF500T13 PO (21:00)
[2024-03-03] MEDS ORDERED: SODI1TAB12 PO (21:01)
[2024-03-03 21:02] LABS: MAGNESIUM LEVEL 1.4 MG/DL (1.8-2.4)
[2024-03-03] MEDS ORDERED: ACET-907 PO (21:05)
[2024-03-03] MEDS ORDERED: HOME MED LIST COMPLETE! XX SCH (21:10)
[2024-03-03 22:11] VITALS: BP 156/79; TEMP 97.3
[2024-03-03] MEDS: APIXABAN 2.5 MG TAB (ELIQUIS) PO SCH (22:30)
[2024-03-03] MEDS: CEFEPIME HCL 2 GM in D5W MINI-BAG PLUS 50 ML IV SCH (23:58)
[2024-03-04 04:29] VITALS: BP 149/90; TEMP 97; O2SAT 97
[2024-03-04 07:45] LABS: HEMATOCRIT 35.6 % (36.0-47.0); HEMOGLOBIN 11.9 g/dl (12.0-15.5); MEAN CORPUSCULAR HEMOGLOBIN 32.7 pg (27.0-33.0); MEAN CORPUSCULAR HGB CONC 33.4 g/dl (32.0-36.5); MEAN CORPUSCULAR VOLUME 97.8 fl (80.0-96.0); PLATELET COUNT, AUTOMATED 173 10^3/uL (150-450); RED BLOOD COUNT 3.64 10^6/uL (4.00-5.40)
[2024-03-04] MEDS: INSULIN LISPRO (NovoLOG) PER UNIT SC SCH (08:04)
[2024-03-04 08:16] LABS: PROCALCITONIN <0.04 ng/ml
[2024-03-04] MEDS ORDERED: PILL CUTTER 1 EACH XX PRN (08:20)
[2024-03-04 08:39] LABS: ALBUMIN 2.7 G/DL (3.2-5.2); ALKALINE PHOSPHATASE 61 U/L (46-116); ALT/SGPT < 9 U/L (7.0-40); AST/SGOT 18 U/L (<34); BILIRUBIN,TOTAL 0.9 MG/DL (0.3-1.2); BLOOD UREA NITROGEN 14 MG/DL (9-23); CALCIUM LEVEL 8.6 MG/DL (8.3-10.6); CARBON DIOXIDE LEVEL 28 MMOL/L (20-31); CHLORIDE LEVEL 107 MMOL/L (98-107); CREATININE FOR GFR 0.51 MG/DL (0.55-1.30); GLOMERULAR FILTRATION RATE > 60.0 (>32); GLUCOSE, FASTING 141 MG/DL (74-106); MAGNESIUM LEVEL 1.4 MG/DL (1.8-2.4); SODIUM LEVEL 140 MMOL/L (136-145); TOTAL PROTEIN 6.7 G/DL (5.7-8.2)
[2024-03-04] MEDS: LATANOPROST 0.005% OPHTH SOLN 2.5 ML OU SCH (09:00)
[2024-03-04] MEDS: SODIUM CHLORIDE 1 GM TAB PO SCH (09:00)
[2024-03-04] MEDS: FOLIC ACID 1MG TAB PO SCH (09:07)
[2024-03-04] MEDS: DIGOXIN 0.125 MG TAB PO SCH (09:07)
[2024-03-04] MEDS: TORSEMIDE 10 MG TABLET PO SCH (09:07)
[2024-03-04] MEDS: METOPROLOL TART 12.5 MG PER 1/2 TAB PO SCH (09:07)
[2024-03-04] MEDS: OMEPRAZOLE 20MG CAP PO SCH (09:08)
[2024-03-04] MEDS: MAG SULF 1GM/100ML (MAG RUN) 1 GM in IV 1 EA IV SCH (15:54)
[2024-03-04 16:45] VITALS: BP 139/68; TEMP 97.7; O2SAT 96
[2024-03-04] MEDS: MAGNESIUM OXIDE 400MG TAB (MAG-OX) PO SCH (20:01)
[2024-03-04] MEDS: COSOPT OCUMETER PLUS 10ML (DORZOLAMIDE/TIMOLOL) OD SCH (20:01)
[2024-03-04 20:02] VITALS: BP 167/79; TEMP 98.1; O2SAT 100
[2024-03-05 05:37] VITALS: BP_SYST 159; BP_SYST 162; BP_SYST 163; BP_DIAS 73; BP_DIAS 80; BP_DIAS 81
[2024-03-05 06:13] LABS: HEMATOCRIT 38.4 % (36.0-47.0); HEMOGLOBIN 12.8 g/dl (12.0-15.5); MEAN CORPUSCULAR HEMOGLOBIN 33.3 pg (27.0-33.0); MEAN CORPUSCULAR HGB CONC 33.3 g/dl (32.0-36.5); PLATELET COUNT, AUTOMATED 188 10^3/uL (150-450); RED BLOOD COUNT 3.84 10^6/uL (4.00-5.40)
[2024-03-05 06:42] LABS: ALBUMIN 2.7 G/DL (3.2-5.2); ALKALINE PHOSPHATASE 73 U/L (46-116); ALT/SGPT 9 U/L (7.0-40); AST/SGOT 14 U/L (<34); BILIRUBIN,TOTAL 0.7 MG/DL (0.3-1.2); BLOOD UREA NITROGEN 14 MG/DL (9-23); CALCIUM LEVEL 8.9 MG/DL (8.3-10.6); CARBON DIOXIDE LEVEL 28 MMOL/L (20-31); CHLORIDE LEVEL 104 MMOL/L (98-107); CREATININE FOR GFR 0.67 MG/DL (0.55-1.30); GLOMERULAR FILTRATION RATE > 60.0 (>32); GLUCOSE, FASTING 176 MG/DL (74-106); POTASSIUM SERUM 4.3 MMOL/L (3.5-5.1); SODIUM LEVEL 138 MMOL/L (136-145)
[2024-03-05 12:00] VITALS: BP 155/78; TEMP 97.5; O2SAT 89
[2024-03-05 20:10] VITALS: BP 168/88; TEMP 97.7; O2SAT 97
[2024-03-05] MEDS: REMDESIVIR 200 MG in NS 250 ML IV ONE (23:33)
[2024-03-06 04:10] VITALS: BP 161/82; TEMP 97.5; O2SAT 96
[2024-03-06 05:57] LABS: HEMATOCRIT 38.7 % (36.0-47.0); HEMOGLOBIN 13.1 g/dl (12.0-15.5); MEAN CORPUSCULAR HEMOGLOBIN 33.3 pg (27.0-33.0); MEAN CORPUSCULAR HGB CONC 33.9 g/dl (32.0-36.5); MEAN CORPUSCULAR VOLUME 98.5 fl (80.0-96.0); PLATELET COUNT, AUTOMATED 193 10^3/uL (150-450); RED BLOOD COUNT 3.93 10^6/uL (4.00-5.40); WHITE BLOOD COUNT 5.3 10^3/uL (4.0-10.0)
[2024-03-06 06:28] LABS: ALBUMIN 2.7 G/DL (3.2-5.2); ALKALINE PHOSPHATASE 76 U/L (46-116); ALT/SGPT 13 U/L (7.0-40); AST/SGOT 16 U/L (<34); BILIRUBIN,TOTAL 0.6 MG/DL (0.3-1.2); BLOOD UREA NITROGEN 15 MG/DL (9-23); CALCIUM LEVEL 8.6 MG/DL (8.3-10.6); CARBON DIOXIDE LEVEL 28 MMOL/L (20-31); CHLORIDE LEVEL 104 MMOL/L (98-107); CREATININE FOR GFR 0.47 MG/DL (0.55-1.30); GLOMERULAR FILTRATION RATE > 60.0 (>32); GLUCOSE, FASTING 288 MG/DL (74-106); POTASSIUM SERUM 4.3 MMOL/L (3.5-5.1); SODIUM LEVEL 136 MMOL/L (136-145); TOTAL PROTEIN 7.2 G/DL (5.7-8.2)
[2024-03-06] MEDS ORDERED: dexAMETHasone 20MG/5ML VIAL IV SCH (09:00)
[2024-03-06 12:00] VITALS: BP 158/99; TEMP 96.8; O2SAT 96
[2024-03-06] MEDS ORDERED: MAGN400T2 PO (16:40)
[2024-03-06] MEDS ORDERED: COLA100C5 PO (16:40)
[2024-03-06 20:05] VITALS: BP 164/68; TEMP 97.9; O2SAT 97
[2024-03-06] MEDS: FOSFOMYCIN TROMETHAMINE 3 GM POWDER PACKET (MONUROL) PO ONE (21:44)
[2024-03-06] MEDS: REMDESIVIR 100 MG in NS 250 ML IV SCH (22:08)
[2024-03-06 23:27] VITALS: O2SAT 95
[2024-03-07 04:00] VITALS: BP 155/92; TEMP 97.7; O2SAT 97
[2024-03-07 05:45] VITALS: BP_SYST 155; BP_SYST 157; BP_SYST 160; BP_DIAS 95; BP_DIAS 97; BP_DIAS 99
[2024-03-07 06:00] LABS: HEMATOCRIT 37.9 % (36.0-47.0); HEMOGLOBIN 12.4 g/dl (12.0-15.5); MEAN CORPUSCULAR HEMOGLOBIN 32.5 pg (27.0-33.0); MEAN CORPUSCULAR HGB CONC 32.7 g/dl (32.0-36.5); MEAN CORPUSCULAR VOLUME 99.5 fl (80.0-96.0); PLATELET COUNT, AUTOMATED 202 10^3/uL (150-450); RED BLOOD COUNT 3.81 10^6/uL (4.00-5.40); WHITE BLOOD COUNT 6.9 10^3/uL (4.0-10.0)
[2024-03-07 06:36] LABS: ALBUMIN 2.7 G/DL (3.2-5.2); ALKALINE PHOSPHATASE 72 U/L (46-116); ALT/SGPT 13 U/L (7.0-40); AST/SGOT 11 U/L (<34); BILIRUBIN,TOTAL 0.4 MG/DL (0.3-1.2); BLOOD UREA NITROGEN 24 MG/DL (9-23); CARBON DIOXIDE LEVEL 26 MMOL/L (20-31); CHLORIDE LEVEL 106 MMOL/L (98-107); CREATININE FOR GFR 0.59 MG/DL (0.55-1.30); GLOMERULAR FILTRATION RATE > 60.0 (>32); GLUCOSE, FASTING 194 MG/DL (74-106); POTASSIUM SERUM 4.2 MMOL/L (3.5-5.1); SODIUM LEVEL 137 MMOL/L (136-145)
[2024-03-07 08:58] VITALS: BP 150/85
[2024-03-08] MEDS ORDERED: METHOTREXATE 2.5MG TAB PO SCH (09:00)
== END 2024-03-07 11:15 | DRG 689 ==
LOC: M ED 15:13 → M ED INP 20:20 → EEVIPCON 20:20 → M MS5PR 22:14 → M MSPAV 03-04 16:45
PROVIDERS: ADMIT Family Medicine; ATTEND Internal Medicine
PROC: XW033E5 Introduction of Remdesivir Anti-infective into Peripheral Vein, Percutaneous Approach, New Technology Group 5 (ICD-10-PCS; principal; 2024-03-05)
PROC: 3E0333Z Introduction of Anti-inflammatory into Peripheral Vein, Percutaneous Approach (ICD-10-PCS; 2024-03-05)
DX: N39.0 Urinary tract infection, site not specified (principal); U07.1 COVID-19; L03.115 Cellulitis of right lower limb; I48.20 Chronic atrial fibrillation, unspecified; E11.9 Type 2 diabetes mellitus without complications; M06.9 Rheumatoid arthritis, unspecified; E55.9 Vitamin D deficiency, unspecified; K21.9 Gastro-esophageal reflux disease without esophagitis; I10 Essential (primary) hypertension; R32 Unspecified urinary incontinence; F32.A Depression, unspecified; B96.20 Unspecified Escherichia coli [E. coli] as the cause of diseases classified elsewhere; R55 Syncope and collapse; M47.816 Spondylosis without myelopathy or radiculopathy, lumbar region; Z66 Do not resuscitate; Z90.49 Acquired absence of other specified parts of digestive tract; Z96.653 Presence of artificial knee joint, bilateral; Z87.891 Personal history of nicotine dependence; Z79.01 Long term (current) use of anticoagulants; Z79.84 Long term (current) use of oral hypoglycemic drugs; Z79.899 Other long term (current) drug therapy

== ENCOUNTER → 2024-04-03 | Outpatient (CLI) | payer MEDICARE, MEDICAID ==
[~2024-04-03] MED LIST changes: +ACET-907 PO; +COLA100C5 PO; +DORZ2SOL5 OD; +ELIQ2.5T PO; +METF500T13 PO; +SODI1TAB12 PO; +TORS5TAB2 PO
== END ==
LOC: M PLAIMG 10:11
PROVIDERS: ATTEND Physician Assistant Medical
DX: M25.562 Pain in left knee (principal)

== ENCOUNTER → 2024-04-21 | Outpatient (REF) | payer MEDICARE, MEDICAID | LOC: M LAB REF 16:47 | PROVIDERS: ATTEND Physician Assistant Medical | DX: I48.21 Permanent atrial fibrillation (principal) ==

== ENCOUNTER → 2024-06-11 | Outpatient (REF) | payer MEDICARE, MEDICAID ==
[~2024-06-11] MED LIST changes: +GABA-1172 PO; -GABA-282 PO; +GLIP10TA15 PO; -GLIP10TA6 PO
[2024-06-11 11:51] LABS: APPEARANCE, URINE HAZY (CLEAR); BACTERIA, URINE AUTO 1+ (NEGATIVE); BILIRUBIN, URINE AUTO NEGATIVE (NEGATIVE); BLOOD, URINE BLOOD NEGATIVE (NEGATIVE); CALCIUM OXALATE CRYSTALS SMALL; COLOR, URINE YELLOW (YELLOW); GLUCOSE, URINE (UA) AUTO NEGATIVE (NEGATIVE); KETONE, URINE AUTO NEGATIVE (NEGATIVE); LEUKOCYTE ESTERASE, URINE AUTO 2+ (NEGATIVE); MUCUS, URINE SMALL (NEGATIVE); NITRITE, URINE AUTO NEGATIVE (NEGATIVE); PROTEIN, URINE AUTO NEGATIVE (NEGATIVE); RBC, URINE AUTO 5 /HPF (0-3); SPECIFIC GRAVITY URINE AUTO 1.016 (1.002-1.035); SQUAMOUS EPITHELIAL CELL UR AU 2 /HPF (0-6); UROBILINOGEN, URINE AUTO 0.2 mg/dL (0.0-2.0); WBC, URINE AUTO 96 /HPF (0-3)
== END ==
PROVIDERS: ATTEND Physician Assistant Medical
DX: R41.82 Altered mental status, unspecified (principal)

== ENCOUNTER 2024-06-24 16:31 | Emergency (ER) | payer MEDICARE, MEDICAID ==
[2024-06-24] VITALS (7 sets, daily range): BP systolic 178–190; BP diastolic 84–113; TEMP 97.7–98.2; O2SAT 98–100
[~2024-06-24] VITALS: Ht 157.5 cm; Wt 62.0 kg
[2024-06-24 16:56] LABS: BASO # 0.1 10^3/uL (0.0-0.2); EOS # 0.2 10^3/uL (0.0-0.5); HEMATOCRIT 40.8 % (36.0-47.0); HEMOGLOBIN 13.3 g/dl (12.0-15.5); LYMPH # 0.9 10^3/uL (1.5-5.0); LYMPH % 16.6 % (24.0-44.0); MEAN CORPUSCULAR HEMOGLOBIN 29.6 pg (27.0-33.0); MEAN CORPUSCULAR HGB CONC 32.6 g/dl (32.0-36.5); MEAN CORPUSCULAR VOLUME 90.9 fl (80.0-96.0); MONO # 0.5 10^3/uL (0.0-0.8); MONO % 8.6 % (2.0-8.0); NEUTROPHILS # 3.6 10^3/uL (1.5-8.5); NEUTROPHILS % 69.2 % (36.0-66.0); PLATELET COUNT, AUTOMATED 176 10^3/uL (150-450); RED BLOOD COUNT 4.49 10^6/uL (4.00-5.40); WHITE BLOOD COUNT 5.2 10^3/uL (4.0-10.0)
[2024-06-24 17:17] LABS: INR 1.11; PARTIAL THROMBOPLASTIN TIME 33.3 SECONDS (24.8-34.2); PROTHROMBIN TIME 14.6 SECONDS (12.5-14.5)
[2024-06-24 17:19] LABS: BLOOD UREA NITROGEN 17 MG/DL (9-23); CALCIUM LEVEL 9.4 MG/DL (8.3-10.6); CARBON DIOXIDE LEVEL 33 MMOL/L (20-31); CHLORIDE LEVEL 102 MMOL/L (98-107); CREATININE FOR GFR 0.65 MG/DL (0.55-1.30); GLOMERULAR FILTRATION RATE > 60.0 (>32); GLUCOSE, FASTING 166 MG/DL (74-106); SODIUM LEVEL 135 MMOL/L (136-145)
== END 2024-06-24 21:34 | disposition home or self-care (01) ==
LOC: M ED 16:31 → EDBD 16:31 → M ED 21:34
DX: H53.131 Sudden visual loss, right eye (principal); I48.91 Unspecified atrial fibrillation; E11.9 Type 2 diabetes mellitus without complications; Z87.891 Personal history of nicotine dependence; Z79.1 Long term (current) use of non-steroidal anti-inflammatories (NSAID); Z79.01 Long term (current) use of anticoagulants; Z79.84 Long term (current) use of oral hypoglycemic drugs; Z79.899 Other long term (current) drug therapy

== ENCOUNTER → 2024-07-09 | Outpatient (REF) | payer MEDICARE, MEDICAID ==
[2024-07-09 15:42] LABS: RSV AMPLIFICATION NEGATIVE (NEGATIVE)
== END ==
PROVIDERS: ATTEND Internal Medicine
DX: R09.89 Other specified symptoms and signs involving the circulatory and respiratory systems (principal)

== ENCOUNTER 2024-08-29 16:14 | Emergency (ER) | payer MEDICARE, MEDICAID ==
[2024-08-29 19:58] LABS: BASO % 0.5 % (0.0-1.0); EOS # 0.1 10^3/uL (0.0-0.5); EOS % 0.9 % (0.0-3.0); HEMATOCRIT 42.8 % (36.0-47.0); HEMOGLOBIN 14.4 g/dl (12.0-15.5); LYMPH # 0.6 10^3/uL (1.5-5.0); LYMPH % 9.4 % (24.0-44.0); MEAN CORPUSCULAR HEMOGLOBIN 30.2 pg (27.0-33.0); MEAN CORPUSCULAR HGB CONC 33.6 g/dl (32.0-36.5); MEAN CORPUSCULAR VOLUME 89.7 fl (80.0-96.0); MONO # 0.4 10^3/uL (0.0-0.8); MONO % 6.6 % (2.0-8.0); NEUTROPHILS # 5.3 10^3/uL (1.5-8.5); NEUTROPHILS % 82.1 % (36.0-66.0); PLATELET COUNT, AUTOMATED 125 10^3/uL (150-450); RED BLOOD COUNT 4.77 10^6/uL (4.00-5.40); WHITE BLOOD COUNT 6.5 10^3/uL (4.0-10.0)
[2024-08-29] MEDS: IPRATROPIUM 0.5MG/ALBUTEROL 2.5MG INH SOL UD 3ML (DUONEB) NEB ONE (20:05)
[2024-08-29] MEDS: methylPREDNISolone 125MG 2ML VIAL IV ONE (20:08)
[2024-08-29] MEDS: ACETAMINOPHEN 325 MG TAB PO ONE (20:09)
[2024-08-29 20:15] LABS: KETONE, URINE AUTO RFX NEGATIVE (NEGATIVE); LEUKOCYTE ESTERASE UR AUTO RFX NEGATIVE (NEGATIVE); NITRITE, URINE AUTO RFX NEGATIVE (NEGATIVE); RBC, URINE AUTO RFX 12 /HPF (0-3); SQUAM EPITHELIAL CELL UR AURFX 0 /HPF (0-6); WBC, URINE AUTO RFX 9 /HPF (0-3)
[2024-08-29 20:24] LABS: BLOOD UREA NITROGEN 15 MG/DL (9-23); CALCIUM LEVEL 8.5 MG/DL (8.3-10.6); CARBON DIOXIDE LEVEL 30 MMOL/L (20-31); CHLORIDE LEVEL 97 MMOL/L (98-107); CREATININE FOR GFR 0.55 MG/DL (0.55-1.30); GLOMERULAR FILTRATION RATE > 60.0 (>32); GLUCOSE, FASTING 154 MG/DL (74-106); POTASSIUM SERUM 5.1 MMOL/L (3.5-5.1); SODIUM LEVEL 132 MMOL/L (136-145)
[2024-08-29] MEDS: cefTRIAXone SOD 1 GM in DEXTROSE 5% (D5W) ADV/MINI-BAG 50 ML IV ONE (20:50)
[2024-08-29 21:23] VITALS: TEMP 100.7
[2024-08-29] MEDS ORDERED: CEFD300C PO (22:21)
[2024-08-29 22:30] VITALS: BP 143/80; O2SAT 93
[2024-08-29] MEDS ORDERED: NITR-67 PO (22:33)
== END 2024-08-29 22:58 | disposition home or self-care (01) ==
LOC: M ED 16:14
DX: N39.0 Urinary tract infection, site not specified (principal); B97.4 Respiratory syncytial virus as the cause of diseases classified elsewhere; I48.91 Unspecified atrial fibrillation; I50.22 Chronic systolic (congestive) heart failure; E11.9 Type 2 diabetes mellitus without complications; J45.909 Unspecified asthma, uncomplicated; K21.9 Gastro-esophageal reflux disease without esophagitis; Z79.1 Long term (current) use of non-steroidal anti-inflammatories (NSAID); Z79.01 Long term (current) use of anticoagulants; Z79.84 Long term (current) use of oral hypoglycemic drugs; Z79.899 Other long term (current) drug therapy
CPT/HCPCS: 36415; 71046; 80048; 81001; 83880; 85025; 87486; 87581; 87633; 87798; 96374; 96375; 99285; J0696; J2919

== ENCOUNTER → 2024-09-09 | Outpatient (REF) | payer MEDICARE, MEDICAID ==
[~2024-09-09] MED LIST changes: +CEFD300C PO; +NITR-67 PO
[2024-09-10 11:39] LABS: APPEARANCE, URINE CLEAR (CLEAR); BACTERIA, URINE AUTO NEGATIVE (NEGATIVE); BILIRUBIN, URINE AUTO NEGATIVE (NEGATIVE); BLOOD, URINE BLOOD 1+ (NEGATIVE); COLOR, URINE YELLOW (YELLOW); GLUCOSE, URINE (UA) AUTO NEGATIVE (NEGATIVE); KETONE, URINE AUTO NEGATIVE (NEGATIVE); LEUKOCYTE ESTERASE, URINE AUTO NEGATIVE (NEGATIVE); NITRITE, URINE AUTO NEGATIVE (NEGATIVE); PROTEIN, URINE AUTO NEGATIVE (NEGATIVE); RBC, URINE AUTO 1 /HPF (0-3); SPECIFIC GRAVITY URINE AUTO 1.011 (1.002-1.035); SQUAMOUS EPITHELIAL CELL UR AU 1 /HPF (0-6); UROBILINOGEN, URINE AUTO 0.2 mg/dL (0.0-2.0); WBC, URINE AUTO 0 /HPF (0-3)
== END ==
PROVIDERS: ATTEND Internal Medicine
DX: N39.0 Urinary tract infection, site not specified (principal)

== ENCOUNTER → 2024-10-03 | Outpatient (REF) | payer MEDICARE, MEDICAID ==
[~2024-10-03] MED LIST changes: +GLIP-320 PO; -GLIP10TA18 PO
[2024-10-03 09:26] LABS: BASO % 0.6 % (0.0-1.0); EOS # 0.1 10^3/uL (0.0-0.5); EOS % 2.7 % (0.0-3.0); HEMATOCRIT 44.5 % (36.0-47.0); LYMPH # 0.7 10^3/uL (1.5-5.0); LYMPH % 13.1 % (24.0-44.0); MEAN CORPUSCULAR HEMOGLOBIN 31.1 pg (27.0-33.0); MEAN CORPUSCULAR HGB CONC 33.7 g/dl (32.0-36.5); MEAN CORPUSCULAR VOLUME 92.1 fl (80.0-96.0); MONO # 0.4 10^3/uL (0.0-0.8); MONO % 7.9 % (2.0-8.0); NEUTROPHILS # 3.9 10^3/uL (1.5-8.5); NEUTROPHILS % 75.3 % (36.0-66.0); PLATELET COUNT, AUTOMATED 148 10^3/uL (150-450); RED BLOOD COUNT 4.83 10^6/uL (4.00-5.40); WHITE BLOOD COUNT 5.2 10^3/uL (4.0-10.0)
[2024-10-03 09:33] LABS: ERYTHROCYTE SEDIMENTATION RATE 64 mm/hr (0-30)
[2024-10-03 09:53] LABS: C REACTIVE PROTEIN QUANTITATIV < 0.50 MG/DL (<1.0)
[2024-10-03 10:43] LABS: ALBUMIN 3.2 G/DL (3.2-5.2); ALKALINE PHOSPHATASE 92 U/L (35-104); ALT/SGPT 16 U/L (7.0-40); AST/SGOT 17 U/L (<34); BILIRUBIN,TOTAL 0.8 MG/DL (0.3-1.2); BLOOD UREA NITROGEN 18 MG/DL (9-23); CALCIUM LEVEL 9.1 MG/DL (8.3-10.6); CARBON DIOXIDE LEVEL 31 MMOL/L (20-31); CHLORIDE LEVEL 99 MMOL/L (98-107); GLOMERULAR FILTRATION RATE > 60.0 (>32); GLUCOSE, FASTING 164 MG/DL (74-106); POTASSIUM SERUM 4.4 MMOL/L (3.5-5.1); SODIUM LEVEL 137 MMOL/L (136-145); TOTAL PROTEIN 7.9 G/DL (5.7-8.2)
== END ==
PROVIDERS: ATTEND Internal Medicine Rheumatology
DX: M05.79 Rheumatoid arthritis with rheumatoid factor of multiple sites without organ or systems involvement (principal); J84.9 Interstitial pulmonary disease, unspecified; Z79.899 Other long term (current) drug therapy

== ENCOUNTER 2024-10-24 10:55 | Inpatient (IN) | payer MEDICARE, MEDICAID ==
[~2024-10-24] VITALS: Ht 167.6 cm; Wt 72.7 kg
[2024-10-24 11:28] LABS: BASO % 0.8 % (0.0-1.0); EOS # 0.1 10^3/uL (0.0-0.5); EOS % 1.6 % (0.0-3.0); LYMPH # 0.6 10^3/uL (1.5-5.0); LYMPH % 11.4 % (24.0-44.0); MEAN CORPUSCULAR HEMOGLOBIN 31.8 pg (27.0-33.0); MEAN CORPUSCULAR HGB CONC 34.1 g/dl (32.0-36.5); MEAN CORPUSCULAR VOLUME 93.2 fl (80.0-96.0); MONO # 0.5 10^3/uL (0.0-0.8); MONO % 9.2 % (2.0-8.0); NEUTROPHILS # 3.9 10^3/uL (1.5-8.5); NEUTROPHILS % 76.4 % (36.0-66.0); PLATELET COUNT, AUTOMATED 105 10^3/uL (150-450); WHITE BLOOD COUNT 5.1 10^3/uL (4.0-10.0)
[2024-10-24] MEDS: LIDOCAINE 2% 5ML JELLY UROJET TOP ONE (11:55)
[2024-10-24 12:17] LABS: ALBUMIN 3.1 G/DL (3.2-5.2); ALKALINE PHOSPHATASE 79 U/L (35-104); ALT/SGPT 21 U/L (7.0-40); AST/SGOT 69 U/L (<34); BILIRUBIN,DIRECT 0.3 MG/DL (<0.4); BILIRUBIN,TOTAL 0.9 MG/DL (0.3-1.2); BLOOD UREA NITROGEN 20 MG/DL (9-23); CALCIUM LEVEL 8.5 MG/DL (8.3-10.6); CARBON DIOXIDE LEVEL 28 MMOL/L (20-31); CHLORIDE LEVEL 96 MMOL/L (98-107); CREATININE FOR GFR 0.59 MG/DL (0.55-1.30); GLOMERULAR FILTRATION RATE > 60.0 (>32); GLUCOSE, FASTING 240 MG/DL (74-106); POTASSIUM SERUM 5.3 MMOL/L (3.5-5.1); SODIUM LEVEL 131 MMOL/L (136-145); TOTAL PROTEIN 7.7 G/DL (5.7-8.2)
[2024-10-24 12:46] LABS: KETONE, URINE AUTO RFX NEGATIVE (NEGATIVE); LEUKOCYTE ESTERASE UR AUTO RFX NEGATIVE (NEGATIVE); NITRITE, URINE AUTO RFX NEGATIVE (NEGATIVE); RBC, URINE AUTO RFX 61 /HPF (0-3); SQUAM EPITHELIAL CELL UR AURFX 0 /HPF (0-6); WBC, URINE AUTO RFX 0 /HPF (0-3)
[2024-10-24 13:14] LABS: VENOUS BASE EXCESS 1.2 (-2.0-2.0); VENOUS HCO3 30.2 MMOL/L (23.0-27.0); VENOUS O2 SATURATION 46.5 % (60.0-80.0); VENOUS PH 7.265 UNITS (7.330-7.430); VENOUS STANDARD HCO3 24.3 MMOL/L; VENOUS TOTAL CO2 32.3 MMOL/L (24.0-28.0)
[2024-10-24 13:46] LABS: CK-MB VALUE MASS < 1.0 NG/ML (<3.6); CPK CREATINE PHOSPHOKINASE 20 U/L (34-145)
[2024-10-24] MEDS: MAG SULF 1GM/100ML (MAG RUN) 1 GM in IV 1 EA IV ONE (14:00)
[2024-10-24] MEDS: NS (Normal Saline) 0.9% 1,000 ML IV ONE (14:00)
[2024-10-24 15:53] LABS: ABG BASE EXCESS -1.7 (-2.0-2.0); ABG HCO3 22.2 MMOL/L (22.0-26.0); ABG O2 SATURATION 97.6 % (95.0-99.0); ABG PARTIAL PRESSURE CO2 35.2 mmHg (35.0-45.0); ABG PARTIAL PRESSURE O2 95.2 mmHg (75.0-100.0); ABG STANDARD HCO3 23.1 MMOL/L. (22.0-26.0); ABG TOTAL CO2 23.3 MMOL/L (23.0-31.0); ABG pH (ARTERIAL) 7.418 UNITS (7.350-7.450)
[2024-10-24] MEDS: BOOSTRIX VACCINE (TETANUS/DIPHTH/ACEL. PERTUSSIS) 0.5ML SYR IM.IMMUN ONE (17:15)
[2024-10-24] MEDS ORDERED: MOM 30ML SUSPENSION UDC PO PRN (17:30)
[2024-10-24] MEDS ORDERED: COMB0.2S OU (18:29)
[2024-10-24] MEDS ORDERED: GUAI100L6 PO (18:29)
[2024-10-24] MEDS ORDERED: MAGN400T2 PO (18:29)
[2024-10-24] MEDS ORDERED: METO1TAB32 PO (18:29)
[2024-10-24] MEDS ORDERED: DOCU100C16 PO (18:29)
[2024-10-24] MEDS ORDERED: DORZ2SOL4 OU (18:29)
[2024-10-24] MEDS ORDERED: DICL100G10 TOP (18:29)
[2024-10-24] MEDS ORDERED: HOME MED LIST COMPLETE! XX SCH (18:30)
[2024-10-24] MEDS ORDERED: guaiFENesin SYRUP 200MG 10ML UDC PO PRN (20:20)
[2024-10-24] MEDS: DOCUSATE SODIUM 100MG CAPSULE PO SCH (21:00)
[2024-10-24] MEDS: DULoxetine 30MG CAPSULE (CYMBALTA) PO SCH (21:00)
[2024-10-24] MEDS: OMEPRAZOLE 20MG CAP PO SCH (21:00)
[2024-10-24] MEDS: APIXABAN 2.5 MG TAB (ELIQUIS) PO SCH (21:00)
[2024-10-24] MEDS: DORZOLAMIDE 2% OPHTH SOLN 10 ML BTL OU SCH (23:00)
[2024-10-24] MEDS: METOPROLOL SUCC *XL* 12.5MG PER 1/2 TAB (TopROL *XL*) PO SCH (23:00)
[2024-10-24] MEDS: LATANOPROST 0.005% OPHTH SOLN 2.5 ML OU SCH (23:00)
[2024-10-25 08:31] LABS: HEMATOCRIT 41.7 % (36.0-47.0); HEMOGLOBIN 13.9 g/dl (12.0-15.5); MEAN CORPUSCULAR HEMOGLOBIN 30.8 pg (27.0-33.0); MEAN CORPUSCULAR HGB CONC 33.3 g/dl (32.0-36.5); MEAN CORPUSCULAR VOLUME 92.5 fl (80.0-96.0); RED BLOOD COUNT 4.51 10^6/uL (4.00-5.40); WHITE BLOOD COUNT 4.3 10^3/uL (4.0-10.0)
[2024-10-25 08:33] LABS: PLATELET COUNT, AUTOMATED 94 10^3/uL (150-450)
[2024-10-25] MEDS: FOLIC ACID 1MG TAB PO SCH (08:47)
[2024-10-25] MEDS: DIGOXIN 0.125 MG TAB PO SCH (08:50)
[2024-10-25 08:52] LABS: BLOOD UREA NITROGEN 12 MG/DL (9-23); CALCIUM LEVEL 8.4 MG/DL (8.3-10.6); CARBON DIOXIDE LEVEL 29 MMOL/L (20-31); CHLORIDE LEVEL 102 MMOL/L (98-107); CREATININE FOR GFR 0.53 MG/DL (0.55-1.30); GLOMERULAR FILTRATION RATE > 60.0 (>32); GLUCOSE, FASTING 172 MG/DL (74-106); POTASSIUM SERUM 4.7 MMOL/L (3.5-5.1); SODIUM LEVEL 137 MMOL/L (136-145)
[2024-10-25] MEDS ORDERED: QUEtiapine FUMARATE 12.5 MG HALF-TAB PO PRN (09:00)
[2024-10-25 09:25] LABS: BASOPHILS 1 % (0-1); EOSINOPHILS 1 % (0-3); LYMPHOCYTES 12 % (16-44); MONOCYTES 12 % (0-5); NEUTROPHILS 73 % (28-66); PLATELET ESTIMATE DECREASED (NORMAL); POLYCHROMASIA 1+
[2024-10-25 09:27] LABS: ANISOCYTOSIS 1+
[2024-10-25 13:10] VITALS: BP 155/70; TEMP 98.4; O2SAT 99
[2024-10-25] MEDS: QUEtiapine FUMARATE 12.5 MG HALF-TAB PO SCH (15:24)
[2024-10-25] MEDS: glipiZIDE XL 5 MG TABCR PO SCH (15:24)
[2024-10-25 19:27] VITALS: BP 153/70; TEMP 98.6; O2SAT 95
[2024-10-25] MEDS: MAGNESIUM OXIDE 400MG TAB (MAG-OX) PO SCH (21:13)
[2024-10-26 03:30] VITALS: BP 148/70; TEMP 98.5; O2SAT 97
[2024-10-26] MEDS: MAG SULF 1GM/100ML (MAG RUN) 1 GM in IV 1 EA IV SCH (09:18)
[2024-10-26 12:00] VITALS: BP 131/66; TEMP 97.5; O2SAT 97
[2024-10-26 20:26] VITALS: BP 134/57; TEMP 98.8; O2SAT 97
[2024-10-26] MEDS: MAGNESIUM OXIDE 400MG TAB (MAG-OX) PO SCH (21:36)
[2024-10-27 04:49] VITALS: BP 144/69; TEMP 97.5; O2SAT 95
[2024-10-27 06:12] LABS: BASO % 0.9 % (0.0-1.0); EOS % 0.7 % (0.0-3.0); HEMATOCRIT 38.2 % (36.0-47.0); LYMPH # 0.7 10^3/uL (1.5-5.0); LYMPH % 15.4 % (24.0-44.0); MONO # 0.3 10^3/uL (0.0-0.8); MONO % 7.7 % (2.0-8.0); NEUTROPHILS # 3.3 10^3/uL (1.5-8.5); NEUTROPHILS % 74.8 % (36.0-66.0); WHITE BLOOD COUNT 4.4 10^3/uL (4.0-10.0)
[2024-10-27 06:28] LABS: PLATELET COUNT, AUTOMATED 86 10^3/uL (150-450)
[2024-10-27 06:36] LABS: BLOOD UREA NITROGEN 13 MG/DL (9-23); CALCIUM LEVEL 8.3 MG/DL (8.3-10.6); CARBON DIOXIDE LEVEL 27 MMOL/L (20-31); CHLORIDE LEVEL 100 MMOL/L (98-107); CREATININE FOR GFR 0.59 MG/DL (0.55-1.30); GLOMERULAR FILTRATION RATE > 60.0 (>32); GLUCOSE, FASTING 174 MG/DL (74-106); MAGNESIUM LEVEL 1.7 MG/DL (1.8-2.4); POTASSIUM SERUM 4.1 MMOL/L (3.5-5.1); SODIUM LEVEL 134 MMOL/L (136-145)
[2024-10-27] MEDS: MAG SULF 1GM/100ML (MAG RUN) 1 GM in IV 1 EA IV ONE (08:41)
[2024-10-27 17:18] VITALS: BP 94/62
[2024-10-27 17:21] VITALS: BP 145/71
[2024-10-27 17:25] VITALS: BP 127/55
[2024-10-27] MEDS ORDERED: ISOVUE-370 76% 100ML VIAL As Ordered ONE (17:31)
[2024-10-27 18:00] LABS: BASO % 0.4 % (0.0-1.0); EOS % 0.1 % (0.0-3.0); HEMATOCRIT 40.1 % (36.0-47.0); HEMOGLOBIN 13.7 g/dl (12.0-15.5); LYMPH # 1.1 10^3/uL (1.5-5.0); MEAN CORPUSCULAR HEMOGLOBIN 31.4 pg (27.0-33.0); MEAN CORPUSCULAR HGB CONC 34.2 g/dl (32.0-36.5); MEAN CORPUSCULAR VOLUME 91.8 fl (80.0-96.0); MONO # 0.7 10^3/uL (0.0-0.8); MONO % 9.7 % (2.0-8.0); NEUTROPHILS # 5.1 10^3/uL (1.5-8.5); NEUTROPHILS % 73.2 % (36.0-66.0); RED BLOOD COUNT 4.37 10^6/uL (4.00-5.40)
[2024-10-27 18:08] LABS: PLATELET COUNT, AUTOMATED 83 10^3/uL (150-450)
[2024-10-27 18:11] LABS: ALBUMIN 2.8 G/DL (3.2-5.2); ALKALINE PHOSPHATASE 84 U/L (35-104); ALT/SGPT 11 U/L (7.0-40); AST/SGOT 20 U/L (<34); BILIRUBIN,TOTAL 1.4 MG/DL (0.3-1.2); BLOOD UREA NITROGEN 13 MG/DL (9-23); CALCIUM LEVEL 8.2 MG/DL (8.3-10.6); CARBON DIOXIDE LEVEL 23 MMOL/L (20-31); CHLORIDE LEVEL 97 MMOL/L (98-107); CREATININE FOR GFR 0.56 MG/DL (0.55-1.30); GLOMERULAR FILTRATION RATE > 60.0 (>32); GLUCOSE, FASTING 190 MG/DL (74-106); POTASSIUM SERUM 4.1 MMOL/L (3.5-5.1); SODIUM LEVEL 127 MMOL/L (136-145); TOTAL PROTEIN 7.2 G/DL (5.7-8.2)
[2024-10-27] MEDS: NS 500 ML IV ONE (18:50)
[2024-10-27 19:15] VITALS: BP 136/69; TEMP 97.9; O2SAT 95
[2024-10-27 20:46] VITALS: BP_SYST 111; BP_SYST 134; BP_SYST 86; BP_DIAS 68; BP_DIAS 73; BP_DIAS 91
[2024-10-28] VITALS (7 sets, daily range): BP systolic 94–139; BP diastolic 55–82; TEMP 97.5–101.2; O2SAT 91–95
[2024-10-28 04:35] LABS: HEMATOCRIT 37.3 % (36.0-47.0); HEMOGLOBIN 12.7 g/dl (12.0-15.5); MEAN CORPUSCULAR HEMOGLOBIN 31.1 pg (27.0-33.0); MEAN CORPUSCULAR VOLUME 91.4 fl (80.0-96.0); RED BLOOD COUNT 4.08 10^6/uL (4.00-5.40); WHITE BLOOD COUNT 6.2 10^3/uL (4.0-10.0)
[2024-10-28 04:39] LABS: PLATELET COUNT, AUTOMATED 72 10^3/uL (150-450)
[2024-10-28 04:54] LABS: BLOOD UREA NITROGEN 12 MG/DL (9-23); CALCIUM LEVEL 8.1 MG/DL (8.3-10.6); CARBON DIOXIDE LEVEL 24 MMOL/L (20-31); CHLORIDE LEVEL 100 MMOL/L (98-107); CREATININE FOR GFR 0.46 MG/DL (0.55-1.30); GLOMERULAR FILTRATION RATE > 60.0 (>32); GLUCOSE, FASTING 168 MG/DL (74-106); SODIUM LEVEL 133 MMOL/L (136-145)
[2024-10-28 05:19] LABS: LYMPHOCYTES 8 % (16-44); MONOCYTES 7 % (0-5); NEUTROPHILS 84 % (28-66); PLATELET ESTIMATE DECREASED (NORMAL)
[2024-10-28 05:20] LABS: ANISOCYTOSIS 1+
[2024-10-28] MEDS: FLUDROCORTISONE ACETATE 0.1 MG TAB PO SCH (08:55)
[2024-10-28] MEDS ORDERED: E-Z-PAQUE 96% w/w SUSP 176GM BTL As Ordered ONE (13:59)
[2024-10-28] MEDS ORDERED: VARIBAR NECTAR 40% w/v 240ML SUSP BTL As Ordered ONE (13:59)
[2024-10-28] MEDS ORDERED: VARIBAR PUDDING 40% w/v 230ML TUBE As Ordered ONE (13:59)
[2024-10-28] MEDS ORDERED: BARIUM SULFATE 700 MG TABLET (E-Z-DISK) As Ordered ONE (14:00)
[2024-10-28] MEDS: ACETAMINOPHEN 325 MG TAB PO PRN (17:32)
[2024-10-28] MEDS: ACETAMINOPHEN 650MG SUPP PR PRN (17:44)
[2024-10-28 18:00] LABS: HEMATOCRIT 36.6 % (36.0-47.0); HEMOGLOBIN 12.6 g/dl (12.0-15.5); MEAN CORPUSCULAR HEMOGLOBIN 31.7 pg (27.0-33.0); MEAN CORPUSCULAR HGB CONC 34.4 g/dl (32.0-36.5); PLATELET COUNT, AUTOMATED 74 10^3/uL (150-450); RED BLOOD COUNT 3.98 10^6/uL (4.00-5.40); WHITE BLOOD COUNT 5.2 10^3/uL (4.0-10.0)
[2024-10-28 18:22] LABS: BLOOD UREA NITROGEN 16 MG/DL (9-23); CALCIUM LEVEL 8.5 MG/DL (8.3-10.6); CARBON DIOXIDE LEVEL 26 MMOL/L (20-31); CHLORIDE LEVEL 101 MMOL/L (98-107); CREATININE FOR GFR 0.51 MG/DL (0.55-1.30); GLOMERULAR FILTRATION RATE > 60.0 (>32); GLUCOSE, FASTING 140 MG/DL (74-106); SODIUM LEVEL 134 MMOL/L (136-145)
[2024-10-28] MEDS: LR 1,000 ML IV SCH (18:33)
[2024-10-28] MEDS: cefTRIAXone SOD 2 GM in DEXTROSE 5% (D5W) ADV/MINI-BAG 50 ML IV SCH (18:36)
[2024-10-28 19:06] LABS: APPEARANCE, URINE HAZY (CLEAR); BACTERIA, URINE AUTO 3+ (NEGATIVE); BILIRUBIN, URINE AUTO NEGATIVE (NEGATIVE); BLOOD, URINE BLOOD 2+ (NEGATIVE); COLOR, URINE AMBER (YELLOW); GLUCOSE, URINE (UA) AUTO NEGATIVE (NEGATIVE); KETONE, URINE AUTO NEGATIVE (NEGATIVE); LEUKOCYTE ESTERASE, URINE AUTO 1+ (NEGATIVE); NITRITE, URINE AUTO POSITIVE (NEGATIVE); PROTEIN, URINE AUTO 1+ mg/dL (NEGATIVE); RBC, URINE AUTO 4 /HPF (0-3); SPECIFIC GRAVITY URINE AUTO 1.021 (1.002-1.035); SQUAMOUS EPITHELIAL CELL UR AU 4 /HPF (0-6); UROBILINOGEN, URINE AUTO 0.2 mg/dL (0.0-2.0); WBC, URINE AUTO 36 /HPF (0-3)
[2024-10-29 01:49] VITALS: BP 135/93; TEMP 97.7; O2SAT 97
[2024-10-29 04:00] VITALS: BP 138/69; TEMP 98.3; O2SAT 96
[2024-10-29 06:09] LABS: BASO % 0.7 % (0.0-1.0); EOS # 0.1 10^3/uL (0.0-0.5); EOS % 1.2 % (0.0-3.0); HEMATOCRIT 38.2 % (36.0-47.0); HEMOGLOBIN 12.6 g/dl (12.0-15.5); LYMPH # 1.4 10^3/uL (1.5-5.0); LYMPH % 34.3 % (24.0-44.0); MEAN CORPUSCULAR HEMOGLOBIN 30.7 pg (27.0-33.0); MEAN CORPUSCULAR VOLUME 93.2 fl (80.0-96.0); MONO # 0.3 10^3/uL (0.0-0.8); NEUTROPHILS # 2.2 10^3/uL (1.5-8.5); NEUTROPHILS % 55.3 % (36.0-66.0)
[2024-10-29 06:21] LABS: PLATELET COUNT, AUTOMATED 70 10^3/uL (150-450)
[2024-10-29 06:31] LABS: BLOOD UREA NITROGEN 16 MG/DL (9-23); CALCIUM LEVEL 8.2 MG/DL (8.3-10.6); CARBON DIOXIDE LEVEL 27 MMOL/L (20-31); CHLORIDE LEVEL 105 MMOL/L (98-107); CREATININE FOR GFR 0.48 MG/DL (0.55-1.30); GLOMERULAR FILTRATION RATE > 60.0 (>32); GLUCOSE, FASTING 131 MG/DL (74-106); POTASSIUM SERUM 3.9 MMOL/L (3.5-5.1); SODIUM LEVEL 138 MMOL/L (136-145)
[2024-10-29 12:00] VITALS: BP 148/73; TEMP 97.7; O2SAT 98
[2024-10-29 22:00] VITALS: BP 136/71; TEMP 98.6; O2SAT 99
[2024-10-30 04:10] VITALS: BP 137/70; TEMP 98.4; O2SAT 97
[2024-10-30 04:11] VITALS: BP_SYST 137; BP_SYST 148; BP_SYST 155; BP_DIAS 70; BP_DIAS 77; BP_DIAS 83
[2024-10-30 04:51] LABS: BASO % 0.6 % (0.0-1.0); EOS # 0.1 10^3/uL (0.0-0.5); EOS % 1.4 % (0.0-3.0); HEMATOCRIT 39.6 % (36.0-47.0); HEMOGLOBIN 12.6 g/dl (12.0-15.5); LYMPH % 41.8 % (24.0-44.0); MEAN CORPUSCULAR HEMOGLOBIN 30.5 pg (27.0-33.0); MEAN CORPUSCULAR HGB CONC 31.8 g/dl (32.0-36.5); MEAN CORPUSCULAR VOLUME 95.9 fl (80.0-96.0); MONO # 0.4 10^3/uL (0.0-0.8); MONO % 8.4 % (2.0-8.0); NEUTROPHILS # 2.3 10^3/uL (1.5-8.5); NEUTROPHILS % 47.4 % (36.0-66.0); RED BLOOD COUNT 4.13 10^6/uL (4.00-5.40); WHITE BLOOD COUNT 4.9 10^3/uL (4.0-10.0)
[2024-10-30 04:58] LABS: PLATELET COUNT, AUTOMATED 85 10^3/uL (150-450)
[2024-10-30 05:11] LABS: BLOOD UREA NITROGEN 16 MG/DL (9-23); CALCIUM LEVEL 8.1 MG/DL (8.3-10.6); CARBON DIOXIDE LEVEL 22 MMOL/L (20-31); CHLORIDE LEVEL 105 MMOL/L (98-107); CREATININE FOR GFR 0.48 MG/DL (0.55-1.30); GLOMERULAR FILTRATION RATE > 60.0 (>32); GLUCOSE, FASTING 94 MG/DL (74-106); POTASSIUM SERUM 4.4 MMOL/L (3.5-5.1); SODIUM LEVEL 136 MMOL/L (136-145)
[2024-10-30 08:40] VITALS: BP 152/85
[2024-10-30] MEDS: DOXYCYCLINE HYCLATE 100MG TABLET PO SCH (08:41)
[2024-10-30 09:00] VITALS: BP 152/85; TEMP 97.7; O2SAT 99
[2024-10-30] MEDS ORDERED: AMOX875T2 PO (11:01)
[2024-10-30] MEDS ORDERED: DOXY100T PO (11:01)
[2024-10-30] MEDS ORDERED: NITR-67 PO (11:01)
[2024-10-30 12:00] VITALS: BP 154/85; TEMP 97.5; O2SAT 98
== END 2024-10-30 15:09 | DRG 641 ==
LOC: M ED 10:55 → EDBD 10:55 → M ED INP 17:30 → M MSPAV 10-25 13:09
PROVIDERS: ADMIT Internal Medicine Nephrology; ATTEND Student in an Organized Health Care Education/Training Program
DX: E87.5 Hyperkalemia (principal); J84.9 Interstitial pulmonary disease, unspecified; I50.32 Chronic diastolic (congestive) heart failure; I48.21 Permanent atrial fibrillation; F03.90 Unspecified dementia, unspecified severity, without behavioral disturbance, psychotic disturbance, mood disturbance, and anxiety; M05.9 Rheumatoid arthritis with rheumatoid factor, unspecified; E87.1 Hypo-osmolality and hyponatremia; E83.42 Hypomagnesemia; E87.20 Acidosis, unspecified; K21.9 Gastro-esophageal reflux disease without esophagitis; F32.A Depression, unspecified; M10.9 Gout, unspecified; R53.81 Other malaise; E55.9 Vitamin D deficiency, unspecified; Z66 Do not resuscitate; I95.1 Orthostatic hypotension; R13.10 Dysphagia, unspecified; E11.9 Type 2 diabetes mellitus without complications; I11.0 Hypertensive heart disease with heart failure; R41.82 Altered mental status, unspecified; Z87.891 Personal history of nicotine dependence; Z79.01 Long term (current) use of anticoagulants; Z79.84 Long term (current) use of oral hypoglycemic drugs; Z79.899 Other long term (current) drug therapy; Z90.49 Acquired absence of other specified parts of digestive tract

== ENCOUNTER → 2024-11-03 | Outpatient (REF) ==
[~2024-11-03] MED LIST changes: +AMOX875T2 PO; +COMB0.2S OU; +DICL100G10 TOP; +DOCU100C16 PO; +DORZ2SOL4 OU; +DOXY100T PO; +GUAI100L6 PO; +METO1TAB32 PO
[2024-11-03 10:29] LABS: HEMATOCRIT 44.7 % (36.0-47.0); HEMOGLOBIN 14.7 g/dl (12.0-15.5); MEAN CORPUSCULAR HEMOGLOBIN 30.8 pg (27.0-33.0); MEAN CORPUSCULAR HGB CONC 32.9 g/dl (32.0-36.5); MEAN CORPUSCULAR VOLUME 93.7 fl (80.0-96.0); PLATELET COUNT, AUTOMATED 167 10^3/uL (150-450); RED BLOOD COUNT 4.77 10^6/uL (4.00-5.40); WHITE BLOOD COUNT 4.7 10^3/uL (4.0-10.0)
[2024-11-03 10:59] LABS: BLOOD UREA NITROGEN 11 MG/DL (9-23); CALCIUM LEVEL 8.8 MG/DL (8.3-10.6); CARBON DIOXIDE LEVEL 30 MMOL/L (20-31); CHLORIDE LEVEL 104 MMOL/L (98-107); CREATININE FOR GFR 0.49 MG/DL (0.55-1.30); GLOMERULAR FILTRATION RATE > 60.0 (>32); GLUCOSE, FASTING 176 MG/DL (74-106); POTASSIUM SERUM 3.9 MMOL/L (3.5-5.1); SODIUM LEVEL 142 MMOL/L (136-145)
== END ==
PROVIDERS: ATTEND Physician Assistant
DX: D64.9 Anemia, unspecified (principal)

== ENCOUNTER → 2024-11-10 | Outpatient (REF) ==
[2024-11-10 08:49] LABS: HEMATOCRIT 44.2 % (36.0-47.0); HEMOGLOBIN 15.2 g/dl (12.0-15.5); MEAN CORPUSCULAR HEMOGLOBIN 31.3 pg (27.0-33.0); MEAN CORPUSCULAR HGB CONC 34.4 g/dl (32.0-36.5); MEAN CORPUSCULAR VOLUME 91.1 fl (80.0-96.0); PLATELET COUNT, AUTOMATED 143 10^3/uL (150-450); RED BLOOD COUNT 4.85 10^6/uL (4.00-5.40); WHITE BLOOD COUNT 6.8 10^3/uL (4.0-10.0)
[2024-11-10 09:21] LABS: BLOOD UREA NITROGEN 9 MG/DL (9-23); CALCIUM LEVEL 8.6 MG/DL (8.3-10.6); CARBON DIOXIDE LEVEL 31 MMOL/L (20-31); CHLORIDE LEVEL 104 MMOL/L (98-107); CREATININE FOR GFR 0.58 MG/DL (0.55-1.30); GLOMERULAR FILTRATION RATE > 90.0 (>32); GLUCOSE, FASTING 135 MG/DL (74-106); POTASSIUM SERUM 3.6 MMOL/L (3.5-5.1); SODIUM LEVEL 142 MMOL/L (136-145)
== END ==
PROVIDERS: ATTEND Physician Assistant
DX: D64.9 Anemia, unspecified (principal)

== ENCOUNTER → 2024-12-15 | Outpatient (REF) ==
[~2024-12-15] MED LIST changes: -BRIM1OPD OU; +BRIM5DRO25 OU
[2024-12-15 08:44] LABS: HEMATOCRIT 40.1 % (36.0-47.0); HEMOGLOBIN 13.3 g/dl (12.0-15.5); MEAN CORPUSCULAR HEMOGLOBIN 31.4 pg (27.0-33.0); MEAN CORPUSCULAR HGB CONC 33.2 g/dl (32.0-36.5); MEAN CORPUSCULAR VOLUME 94.6 fl (80.0-96.0); PLATELET COUNT, AUTOMATED 137 10^3/uL (150-450); RED BLOOD COUNT 4.24 10^6/uL (4.00-5.40); WHITE BLOOD COUNT 5.1 10^3/uL (4.0-10.0)
[2024-12-15 09:21] LABS: BLOOD UREA NITROGEN 14 MG/DL (9-23); CALCIUM LEVEL 8.3 MG/DL (8.3-10.6); CARBON DIOXIDE LEVEL 26 MMOL/L (20-31); CHLORIDE LEVEL 102 MMOL/L (98-107); CREATININE FOR GFR 0.49 MG/DL (0.55-1.30); GLOMERULAR FILTRATION RATE > 90.0 (>32); GLUCOSE, FASTING 153 MG/DL (74-106); SODIUM LEVEL 138 MMOL/L (136-145)
== END ==
PROVIDERS: ATTEND Internal Medicine
DX: D64.9 Anemia, unspecified (principal)

== ENCOUNTER → 2025-02-02 | Outpatient (REF) | payer MEDICARE, MEDICAID | PROVIDERS: ATTEND Physician Assistant | DX: I48.91 Unspecified atrial fibrillation (principal) ==

== ENCOUNTER → 2025-02-09 | Outpatient (REF) | payer MEDICARE, MEDICAID | PROVIDERS: ATTEND Physician Assistant | DX: I48.91 Unspecified atrial fibrillation (principal) ==

== ENCOUNTER → 2025-03-11 | Outpatient (REF) | payer MEDICARE, MEDICAID | PROVIDERS: ATTEND Physician Assistant | DX: I48.91 Unspecified atrial fibrillation (principal); Z79.899 Other long term (current) drug therapy ==

== ENCOUNTER 2025-03-15 18:46 | Emergency (ER) | payer MEDICARE, MEDICAID ==
[~2025-03-15] VITALS: Ht 165.1 cm; Wt 65.4 kg
[2025-03-15 19:26] LABS: BASO # 0.0 10^3/uL (0.0-0.2); BASO % 0.3 % (0.0-1.0); EOS # 0.0 10^3/uL (0.0-0.5); EOS % 0.1 % (0.0-3.0); LYMPH # 0.6 10^3/uL (1.5-5.0); LYMPH % 5.5 % (24.0-44.0); MONO # 0.8 10^3/uL (0.0-0.8); MONO % 7.5 % (2.0-8.0); NEUTROPHILS # 8.6 10^3/uL (1.5-8.5); NEUTROPHILS % 86.0 % (36.0-66.0); PLATELET COUNT, AUTOMATED 116 10^3/uL (150-450)
[2025-03-15 19:45] LABS: INR 1.23
[2025-03-15 19:50] LABS: CK-MB VALUE MASS < 1.0 NG/ML (<3.6)
[2025-03-15 19:52] LABS: ALT/SGPT 14 U/L (7.0-40); AST/SGOT 24 U/L (<34); CALCIUM LEVEL 7.6 MG/DL (8.3-10.6); CARBON DIOXIDE LEVEL 25 MMOL/L (20-31); CHLORIDE LEVEL 97 MMOL/L (98-107); CREATININE FOR GFR 0.61 MG/DL (0.55-1.30); GLOMERULAR FILTRATION RATE 89.2 (>32); POTASSIUM SERUM 4.2 MMOL/L (3.5-5.1); SODIUM LEVEL 131 MMOL/L (136-145)
[2025-03-15 20:14] LABS: DIGOXIN LEVEL 1.9 NG/ML (0.8-2.0)
[2025-03-15 20:15] LABS: CPK CREATINE PHOSPHOKINASE 30 U/L (34-145)
[2025-03-15 20:36] LABS: VENOUS BASE EXCESS 3.2 (-2.0-2.0); VENOUS HCO3 27.5 MMOL/L (23.0-27.0); VENOUS O2 SATURATION 97.7 % (60.0-80.0); VENOUS PARTIAL PRESSURE CO2 41.0 mmHg (38.0-50.0); VENOUS PARTIAL PRESSURE O2 96.0 mmHg (30.0-50.0); VENOUS PH 7.445 UNITS (7.330-7.430); VENOUS STANDARD HCO3 27.3 MMOL/L; VENOUS TOTAL CO2 28.8 MMOL/L (24.0-28.0)
[2025-03-15 21:05] LABS: CK-MB VALUE MASS 1.3 NG/ML (<3.6)
[2025-03-15 21:06] LABS: CPK CREATINE PHOSPHOKINASE 33.0 U/L (34-145); MB/CK RELATIVE INDEX 3.93 (< OR =4)
[2025-03-15 21:20] LABS: KETONE, URINE AUTO RFX TRACE mg/dL (NEGATIVE); LEUKOCYTE ESTERASE UR AUTO RFX 3+ (NEGATIVE); NITRITE, URINE AUTO RFX POSITIVE (NEGATIVE); RBC, URINE AUTO RFX 45 /HPF (0-3); SQUAM EPITHELIAL CELL UR AURFX 4 /HPF (0-6); TRANSITIONAL EPITHELIAL AU RFX 6 /HPF; WBC, URINE AUTO RFX TNTC /HPF (0-3)
[2025-03-15] MEDS: cefTRIAXone SOD 2 GM in DEXTROSE 5% (D5W) ADV/MINI-BAG 50 ML IV ONE (22:22)
[2025-03-15] MEDS ORDERED: ISOVUE-370 76% 100 ML VIAL As Ordered ONE (23:04)
[2025-03-16] MEDS ORDERED: CEFD1CAP9 PO (00:47)
[2025-03-16] MEDS: ACETAMINOPHEN *IV* 1,000 MG in IV 1 EA IV ONE (03:24)
[2025-03-16] MEDS: KETOROLAC 30 MG/ML 1 ML VIAL IV ONE (05:55)
[2025-03-16 07:30] VITALS: BP 127/63; TEMP 98.6; O2SAT 99
[2025-03-17] MEDS ORDERED: FOSF3PAC2 PO (09:28)
== END 2025-03-16 07:37 | disposition home or self-care (01) ==
LOC: EDBD 18:46 → M ED 18:46
DX: N39.0 Urinary tract infection, site not specified (principal); I50.22 Chronic systolic (congestive) heart failure; I48.91 Unspecified atrial fibrillation; K21.9 Gastro-esophageal reflux disease without esophagitis; E55.9 Vitamin D deficiency, unspecified; Z79.1 Long term (current) use of non-steroidal anti-inflammatories (NSAID); Z79.2 Long term (current) use of antibiotics; Z79.01 Long term (current) use of anticoagulants; Z79.84 Long term (current) use of oral hypoglycemic drugs; Z79.899 Other long term (current) drug therapy
CPT/HCPCS: 70450; 71045; 71275; 72125; 73564; 74176; 80053; 80162; 81001; 82140; 82550; 82553; 82803; 83605; 84145; 84484; 85025; 85610; 85730; 86850; 86900; 86901; 87088; 87186; 87486; 87581; 87633; 87798; 93005; 96374; 96375; 99285; J0131; J0696; J1885; Q9967

== ENCOUNTER → 2025-03-20 | Outpatient (REF) | payer MEDICARE, MEDICAID ==
[~2025-03-20] MED LIST changes: +CEFD1CAP9 PO; +FOSF3PAC2 PO
== END ==
PROVIDERS: ATTEND Internal Medicine
DX: I48.91 Unspecified atrial fibrillation (principal)

== ENCOUNTER → 2025-03-31 | Outpatient (CLI) | payer MEDICARE, MEDICAID ==
[2025-03-31 14:36] LABS: BASO # 0.0 10^3/uL (0.0-0.2); BASO % 0.2 % (0.0-1.0); EOS # 0.0 10^3/uL (0.0-0.5); EOS % 0.2 % (0.0-3.0); LYMPH # 0.6 10^3/uL (1.5-5.0); LYMPH % 9.6 % (24.0-44.0); MONO # 0.6 10^3/uL (0.0-0.8); MONO % 8.8 % (2.0-8.0); NEUTROPHILS # 5.2 10^3/uL (1.5-8.5); NEUTROPHILS % 80.9 % (36.0-66.0); PLATELET COUNT, AUTOMATED 133 10^3/uL (150-450)
[2025-03-31 15:07] LABS: CALCIUM LEVEL 8.4 MG/DL (8.3-10.6); CARBON DIOXIDE LEVEL 27.0 MMOL/L (20-31); CHLORIDE LEVEL 97.0 MMOL/L (98-107); CREATININE FOR GFR 0.73 MG/DL (0.55-1.30); DIGOXIN LEVEL 1.3 NG/ML (0.8-2.0); GLOMERULAR FILTRATION RATE 82.1 (>32); MAGNESIUM LEVEL 2.1 MG/DL (1.8-2.4); POTASSIUM SERUM 4.2 MMOL/L (3.5-5.1); SODIUM LEVEL 133.0 MMOL/L (136-145)
[2025-03-31 16:52] LABS: ESTIMATED AVERAGE GLUCOSE 143.0 MG/DL (60-110)
== END ==
LOC: M RAD 12:07
PROVIDERS: ATTEND Internal Medicine
DX: M51.360 Other intervertebral disc degeneration, lumbar region with discogenic back pain only (principal); R10.2 Pelvic and perineal pain; M25.561 Pain in right knee; I48.91 Unspecified atrial fibrillation; Z96.651 Presence of right artificial knee joint; I95.9 Hypotension, unspecified; E11.9 Type 2 diabetes mellitus without complications

== ENCOUNTER → 2025-04-08 | Outpatient (REF) | payer MEDICARE, MEDICAID ==
[2025-04-08 12:12] LABS: BASO # 0.1 10^3/uL (0.0-0.2); BASO % 1.1 % (0.0-1.0); EOS # 0.1 10^3/uL (0.0-0.5); EOS % 2.0 % (0.0-3.0); LYMPH # 1.0 10^3/uL (1.5-5.0); LYMPH % 18.0 % (24.0-44.0); MONO # 0.5 10^3/uL (0.0-0.8); MONO % 9.4 % (2.0-8.0); NEUTROPHILS # 3.7 10^3/uL (1.5-8.5); NEUTROPHILS % 68.8 % (36.0-66.0); PLATELET COUNT, AUTOMATED 156 10^3/uL (150-450)
[2025-04-08 12:35] LABS: CALCIUM LEVEL 8.4 MG/DL (8.3-10.6); CARBON DIOXIDE LEVEL 30.0 MMOL/L (20-31); CHLORIDE LEVEL 100.0 MMOL/L (98-107); CREATININE FOR GFR 0.65 MG/DL (0.55-1.30); GLOMERULAR FILTRATION RATE 87.9 (>32); POTASSIUM SERUM 4.7 MMOL/L (3.5-5.1); SODIUM LEVEL 139.0 MMOL/L (136-145)
== END ==
PROVIDERS: ATTEND Physician Assistant
DX: R41.0 Disorientation, unspecified (principal)

== ENCOUNTER → 2025-04-10 | Outpatient (REF) | payer MEDICARE, MEDICAID | PROVIDERS: ATTEND Internal Medicine | DX: D64.9 Anemia, unspecified (principal); Z53.8 Procedure and treatment not carried out for other reasons ==

== ENCOUNTER → 2025-05-07 | Outpatient (REF) | payer MEDICARE, MEDICAID ==
[2025-05-07 14:07] LABS: PLATELET COUNT, AUTOMATED 94 10^3/uL (150-450)
[2025-05-07 14:07] LABS: AMORPHOUS SEDIMENT LARGE (NEGATIVE); APPEARANCE, URINE TURBID (CLEAR); BACTERIA, URINE AUTO 2+ (NEGATIVE); BILIRUBIN, URINE AUTO NEGATIVE (NEGATIVE); BLOOD, URINE BLOOD 1+ (NEGATIVE); GLUCOSE, URINE (UA) AUTO NEGATIVE (NEGATIVE); KETONE, URINE AUTO NEGATIVE (NEGATIVE); LEUKOCYTE ESTERASE, URINE AUTO TRACE (NEGATIVE); MUCUS, URINE SMALL (NEGATIVE); NITRITE, URINE AUTO NEGATIVE (NEGATIVE); PROTEIN, URINE AUTO 2+ mg/dL (NEGATIVE); RBC, URINE AUTO 8 /HPF (0-3); SPECIFIC GRAVITY URINE AUTO 1.011 (1.002-1.035); SQUAMOUS EPITHELIAL CELL UR AU TNTC /HPF (0-6); UROBILINOGEN, URINE AUTO 4.0 mg/dL (0.0-2.0); WBC, URINE AUTO 47 /HPF (0-3)
[2025-05-07 14:32] LABS: ALT/SGPT 21 U/L (7.0-40); AST/SGOT 28 U/L (<34); CALCIUM LEVEL 8.7 MG/DL (8.3-10.6); CARBON DIOXIDE LEVEL 27 MMOL/L (20-31); CHLORIDE LEVEL 92 MMOL/L (98-107); CREATININE FOR GFR 0.53 MG/DL (0.55-1.30); DIGOXIN LEVEL 1.8 NG/ML (0.8-2.0); GLOMERULAR FILTRATION RATE > 90.0 (>32); POTASSIUM SERUM 3.8 MMOL/L (3.5-5.1); SODIUM LEVEL 131 MMOL/L (136-145)
== END ==
LOC: SKLAB6 12:57
PROVIDERS: ATTEND Family Medicine
DX: R91.8 Other nonspecific abnormal finding of lung field (principal); K59.00 Constipation, unspecified; R50.9 Fever, unspecified; Z79.899 Other long term (current) drug therapy

== ENCOUNTER → 2025-05-14 | Outpatient (REF) | payer MEDICARE, MEDICAID ==
[2025-05-14 08:21] LABS: PLATELET COUNT, AUTOMATED 183 10^3/uL (150-450)
[2025-05-14 08:47] LABS: CALCIUM LEVEL 8.4 MG/DL (8.3-10.6); CARBON DIOXIDE LEVEL 28 MMOL/L (20-31); CHLORIDE LEVEL 101 MMOL/L (98-107); CREATININE FOR GFR 0.50 MG/DL (0.55-1.30); DIGOXIN LEVEL 1.3 NG/ML (0.8-2.0); GLOMERULAR FILTRATION RATE > 90.0 (>32); POTASSIUM SERUM 4.0 MMOL/L (3.5-5.1); SODIUM LEVEL 138 MMOL/L (136-145)
== END ==
LOC: SKLAB6 07:00
PROVIDERS: ATTEND Family Medicine
DX: I50.9 Heart failure, unspecified (principal); E11.9 Type 2 diabetes mellitus without complications; E87.1 Hypo-osmolality and hyponatremia; D69.6 Thrombocytopenia, unspecified

== ENCOUNTER → 2025-07-08 | Outpatient (REF) | payer MEDICARE, MEDICAID | LOC: SKLAB6 10:29 | PROVIDERS: ATTEND Family Medicine | DX: Z11.2 Encounter for screening for other bacterial diseases (principal); Z20.818 Contact with and (suspected) exposure to other bacterial communicable diseases ==

== ENCOUNTER → 2025-07-14 | Outpatient (REF) | payer MEDICARE, MEDICAID ==
[2025-07-14 12:21] LABS: PLATELET COUNT, AUTOMATED 108 10^3/uL (150-450)
[2025-07-14 12:47] LABS: CALCIUM LEVEL 8.0 MG/DL (8.3-10.6); CARBON DIOXIDE LEVEL 24 MMOL/L (20-31); CHLORIDE LEVEL 103 MMOL/L (98-107); CREATININE FOR GFR 0.56 MG/DL (0.55-1.30); GLOMERULAR FILTRATION RATE > 90.0 (>32); POTASSIUM SERUM 3.5 MMOL/L (3.5-5.1); SODIUM LEVEL 137 MMOL/L (136-145)
== END ==
LOC: SKLAB6 10:30
PROVIDERS: ATTEND Family Medicine
DX: R09.89 Other specified symptoms and signs involving the circulatory and respiratory systems (principal); R53.83 Other fatigue; J98.4 Other disorders of lung

== ENCOUNTER → 2025-07-15 | Outpatient (REF) | payer MEDICARE, MEDICAID ==
[2025-07-15 10:27] LABS: CALCIUM LEVEL 8.2 MG/DL (8.3-10.6); CARBON DIOXIDE LEVEL 26 MMOL/L (20-31); CHLORIDE LEVEL 100 MMOL/L (98-107); CREATININE FOR GFR 0.49 MG/DL (0.55-1.30); GLOMERULAR FILTRATION RATE > 90.0 (>32); POTASSIUM SERUM 3.9 MMOL/L (3.5-5.1); SODIUM LEVEL 137 MMOL/L (136-145)
== END ==
LOC: SKLAB6 07:00
PROVIDERS: ATTEND Family Medicine
DX: Z79.899 Other long term (current) drug therapy (principal)

== ENCOUNTER → 2025-07-16 | Outpatient (REF) | payer MEDICARE, MEDICAID ==
[2025-07-16 13:12] LABS: ESTIMATED AVERAGE GLUCOSE 105.0 MG/DL (60-110)
== END ==
LOC: SKLAB6 10:56
PROVIDERS: ATTEND Family Medicine
DX: E11.9 Type 2 diabetes mellitus without complications (principal)